=== PATIENT | female | born 1945 | race Two or more races ===

== ENCOUNTER 2017-06-29 15:55 | Emergency (ER) | payer MEDICARE, OTHER ==
[~2017-06-29] VITALS: Ht 152.4 cm; Wt 238.0 kg
[2017-06-29 16:01] VITALS: BP 186/70
[2017-06-29] MEDS ORDERED: PRAV10TA4 PO (16:16)
[2017-06-29] MEDS ORDERED: ROPI2TAB PO (16:16)
[2017-06-29] MEDS ORDERED: DITR1TAB PO (16:16)
[2017-06-29] MEDS ORDERED: DILT120C79 PO (16:16)
[2017-06-29] MEDS ORDERED: SERT-155 PO (16:16)
[2017-06-29] MEDS ORDERED: IBUP-1114 PO (16:16)
[2017-06-29] MEDS ORDERED: MINEOIL60 PO (16:16)
[2017-06-29] MEDS ORDERED: INSUH10VL SC (16:16)
[2017-06-29] MEDS ORDERED: FURO40TA2 PO (16:16)
[2017-06-29] MEDS ORDERED: MONT10TA2 PO (16:16)
[2017-06-29] MEDS ORDERED: INSULADS INJ (16:16)
[2017-06-29] MEDS ORDERED: LEVO125T4 PO (16:16)
[2017-06-29] MEDS ORDERED: OXYC1TAB15 PO (16:16)
[2017-06-29] MEDS ORDERED: COZA100T2 PO (16:16)
[2017-06-29] MEDS ORDERED: OMEP40CA2 PO (16:16)
[2017-06-29] MEDS ORDERED: GABA600T PO (16:16)
[2017-06-29] MEDS ORDERED: CIPR-249 PO (17:30)
[2017-06-29] MEDS ORDERED: CIPROFLOXACIN 500 MG TAB PO ONE (18:00)
[2017-08-21] MEDS ORDERED: DIABETES MED PO (12:52)
[2017-08-21] MEDS ORDERED: MOBI4TAB PO (14:33)
== END 2017-06-29 18:06 | disposition home or self-care (01) ==
LOC: M ED 15:55
DX: S40.012A Contusion of left shoulder, initial encounter (principal); L89.891 Pressure ulcer of other site, stage 1; X58.XXXA Exposure to other specified factors, initial encounter; Y92.89 Other specified places as the place of occurrence of the external cause; Y93.9 Activity, unspecified; Y99.8 Other external cause status; R30.0 Dysuria; E11.9 Type 2 diabetes mellitus without complications; Z79.4 Long term (current) use of insulin; Z87.891 Personal history of nicotine dependence

== ENCOUNTER → 2017-07-10 | Outpatient (REF) | payer MEDICARE, OTHER ==
[~2017-07-10] MED LIST: CIPR-249 PO; COZA100T2 PO; DIABETES MED PO; DILT120C79 PO; DITR1TAB PO; FURO40TA2 PO; GABA600T PO; IBUP-1114 PO; INSUH10VL SC; INSULADS INJ; LEVO125T4 PO; MINEOIL60 PO; MOBI4TAB PO; MONT10TA2 PO; OMEP40CA2 PO; OXYC1TAB15 PO; PRAV10TA4 PO; ROPI2TAB PO; SERT-155 PO
[2017-07-10 14:07] LABS: MEAN CORPUSCULAR HEMOGLOBIN 28.4 pg (27.0-33.0); MEAN CORPUSCULAR HGB CONC 32.5 g/dl (32.0-36.5); MEAN CORPUSCULAR VOLUME 87.2 fl (80.0-96.0); RED CELL DISTRIBUTION WIDTH 13.8 % (11.5-14.5); WHITE BLOOD COUNT 9.6 K/mm3 (4.0-10.0)
[2017-07-10 14:11] LABS: ALBUMIN 3.6 GM/DL (3.2-5.2); ALBUMIN/GLOBULIN RATIO 0.92 (1.00-1.93); ALKALINE PHOSPHATASE 169 U/L (45-117); ALT/SGPT 20 U/L (12-78); ANION GAP 12 MEQ/L (8-16); AST/SGOT 13 U/L (15-37); BILIRUBIN,TOTAL 0.8 MG/DL (0.2-1.0); BLOOD UREA NITROGEN 13 MG/DL (7-18); CALCIUM LEVEL 9.1 MG/DL (8.8-10.2); CARBON DIOXIDE LEVEL 29 MEQ/L (21-32); CHLORIDE LEVEL 106 MEQ/L (98-107); CHOLESTEROL LEVEL 200 MG/DL (<200); CREATININE FOR GFR 0.74 MG/DL (0.55-1.02); GLOMERULAR FILTRATION RATE > 60.0 (>39); GLUCOSE, FASTING 122 MG/DL (83-110); POTASSIUM SERUM 3.7 MEQ/L (3.5-5.1); SODIUM LEVEL 147 MEQ/L (136-145); TOTAL PROTEIN 7.5 GM/DL (6.4-8.2); TRIGLYCERIDES LEVEL 89 MG/DL (<150)
== END ==
LOC: M SFHCPLAZ 10:50
PROVIDERS: ATTEND Nurse Practitioner Adult Health
DX: I10 Essential (primary) hypertension (principal); E11.65 Type 2 diabetes mellitus with hyperglycemia; E78.2 Mixed hyperlipidemia; E03.9 Hypothyroidism, unspecified
CPT/HCPCS: 36415; 80053; 80061; 82043; 83036; 84443; 85027; G0463

== ENCOUNTER → 2017-11-27 | Outpatient (REF) | payer OTHER ==
[2017-11-27 15:41] LABS: ESTIMATED AVERAGE GLUCOSE 232 MG/DL (60-110); HEMOGLOBIN A1c 9.7 %
[2017-11-27 16:13] LABS: ALBUMIN 3.7 GM/DL (3.2-5.2); ALBUMIN/GLOBULIN RATIO 0.86 (1.00-1.93); ALKALINE PHOSPHATASE 149 U/L (45-117); ALT/SGPT 24 U/L (12-78); ANION GAP 11 MEQ/L (8-16); AST/SGOT 26 U/L (7-37); BILIRUBIN,TOTAL 1.2 MG/DL (0.2-1.0); BLOOD UREA NITROGEN 20 MG/DL (7-18); CALCIUM LEVEL 9.2 MG/DL (8.8-10.2); CARBON DIOXIDE LEVEL 26 MEQ/L (21-32); CHLORIDE LEVEL 105 MEQ/L (98-107); CHOLESTEROL LEVEL 202 MG/DL (<200); CHOLESTEROL RISK RATIO 3.311 (<5); CREATININE FOR GFR 0.77 MG/DL (0.55-1.30); GLOMERULAR FILTRATION RATE > 60.0 (>39); GLUCOSE, FASTING 142 MG/DL (70-100); HDL CHOLESTEROL 61 MG/DL (>40); NON-HDL-C 141 MG/DL; POTASSIUM SERUM 4.1 MEQ/L (3.5-5.1); SODIUM LEVEL 142 MEQ/L (136-145); TRIGLYCERIDES LEVEL 105 MG/DL (<150)
[2017-11-27 17:00] LABS: MAU/CREAT RATIO 904.6 MCG/MG (0.0-30.0)
== END ==
LOC: M SFHCPLAZ 09:16
DX: E11.65 Type 2 diabetes mellitus with hyperglycemia (principal); E03.9 Hypothyroidism, unspecified; E78.2 Mixed hyperlipidemia
CPT/HCPCS: 84443

== ENCOUNTER → 2018-01-07 | Outpatient (REF) | payer MEDICARE ==
[2018-01-07 18:06] LABS: APPEARANCE, URINE CLEAR (CLEAR); BACTERIA, URINE AUTO 1+ (NEGATIVE); BILIRUBIN, URINE AUTO NEGATIVE (NEGATIVE); BLOOD, URINE BLOOD 2+ (NEGATIVE); COLOR, URINE STRAW (YELLOW); GLUCOSE, URINE (UA) AUTO 3+ mg/dL (NEGATIVE); KETONE, URINE AUTO 1+ mg/dL (NEGATIVE); LEUKOCYTE ESTERASE, URINE AUTO TRACE (NEGATIVE); NITRITE, URINE AUTO NEGATIVE (NEGATIVE); PROTEIN, URINE AUTO 1+ mg/dL (NEGATIVE); RBC, URINE AUTO 2 /HPF (0-3); SQUAMOUS EPITHELIAL CELL UR AU 1 /HPF (0-6); UROBILINOGEN, URINE AUTO 0.2 mg/dL (0.0-2.0); WBC, URINE AUTO 11 /HPF (0-3)
== END ==
LOC: M SFHCPLAZ 16:49
DX: B37.3 Candidiasis of vulva and vagina (principal); Z79.899 Other long term (current) drug therapy
CPT/HCPCS: 81001

== ENCOUNTER 2018-03-12 12:21 | Outpatient (RCR) | payer MEDICARE | END 2018-03-26 | LOC: M PT 12:21 | DX: Z51.89 Encounter for other specified aftercare (principal); R29.6 Repeated falls | CPT/HCPCS: 97110 ==

== ENCOUNTER → 2018-03-13 | Outpatient (CLI) | payer MEDICARE | LOC: M WHC 11:02 | DX: Z12.31 Encounter for screening mammogram for malignant neoplasm of breast (principal); Z78.0 Asymptomatic menopausal state | CPT/HCPCS: 77067 ==

== ENCOUNTER → 2018-03-24 | Outpatient (CLI) | payer MEDICARE ==
[2018-03-24 12:25] LABS: FREE T4 1.74 NG/DL (0.76-1.46); THYROID STIMULATING HORMONE 0.576 uIU/ML (0.358-3.740)
[2018-03-26 00:07] LABS: TISSUE TRANSGLUTAMINASE IgA 7 U/mL (0-3)
== END ==
LOC: M LAB 11:14
DX: R19.7 Diarrhea, unspecified (principal)
CPT/HCPCS: 84443

== ENCOUNTER → 2018-03-24 | Outpatient (REF) | payer MEDICARE | LOC: M LAB REF 12:29 | DX: R19.7 Diarrhea, unspecified (principal) ==

== ENCOUNTER 2018-03-31 14:30 | Outpatient (RCR) | payer MEDICARE | END 2018-04-25 | LOC: M PT 14:30 | DX: Z51.89 Encounter for other specified aftercare (principal); R29.6 Repeated falls | CPT/HCPCS: 97110 ==

== ENCOUNTER 2018-04-13 06:19 | Day surgery (SDC) | payer MEDICARE ==
[2018-04-13] MEDS: NS 1,000 ML IV (07:14)
[2018-04-13] MEDS ORDERED: LIDOCAINE 2% INJ 100 MG/5 ML SDV (FOR ANES.) As Ordered (07:18)
[2018-04-13] MEDS ORDERED: PROPOFOL 200 MG/20 ML VIAL As Ordered ×2 (07:18→07:49)
== END 2018-04-13 08:35 | disposition home or self-care (01) ==
LOC: M OPP 06:19
DX: D12.3 Benign neoplasm of transverse colon (principal); K64.8 Other hemorrhoids; K57.30 Diverticulosis of large intestine without perforation or abscess without bleeding; R19.7 Diarrhea, unspecified; R19.4 Change in bowel habit; E10.9 Type 1 diabetes mellitus without complications; I10 Essential (primary) hypertension; E03.9 Hypothyroidism, unspecified; F41.9 Anxiety disorder, unspecified; F32.9 Major depressive disorder, single episode, unspecified; R32 Unspecified urinary incontinence; Z79.4 Long term (current) use of insulin; Z79.899 Other long term (current) drug therapy; Z88.8 Allergy status to other drugs, medicaments and biological substances; Z87.891 Personal history of nicotine dependence
CPT/HCPCS: 45385

== ENCOUNTER → 2018-05-05 | Outpatient (CLI) | payer MEDICARE ==
[2018-05-05 13:00] LABS: ESTIMATED AVERAGE GLUCOSE 214 MG/DL (60-110); HEMOGLOBIN A1c 9.1 %
[2018-05-05 13:19] LABS: ALBUMIN 3.6 GM/DL (3.2-5.2); ALBUMIN/GLOBULIN RATIO 1.06 (1.00-1.93); ALKALINE PHOSPHATASE 130 U/L (45-117); ALT/SGPT 16 U/L (12-78); ANION GAP 7 MEQ/L (8-16); AST/SGOT 12 U/L (7-37); BILIRUBIN,TOTAL 0.7 MG/DL (0.2-1.0); BLOOD UREA NITROGEN 22 MG/DL (7-18); CALCIUM LEVEL 8.9 MG/DL (8.8-10.2); CARBON DIOXIDE LEVEL 29 MEQ/L (21-32); CHLORIDE LEVEL 106 MEQ/L (98-107); CHOLESTEROL LEVEL 153 MG/DL (<200); CHOLESTEROL RISK RATIO 2.637 (<5); GLOMERULAR FILTRATION RATE > 60.0 (>39); GLUCOSE, FASTING 168 MG/DL (70-100); HDL CHOLESTEROL 58 MG/DL (>40); LDL CHOLESTEROL 80.2 MG/DL (<100); NON-HDL-C 95 MG/DL; POTASSIUM SERUM 4.4 MEQ/L (3.5-5.1); SODIUM LEVEL 142 MEQ/L (136-145); TRIGLYCERIDES LEVEL 74 MG/DL (<150)
[2018-05-05 13:20] LABS: CREATININE, URINE 22.4 MG/DL; MAU/CREAT RATIO 459.8 MCG/MG (0.0-30.0)
[2018-05-07 00:09] LABS: IgG P18 AB Absent (.); IgG P23 AB Absent (.); IgG P28 AB Absent (.); IgG P30 AB Absent (.); IgG P39 AB Absent (.); IgG P41 AB Present (.); IgG P45 AB Absent (.); IgG P58 AB Absent (.); IgG P66 AB Absent (.); IgG P93 AB Absent (.); IgM P23 AB Absent (.); IgM P39 AB Absent (.); IgM P41 AB Absent (.); LYME IgG WB INTERPRETATION Negative (.); LYME IgM WB INTERPRETATION Negative (.)
== END ==
LOC: M LAB 11:31
DX: E11.65 Type 2 diabetes mellitus with hyperglycemia (principal); E78.2 Mixed hyperlipidemia; E03.9 Hypothyroidism, unspecified; W57.XXXD Bitten or stung by nonvenomous insect and other nonvenomous arthropods, subsequent encounter; Y92.89 Other specified places as the place of occurrence of the external cause
CPT/HCPCS: 84443

== ENCOUNTER 2018-06-05 11:55 | Day surgery (SDC) | payer MEDICARE ==
[~2018-06-05 11:55] MED LIST changes: -CIPR-249 PO; -COZA100T2 PO; -DIABETES MED PO; -DILT120C79 PO; -DITR1TAB PO; -FURO40TA2 PO; -GABA600T PO; -IBUP-1114 PO; -INSUH10VL SC; -INSULADS INJ; -LEVO125T4 PO; -MINEOIL60 PO; -MOBI4TAB PO; -MONT10TA2 PO; +NS 1,000 ML IV; -OMEP40CA2 PO; -OXYC1TAB15 PO; -PRAV10TA4 PO; -ROPI2TAB PO; -SERT-155 PO
[2018-06-05] MEDS ORDERED: PROPOFOL 200 MG/20 ML VIAL As Ordered (12:12)
[2018-06-05] MEDS ORDERED: LIDOCAINE 2% INJ 100 MG/5 ML SDV (FOR ANES.) As Ordered (12:12)
[2018-06-05 13:04] LABS: BEDSIDE GLUCOSE 231 MG/DL (83-110)
[2018-06-05] MEDS ORDERED: fentaNYL 100 MCG/2 ML INJECTION (J3010) As Ordered (13:16)
[2018-06-05] MEDS ORDERED: MIDAZOLAM INJ 2 MG/2 ML VIAL (J2250) As Ordered (13:16)
== END 2018-06-05 14:20 | disposition home or self-care (01) ==
LOC: M OPP 11:55
DX: R76.8 Other specified abnormal immunological findings in serum (principal); K29.70 Gastritis, unspecified, without bleeding; G47.30 Sleep apnea, unspecified; I10 Essential (primary) hypertension; E03.9 Hypothyroidism, unspecified; F32.9 Major depressive disorder, single episode, unspecified; G62.9 Polyneuropathy, unspecified; M54.2 Cervicalgia; M12.9 Arthropathy, unspecified; R06.09 Other forms of dyspnea; Z79.4 Long term (current) use of insulin; Z79.82 Long term (current) use of aspirin; Z79.899 Other long term (current) drug therapy; Z88.8 Allergy status to other drugs, medicaments and biological substances; Z80.0 Family history of malignant neoplasm of digestive organs
CPT/HCPCS: 43239

== ENCOUNTER → 2018-07-01 | Outpatient (REF) | payer OTHER, MEDICARE | LOC: M SFHCPLAZ 17:15 | DX: R30.9 Painful micturition, unspecified (principal) | CPT/HCPCS: 87186 ==

== ENCOUNTER → 2018-07-15 | Outpatient (REF) | payer OTHER ==
[2018-07-15 19:00] LABS: ESTIMATED AVERAGE GLUCOSE 237 MG/DL (60-110); HEMOGLOBIN A1c 9.9 %
[2018-07-15 19:14] LABS: ALBUMIN 3.7 GM/DL (3.2-5.2); ALBUMIN/GLOBULIN RATIO 0.93 (1.00-1.93); ALKALINE PHOSPHATASE 131 U/L (45-117); ALT/SGPT 18 U/L (12-78); ANION GAP 10 MEQ/L (8-16); AST/SGOT 10 U/L (7-37); BILIRUBIN,TOTAL 0.9 MG/DL (0.2-1.0); BLOOD UREA NITROGEN 16 MG/DL (7-18); CALCIUM LEVEL 9.4 MG/DL (8.8-10.2); CARBON DIOXIDE LEVEL 28 MEQ/L (21-32); CHLORIDE LEVEL 103 MEQ/L (98-107); CHOLESTEROL LEVEL 168 MG/DL (<200); CHOLESTEROL RISK RATIO 2.896 (<5); CREATININE FOR GFR 0.77 MG/DL (0.55-1.30); GLOMERULAR FILTRATION RATE > 60.0 (>39); GLUCOSE, FASTING 228 MG/DL (70-100); HDL CHOLESTEROL 58 MG/DL (>40); LDL CHOLESTEROL 87 MG/DL (<100); NON-HDL-C 110 MG/DL; POTASSIUM SERUM 4.4 MEQ/L (3.5-5.1); SODIUM LEVEL 141 MEQ/L (136-145); TOTAL PROTEIN 7.7 GM/DL (6.4-8.2); TRIGLYCERIDES LEVEL 116 MG/DL (<150)
[2018-07-15 19:42] LABS: MAU/CREAT RATIO 320.5 MCG/MG (0.0-30.0)
== END ==
LOC: M SFHCPLAZ 15:59
DX: E11.65 Type 2 diabetes mellitus with hyperglycemia (principal); E78.2 Mixed hyperlipidemia; E03.9 Hypothyroidism, unspecified
CPT/HCPCS: 84443

== ENCOUNTER → 2018-08-12 | Outpatient (CLI) | payer MEDICARE, OTHER ==
[~2018-08-12] MED LIST changes: +METHACHOLINE KIT (J7674) INH; -NS 1,000 ML IV
== END ==
LOC: M CARPUL 09:00
DX: R06.02 Shortness of breath (principal)
CPT/HCPCS: J7674

== ENCOUNTER 2018-08-17 11:49 | Day surgery (SDC) | payer MEDICARE ==
[~2018-08-17 11:49] MED LIST changes: -METHACHOLINE KIT (J7674) INH; +MIDAZOLAM INJ 2 MG/2 ML VIAL (J2250) As Ordered; +fentaNYL 100 MCG/2 ML INJECTION (J3010) As Ordered
[2018-08-17 12:59] LABS: BEDSIDE GLUCOSE 116 MG/DL (83-110)
[2018-08-17] MEDS: LIDOCAINE 3.5 % 1ML OPHTH TOPICAL GEL OU (13:17)
[2018-08-17] MEDS: POVIDONE-IODINE 5% OPHTH PREP SOL 30ML As Ordered (17:20)
[2018-08-17] MEDS: LIDOCAINE 2% W/EPIN INJ 20ML **PRES FREE As Ordered (17:25)
[2018-08-17] MEDS: TETRACAINE 0.5% OPHTH SOLN 4ML As Ordered (17:37)
[2018-08-17] MEDS: ERYTHROMYCIN OPHTH OINT As Ordered ×2 (18:32)
[2018-08-17] MEDS: MAXITROL OPHTH OINT 3.5 GM As Ordered (18:37)
[2018-08-17 18:56] LABS: BEDSIDE GLUCOSE 77 MG/DL (83-110)
== END 2018-08-17 20:00 | disposition home or self-care (01) ==
LOC: M SDC 11:49
DX: H02.831 Dermatochalasis of right upper eyelid (principal); H02.834 Dermatochalasis of left upper eyelid; H02.413 Mechanical ptosis of bilateral eyelids; I10 Essential (primary) hypertension; E78.2 Mixed hyperlipidemia; E11.65 Type 2 diabetes mellitus with hyperglycemia; I87.2 Venous insufficiency (chronic) (peripheral); E03.9 Hypothyroidism, unspecified; R19.7 Diarrhea, unspecified; K21.9 Gastro-esophageal reflux disease without esophagitis; G25.81 Restless legs syndrome; R06.02 Shortness of breath; M12.9 Arthropathy, unspecified; F41.9 Anxiety disorder, unspecified; F32.9 Major depressive disorder, single episode, unspecified; G62.9 Polyneuropathy, unspecified; R06.83 Snoring; G47.30 Sleep apnea, unspecified; E66.9 Obesity, unspecified; Z68.42 Body mass index [BMI] 45.0-49.9, adult; Z88.1 Allergy status to other antibiotic agents; Z88.8 Allergy status to other drugs, medicaments and biological substances; Z79.899 Other long term (current) drug therapy; Z79.4 Long term (current) use of insulin; Z79.82 Long term (current) use of aspirin; Z98.51 Tubal ligation status; Z98.41 Cataract extraction status, right eye; Z98.42 Cataract extraction status, left eye; Z96.1 Presence of intraocular lens
CPT/HCPCS: 15823

== ENCOUNTER 2018-09-20 06:13 | Emergency (ER) | payer MEDICARE ==
[2018-09-20 07:27] LABS: VENOUS BASE EXCESS 3.5 (-2.0-2.0); VENOUS PARTIAL PRESSURE CO2 60.5 mmHg (38.0-50.0); VENOUS PARTIAL PRESSURE O2 35.4 mmHg (30.0-50.0); VENOUS PH 7.328 UNITS (7.330-7.430); VENOUS STANDARD HCO3 26.7 MEQ/L; VENOUS TOTAL CO2 32.9 MEQ/L (24.0-28.0)
[2018-09-20 07:28] LABS: VENOUS O2 SATURATION 62.8 % (60.0-80.0)
[2018-09-20 07:33] LABS: BASO # 0.1 10^3/uL (0.0-0.2); BASO % 0.5 % (0.0-1.0); EOS # 0.1 10^3/uL (0.0-0.50); EOS % 1.3 % (0.0-3.0); HEMATOCRIT 40.8 % (36.0-47.0); HEMOGLOBIN 12.8 g/dl (12.0-15.5); IMMATURE GRANULOCYTE % 0.8 % (0-3.0); LYMPH # 2.1 10^3/uL (1.5-4.5); LYMPH % 19.9 % (24.0-44.0); MEAN CORPUSCULAR HEMOGLOBIN 27.9 pg (27.0-33.0); MEAN CORPUSCULAR HGB CONC 31.4 g/dl (32.0-36.5); MEAN CORPUSCULAR VOLUME 89.1 fl (80.0-96.0); MONO # 0.6 10^3/uL (0.0-0.8); NEUTROPHILS # 7.6 10^3/uL (1.8-7.7); NEUTROPHILS % 71.5 % (36.0-66.0); PLATELET COUNT, AUTOMATED 199 10^3/uL (150-450); RED BLOOD COUNT 4.58 10^6/uL (4.00-5.40); RED CELL DISTRIBUTION WIDTH 13.7 % (11.5-14.5); WHITE BLOOD COUNT 10.6 10^3/uL (4.0-10.0)
[2018-09-20 07:35] LABS: INFLUENZA A AMPLIFICATION NEGATIVE (NEGATIVE); INFLUENZA B AMPLIFICATION NEGATIVE (NEGATIVE)
[2018-09-20 07:55] LABS: INR 0.91; PROTHROMBIN TIME 12.4 SECONDS (12.1-14.4)
[2018-09-20 07:57] LABS: ALBUMIN 3.4 GM/DL (3.2-5.2); ALBUMIN/GLOBULIN RATIO 1.06 (1.00-1.93); ALKALINE PHOSPHATASE 127 U/L (45-117); ALT/SGPT 21 U/L (12-78); ANION GAP 4 MEQ/L (8-16); AST/SGOT 12 U/L (7-37); BILIRUBIN,DIRECT 0.2 MG/DL (0.0-0.2); BILIRUBIN,TOTAL 0.7 MG/DL (0.2-1.0); BLOOD UREA NITROGEN 20 MG/DL (7-18); CARBON DIOXIDE LEVEL 31 MEQ/L (21-32); CHLORIDE LEVEL 106 MEQ/L (98-107); CPK CREATINE PHOSPHOKINASE 39 U/L (26-192); CREATININE FOR GFR 0.75 MG/DL (0.55-1.30); GLOMERULAR FILTRATION RATE > 60.0 (>39); GLUCOSE, FASTING 94 MG/DL (70-100); NT-PRO BNP 520 PG/ML (<125); POTASSIUM SERUM 3.9 MEQ/L (3.5-5.1); SODIUM LEVEL 141 MEQ/L (136-145); TOTAL PROTEIN 6.6 GM/DL (6.4-8.2); TROPONIN I 0.02 NG/ML (< 0.10)
[2018-09-20 07:58] LABS: D-DIMER QUANT 906.62 ng/ml (<500)
[2018-09-20] MEDS ORDERED: ISOVUE-370 76% 100ML VIAL (Q9967) As Ordered (08:10)
[2018-09-20 08:56] LABS: KETONE, URINE AUTO RFX NEGATIVE (NEGATIVE); MUCUS, URINE RFX SMALL (NEGATIVE); NITRITE, URINE AUTO RFX NEGATIVE (NEGATIVE); RBC, URINE AUTO RFX 4 /HPF (0-3); SPECIFIC GRAVITY UR AUTO RFX 1.021 (1.002-1.035); SQUAM EPITHELIAL CELL UR AURFX 0 /HPF (0-6); TRANSITIONAL EPITHELIAL AU RFX 1 /HPF
[2018-09-20 08:57] LABS: LEUKOCYTE ESTERASE UR AUTO RFX 2+ (NEGATIVE); WBC, URINE AUTO RFX 23 /HPF (0-3)
[2018-09-20] MEDS: FUROSEMIDE 40 MG/4 ML VIAL (J1940) IV (09:23)
== END 2018-09-20 11:15 | disposition home or self-care (01) ==
LOC: M ED 06:13
DX: I50.9 Heart failure, unspecified (principal); I11.0 Hypertensive heart disease with heart failure; E11.9 Type 2 diabetes mellitus without complications
CPT/HCPCS: Q9967

== ENCOUNTER → 2018-10-06 | Outpatient (REF) | payer MEDICARE ==
[~2018-10-06] MED LIST changes: +ASPI81TA85 PO; +CALC1TAB42 PO; +CELE40TA PO; +CENT1TAB PO; +CIPR-249 PO; +COZA100T2 PO; +DIABETES MED PO; +DILT1CAP48 PO; +DITR1TAB PO; +FURO40TA2 PO; +GABA-843 PO; +GABA600T4 PO; +GLIP5TAB8 PO; +IBUP-1022 PO; +IBUP-1114 PO; +INSUH10VL SC; +INSULADS INJ; +K-TA10TA2 PO; +LEVO125T4 PO; +METF500T13 PO; -MIDAZOLAM INJ 2 MG/2 ML VIAL (J2250) As Ordered; +MINEOIL60 PO; +MOBI4TAB PO; +MONT10TA2 PO; +NOVOINJ5 SC; +OMEP40CA2 PO; +OXYC1TAB15 PO; +PRAV10TA4 PO; +REQU2TAB3; +ROPI2TAB PO; +SERT-155 PO; +SIMV40TA2 PO; +SOMA350T PO; -fentaNYL 100 MCG/2 ML INJECTION (J3010) As Ordered
[2018-10-06 15:55] LABS: BLOOD UREA NITROGEN 25 MG/DL (7-18); CALCIUM LEVEL 8.9 MG/DL (8.8-10.2); CARBON DIOXIDE LEVEL 30 MEQ/L (21-32); CHLORIDE LEVEL 104 MEQ/L (98-107); CREATININE FOR GFR 0.79 MG/DL (0.55-1.30); GLOMERULAR FILTRATION RATE > 60.0 (>39); GLUCOSE, FASTING 135 MG/DL (70-100); NT-PRO BNP 363 PG/ML (<125); POTASSIUM SERUM 4.4 MEQ/L (3.5-5.1); SODIUM LEVEL 141 MEQ/L (136-145)
[2018-10-06 16:25] LABS: HEMOGLOBIN A1c 8.7 %
== END ==
LOC: M SFHCPLAZ 12:45
PROVIDERS: ATTEND Nurse Practitioner Adult Health
DX: I50.9 Heart failure, unspecified (principal); E11.65 Type 2 diabetes mellitus with hyperglycemia
CPT/HCPCS: 36415; 80048; 83036; 83880; G0463

== ENCOUNTER → 2018-10-14 | Outpatient (CLI) | payer MEDICARE ==
[~2018-10-14] MED LIST changes: +GABA600T PO; -GABA600T4 PO; +METHACHOLINE KIT (J7674) INH ONE
--- NOTE | 2018-10-14 14:40 | PFTRPT ---
Height: 60.00 Inches Weight: 212.00 Lbs BSA: 1.91 Diagnosis: R06.02 DATE OF PROCEDURE: 10/14/2018 ORDERING PROVIDER: Tori Rausch RN, ANP Spirometry: Pre and post bronchodilator study of excellent technical quality. Forced vital capacity reduced. FEV1 is in proportion. Obstructive index is, therefore, normal. Flow Volume Loop: Expiratory limb of the flow volume loop does suggest predominantly combined dysfunction. Favorable bronchodilator response is identified. Lung Volumes: Total lung capacity mildly reduced. Residual volume is generally in proportion. Diffusing Capacity: Diffusing capacity, although mildly reduced, is appropriate for alveolar volume. Hemoglobin: No hemoglobin available for correction. Airway Mechanics: Airway resistance and conductance are normal. IMPRESSION: Minimal restrictive ventilatory impairment, but suspect an underlying obstruction with air trapping/bronchodilator response. Mild diffusing capacity impairment. Please correlate clinically. MTDD
== END ==
LOC: M CARPUL 12:52
PROVIDERS: ATTEND Nurse Practitioner Adult Health
DX: R06.02 Shortness of breath (principal)
CPT/HCPCS: 94060; 94726; 94729; J7674

== ENCOUNTER → 2019-03-04 | Outpatient (REF) | payer MEDICARE ==
[~2019-03-04] MED LIST changes: +DILT120C78 PO; -DILT1CAP48 PO; -GABA600T PO; +GABA600T4 PO; -METHACHOLINE KIT (J7674) INH ONE
[2019-03-04 14:15] LABS: CREATININE, URINE 49.3 MG/DL
[2019-03-04 14:18] LABS: ALBUMIN 3.3 GM/DL (3.2-5.2); ALT/SGPT 22 U/L (12-78); BILIRUBIN,TOTAL 0.7 MG/DL (0.2-1.0); BLOOD UREA NITROGEN 21 MG/DL (7-18); CARBON DIOXIDE LEVEL 25 MEQ/L (21-32); CHLORIDE LEVEL 107 MEQ/L (98-107); CHOLESTEROL LEVEL 163 MG/DL (<200); CHOLESTEROL RISK RATIO 2.762 (<5); CREATININE FOR GFR 0.76 MG/DL (0.55-1.30); GLOMERULAR FILTRATION RATE > 60.0 (>39); GLUCOSE, FASTING 214 MG/DL (70-100); HDL CHOLESTEROL 59 MG/DL (>40); LDL CHOLESTEROL 88 MG/DL (<100); NON-HDL-C 104 MG/DL; POTASSIUM SERUM 4.9 MEQ/L (3.5-5.1); SODIUM LEVEL 140 MEQ/L (136-145); TOTAL PROTEIN 6.9 GM/DL (6.4-8.2); TRIGLYCERIDES LEVEL 80 MG/DL (<150)
== END ==
LOC: M SFHCPLAZ 11:27
PROVIDERS: ATTEND Nurse Practitioner Adult Health
DX: E11.65 Type 2 diabetes mellitus with hyperglycemia (principal); E78.2 Mixed hyperlipidemia; E03.9 Hypothyroidism, unspecified

== ENCOUNTER → 2019-05-13 | Outpatient (REF) | payer MEDICARE ==
[2019-05-13 12:56] LABS: ALBUMIN 3.4 GM/DL (3.2-5.2); ALT/SGPT 24 U/L (12-78); BILIRUBIN,TOTAL 0.8 MG/DL (0.2-1.0); BLOOD UREA NITROGEN 27 MG/DL (7-18); CALCIUM LEVEL 9.2 MG/DL (8.8-10.2); CARBON DIOXIDE LEVEL 29 MEQ/L (21-32); CHLORIDE LEVEL 103 MEQ/L (98-107); CHOLESTEROL LEVEL 178 MG/DL (<200); CHOLESTEROL RISK RATIO 3.178 (<5); CREATININE FOR GFR 0.91 MG/DL (0.55-1.30); GLOMERULAR FILTRATION RATE > 60.0 (>39); GLUCOSE, FASTING 259 MG/DL (70-100); HDL CHOLESTEROL 56 MG/DL (>40); LDL CHOLESTEROL 96 MG/DL (<100); MAU/CREAT RATIO 279.6 MCG/MG (0.0-30.0); NON-HDL-C 122 MG/DL; POTASSIUM SERUM 4.1 MEQ/L (3.5-5.1); SODIUM LEVEL 140 MEQ/L (136-145); TOTAL PROTEIN 7.5 GM/DL (6.4-8.2); TRIGLYCERIDES LEVEL 128 MG/DL (<150)
[2019-05-13 13:22] LABS: HEMOGLOBIN A1c 11.6 %
== END ==
LOC: M SFHCPLAZ 10:47
PROVIDERS: ATTEND Nurse Practitioner Adult Health
DX: E78.2 Mixed hyperlipidemia (principal); E11.65 Type 2 diabetes mellitus with hyperglycemia; E03.9 Hypothyroidism, unspecified
CPT/HCPCS: 36415; 80053; 80061; 82043; 83036; 84443; G0463

== ENCOUNTER 2019-07-24 12:06 | Emergency (ER) | payer MEDICARE ==
[~2019-07-24] VITALS: Ht 152.4 cm; Wt 96.4 kg
[2019-07-24] MEDS ORDERED: OXYMETAZOLINE NASAL SPRAY (AFRIN) STA (13:17)
[2019-07-24] MEDS ORDERED: ACETAMINOPHEN TAB 650MG DOSE (2X325MG) PO ONE (13:30)
[2019-07-24 13:51] LABS: HEMATOCRIT 43.1 % (36.0-47.0); HEMOGLOBIN 13.8 g/dl (12.0-15.5); MEAN CORPUSCULAR HEMOGLOBIN 27.4 pg (27.0-33.0); MEAN CORPUSCULAR VOLUME 85.7 fl (80.0-96.0); PLATELET COUNT, AUTOMATED 225 10^3/uL (150-450); RED BLOOD COUNT 5.03 10^6/uL (4.00-5.40); WHITE BLOOD COUNT 10.3 10^3/uL (4.0-10.0)
[2019-07-24 14:38] VITALS: BP 164/76
== END 2019-07-24 15:04 | disposition home or self-care (01) ==
LOC: M ED 12:06
DX: R04.0 Epistaxis (principal); I11.0 Hypertensive heart disease with heart failure; I50.9 Heart failure, unspecified; E11.9 Type 2 diabetes mellitus without complications; E03.9 Hypothyroidism, unspecified; E78.5 Hyperlipidemia, unspecified; Z79.899 Other long term (current) drug therapy; Z79.890 Hormone replacement therapy; Z79.82 Long term (current) use of aspirin; Z79.4 Long term (current) use of insulin; Z88.1 Allergy status to other antibiotic agents; Z88.8 Allergy status to other drugs, medicaments and biological substances; Z87.891 Personal history of nicotine dependence

== ENCOUNTER 2019-09-19 17:33 | Emergency (ER) | payer MEDICARE ==
[~2019-09-19] VITALS: Ht 152.4 cm; Wt 92.3 kg
[~2019-09-19 17:33] MED LIST changes: -OMEP40CA2 PO; +OMEP40CA97 PO; -SERT-155 PO; +SERT50TA29 PO; -SIMV40TA2 PO; +SIMV40TA20 PO
[2019-09-19] MEDS ORDERED: ISOVUE-370 76% 100ML VIAL (Q9967) As Ordered ONE (18:06)
--- NOTE | 2019-09-19 18:40 | REPVR ---
PROCEDURE INFORMATION: Exam: CT Head Without Contrast Exam date and time: 09/19/2019 6:10 PM Age: 73 years old Clinical history: Weakness, facial; Additional info: Parasthesia, facial, bilateral TECHNIQUE: Imaging protocol: Computed tomography of the head without contrast. Radiation optimization: All CT scans at this facility use at least one of these dose optimization techniques: automated exposure control; mA and/or kV adjustment per patient size (includes targeted exams where dose is matched to clinical indication); or iterative reconstruction. COMPARISON: No relevant prior studies available. FINDINGS: Brain: Diffuse mild cerebral age related volume loss. Mild patchy low attenuation in the white matter compatible with mild chronic small vessel ischemic disease. No midline shift, mass, fluid collection, or evidence of hemorrhage. Small age-indeterminate lacunar infarct within the right subinsular region. Ventricles: Ventricular enlargement proportional to volume loss. Bones/joints: Unremarkable. No acute fracture. Sinuses: Visualized sinuses are unremarkable. No fluid levels. Mastoid air cells: Visualized mastoid air cells are well aerated. Soft tissues: Unremarkable. IMPRESSION: Small age-indeterminate lacunar infarct within the right subinsular region. Electronically signed by: Alex Morris On 09/19/2019 18:39:45 PM
[2019-09-19 19:33] VITALS: BP 178/79
--- NOTE | 2019-09-19 20:00 | ED PDOC ---
Post-Departure Follow-Up ct head faxed to [facility] Grzegorz Rogers MD Sep 19, 2019 20:00
--- NOTE | 2019-09-20 08:11 | REP ---
Clinical: Sarcoidosis . Comparison: 09/20/2018 . Findings: The mediastinum and cardiac silhouette are stable and within normal limits for portable technique. The lung heredia demonstrate stable chronic interstitial changes without acute consolidation, effusion, or pneumothorax. Skeletal structures are intact. Impression: No acute cardiopulmonary process appreciated. Electronically Signed by Petr Beltrán MD 09/20/2019 08:03 A
== END 2019-09-19 20:04 | disposition home or self-care (01) ==
LOC: M ED 17:33
DX: R20.2 Paresthesia of skin (principal); G89.29 Other chronic pain; M54.5 Low back pain; I63.9 Cerebral infarction, unspecified; E11.9 Type 2 diabetes mellitus without complications; I11.0 Hypertensive heart disease with heart failure; E03.9 Hypothyroidism, unspecified; Z87.891 Personal history of nicotine dependence; Z88.1 Allergy status to other antibiotic agents; Z88.2 Allergy status to sulfonamides; Z79.82 Long term (current) use of aspirin; Z79.84 Long term (current) use of oral hypoglycemic drugs; Z79.891 Long term (current) use of opiate analgesic; Z79.899 Other long term (current) drug therapy
CPT/HCPCS: 36415; 70450; 71045; 80047; 99284; Q9967

== ENCOUNTER → 2019-09-30 | Outpatient (REF) | payer MEDICARE ==
[2019-09-30 18:16] LABS: HEMOGLOBIN A1c 10.4 %
[2019-09-30 18:36] LABS: ALBUMIN 3.2 GM/DL (3.2-5.2); ALT/SGPT 21 U/L (12-78); BLOOD UREA NITROGEN 13 MG/DL (7-18); CALCIUM LEVEL 8.9 MG/DL (8.8-10.2); CARBON DIOXIDE LEVEL 30 MEQ/L (21-32); CHLORIDE LEVEL 103 MEQ/L (98-107); CHOLESTEROL LEVEL 173 MG/DL (<200); CHOLESTEROL RISK RATIO 2.661 (<5); GLOMERULAR FILTRATION RATE > 60.0 (>39); GLUCOSE, FASTING 63 MG/DL (70-100); HDL CHOLESTEROL 65 MG/DL (>40); LDL CHOLESTEROL 89 MG/DL (<100); NON-HDL-C 108 MG/DL; POTASSIUM SERUM 3.6 MEQ/L (3.5-5.1); SODIUM LEVEL 142 MEQ/L (136-145); TOTAL PROTEIN 6.9 GM/DL (6.4-8.2); TRIGLYCERIDES LEVEL 95 MG/DL (<150); VITAMIN B12 LEVEL 672 PG/ML (247-911)
== END ==
LOC: M SFHCPLAZ 14:30
PROVIDERS: ATTEND Nurse Practitioner Adult Health
DX: E03.9 Hypothyroidism, unspecified (principal); E78.2 Mixed hyperlipidemia; I10 Essential (primary) hypertension; E11.65 Type 2 diabetes mellitus with hyperglycemia; R29.6 Repeated falls

== ENCOUNTER 2019-10-07 15:31 | Inpatient (IN) | payer MEDICARE ==
[~2019-10-07] VITALS: Ht 152.4 cm; Wt 96.8 kg
[2019-10-07 16:40] LABS: BASO # 0.1 10^3/uL (0.0-0.2); BASO % 0.6 % (0.0-1.0); EOS # 0.1 10^3/uL (0.0-0.5); EOS % 0.8 % (0.0-3.0); HEMATOCRIT 44.6 % (36.0-47.0); LYMPH # 1.9 10^3/uL (1.5-5.0); LYMPH % 15.8 % (24.0-44.0); MEAN CORPUSCULAR HEMOGLOBIN 26.6 pg (27.0-33.0); MEAN CORPUSCULAR HGB CONC 31.4 g/dl (32.0-36.5); MEAN CORPUSCULAR VOLUME 84.6 fl (80.0-96.0); MONO # 0.5 10^3/uL (0.0-0.8); MONO % 4.4 % (0.0-5.0); NEUTROPHILS # 9.3 10^3/uL (1.5-8.5); NEUTROPHILS % 77.7 % (36.0-66.0); PLATELET COUNT, AUTOMATED 212 10^3/uL (150-450); RED BLOOD COUNT 5.27 10^6/uL (4.00-5.40)
[2019-10-07 16:52] LABS: INR 0.98; PROTHROMBIN TIME 12.7 SECONDS (11.8-14.0)
[2019-10-07 16:53] LABS: PARTIAL THROMBOPLASTIN TIME 27.6 SECONDS (25.0-38.4)
--- NOTE | 2019-10-07 16:54 | REP ---
CT brain: 10/07/2019. Indication: Stroke. Comparison: 09/19/2019. Technique: Unenhanced axial CT images of the brain were obtained from skull base to vertex. Findings: There is no acute intracranial hemorrhage, acute cortical infarction, mass effect or hydrocephalous. Patchy areas of cerebral hemisphere white matter hypoattenuation are redemonstrated. Age-related volume loss is noted. Hyperattenuating right MCA insular branch is noted. Dermal lesion in the left temporal parietal region is stable. Impression: No acute intracranial hemorrhage. Hyperattenuating right MCA insular branch within the Sylvian fissure without additional evidence of infarction. Sequelae of chronic microangiopathic ischemic disease. Stable lentiform dermal lesion on the left. Electronically Signed by Farzad Das DO 10/07/2019 04:46 P
[2019-10-07 17:07] LABS: BLOOD UREA NITROGEN 11 MG/DL (7-18); CREATININE FOR GFR 0.87 MG/DL (0.55-1.30); GLOMERULAR FILTRATION RATE > 60.0 (>39); GLUCOSE, FASTING 353 MG/DL (70-100); POTASSIUM SERUM 3.5 MEQ/L (3.5-5.1); SODIUM LEVEL 138 MEQ/L (136-145)
[2019-10-07 17:08] LABS: CALCIUM LEVEL 9.4 MG/DL (8.8-10.2); CARBON DIOXIDE LEVEL 28 MEQ/L (21-32); CHLORIDE LEVEL 100 MEQ/L (98-107); CK-MB VALUE MASS 3.5 NG/ML (<3.6); CPK CREATINE PHOSPHOKINASE 60 U/L (26-192); MB/CK RELATIVE INDEX 5.83 (< OR =4); TROPONIN I < 0.02 NG/ML (< 0.10)
[2019-10-07] MEDS ORDERED: ISOVUE-370 76% 100ML VIAL (Q9967) As Ordered ONE (17:10)
--- NOTE | 2019-10-07 17:38 | REPVR ---
PROCEDURE INFORMATION: Exam: CT Angiography Head With Contrast Exam date and time: 10/07/2019 5:26 PM Age: 73 years old Clinical history: Injury or trauma; Fall; Initial encounter; Blunt trauma; Head; Weakness; Additional info: Weakness left side/falling/hit head TECHNIQUE: Imaging protocol: Computed tomography angiography of the head with intravenous contrast. 3D rendering: MIP reconstructed images were created and reviewed. Radiation optimization: All CT scans at this facility use at least one of these dose optimization techniques: automated exposure control; mA and/or kV adjustment per patient size (includes targeted exams where dose is matched to clinical indication); or iterative reconstruction. Contrast material: ISOVUE 370; Contrast volume: 100 ml; Contrast route: IV; COMPARISON: CT Head without contrast 10/07/2019 4:30 PM FINDINGS: Right internal carotid artery: Unremarkable. Intracranial segment is patent with no significant stenosis. No aneurysm. Right anterior cerebral artery: Unremarkable. No occlusion or significant stenosis. No aneurysm. Right middle cerebral artery: Unremarkable. No occlusion or significant stenosis. No aneurysm. Right posterior cerebral artery: Unremarkable. No occlusion or significant stenosis. No aneurysm. Right vertebral artery: Unremarkable. No occlusion or significant stenosis. No aneurysm. Left internal carotid artery: Unremarkable. Intracranial segment is patent with no significant stenosis. No aneurysm. 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 The remaining left anterior cerebral artery is patent. Left middle cerebral artery: Unremarkable. No occlusion or significant stenosis. No aneurysm. Left posterior cerebral artery: Unremarkable. No occlusion or significant stenosis. No aneurysm. Left vertebral artery: Unremarkable. No occlusion or significant stenosis. No aneurysm. Basilar artery: Unremarkable. No occlusion or significant stenosis. No aneurysm. IMPRESSION: No acute abnormality. Electronically signed by: Tristan Tam On 10/07/2019 17:38:03 PM
--- NOTE | 2019-10-07 17:42 | REPVR ---
PROCEDURE INFORMATION: Exam: CT Angiography Neck With Contrast Exam date and time: 10/07/2019 5:26 PM Age: 73 years old Clinical history: Weakness; Additional info: Weakness left side/falling/hit head TECHNIQUE: Imaging protocol: Computed tomography angiography of the neck with intravenous contrast. 3D rendering: MIP reconstructed images were created and reviewed. Radiation optimization: All CT scans at this facility use at least one of these dose optimization techniques: automated exposure control; mA and/or kV adjustment per patient size (includes targeted exams where dose is matched to clinical indication); or iterative reconstruction. Contrast material: ISOVUE 370; Contrast volume: 100 ml; Contrast route: IV; COMPARISON: No relevant prior studies available. FINDINGS: VASCULATURE: Right common carotid artery: Unremarkable. No stenosis. No dissection or occlusion. Right internal carotid artery: Atherosclerotic calcifications are present at the right carotid bifurcation and within the proximal right internal carotid artery. This is causing less than 25% stenosis. Right external carotid artery: There is mild stenosis of the right external carotid artery origin. Right vertebral artery: Unremarkable. No stenosis. No dissection or occlusion. Left common carotid artery: Unremarkable. No stenosis. No dissection or occlusion. Left internal carotid artery: Atherosclerotic calcifications are present at the left carotid bifurcation and within the proximal left internal carotid artery. This is causing less than 25% stenosis. Left external carotid artery: Unremarkable. No occlusion or stenosis of the origin. Left vertebral artery: Unremarkable. No stenosis. No dissection or occlusion. NECK: Bones/joints: Severe degenerative changes of the left shoulder are present. Moderate degenerative changes of the cervical spine are present. Soft tissues: Normal. No significant soft tissue swelling. IMPRESSION: 1. No acute abnormality. 2. Chronic findings as discussed above. COMMENT: Reference per NASCET criteria for degree of stenosis: Mild: less than 50% stenosis. Moderate: 50-69% stenosis. Severe: 70-94% stenosis. Near occlusion: 95-99% stenosis. Electronically signed by: Tristan Tam On 10/07/2019 17:42:34 PM
[2019-10-07] MEDS ORDERED: ASPIRIN 81 MG CHEW TABLET PO ONE (19:30)
--- NOTE | 2019-10-07 19:37 | HPEPDOC ---
[facility] Medical History & Physical Date of Admission Oct 07, 2019 Date of Service: Oct 07, 2019 Primary Care Physician: Tori Rausch Attending Physician: LEXY CONTRERAS MD History and Physical TIME OF SERVICE: 9:45 PM CHIEF COMPLAINT: Fall HISTORY OF PRESENT ILLNESS: This is a 73 old female who presents with complaints of falling twice last week as a result of left-sided weakness. As a result of one of the fall. She fell on her left side. She also hit her head. As a result of the fall, she developed aching left head, and neck that radiates down to her arm, and is 5 /10 in severity. Associated symptoms include worsening of her chronic blurry vision, transientword finding difficulty earlier on today, and "chest discomfort" but not pain. She has chronic back pain & numbness in her hands with frequent dropping of objects which she attributes to carpal tunnel syndrome. She denies having nausea, vomiting, fevers or chills. REVIEW OF SYSTEMS: 12 point review of systems negative except as listed in HPI PAST MEDICAL/ SURGICAL HISTORY: IDDM History of CVA History of frequent falls Chronic hypertension Hypothyroidism Venous insufficiency Depression Restless leg syndrome Dyslipidemia Left shoulder pain Left carpal tunnel syndrome Remote history of sacral ulcer Status post back surgery CAROL/OHS with CPAP Morbid Obesity Status post back surgery 2 Status post slightly Status post bilateral cataract surgery Status post carpal tunnel surgeries, once on the left and 2 times in the right Status post bilateral blepharoplasty SOCIAL HISTORY: She is a former smoker FAMILY HISTORY: Father had typhoid fever. Mother had melanoma. Siblings have had cancer, type 2 diabetes, emphysema, colon cancer Son has seizure disorder ALLERGIES: Please see below. HOME MEDICATIONS: Please see below. PHYSICAL EXAMINATION: VITAL SIGNS: Please see below. GEN: well nourished / well developed/ NAD / sitting up in ER bed INTEGUMENT: not flushed/has multiple skin takes around the neck / has mild hyperpigmentation around the side of the neck HEENT: neck short / normocephalic / atramatic / lips acyanotic /mucus membranes moist and pink CVS: RRR/NMRG/ radial pulses intact LUNGS: lungs are clear to auscultation bilaterally on room air ABDOMEN: obese/ bowel sounds are present / soft & not tender with palpation MSK/EXTREMITIES: range of motion intact in all 4 extremities NEURO: CN 2-12 are grossly intact / speech is not dysarthric / strength 5 out of 5 PSYCH: alert and oriented to person place and time/ able to understand and follow all commands LABORATORY DATA: See below. IMAGING: CT head w & w/o contrast "Impression: No acute intracranial hemorrhage. Hyp erattenuating right MCA insular branch within the Sylvian fissure without additional evidence of infarction. Sequelae of chronic microangiopathic ischemic disease. Stable lentiform dermal lesion on the left. CT neck "IMPRESSION: 1. No acute abnormality. 2. Chronic findings as discussed above. " MRI brain " IMPRESSION: No acute intracranial abnormality. Chronic microvascular ischemic changes." MICROBIOLOGY: Please see below. ASSESSMENT: Ms. Das is a 70-year-old with a past medical history of IDDM, CAROL/OHS, chronic hypertension, hypothyroidism, depression, dyslipidemia, frequent falls, and carpal tunnel syndrome who will be admitted for evaluation of transient word finding difficulties and weakness, possibly due to a TIA. PLAN: 1. Transient slurred speech possibly due to TIA. CT of the head, CT of the head, and MRI only revealed the presence of chronic microvascular ischemic disease. Her blood pressure has been elevated and her glucose is high both of these may cause her residual neurological deficits to become worse. Plan: Admit to medical floor /control blood pressure and glucose / telemetry /fall precautions / f/u lipid panel for ACVD risk score & A1C, TSH, f/u Echo / PT/OT consult / c/w ASA, statin /the daytime team and consider Neurology consult to discuss upgrading her to dipyridamole vs ASA+Plavix for 21 days 2.Weakness/falls She has a history of weakness and falls and uses a walker baseline She reports that she just began PT and OT on an outpatient basis recently. Plan: PT and OT eval to determine if she needs to be downgraded to a wheelchair prior to discharge 3. Uncontrolled hypertension Plan: Continue with current dose of losartan, furosemide and diltiazem and add 5 mg of amlodipine at night / she may benefit from an outpatient ambulatory blood pressure monitor to help titrate her meds 4. Uncontrolled diabetes with neuropathy? Plan: diabetic diet / f/u accuchecks & A1C / continue with glipizide, metformin, Humulin NPH 25 units twice a day / hypoglycemia protocol / sliding scale insulin / continue gabapentin for possible neuropathy 5. Leukocytosis Possibly reactive due to the fall. She does not need pressors criteria. Plan: Monitor vitals and follow up CBC in the morning 6. Hypothyroidism Plan: Continue levothyroxine 7. Depression Plan: Continue citalopram 8. Restless leg syndrome Plan: Continue ropinirole 9. Dyslipidemia Plan: Continue statin 10. CAROL/OHS. Plan: May use, on CPAP. 11. Morbid Obesity BMI is 41.7 This complicates care She also has coexisting diabetes and sleep apnea Plan: can f/u w PCP for side laster staple consult DVT prophylaxis with Lovenox. Disposition likely home after more than 2 midnight's stay, anticipate her comorbidities including difficulties walking willl make discharge planning more complex a PFS consult has been placed (she may need a home health aide and a home RN to check her BP and help her with her DM meds) Vital Signs Vital Signs Date Time Temp Pulse Resp B/P (MAP) Pulse Ox O2 Delivery O2 Flow Rate FiO2 10/07/19 15:31 96.2 82 18 195/85 (121) 91 Room Air Laboratory Data Labs 24H Laboratory Tests 2 10/07/19 16:29: Immature Granulocyte % (Auto) 0.7, Neutrophils (%) (Auto) 77.7H, Lymphocytes (%) (Auto) 15.8L, Monocytes (%) (Auto) 4.4, Eosinophils (%) (Auto) 0.8, Basophils (% ) (Auto) 0.6, Neutrophils # (Auto) 9.3H, Lymphocytes # (Auto) 1.9, Monocytes # (Auto) 0.5, Eosinophils # (Auto) 0.1, Basophils # (Auto) 0.1, Nucleated Red Blood Cells % (auto) 0.0, Prothrombin Time 12.7, Prothromb Time International Ratio 0.98, Activated Partial Thromboplast Time 27.6, Anion Gap 10, Glomerular Filtration Rate > 60.0, Calcium Level 9.4, Total Creatine Kinase 60, Creatine Kinase MB 3.5, Creatine Kinase MB Relative Index 5.83H, Troponin I < 0.02 10/07/19 17:49: Urine Color COLORLESS, Urine Appearance CLEAR, Urine pH 6.0, Urine Specific [place] 1.008, Urine Protein NEGATIVE, Urine Glucose (UA) 3+H, Urine Ketones NEGATIVE, Urine Blood NEGATIVE, Urine Nitrite NEGATIVE, Urine Bilirubin NEGATIVE, Urine Urobilinogen 0.2, Urine Leukocyte Esterase NEGATIVE, Urine WBC (Auto) 0, Urine RBC (Auto) 0, Urine Hyaline Casts (Auto) 0, Urine Bacteria (Auto) NEGATIVE, Urine Squamous Epithelial Cells 0, Urine Sperm (Auto) CBC/BMP Laboratory Tests 10/07/19 16:29 Home Medications Scheduled Aspirin (Aspir 81) 81 Mg Tab, 162 MG PO DAILY Calcium Carbonate/Vitamin D3 (Calcium 500-Vit D3 600 Tablet) 1 Tab Tab, 1 TAB PO DAILY Citalopram Hydrobromide (Celexa) 40 Mg Tab, 20 MG PO DAILY Diltiazem HCl (Diltiazem 24Hr ER) 120 Mg Cap, 120 MG PO DAILY Furosemide (Furosemide) 40 Mg Tab, 40 MG PO DAILY Gabapentin (Gabapentin) 300 Mg Cap, 300 MG PO QAM Gabapentin (Gabapentin) 300 Mg Capsule, 600 MG PO QHS Glipizide (Glipizide ER) 10 Mg Tab.er.24, 10 MG PO DAILY Insulin Human NPH (Humulin N) 100 Unit/1 Ml Vial, 25 UNITS SC BID Levothyroxine Sodium (Levoxyl) 175 Mcg Tablet, 175 MCG PO DAILY Losartan Potassium (Cozaar) 100 Mg Tab, 100 MG PO DAILY Metformin HCl (Metformin HCl ER) 500 Mg Tab.er.24h, 500 MG PO BID Multivit-Min/FA/Lycopen/Lutein (Centrum Silver Tablet) 1 Tab Tab, 1 TAB PO DAILY Omeprazole (Omeprazole) 40 Mg Cap, 40 MG PO DAILY Potassium Chloride (Potassium Chloride) 10 Meq Tab.er.prt, 10 MEQ PO DAILY Ropinirole HCl (Ropinirole HCl) 2 Mg Tablet, 2 MG PO QHS Simvastatin (Simvastatin) 20 Mg Tablet, 20 MG PO QHS Allergies Coded Allergies: cefaclor (Verified Allergy, Severe, resp distress, 07/24/19) cyclobenzaprine (Verified Allergy, Severe, resp distress, 07/24/19) erythromycin base (Verified Allergy, Severe, resp distress, 07/24/19) A-FIB/CHADSVASC A-FIB History Current/History of A-Fib/PAF?: No Current PO Anticoag Therapy: No LEXY CONTRERAS MD Oct 07, 2019 19:36
[2019-10-07] MEDS: PRAVASTATIN 20 MG TAB PO SCH (20:06)
--- NOTE | 2019-10-07 20:07 | REPVR ---
PROCEDURE INFORMATION: Exam: MR Head Without Contrast Exam date and time: 10/07/2019 5:57 PM Age: 73 years old Clinical history: Walking, difficulty; Additional info: Frequent falls/left sided weakness TECHNIQUE: Imaging protocol: MR of the head without contrast. COMPARISON: CT Head without contrast 10/07/2019 4:30 PM FINDINGS: Limitations: Motion artifact degrades the images. Brain: Mild chronic microvascular ischemic changes. No acute infarct. Ventricles: Normal. No ventriculomegaly. Bones/joints: Unremarkable. Soft tissues: Unremarkable. Sinuses: Normal as visualized. No acute sinusitis. Mastoid air cells: Normal as visualized. No mastoid effusion. Orbits: Bilateral cataract surgery. IMPRESSION: No acute intracranial abnormality. Chronic microvascular ischemic changes. Electronically signed by: Geoff Reich On 10/07/2019 20:07:48 PM
[2019-10-07 20:10] LABS: HEMOGLOBIN A1c 10.6 %; THYROID STIMULATING HORMONE 0.586 uIU/ML (0.358-3.740)
[2019-10-07] MEDS ORDERED: POTA10TA17 PO (20:24)
[2019-10-07] MEDS ORDERED: GLIP10TA18 PO (20:24)
[2019-10-07] MEDS ORDERED: ROPI2TAB PO (20:24)
[2019-10-07] MEDS ORDERED: GABA-843 PO (20:24)
[2019-10-07] MEDS ORDERED: LEVO175T19 PO (20:24)
[2019-10-07] MEDS ORDERED: SIMV20TA22 PO (20:24)
[2019-10-07] MEDS ORDERED: METF-791 PO (20:24)
[2019-10-07] MEDS ORDERED: INSUNSD SC (20:24)
[2019-10-07] MEDS ORDERED: GLUCOSE 4 GM CHEW TABLET PO PRN (21:45)
[2019-10-07] MEDS ORDERED: DEXTROSE 50% 50 ML SYRINGE IV PRN (21:45)
[2019-10-07] MEDS ORDERED: GLUCAGON FOR INJ 1 MG VIAL (J1610) SC PRN (21:45)
[2019-10-08] MEDS: GABAPENTIN 300 MG CAP PO SCH ×3 (01:11→21:14)
[2019-10-08] MEDS: rOPINIRole 2MG TAB PO SCH ×2 (01:11→22:36)
[2019-10-08] MEDS: HumaLOG INSULIN (NovoLOG) PER UNIT SC SCH ×5 (01:13→21:00)
[2019-10-08] MEDS: HumuLIN N INSULIN (NovoLIN N) PER UNIT SC SCH ×3 (01:14→21:14)
[2019-10-08] MEDS ORDERED: HumaLOG INSULIN (NovoLOG) PER UNIT SC ONE (01:15)
[2019-10-08] MEDS: LEVOTHYROXINE 25MCG TABLET (0.025MG) PO SCH (06:14)
[2019-10-08] MEDS: LEVOTHYROXINE 150MCG TABLET (0.15MG) PO SCH (06:14)
[2019-10-08 07:58] LABS: CHOLESTEROL RISK RATIO 2.526 (<5)
[2019-10-08 08:00] VITALS: BP 135/61
[2019-10-08] MEDS: ASPIRIN 81 MG CHEW TABLET PO SCH (09:08)
[2019-10-08] MEDS: ENOXAPARIN 40 MG/0.4 ML SYRINGE (J1650) SC SCH (09:08)
[2019-10-08] MEDS: OMEPRAZOLE 20 MG CAP PO SCH (09:09)
[2019-10-08] MEDS: POTASSIUM CHLORIDE 10 MEQ SR TABLET PO SCH (09:09)
[2019-10-08] MEDS: LOSARTAN 50 MG TAB PO SCH (09:09)
[2019-10-08] MEDS: CitaloPRAM (CeleXA) 20 MG TAB PO SCH (09:10)
[2019-10-08] MEDS: FUROSEMIDE 40 MG TAB PO SCH (09:10)
[2019-10-08] MEDS: glipiZIDE XL 5 MG TABCR PO SCH (10:54)
[2019-10-08] MEDS: metFORMIN XR 500MG TAB *GLUCOPHAGE XR PO SCH ×2 (10:54→22:37)
[2019-10-08 14:00] VITALS: BP 146/55
--- NOTE | 2019-10-08 19:13 | IPNPDOC ---
Text Note Date of Service The patient was seen on 10/08/19. NOTE Subjective: -Feels well today, no headaches that she has had a for a while now Objective VITAL SIGNS: Please see below. GEN: well nourished / well developed/ NAD / sitting up in ER bed INTEGUMENT: skin tags around neck, and one large one on L side of head HEENT: NCAT, PERRLA, EOMI, MMM CVS: RRR/NMRG/ radial pulses intact LUNGS: lungs are clear to auscultation bilaterally on room air ABDOMEN: obese/ bowel sounds are present / soft & not tender with palpation MSK/EXTREMITIES: range of motion intact in all 4 extremities NEURO: CN 2-12 are grossly intact / speech is not dysarthric / strength 5 out of 5 PSYCH: alert and oriented to person place and time/ able to understand and follow all commands LABORATORY DATA: See below. IMAGING: CT head w & w/o contrast "Impression: No acute intracranial hemorrhage. Hyperattenuating right MCA insular branch within the Sylvian fissure without add itional evidence of infarction. Sequelae of chronic microangiopathic ischemic disease. Stable lentiform dermal lesion on the left. CT neck "IMPRESSION: 1. No acute abnormality. 2. Chronic findings as discussed above. " MRI brain " IMPRESSION: No acute intracranial abnormality. Chronic microvascular ischemic changes." MICROBIOLOGY: Please see below. ASSESSMENT: Ms. Das is a 70-year-old with a past medical history of IDDM, CAROL/OHS, chronic hypertension, hypothyroidism, depression, dyslipidemia, frequent falls, and carpal tunnel syndrome who will be admitted for evaluation of transient word finding difficulties and weakness, possibly due to a TIA, now back to baseline. PLAN: 1. Transient slurred speech possibly due to TIA. CT of the head, CT of the head, and MRI only revealed the presence of chronic microvascular ischemic disease. -TSH wnl -f/u Echo read -PT/OT consult -continue ASA, statin -will speak with Neurology about dipyridamole vs ASA+Plavix for 21 days? 2.Weakness/falls : She has a history of weakness and falls and uses a walker baseline -Recently began PT and OT as an outpatient -Pending PT recs on safe discharge planning 3. Hypertension -Continue with current dose of losartan, furosemide, diltiazem, 5 mg of amlodipine at night 4. Uncontrolled diabetes with neuropathy? -diabetic diet / f/u accuchecks & A1C / continue with glipizide, metformin, Humulin NPH 25 units twice a day / hypoglycemia protocol / sliding scale insulin / continue gabapentin for neuropathy 5. Leukocytosis: Possibly reactive due to the fall. -Monitor vitals and follow up CBC in the morning 6. Hypothyroidism Plan: Continue levothyroxine 7. Depression -Continue citalopram 8. Restless leg syndrome -Continue ropinirole 9. Dyslipidemia -Continue statin 10. CAROL/OHS. -CPAP. 11. Morbid Obesity BMI is 41.7 This complicates care She also has coexisting diabetes and sleep apnea Plan: can f/u w PCP for manager warehouse consult and risk stratify for bariatric surgery DVT prophylaxis with Lovenox. Disposition likely home in the AM if PT clears and have spoken with neurology. VS,Fishbone, I+O VS, Fishbone, I+O Vital Signs Date Time Temp Pulse Resp B/P (MAP) Pulse Ox O2 Delivery O2 Flow Rate FiO2 10/08/19 14:00 97.9 85 20 146/55 (85) 92 Nasal Cannula 2.0 NAIMA PELAEZ MD Oct 08, 2019 19:13
--- NOTE | 2019-10-08 19:45 | ECHO ---
DATE OF PROCEDURE: 10/08/2019 REFERRING PHYSICIAN: Dr. Alison Muniz INDICATION: Cerebrovascular accident. Height 152 cm, weight 97 kg. DIMENSIONS: IVS: 1.2 LV: 4.4 LVPW: 1.2 LA: 3.8 Aorta: 2.5 IVC: 2.1 Mitral E wave velocity: 128 A wave: 77 E prime septal: 3.5 E prime lateral: 4.1 FINDINGS: The study is of very difficult technical quality corresponding to patient's body habitus. The patient is in sinus rhythm. Left ventricle is normal size. Probably normal systolic function based on limited views. I estimate left ventricular ejection fraction (LVEF) around 65-70%. I certainly cannot rule out subtle wall motion abnormalities. Mild left ventricular hypertrophy (LVH) is present. Right ventricle is normal size and probably normal systolic function. Both atria appear at least mildly enlarged. Aortic valve is sclerotic. It was poorly visualized but appears to have normal mobility. There are also mild degenerative abnormalities of mitral valve with mitral annular calcifications and slight thickening of mitral leaflets. Mobility is preserved. Tricuspid valve appears normal. Pulmonic valve was not well seen. No pericardial effusion is noted. Inferior vena cava is mildly dilated but collapses with respiration indicative of likely mildly elevated central venous pressure. Doppler interrogation reveals competent aortic valve. There is mild mitral insufficiency. No obvious tricuspid insufficiency seen and consequently pulmonary artery pressure was not estimated. Evaluation of diastolic function based on mitral inflow pattern and tissue Doppler imaging of mitral annulus revealed grade 2 diastolic dysfunction. CONCLUSIONS: 1. Study is of fair technical quality with difficult visualization. 2. Normal LV size with mild LVH, likely normal LV systolic function and grade 2 diastolic dysfunction. 3. No hemodynamically significant valvular disease. 4. Probably at least mildly elevated central venous pressure, unable to estimate pulmonary artery pressure. COMMENT: Subacute bacterial endocarditis (SBE) prophylaxis is not recommended.
[2019-10-08] MEDS: PRAVASTATIN 20 MG TAB PO SCH (21:14)
[2019-10-08 22:00] VITALS: BP 134/72
--- NOTE | 2019-10-08 22:20 | ECGEPIP ---
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
[2019-10-09] MEDS: LEVOTHYROXINE 150MCG TABLET (0.15MG) PO SCH (05:58)
[2019-10-09] MEDS: LEVOTHYROXINE 25MCG TABLET (0.025MG) PO SCH (05:58)
[2019-10-09 06:00] VITALS: BP 142/77
[2019-10-09] MEDS: HumaLOG INSULIN (NovoLOG) PER UNIT SC SCH ×2 (07:57→12:13)
[2019-10-09] MEDS: HumuLIN N INSULIN (NovoLIN N) PER UNIT SC SCH (07:57)
[2019-10-09] MEDS: ENOXAPARIN 40 MG/0.4 ML SYRINGE (J1650) SC SCH (07:57)
[2019-10-09] MEDS: ASPIRIN 81 MG CHEW TABLET PO SCH (08:28)
[2019-10-09] MEDS: OMEPRAZOLE 20 MG CAP PO SCH (08:28)
[2019-10-09] MEDS: GABAPENTIN 300 MG CAP PO SCH (08:29)
[2019-10-09] MEDS: LOSARTAN 50 MG TAB PO SCH (08:30)
[2019-10-09] MEDS: metFORMIN XR 500MG TAB *GLUCOPHAGE XR PO SCH (08:31)
[2019-10-09] MEDS: CitaloPRAM (CeleXA) 20 MG TAB PO SCH (08:31)
[2019-10-09 08:32] VITALS: BP 130/68
[2019-10-09] MEDS: FUROSEMIDE 40 MG TAB PO SCH (08:32)
[2019-10-09] MEDS: POTASSIUM CHLORIDE 10 MEQ SR TABLET PO SCH (08:33)
[2019-10-09 08:42] VITALS: BP 130/68
[2019-10-09] MEDS: glipiZIDE XL 5 MG TABCR PO SCH (09:42)
--- NOTE | 2019-10-09 11:34 | DS.PDOC ---
Discharge Summary General Date of Admission Oct 07, 2019 at 18:26 Date of Discharge 10/09/2019 Attending Physician: NAIMA PELAEZ MD Discharge Summary PROCEDURES PERFORMED DURING STAY: None ADMITTING DIAGNOSES: 1. TIA DISCHARGE DIAGNOSES: 1. TIA w/ a history of CVA and frequent falls 2. IDDM 3. Chronic hypertension 4. Hypothyroidism 5. Depression 6. Restless leg syndrome 7. Dyslipidemia 8. Chronic left shoulder pain 9. Left carpal tunnel syndrome 10. CAROL/OHS with CPAP 11. Morbid Obesity COMPLICATIONS/CHIEF COMPLAINT: Left-Sided Weakness. HISTORY OF PRESENT ILLNESS: 73 old woman who presented with complaints of falling twice last week as a result of left-sided weakness. As a result of one of the fall. She fell on her left side and hit her head and she developed an aching left head, and neck pain that radiates down to her arm with worsening of her chronic blurry vision, transient word finding difficulty earlier on the day of admission and "chest discomfort" but not pain. Of note, she reported chronic back pain & numbness in her hands with frequent dropping of objects which she attributes to carpal tunnel syndrome. She otherwise denied having nausea, vomiting, fevers or chills. HOSPITAL COURSE: Her headache improved, word finding resolved and worked with PT that recommended for her to continue using her walker and continue home PT. In the meantime she had a head CT that was negative for an acute bleed or acute intracranial pathology and an MRI brain that showed chronic microvascular ischemic changes and CTA head and neck that did not finding clinical significant vascular disease and TTE that showed grade 2 diastolic dysfunction without a bubble study. With her exam returned to her baseline, she is now being discharged home to continue home PT and follow up with her PCP and continue ASA 81 as well as her statin. DISCHARGE MEDICATIONS: Please see below. ALLERGIES: Please see below. PHYSICAL EXAMINATION ON DISCHARGE: VITAL SIGNS: Please see below. VITAL SIGNS: Please see below. GEN: well nourished / well developed/ NAD / sitting up in ER bed INTEGUMENT: skin tags around neck, and one large one on L side of head HEENT: NCAT, PERRLA, EOMI, MMM CVS: RRR/NMRG/ radial pulses intact LUNGS: lungs are clear to auscultation bilaterally on room air ABDOMEN: obese/ bowel sounds are present / soft & not tender with palpation MSK/EXTREMITIES: range of motion intact in all 4 extremities NEURO: CN 2-12 are grossly intact / speech is not dysarthric / strength 5 out of 5 PSYCH: alert and oriented to person place and time/ able to understand and follow all commands LABORATORY DATA: Please see below. IMAGING: IMAGING: CT head w & w/o contrast "Impression: No acute intracranial hemorrhage. Hyperattenuating right MCA insular branch within the Sylvian fissure without additional evidence of infarction. Sequelae of chronic microangiopathic ischemic disease. Stable lentiform dermal lesion on the left. CTA head and neck: Right internal carotid artery: Unremarkable. Intracranial segment is patent with no significant stenosis. No aneurysm. Right anterior cerebral artery: Unremarkable. No occlusion or significant stenosis. No aneurysm. Right middle cerebral artery: Unremarkable. No occlusion or significant stenosis. No aneurysm. Right posterior cerebral artery: Unremarkable. No occlusion or significant stenosis. No aneurysm. Right vertebral artery: Unremarkable. No occlusion or significant stenosis. No aneurysm. Left internal carotid artery: Unremarkable. Intracranial segment is patent with no significant stenosis. No aneurysm. 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 The remaining left anterior cerebral artery is patent. Left middle cerebral artery: Unremarkable. No occlusion or significant stenosis. No aneurysm. Left posterior cerebral artery: Unremarkable. No occlusion or significant stenosis. No aneurysm. Left vertebral artery: Unremarkable. No occlusion or significant stenosis. No aneurysm. Basilar artery: Unremarkable. No occlusion or significant stenosis. No an eurysm. IMPRESSION: No acute abnormality. MRI brain " IMPRESSION: No acute intracranial abnormality. Chronic microvascular ischemic changes." TTE: 1. Study is of fair technical quality with difficult visualization. 2. Normal LV size with mild LVH, likely normal LV systolic function and grade 2diastolic dysfunction. 3. No hemodynamically significant valvular disease. 4. Probably at least mildly elevated central venous pressure, unable to estimate pulmonary artery pressure. PROGNOSIS: Good ACTIVITY: As tolerated DIET: 2g salt, consistent carb DISCHARGE PLAN: Home with continuing home PT DISPOSITION: Home with home PT DISCHARGE INSTRUCTIONS: 1. Home with continuing home PT and to see PCP within 7-10d ITEMS TO FOLLOWUP ON ON OUTPATIENT: 1. Management of headache if persistent DISCHARGE CONDITION: Stable TIME SPENT ON DISCHARGE: 37 minutes. Vital Signs/I&Os Vital Signs Date Time Temp Pulse Resp B/P (MAP) Pulse Ox O2 Delivery O2 Flow Rate FiO2 12/14/19 06:00 96.8 68 18 142/77 (98) 96 Nasal Cannula 0.5 I&O- Last 24 Hours up to 6 AM 10/09/19 06:00 Intake Total 790 ml Output Total 100 ml Balance 690 ml Laboratory Data Labs 24H Laboratory Tests 2 10/08/19 11:51: Bedside Glucose (Misc Panel) 164H 10/08/19 16:24: Bedside Glucose (Misc Panel) 181H 10/08/19 19:50: Bedside Glucose (Misc Panel) 215H 10/09/19 06:42: Bedside Glucose (Misc Panel) 294H FSBS Laboratory Tests Test 10/08/19 11:51 10/08/19 16:24 10/08/19 19:50 10/09/19 06:42 Range/Units Bedside Glucose (Misc Panel) 164 181 215 294 83-110 MG/DL Discharge Medications Scheduled Aspirin (Aspir 81) 81 Mg Tab, 162 MG PO DAILY, (Reported) Calcium Carbonate/Vitamin D3 (Calcium 500-Vit D3 600 Tablet) 1 Tab Tab, 1 TAB PO DAILY, (Reported) Citalopram Hydrobromide (Celexa) 40 Mg Tab, 20 MG PO DAILY, (Reported) Diltiazem HCl (Diltiazem 24Hr ER) 120 Mg Cap, 120 MG PO DAILY, (Reported) Furosemide (Furosemide) 40 Mg Tab, 40 MG PO DAILY, (Reported) Gabapentin (Gabapentin) 300 Mg Cap, 300 MG PO QAM, (Reported) Gabapentin (Gabapentin) 300 Mg Capsule, 600 MG PO QHS, (Reported) Glipizide (Glipizide ER) 10 Mg Tab.er.24, 10 MG PO DAILY, (Reported) Insulin Human NPH (Humulin N) 100 Unit/1 Ml Vial, 25 UNITS SC BID, (Reported) Levothyroxine Sodium (Levoxyl) 175 Mcg Tablet, 175 MCG PO DAILY, (Reported) Losartan Potassium (Cozaar) 100 Mg Tab, 100 MG PO DAILY, (Reported) Metformin HCl (Metformin HCl ER) 500 Mg Tab.er.24h, 500 MG PO BID, (Reported) Multivit-Min/FA/Lycopen/Lutein (Centrum Silver Tablet) 1 Tab Tab, 1 TAB PO DAILY, (Reported) Omeprazole (Omeprazole) 40 Mg Cap, 40 MG PO DAILY, (Reported) Potassium Chloride (Potassium Chloride) 10 Meq Tab.er.prt, 10 MEQ PO DAILY, (Reported) Ropinirole HCl (Ropinirole HCl) 2 Mg Tablet, 2 MG PO QHS, (Reported) Simvastatin (Simvastatin) 20 Mg Tablet, 20 MG PO QHS, (Reported) Allergies Coded Allergies: cefaclor (Verified Allergy, Severe, resp distress, 07/24/19) cyclobenzaprine (Verified Allergy, Severe, resp distress, 07/24/19) erythromycin base (Verified Allergy, Severe, resp distress, 07/24/19) NAIMA PELAEZ MD Oct 09, 2019 08:20
== END 2019-10-09 13:23 | disposition home health service (06) | DRG 69 ==
LOC: M ED 15:31 → M ED INP 18:26 → M MSPAV 10-08 08:20
PROVIDERS: ADMIT General Practice; ATTEND Internal Medicine
DX: G45.9 Transient cerebral ischemic attack, unspecified (principal); Z68.41 Body mass index [BMI] 40.0-44.9, adult; I67.89 Other cerebrovascular disease; E66.01 Morbid (severe) obesity due to excess calories; I10 Essential (primary) hypertension; E78.5 Hyperlipidemia, unspecified; G25.81 Restless legs syndrome; G47.33 Obstructive sleep apnea (adult) (pediatric); F32.9 Major depressive disorder, single episode, unspecified; R29.6 Repeated falls; E11.40 Type 2 diabetes mellitus with diabetic neuropathy, unspecified; E03.9 Hypothyroidism, unspecified; G56.02 Carpal tunnel syndrome, left upper limb; Z79.82 Long term (current) use of aspirin; Z79.899 Other long term (current) drug therapy; Z88.1 Allergy status to other antibiotic agents; Z88.8 Allergy status to other drugs, medicaments and biological substances; D72.829 Elevated white blood cell count, unspecified

== ENCOUNTER → 2019-12-30 | Outpatient (CLI) | payer MEDICARE, OTHER ==
[~2019-12-30] MED LIST changes: +GLIP10TA18 PO; +INSUNSD SC; +LEVO175T19 PO; +METF-791 PO; -MONT10TA2 PO; +MONT10TA4 PO; +POTA10TA17 PO; -ROPI2TAB PO; +ROPI2TAB3 PO; +SIMV20TA22 PO
--- NOTE | 2019-12-30 17:23 | REP ---
Digital diagnostic unilateral left breast mammography with CAD and focused left breast sonography: History: Skin wound left breast. History of improving inflammatory changes treated with antibiotics for the last two weeks. Comparison mammography March 13, 2018. Mammographic findings: An opaque BB is affixed to the skin at the site of the skin lesion. This is in the inferomedial quadrant. There are inspissated ductal type calcifications noted medially and laterally in the left breast unchanged from the comparison mammography March 13, 2018. No mass lesion is seen. No focal or regional skin thickening is seen mammographically. No soft tissue mass is seen. There are only minimal scattered fibroglandular densities. The breast is predominately fatty. No mammographic abnormality. 3-D tomography shows no additional abnormality. Sonographic findings: The inferomedial aspect of the left breast at the area of the skin lesion is observed and scanned sonographically. There is a oval-shaped area of hypoechoic dermal thickening in this location on sonography. At the level of the lesion the dermis is 5 mm thick whereas normal dermis in these images is 2 mm thick. No breast changes are seen. The sonographic findings are limited to the dermis itself. Normal fibroglandular elements are seen. Impression: There is a focal area of dermal thickening and hypoechoic change within the dermis which is nonspecific. No breast abnormality is seen by ultrasound or mammography. Clinical follow-up is advised. If symptoms in the skin fail to resolve, dermal biopsy may be warranted. BIRADS category 0 incomplete. If dermal biopsy is not performed, repeat focal left breast ultrasound suggested in 2-4 months. BIRADS 0: BI-RADS/ACR category 0 mammogram, Incomplete: Need additional imaging evaluation and/or prior mammograms for comparison. This mammogram was interpreted with the aid of an FDA-approved computer-aided detection system. The patient states she had a clinical breast exam in November 2019. The patient letter being requested is m#0. This patient's estimated Tyrer-zick lifetime risk assessment for the breast cancer is 3.6 %.
== END ==
LOC: M WHC 12:58
PROVIDERS: ATTEND Nurse Practitioner Adult Health
DX: S21.002A Unspecified open wound of left breast, initial encounter (principal)
CPT/HCPCS: 76642; 77065; G0279

== ENCOUNTER → 2020-02-09 | Outpatient (REF) | payer MEDICARE, OTHER | LOC: M LAB REF 17:39 | PROVIDERS: ATTEND Dermatology | DX: L90.5 Scar conditions and fibrosis of skin (principal) ==

== ENCOUNTER → 2020-04-12 | Outpatient (REF) | payer MEDICARE, MEDICAID ==
[~2020-04-12] MED LIST changes: -ASPI81TA85 PO; +ASPI81TA86 PO; +GABA-282 PO; -GABA-843 PO; -METF-791 PO; +METF-838 PO; +MONT10TA10 PO; -MONT10TA4 PO
[2020-04-12 14:17] LABS: AMORPHOUS SEDIMENT SMALL (NEGATIVE); APPEARANCE, URINE CLOUDY (CLEAR); BACTERIA, URINE AUTO 1+ (NEGATIVE); BILIRUBIN, URINE AUTO NEGATIVE (NEGATIVE); BLOOD, URINE BLOOD 1+ (NEGATIVE); COLOR, URINE YELLOW (YELLOW); GLUCOSE, URINE (UA) AUTO NEGATIVE (NEGATIVE); KETONE, URINE AUTO NEGATIVE (NEGATIVE); LEUKOCYTE ESTERASE, URINE AUTO 3+ (NEGATIVE); MUCUS, URINE SMALL (NEGATIVE); NITRITE, URINE AUTO NEGATIVE (NEGATIVE); PROTEIN, URINE AUTO 1+ mg/dL (NEGATIVE); RBC, URINE AUTO 13 /HPF (0-3); SQUAMOUS EPITHELIAL CELL UR AU 1 /HPF (0-6); UROBILINOGEN, URINE AUTO 0.2 mg/dL (0.0-2.0); WBC, URINE AUTO TNTC /HPF (0-3)
== END ==
LOC: M LAB REF 11:59
PROVIDERS: ATTEND Physician Assistant Medical
DX: N39.0 Urinary tract infection, site not specified (principal)

== ENCOUNTER → 2020-04-19 | Outpatient (REF) | payer MEDICARE, MEDICAID ==
[~2020-04-19] MED LIST changes: -GABA-282 PO; +GABA-843 PO; -MONT10TA10 PO; +MONT10TA4 PO
[2020-04-19 14:10] LABS: HEMOGLOBIN A1c 10.5 %
[2020-04-19 14:22] LABS: ALBUMIN 3.6 GM/DL (3.2-5.2); ALT/SGPT 23 U/L (12-78); BILIRUBIN,TOTAL 0.8 MG/DL (0.2-1.0); BLOOD UREA NITROGEN 12 MG/DL (7-18); CALCIUM LEVEL 9.4 MG/DL (8.8-10.2); CARBON DIOXIDE LEVEL 28 MEQ/L (21-32); CHLORIDE LEVEL 107 MEQ/L (98-107); CHOLESTEROL LEVEL 150 MG/DL (<200); CHOLESTEROL RISK RATIO 2.419 (<5); CREATININE FOR GFR 0.86 MG/DL (0.55-1.30); GLOMERULAR FILTRATION RATE > 60.0 (>39); GLUCOSE, FASTING 172 MG/DL (70-100); HDL CHOLESTEROL 62 MG/DL (>40); LDL CHOLESTEROL 71 MG/DL (<100); NON-HDL-C 88 MG/DL; POTASSIUM SERUM 4.2 MEQ/L (3.5-5.1); SODIUM LEVEL 142 MEQ/L (136-145); TOTAL PROTEIN 7.5 GM/DL (6.4-8.2); TRIGLYCERIDES LEVEL 83 MG/DL (<150)
[2020-04-19 14:53] LABS: CREATININE, URINE 87.8 MG/DL; MAU/CREAT RATIO 1480.6 MCG/MG (0.0-30.0)
== END ==
LOC: M SFHCPLAZ 09:42
PROVIDERS: ATTEND Nurse Practitioner Adult Health
DX: E11.65 Type 2 diabetes mellitus with hyperglycemia (principal); E78.2 Mixed hyperlipidemia; E03.9 Hypothyroidism, unspecified; I10 Essential (primary) hypertension
CPT/HCPCS: 36415; 80053; 80061; 82043; 83036; 84443; G0463

== ENCOUNTER → 2020-06-14 | Outpatient (REF) | payer MEDICARE, MEDICAID ==
[2020-06-14 18:31] LABS: APPEARANCE, URINE MANUAL HAZY (CLEAR); COLOR, URINE MANUAL YELLOW (YELLOW)
[2020-06-14 18:32] LABS: BILIRUBIN, URINE MANUAL NEGATIVE (NEGATIVE); BLOOD URINE MANUAL NEGATIVE (NEGATIVE); GLUCOSE, URINE (UA) MANUAL NEGATIVE (NEGATIVE); KETONE, URINE MANUAL NEGATIVE (NEGATIVE); LEUKOCYTE ESTERASE, URINE MAN POSITIVE (NEGATIVE); NITRITE, URINE MANUAL NEGATIVE (NEGATIVE); PROTEIN, URINE MANUAL 1+ mg/dL (NEGATIVE); UROBILINOGEN, URINE MANUAL NORMAL (NORMAL)
[2020-06-14 18:39] LABS: WBC, URINE TNTC /hpf (0-3)
[2020-06-14 18:43] LABS: BACTERIA, URINE LARGE AMOUNT; SQUAMOUS EPITHELIAL CELL URINE MOD AMOUNT /hpf (SMALL AMT); TRANSITIONAL EPI CELLS, URINE LARGE AMOUNT /hpf
[2020-06-14 18:44] LABS: HYALINE CAST, URINE NONE SEEN /lpf (0-1); MUCUS, URINE SMALL AMOUNT (NEGATIVE)
== END ==
LOC: M LAB REF 16:45
PROVIDERS: ATTEND Physician Assistant Medical
DX: N39.0 Urinary tract infection, site not specified (principal)

== ENCOUNTER 2020-07-02 12:17 | Emergency (ER) | payer OTHER, MEDICAID ==
[~2020-07-02] VITALS: Ht 152.4 cm; Wt 95.5 kg
--- NOTE | 2020-07-02 13:43 | REPVR ---
PROCEDURE INFORMATION: Exam: XR Chest, 1 View Exam date and time: 07/02/2020 1:22 PM Age: 74 years old Clinical indication: Other: Cp; Additional info: Chest pain TECHNIQUE: Imaging protocol: XR of the chest Views: 1 view. COMPARISON: CR Chest, 1 view 09/19/2019 6:16 PM FINDINGS: Lungs: The pulmonary vasculature appears mildly congested. The lungs are otherwise clear. Pleural space: Unremarkable. No pleural effusion. No pneumothorax. Heart/Mediastinum: The cardiomediastinal silhouette is fairly stable in appearance. Bones/joints: Degenerative changes again involve the spine and shoulders. IMPRESSION: Mild pulmonary vascular congestion. Electronically signed by: Charlie Summers On 07/02/2020 13:43:04 PM
--- NOTE | 2020-07-02 14:01 | REPVR ---
PROCEDURE INFORMATION: Exam: XR Right Forearm Exam date and time: 07/02/2020 1:47 PM Age: 74 years old Clinical indication: Pain; Lower or forearm; Right; Additional info: Right shoulder arm pain TECHNIQUE: Imaging protocol: XR Right forearm. Views: 2 views. COMPARISON: No relevant prior studies available. FINDINGS: Bones/joints: No acute fracture is identified. The partially evaluated wrist demonstrates mild narrowing of the radiocarpal compartment, with mild osteophyte formation about it and the 1st carpometacarpal joint. There is also mild osteophyte formation along the coronoid and posterior olecranon of the elbow. Soft tissues: The soft tissues appear grossly unremarkable. IMPRESSION: Degenerative changes as described. Electronically signed by: Charlie Summers On 07/02/2020 14:01:21 PM
--- NOTE | 2020-07-02 14:02 | REPVR ---
PROCEDURE INFORMATION: Exam: XR Right Humerus Exam date and time: 07/02/2020 1:47 PM Age: 74 years old Clinical indication: Pain; Upper arm; Right; Additional info: Right shoulder arm pain TECHNIQUE: Imaging protocol: XR Right humerus Views: 2 or more views. COMPARISON: CR Forearm Radius,Ulna RIGHT 07/02/2020 1:31 PM FINDINGS: Bones/joints: No acute fracture is identified. The acromioclavicular joint is not significantly widened. It demonstrates mild periarticular osteophyte formation. A small broad-based osteophyte is present along the undersurface of the acromion. The glenohumeral joint is normally aligned and with mild periarticular osteophyte formation. Mild productive changes are present along the greater tuberosity and medial and lateral epicondyles of the humerus. Soft tissues: The soft tissues appear grossly unremarkable. IMPRESSION: Degenerative changes as described. Electronically signed by: Charlie Summers On 07/02/2020 14:02:23 PM
[2020-07-02 14:51] LABS: BASO # 0.1 10^3/uL (0.0-0.2); BASO % 0.5 % (0.0-1.0); EOS # 0.1 10^3/uL (0.0-0.5); EOS % 0.8 % (0.0-3.0); HEMATOCRIT 42.3 % (36.0-47.0); HEMOGLOBIN 13.5 g/dl (12.0-15.5); LYMPH # 2.3 10^3/uL (1.5-5.0); LYMPH % 20.6 % (24.0-44.0); MEAN CORPUSCULAR HEMOGLOBIN 27.2 pg (27.0-33.0); MEAN CORPUSCULAR HGB CONC 31.9 g/dl (32.0-36.5); MEAN CORPUSCULAR VOLUME 85.1 fl (80.0-96.0); MONO # 0.6 10^3/uL (0.0-0.8); NEUTROPHILS % 72.6 % (36.0-66.0); PLATELET COUNT, AUTOMATED 226 10^3/uL (150-450); RED BLOOD COUNT 4.97 10^6/uL (4.00-5.40); WHITE BLOOD COUNT 11.1 10^3/uL (4.0-10.0)
[2020-07-02] MEDS ORDERED: FUROSEMIDE 40MG/4ML VIAL (J1940) IV ONE (15:00)
[2020-07-02 15:06] LABS: INR 0.96; PROTHROMBIN TIME 12.9 SECONDS (11.8-14.0)
[2020-07-02 15:19] LABS: ALBUMIN 3.5 GM/DL (3.2-5.2); ALT/SGPT 19 U/L (12-78); BILIRUBIN,DIRECT 0.2 MG/DL (0.0-0.2); BILIRUBIN,TOTAL 1.1 MG/DL (0.2-1.0); CK-MB VALUE MASS 2.2 NG/ML (<3.6); CPK CREATINE PHOSPHOKINASE 82 U/L (26-192); LIPASE 54 U/L (73-393); MB/CK RELATIVE INDEX 2.68 (< OR =4); NT-PRO BNP 455 PG/ML (<125); TOTAL PROTEIN 7.6 GM/DL (6.4-8.2); TROPONIN I < 0.02 NG/ML (< 0.10)
[2020-07-02 17:51] VITALS: BP 185/84
--- NOTE | 2020-07-12 20:41 | ECGEPIP ---
[facility] - ED Test Date: 2020-07-02 Pat Name: MELANI CABRALES Department: Room: - Gender: Female [employer]: NR : [id number] Requested By: Grzegorz Donnelly Order Number: [id number] Reading MD: Grzegorz Donnelly Measurements Intervals Waddy Rate: 73 P: 77 LA: 140 QRS: 106 QRSD: 130 T: 95 QT: 442 QTc: 490 Interpretive Statements SINUS RHYTHM WITH SINUS ARRHYTHMIA MARKED RIGHT AXIS DEVIATION RIGHT BUNDLE BRANCH BLOCK NONSPECIFIC ST/T CHANGE NO PRIOR ECG DUE TO DOWNTIME SEE SCANNED DOWNTIME REPORT
== END 2020-07-02 18:00 | disposition home or self-care (01) ==
LOC: M ED 12:17
DX: I11.0 Hypertensive heart disease with heart failure (principal); I50.9 Heart failure, unspecified; M79.601 Pain in right arm; M25.711 Osteophyte, right shoulder; E10.9 Type 1 diabetes mellitus without complications; G47.33 Obstructive sleep apnea (adult) (pediatric); Z79.899 Other long term (current) drug therapy; Z87.891 Personal history of nicotine dependence; Z88.1 Allergy status to other antibiotic agents; Z88.8 Allergy status to other drugs, medicaments and biological substances
CPT/HCPCS: 71045; 73060; 73090; 80047; 80076; 82550; 82553; 83690; 83880; 84484; 85025; 85610; 93005; 93041; 94760; 96374; 99284; J1940

== ENCOUNTER → 2020-09-27 | Outpatient (REF) | payer OTHER, MEDICAID ==
[~2020-09-27] MED LIST changes: -MONT10TA4 PO; +MONT5TAB2 PO
[2020-09-27 18:24] LABS: ALBUMIN 3.5 GM/DL (3.2-5.2); ALT/SGPT 21 U/L (12-78); BILIRUBIN,TOTAL 0.7 MG/DL (0.2-1.0); BLOOD UREA NITROGEN 16 MG/DL (7-18); CALCIUM LEVEL 9.5 MG/DL (8.8-10.2); CARBON DIOXIDE LEVEL 32 MEQ/L (21-32); CHLORIDE LEVEL 104 MEQ/L (98-107); CHOLESTEROL LEVEL 171 MG/DL (<200); CREATININE FOR GFR 0.82 MG/DL (0.55-1.30); GLOMERULAR FILTRATION RATE > 60.0 (>39); GLUCOSE, FASTING 88 MG/DL (70-100); HDL CHOLESTEROL 76 MG/DL (>40); LDL CHOLESTEROL 84 MG/DL (<100); NON-HDL-C 95 MG/DL; NT-PRO BNP 183 PG/ML (<125); POTASSIUM SERUM 4.8 MEQ/L (3.5-5.1); SODIUM LEVEL 140 MEQ/L (136-145); TOTAL PROTEIN 7.5 GM/DL (6.4-8.2); TRIGLYCERIDES LEVEL 57 MG/DL (<150)
[2020-09-27 18:44] LABS: HEMOGLOBIN A1c 10.3 %
[2020-09-27 19:01] LABS: CREATININE, URINE 49.7 MG/DL; MAU/CREAT RATIO 1024.1 MCG/MG (0.0-30.0)
== END ==
LOC: M SFHCPLAZ 13:51
PROVIDERS: ATTEND Nurse Practitioner Adult Health
DX: E11.65 Type 2 diabetes mellitus with hyperglycemia (principal); I11.0 Hypertensive heart disease with heart failure; E78.2 Mixed hyperlipidemia; I50.9 Heart failure, unspecified; E03.9 Hypothyroidism, unspecified

== ENCOUNTER 2020-12-17 12:01 | Emergency (ER) | payer OTHER, MEDICAID ==
[~2020-12-17] VITALS: Ht 142.2 cm; Wt 96.8 kg
[~2020-12-17 12:01] MED LIST changes: +GABA-282 PO; -GABA-843 PO; +MONT10TA10 PO; -MONT5TAB2 PO
--- OUTSIDE RECORDS SUMMARY | 2020-12-17 12:07 | CCD | Continuity of Care Document ---
Author Author Regla SNYDER MD Organization Unknown Address [address] [place] [id number] Phone [phone] Care Team Providers Care Ab Initio Etl Developer Name Role Phone Addison Quioñnes MD AUTM [phone] Andrez Rauschnikarolyn GRIDER AUTM [phone] Problems Active Problems Provider Date Type 2 diabetes mellitus Chaz Snyder MD Onset: 08/23 Essential hypertension Chaz Snyder MD Onset: 020 Pure hypercholesterolemia Chaz Snyder MD Onset: 07/28 Social History Type Date Description Comments Sex Unknown ETOH Use Rarely consumes alcohol Tobacco Use Start: Unknown End: Unknown Patient is a former smoker 1/2 ppd Allergies, Adverse Reactions, Alerts Active Allergies Reaction Severity Comments Date Cefaclor 08/21/2020 Erythromycin 08/21/2020 Flexeril 08/23/2020 Medications Active Medications SIG Qnty Indications Ordering Provide r Date Citalopram Hydrobromide 40mg Table ts TK 1 T PO D Unknown Humulin N 100Unit/ML Suspension Inject 25 Units bid Unknown Diclofenac Sodium 1% Gel Apply 1 Gram Topically qid To The Right Shoulder Unknown Ropinirole HCL 2mg Tablets TK One Tablet By Mouth 1 To 3 Hours Before Bedtime Unknown Trulicity 1.5mg/0.5ML Solution Pen -Inject Inject One Pen Under The Skin Once A Week Utd Un known Ciprofloxacin HCL 500mg Tablets TK 1 T PO Q 12 H For 5 Days Unknown Triamcinolone Acetonide 0.1% Ointm ent Apply Externally bid To Rash On Neck Until Gone Unknown SSD 1% Cream Alban Topically To Left Breast Twice Daily For 14 Days Unknown 0000/0 000 Immunizations Description No Information Available Vital Signs Date Vital Result Comment 08/18/2020 1:32pm Body Temperature 97.1 F Height 59.25 inches 4'11.25" Weight 203.12 lb BMI (Body Mass Index) 40.7 kg/m2 Results Description No Information Available Procedures Date Code Description Status 09/07/2020 97518 Physical Therapy Eval - Low Comp lexity Completed 09/06/2020 65345 MRI Upper Extremity Any Joint Co mpleted Medical Devices Description No Information Available Encounters Type Date Location Provider Dx Diagnosis Office Visit 10/13/2020 10:30a Marvin Snyder MD M19. 011 Primary osteoarthritis, right shoulder S46.011D Strain of musc/tend the rota tor cuff of right shoulder, subs Office Visit 08/18/2020 1:00p Marvin Snyder MD M25. 511 Pain in right shoulder M19.011 Primary osteoarthritis, righ t shoulder Assessments Date Code Description Provider 11/01/2020 M25.511 Pain in right shoulder [facility], [facility] 10/13/2020 M19.011 Primary osteoarthritis, right jane Snyder MD 10/13/2020 S46.011D Strain of muscle(s) and tendon(s) of the rotator cuff of right shoulder, subsequent encounter Chaz Snyder MD 09/07/2020 M25.511 Pain in right shoulder Shauna Lambert, [facility] 09/07/2020 M19.011 Primary osteoarthritis, right sh jane Lambert, [facility] 09/06/2020 M25.511 Pain in right shoulder Chaz Snyder MD 09/06/2020 M25.511 Pain in right shoulder MRI 08/18/2020 M25.511 Pain in right shoulder Chaz Snyder MD 08/18/2020 M19.011 Primary osteoarthritis, right sh jane Snyder MD Plan of Treatment 10/13/2020 - Chaz Snyder MD* M19.011 Primary osteoarthritis, right shoulder* Follow up:* prn. * S46.011D Strain of muscle(s) and tendon(s) of the rotator cuff of right shoulder, subsequent encounter Functional Status Description No Information Available Mental Status Description No Information Available Referrals Refer to Reason for Referral Status Appt Date PT - RECEIVED WRITTEN AUTH FOR UNL V FROM [facility] 03/07/21. BS Created CORTIZONE SHOT NO AUTH REQUI RED PER AALIYAH Thorne FOR RIGHT SHOULDER CORTIZONE SHOT ([id number]) AND KENALOG 40MG ([id number]). Created no authorization required for evaluation for phy sical therapy Closed Caar aPtino MD MRI APPROVED PER [facility] FOR MRI OF RIGHT SHOULDER ([id number]) TO MRI. DG Created [id number] [facility], [address] [place] [address] [phone]
--- OUTSIDE RECORDS SUMMARY | 2020-12-17 12:07 | CCD ---
Author Author [facility] [employer] Organization [facility] [employer] Address Unknown Phone Unavailable Care Team Providers Care Care Manager Cna Name Role Phone Tori Rausch Unavailable PROBLEMS Type Condition ICD9-CM Code [id number] Code Onset Dates Condition S tatus SNOMED Code Notes Problem Frequent falls R29.6 Active 558969815 Problem Sleep apnea, unspecified type G47.30 Active 73 159502 She has a CPAP device set at +20 cm of water. has not had her pressures checked Problem Reactive depression F32.9 Active 66145241 She has a history of depression will increase to 40 mg inlight of the o valencia 2 sons recently Problem Adult hypothyroidism E03.9 Active 09255092 Preet parr is hypothyroid on replacement therapy. Problem Decubitus ulcer of sacral region, unspecified ulcer stage L89.159 Active 492475745 Problem Essential hypertension I10 Active 82186205 She is maintained on diltiazem, losartan and Lasix therapy for her hypertension and it is controlled. Problem FDC current use of insulin Z79.4 Active 929195890 Problem Other chronic pain G89.29 Active 78108718 Problem Low back pain M54.5 Active 617580965 Problem Stress incontinence N39.3 Active 73515229 Problem History of tobacco abuse Z87.891 Active 2442844 308686 Problem Restless legs G25.81 Active 67799645 She has a history of restless leg syndrome which is treated with ropinirole 2 mg at bedtime. Problem Carpal tunnel syndrome of left wrist G56.02 Act jakob 55733682 Problem Venous insufficiency I87.2 Active 95913908 Preet parr has stasis changes of her ankles and a history of ankle edema, controlled with Lasix therapy. Problem Bilateral impacted cerumen H61.23 Active 00336 006 Problem Gastroesophageal reflux disease without esophagitis K21.9 Active 627260617 She has a history of reflux disease and is maintained on omeprazole therapy. She had an upper endoscopy in May 2018, with no pathologic findings identified. Problem BMI 45.0-49.9, adult Z68.42 Active 860905675 Problem Left shoulder pain, unspecified chronicity M25.512 Active 54530306 Problem Breast lesion N64.9 Active 833186801 Problem Dysuria R30.0 Active 36259147 Problem Abnormal mammogram 793.80 Active 623301712 Problem Type 2 diabetes mellitus with hyperglycemia E11.65 Active 57352834 She is type II diabetic maintained on metformin, NPH insulin twice daily, and glipizide therapy. Her hemoglobin A1c is suboptimal, she is going to work more diligently on diet and exercise but may require further intensification of her medications in the future. adding trulicity Problem Dermatitis L30.9 Active 498393286 Problem Mixed hyperlipidemia E78.2 Active 777435177 S he is maintained on simvastatin therapy for hypercholesterolemia with optimal lipid control as of June 2018. Problem Shortness of breath R06.02 Active 079045993 Problem Candidiasis of female genitalia B37.3 Active 419532021 Problem Acute on chronic congestive heart failure, unspecified heart failure type I50.9 Active 83441807 Problem Chronic obstructive pulmonary disease, unspecified COPD ty pe J44.9 Active 07997301 maintained with inhaleres Problem Lacunar infarction I63.81 Active 705980817 ALLERGIES Allergen (clinical drug ingredient) Drug/Non Drug Allergy do cumented on EMR Reaction Allergy Type Onset Date Status erythromycin Erythromycin([facility] Code:[address]-59) Dyspnea Drug All ergy Active ceclor respiratory Drug Allergy Active Flexeril Dyspnea Drug Allergy Active ENCOUNTERS from 1945 to 2020-10-02 Encounter Location Date Provider Diagnosis [address] [address] Sep, Tori Rausch Type 2 diabetes mellitus with hyperglyce anabel E11.65 ; Sleep apnea, unspecified type G47.30 ; Essential hypertension I10 ; Venous insufficiency I87.2 ; Gastroesophageal reflux disease without esophagitis K21.9 ; Chronic obstructive pulmonary disease, unspecified COPD type J44.9 ; Restless legs G25.81 ; Reactive depression F32.9 ; Immunization refused Z28.21 ; Mixed hyperlipidemia E78.2 and Adult hypothyroidism E03.9 IMMUNIZATIONS Vaccine Route Administration Date Status Shingrix (Pharmacy Given) IM Intramuscular Sep 07, 2020 Admin istered Influenza (18 yrs & older) Flublok IM Intramuscular Sep 30, 2019 Administered Influenza (18 yrs & older) Flublok IM Intramuscular Sep 22, 2018 Administered Influenza (High Dose 65 & up) IM Intramuscular Aug 13, 2017 A dministered Pneumococcal Adult 0.5mL (Pneumovax 23) IM Intramuscular March Administered Pneumococcal 0.5mL (Prevnar 13) IM Intramuscular Jul 15, 2018 Administered SOCIAL HISTORY Tobacco Use: Social History Observation Description Date Details (start date - stop date) Former Smoker Sex Assigned At : Social History Observation Description Sex Assigned At Unknown Education: Question Answer Notes 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 No Have you ever had an STD? No Drug and Alcohol Question Answer Notes Total Score: 0 Interpretation: No problems reported Alcohol Screening: Question Answer Notes Did you have a drink containing alcohol in the past year? Ye s Points 1 Interpretation Negative How many drinks did you have on a typica l day when you were drinking in the past year? 1 or 2 (0 points) How often did you have a drink containing alcohol in t he past year? Monthly or less (1 point) BMI Care Goal Follow-Up Question Answer Notes Above Normal BMI Follow-Up Dietary management educatio n, guidance, and counseling Tobacco Use: Question Answer Notes Are you a: former smoker How long has it been since you last smoked? > 10 years REASON FOR REFERRAL No Information VITAL SIGNS Weight 212.2 lbs Sep, Height 5'0' in Sep, BMI 41.44 kg/m2 Sep, Heart Rate 92 /min Sep, Respiratory Rate 18 /min Sep, Temperature 96.5 degrees Fahrenheit Sep, Oximetry 95 Sep, Blood pressure systolic 132 mm Hg Sep, Blood pressure diastolic 78 mm Hg Sep, MEDICATIONS Medication SIG (Take, Route, Frequency, Duration) Notes Start Da te End Date Status Ropinirole HCl 2 MG take 1 tablet by mouth 1 to 3 hours before bedtime orally Daily for 90 day(s) Active Aspirin Adult Low Dose 81 MG 2 tablets Orally Once a day Active Symbicort 160-4.5 MCG/ACT 2 puffs Inhalation Twice a day for 30 day(s) Dec, Active Celexa 40 mg 1 tab Orally Daily Acti ve Nystatin 185596 UNIT/GM 1 application to affected ar ea topically to skin under each breast Twice a day as needed Jan, Active Centrum Silver 50+Women - 1 tab Orally Daily Active Vitamin C Active Novolin N 100 UNIT/ML 25 units Subcutaneous/E11.9 twice daily fo r 90 day(s) Jul, Active Torsemide 100 MG 1/2 tablet Orally Daily for 90 days Active Fluticasone Propionate 50 MCG/ACT 1 spray in each nost ril Nasally Once a day as needed Jun, Active GlipiZIDE ER 10 MG TAKE 1 TABLET BY MOUTH DAILY for 90 Active Simvastatin 20 MG 1 tablet in the evening Orally Once a day for 90 Active Irbesartan 150 MG TAKE 1 TABLET BY MOUTH ONCE A DAY Orally Once a day for 90 days Active MetFORMIN HCl ER 500 MG 1 tab orally twice daily for 90 day(s) Active Synthroid 200 MCG 1 tablet in the morning on a n empty stomach Orally Once a day for 90 days Sep, Active Vitamin D Active Potassium Chloride ER 20 MEQ 1 tablet with food Orally Once a day for 30 day(s) Aug, Active Trulicity 1.5 MG/0.5ML as directed Subcutaneous one a week for 30 day s Active Diltiazem HCl ER Beads 120 MG 1 capsule Orally Once a day for 30 day(s) Sep, Active Neurontin 300 MG 1 capsule Orally three times daily for 90 Active Omeprazole 40 MG TAKE 1 CAPSULE BY MOUTH ONCE A DAY for 90 Active Calcium 500 + D 500-200 MG-UNIT 1 tablet with a meal Orally Once a da y Active PROCEDURES No Information RESULTS Component Value Reference Range NT-PRO BNP Reviewed date:10/01/2020 08:58:01 Interpretation: Performing Lab:[facility] [address] [address] , ,[place] [address] NT-PRO BNP 183 <125 Comprehensive Metabolic Profile (CMP) Reviewed date:10/01/2020 08:56:50 Interpretation: Performing Lab:[facility] [address] [address] , ,[place] [address] GLUCOSE, FASTING 88 70-100 BLOOD UREA NITROGEN 16 7-18 CREATININE FOR GFR 0.82 0.55-1.30 GLOMERULAR FILTRATION RATE > 60.0 >39 SODIUM LEVEL 140 136-145 POTASSIUM SERUM 4.8 3.5-5.1 CHLORIDE LEVEL 104 98-107 CARBON DIOXIDE LEVEL 32 21-32 CALCIUM LEVEL 9.5 8.8-10.2 AST/SGOT 13 7-37 ALT/SGPT 21 12-78 ALKALINE PHOSPHATASE 162 45-117 BILIRUBIN,TOTAL 0.7 0.2-1.0 TOTAL PROTEIN 7.5 6.4-8.2 ALBUMIN 3.5 3.2-5.2 ALBUMIN/GLOBULIN RATIO 0.9 1.2-2.2 HEMOGLOBIN A1c Reviewed date:10/01/2020 08:56:37 Interpretation: Performing Lab:[facility] [address] [place] [address] , ,[facility] HEMOGLOBIN A1c 10.3 ESTIMATED AVERAGE GLUCOSE 249 60-110 MICROALBUMIN RANDOM Reviewed date:10/01/2020 08:57:03 Interpretation: Performing Lab:[facility] [address] [address] , ,[place] [address] CREATININE, URINE 49.7 MALB URINE SIEMENS 509.0 TASHI/CREAT RATIO 1024.1 0.0-30.0 TSH Reviewed date:10/01/2020 08:57:19 Interpretation: Performing Lab:[facility] [address] [place] [address] , ,[facility] THYROID STIMULATING HORMONE 7.910 0.358-3.740 LIPID PANEL (CARDIAC RISK) Reviewed date:10/01/2020 08:57:38 Interpretation: Performing Lab:[facility] [address] [place] [address] , ,[place] [address] TRIGLYCERIDES LEVEL 57 <150 CHOLESTEROL LEVEL 171 <200 HDL CHOLESTEROL 76 >40 LDL CHOLESTEROL 84 <100 NON-HDL-C 95 CHOLESTEROL RISK RATIO 2.250 <5 REASON FOR VISIT follow up MEDICAL (GENERAL) HISTORY Type Description Date Medical History DM2 Medical History Sleep Apnea with CPAP Medical History Essential Hypertension Medical History Stress Incointence Medical History Hypothyroidiam Medical History Venous Insuffiency Medical History Depression Medical History Restless Lega Medical History Hyperlipidemia Medical History Frequent Falls Medical History Left Shouler Pain Medical History Left Carpal Tunnel- waiting for surgery using Percocet for Pain Medical History Obesity Medical History Unstageable Pressure Ulcer Sacral Region - resolved Medical History Back Surgery 07/09/16 [facility] Medical History family history of colon cancer Surgical History back surgery x2 Surgical History tonsillectomy Surgical History bilateral cataracts Surgical History carpal tunnel repair left x1 right x2 Surgical History Upper endoscopy 03/30/15 Surgical History colonoscopy 03/30/15 Surgical History colonoscopy 04/03/18 Surgical History Upper endoscopy 05/2018 Surgical History Bilateral blepharoplasty--Dr. Davila 07/28 Goals Section No Information Health Concerns No Information MEDICAL EQUIPMENT No Information MENTAL STATUS No Information FUNCTIONAL STATUS No Information ASSESSMENTS Encounter Date Diagnosis Assessment Notes Treatment Notes Treatm ent Clinical Notes Sep, Type 2 diabetes mellitus with hyperglycemia (ICD -10 - E11.65) She is type II diabetic maintained on metformin, NPH insulin twice daily, and glipizide therapy. Her hemoglobin A1c is suboptimal, she never started the trulicity, encouraged to start this week Sep, Sleep apnea, unspecified type (ICD-10 - G47.30) She has a CPAP device set at +20 cm of water. has not had her pressures checked Sep, Essential hypertension (ICD-10 - I10) She is maintained on diltiazem, losartan and Lasix therapy for her hypertension and it is controlled., Per JNC 8 guidelines, goal BP 150/90 if age >60, is meeting goal on current regimen. Advised heart-healthy diet, sodium restriction Sep, Venous insufficiency (ICD-10 - I87.2) She has stasis changes of her ankles and a history of ankle edema, controlled with Lasix therapy. Sep, Gastroesophageal reflux dise ase without esophagitis (ICD-10 - K21.9) She has a history of reflux disease and is maintained on omeprazole therapy. She had an upper endoscopy in May 2018, with no pathologic findings identified. Sep, Chronic obstructive pulmonar y disease, unspecified COPD type (ICD- 10 - J44.9) stable per pt. Sep, Restless legs (ICD-10 - G25.81) She has a history of restless leg syndrome which is treated with ropinirole 2 mg at bedtime. Sep, Reactive depression (ICD-10 - F32.9) She has a history of depression on celexa 40 mg helping with of her 2 sons recently Sep, Immunization refused (ICD-10 - Z28.21) states she had it at [facility] Sep, Mixed hyperlipidemia (ICD-10 - E78.2) Sep, Adult hypothyroidism (ICD-10 - E03.9) PLAN OF TREATMENT Medication Medication Name Sig Start Date Stop Date Celexa 40 mg 1 tab Orally Daily Torsemide 100 MG 1/2 tablet Orally Daily for 90 days Synthroid 200 MCG 1 tablet in the morning on a n empty stomach Orally Once a day for 90 days Sep, Trulicity 1.5 MG/0.5ML as directed Subcutaneous one a week for 3 0 days Treatment Notes Assessment Notes Clinical Notes Type 2 diabetes mellitus with hyperglycemia She is type II diabetic maintained on metformin, NPH insulin twice daily, and glipizide therapy. Her hemoglobin A1c is suboptimal,she never started the trulicity, encouraged to start this week Sleep apnea, unspecified type She has a CPAP device set at +20 cm of water. has not had her pressures checked Essential hypertension She is maintained on diltiazem, losartan and Lasix therapy for her hypertension and it is controlled., Per JNC 8 guidelines, goal BP 150/90 if age >60, is meeting goal on current regimen. Advised heart-healthy diet, sodium restriction Venous insufficiency She has stasis vyas ges of her ankles and a history of ankle edema, controlled with Lasix therapy. Gastroesophageal reflux disease without esophagitis She has a history of reflux disease and is maintained on omeprazole therapy. She had an upper endoscopy in May 2018, with no pathologic findings identified. Chronic obstructive pulmonary disease, unspecified COPD type stable per pt. Restless legs She has a history of restless leg syndrome which is treated with ropinirole 2 mg at bedtime. Reactive depression She has a history of depression on celexa 40 mg helping with of her 2 sons recently Immunization refused states she had it a t jenae Next Appt Details Tori Drooteo dm2 visitril 2020 Reason: Provider Name:Tori Rausch, 02:00:00 PM, [address] [place], [address], Provider Name:Tori Rausch, 01:00:00 PM, [address] [place] [address], [phone], Insurance Providers Payer Name Payer Address Payer Phone Insured Name Patient Relati onship to Insured Coverage Start Date Coverage End Date MEDICAID Actifi [address] [facility] [address] MELANI CABRALES self [facility] [address] [address] [facility] [address] MELANI CABRALES self
--- OUTSIDE RECORDS SUMMARY | 2020-12-17 12:07 | CCD | Continuity of Care Document ---
Author Author [facility] Organization Unknown Address [address] [place] [address], [address] [place] [address] Phone [phone] Care Team Providers Care Head End Desizing Machine Operator Name Role Phone Addison Quiñones MD AUTM [phone] Tori Rausch AUTM [phone] Problems Active Problems Provider Date Type 2 [...] Breast Twice Daily For 14 Days Unknown 0 000 Immunizations Description No Information Available Vital Signs Date Vital Result Comment 08/18/2020 1:32pm Body Temperature 97.1 F Height 59.25 inches 4'11.25" Weight 203.12 lb BMI (Body Mass Index) 40.7 kg/m2 Results Description No Information Available Procedures Date Code Description Status 09/07/2020 30874 Physical Therapy Eval - Low Comp lexity Completed 09/06/2020 56600 MRI Upper Extremity Any Joint Co mpleted Medical Devices Description No Information Available Encounters Type Date Location Provider Dx Diagnosis Office Visit 08/18/2020 1:00p [place] Chaz Snyder MD M25. 511 Pain in right shoulder M19.011 Primary osteoarthritis, righ t shoulder Assessments Date Code Description Provider 09/07/2020 M25.511 Pain in right shoulder Shauna Lambert, [facility] 09/07/2020 M19.011 Primary osteoarthritis, right sh jane Lambert, [facility] 09/06/2020 M25.511 Pain in right shoulder MRI 08/18/2020 M25.511 Pain in right shoulder Chaz Snyder MD 08/18/2020 M19.011 Primary osteoarthritis, right sh jane Snyder MD Plan of Treatment Future Appointment(s):* 10/09/2020 8:00 am - Chaz Snyder MD at [place] Functional Status Description No Information Available Mental Status Description No Information Available Referrals Refer to Reason for Referral Status Appt Date PT - RECEIVED WRITTEN AUTH FOR UNL V FROM [facility] 03/07/21. BS Created CORTIZONE SHOT NO AUTH REQUI RED PER AALIYAH Thorne FOR RIGHT SHOULDER CORTIZONE SHOT (83092) AND KENALOG 40MG (J3301.40). Created no authorization required for evaluation for phy sical therapy Closed Cara Patino MD MRI APPROVED PER [facility] FOR MRI OF RIGHT SHOULDER (81543) TO MRI. DG Created [address] [facility], [address] [place] [address] [phone]
--- OUTSIDE RECORDS SUMMARY | 2020-12-17 12:07 | CCD | Continuity of Care Document ---
Author Author Regla PUTNAM Organization Unknown Address [address] [facility], [address] [place] [address] Phone [phone] Care Team Providers Care Caltrans Equipment Operator Name Role Phone Addison Quiñones MD AUTM [phone] Tori Rausch AUTM [phone] Problems Active Problems Provider Date Type 2 [...] Available Procedures Date Code Description Status 09/07/2020 36008 Physical Therapy Eval - Low Comp lexity Completed 09/06/2020 89014 MRI Upper Extremity Any Joint Co mpleted Medical Devices Description No Information Available Encounters Type Date Location Provider Dx Diagnosis Office Visit 08/18/2020 1:00p [place] Chaz Snyder MD M25. 511 Pain in right shoulder M19.011 Primary osteoarthritis, righ t shoulder Assessments Date Code Description Provider 09/07/2020 M25.511 Pain in right shoulder [facility], [facility] 09/07/2020 M19.011 Primary osteoarthritis, right sh jane Lambert, [facility] 09/06/2020 M25.511 Pain in right shoulder Chaz Snyder MD 09/06/2020 M25.511 Pain in right shoulder MRI 08/18/2020 M25.511 Pain in right shoulder Chaz Snyder MD 08/18/2020 M19.011 Primary osteoarthritis, right sh jane Snyder MD Plan of Treatment Future Appointment(s):* 10/09/2020 8:00 am - Chaz Snyder MD at [place] Functional Status Description No Information Available Mental Status Description No Information Available Referrals Refer to Reason for Referral Status Appt Date PT - RECEIVED WRITTEN AUTH FOR UNL V FROM [facility] 03/07/21. BS Created CORTIZONE SHOT NO AUTH REQUI RED PER AALIYAH Thorne FOR RIGHT SHOULDER CORTIZONE SHOT ([id number]) AND KENALOG 40MG (J3301.40). Created no authorization required for evaluation for phy sical therapy Closed Cara Patino MD MRI APPROVED PER [facility] FOR MRI OF RIGHT SHOULDER (93809) TO MRI. DG Created [address] [place] [address], [address] [place] [address] [phone]
--- OUTSIDE RECORDS SUMMARY | 2020-12-17 12:07 | CCD | Continuity of Care Document ---
Author Author Regla SNYDER MD Organization Unknown Address [address] [place] [address] Phone [phone] Care Team Providers Care Plan Examiner Name Role Phone Addison Quiñones MD AUTM [phone] Tori Rausch AUTM [phone] Problems Active Problems Provider Date Type 2 [...] Breast Twice Daily For 14 Days Unknown /0 000 Immunizations Description No Information Available Vital Signs Date Vital Result Comment 08/18/2020 1:32pm Body Temperature 97.1 F Height 59.25 inches 4'11.25" Weight 203.12 lb BMI (Body Mass Index) 40.7 kg/m2 Results Description No Information Available Procedures Date Code Description Status 09/07/2020 26914 Physical Therapy Eval - Low Comp lexity Completed 09/06/2020 24214 MRI Upper Extremity Any Joint Co mpleted Medical Devices Description No Information Available Encounters Type Date Location Provider Dx Diagnosis Office Visit 08/18/2020 1:00p [place] Chaz Snyder MD M25. 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 shoulder, not specified as traumatic Chaz Snyder MD 09/07/2020 M25.511 Pain in right shoulder [facility], [facility] 09/07/2020 M19.011 Primary osteoarthritis, right sh jane Lambert, [facility] 09/06/2020 M25.511 Pain in right shoulder Chaz Snyder MD 09/06/2020 M25.511 Pain in right shoulder MRI 08/18/2020 M25.511 Pain in right shoulder Chaz Snyder MD 08/18/2020 M19.011 Primary osteoarthritis, right sh jane Snyder MD Plan of Treatment 10/13/2020 - Chaz Snyder MD* M19.011 Primary osteoarthritis, right shoulder * M75.121 Complete rotator cuff tear or rupture of right shoulder, not specified as traumatic* Follow up:* prn. Functional Status Description No Information Available Mental Status Description No Information Available Referrals Refer to Reason for Referral Status Appt Date PT - RECEIVED WRITTEN AUTH FOR UNL V FROM [facility] 03/07/21. BS Created CORTIZONE SHOT NO AUTH REQUI RED PER AALIYAH Thorne FOR RIGHT SHOULDER CORTIZONE SHOT () AND KENALOG 40MG ([id number]). Created no authorization required for evaluation for phy sical therapy Closed Cara Patino MD MRI APPROVED PER [facility] FOR MRI OF RIGHT SHOULDER (69787) TO MRI. DG Created [facility], [address] [place] [address] [phone]
--- OUTSIDE RECORDS SUMMARY | 2020-12-17 12:07 | CCD ---
Author Author [facility] [employer] Organization [facility] [employer] Address Unknown Phone Unavailable Care Team Providers Care Apns Name Role Phone Tori Rausch Unavailable PROBLEMS Type Condition ICD9-CM Code [id number] Code Onset Dates Condition S tatus SNOMED Code Notes Problem Frequent falls R29.6 Active 752047785 Problem Sleep apnea, unspecified type G47.30 Active 73 503646 She has a CPAP device set at +20 cm of water. has not had her pressures checked Problem Reactive depression F32.9 Active 20702093 She has a history of depression will increase to 40 mg inlight of the o valencia 2 sons recently Problem Adult hypothyroidism E03.9 Active 77684513 Preet parr is hypothyroid on replacement therapy. Problem Decubitus ulcer of sacral region, unspecified ulcer stage L89.159 Active 365939737 Problem Essential hypertension I10 Active 31486043 She is maintained on diltiazem, losartan and Lasix therapy for her hypertension and it is controlled. Problem roasterman current use of insulin Z79.4 Active 111437361 Problem Other chronic pain G89.29 Active 51979355 Problem Low back pain M54.5 Active 665369823 Problem Stress incontinence N39.3 Active 22770435 Problem History of tobacco abuse Z87.891 Active 8936410 210440 Problem Restless legs G25.81 Active 82250000 She has a history of restless leg syndrome which is treated with ropinirole 2 mg at bedtime. Problem Carpal tunnel syndrome of left wrist G56.02 Act jakob 47245957 Problem Venous insufficiency I87.2 Active 20989557 Preet parr has stasis changes of her ankles and a history of ankle edema, controlled with Lasix therapy. Problem Bilateral impacted cerumen H61.23 Active 42550 006 Problem Gastroesophageal reflux disease without esophagitis K21.9 Active 519037163 She has a history of reflux disease and is maintained on omeprazole therapy. She had an upper endoscopy in May 2018, with no pathologic findings identified. Problem BMI 45.0-49.9, adult Z68.42 Active 587650807 Problem Left shoulder pain, unspecified chronicity M25.512 Active 06893239 Problem Breast lesion N64.9 Active 940179663 Problem Dysuria R30.0 Active 35531087 Problem Abnormal mammogram 793.80 Active 425730220 Problem Type 2 diabetes mellitus with hyperglycemia E11.65 Active 61691115 She is type II diabetic maintained on metformin, NPH insulin twice daily, and glipizide therapy. Her hemoglobin A1c is suboptimal, she is going to work more diligently on diet and exercise but may require further intensification of her medications in the future. adding trulicity Problem Dermatitis L30.9 Active 974604838 Problem Mixed hyperlipidemia E78.2 Active 761524285 S he is maintained on simvastatin therapy for hypercholesterolemia with optimal lipid control as of June 2018. Problem Shortness of breath R06.02 Active 783626639 Problem Candidiasis of female genitalia B37.3 Active 110300785 Problem Acute on chronic congestive heart failure, unspecified heart failure type I50.9 Active 17410455 Problem Chronic obstructive pulmonary disease, unspecified COPD ty pe J44.9 Active 25356621 maintained with inhaleres Problem Lacunar infarction I63.81 Active 957178294 ALLERGIES Allergen (clinical drug ingredient) Drug/Non Drug Allergy do cumented on EMR Reaction Allergy Type Onset Date Status erythromycin Erythromycin([facility] Code:[address]-82) Dyspnea Drug All ergy Active ceclor respiratory Drug Allergy Active Flexeril Dyspnea Drug Allergy Active ENCOUNTERS from 1945 to 2020-10-06 Encounter Location Date Provider Diagnosis [address] [address] Sep, Tori Rausch IMMUNIZATIONS Vaccine Route Administration Date Status Shingrix [...] Education Language: Question Answer Notes Languages spoken: [employer]: Question Answer Notes [employer] Sexual Hx: Question Answer Notes Had sex [...] REASON FOR REFERRAL No Information VITAL SIGNS No information MEDICATIONS Medication SIG (Take, Route, Frequency, Duration) Notes Start Da te End Date Status Ropinirole HCl 2 MG take 1 tablet by mouth 1 to 3 hours before bedtime orally Daily for 90 day(s) Active Aspirin Adult Low Dose 81 MG 2 tablets Orally Once a day Active Symbicort 160-4.5 MCG/ACT 2 puffs Inhalation Twice a day for 30 day(s) Dec, Active Vitamin D Active Nystatin 528353 UNIT/GM 1 application to affected ar ea [...] TABLET BY MOUTH DAILY for 90 Active Celexa 40 mg 1 tab Orally Daily Acti ve Irbesartan 150 MG TAKE 1 TABLET BY MOUTH ONCE A DAY Orally Once a day for 90 days Active MetFORMIN HCl ER 500 MG 1 tab orally twice daily for 90 day(s) Active Synthroid 200 MCG 1 tablet in the morning on a n empty stomach Orally Once a day for 90 days Sep, Active Omeprazole 40 MG TAKE 1 CAPSULE BY MOUTH ONCE A DAY for 90 Active Potassium Chloride ER 20 MEQ 1 tablet with food Orally Once a day for 30 day(s) Aug, Active Trulicity 1.5 MG/0.5ML as directed Subcutaneous one a week for 30 day s Active Diltiazem HCl ER Beads 120 MG 1 capsule Orally Once a day for 30 day(s) Sep, Active Neurontin 300 MG 1 capsule Orally three times daily for 90 Active Simvastatin 20 MG 1 tablet in the evening Orally Once a day for 90 da ys Active Calcium 500 + D 500-200 MG-UNIT 1 tablet with a meal Orally Once a da y Active PROCEDURES No Information RESULTS No Results REASON FOR VISIT Statin therapy MEDICAL (GENERAL) HISTORY Type Description Date Medical [...] - resolved Medical History Back Surgery 07/09/16 [facility] Medical History family history of colon cancer [...] No Information FUNCTIONAL STATUS No Information ASSESSMENTS No Information PLAN OF TREATMENT Medication Medication Name Sig Start Date Stop Date Simvastatin 20 MG 1 tablet in the evening Orally Once a day for 90 days Torsemide 100 MG 1/2 tablet Orally Daily for 90 days Trulicity 1.5 MG/0.5ML as directed Subcutaneous one a week for 3 0 days Celexa 40 mg 1 tab Orally Daily Synthroid 200 MCG 1 tablet in the morning on a n empty stomach Orally Once a day for 90 days Sep, Next Appt Details Provider Name:Tori Rausch, 02:00:00 PM, [address] [place], [address], Provider Name:Tori Rausch, 01:00:00 PM, [address] [place], [address], Insurance Providers Payer Name Payer Address Payer Phone Insured Name Patient Relati onship to Insured Coverage Start Date Coverage End Date [employer] [address] [address] [facility] [phone] MELANI CABRALES MEDICAID [facility] [place] [address] [facility] [address] MELANI CABRALES self
--- OUTSIDE RECORDS SUMMARY | 2020-12-17 12:08 | CCD ---
Author Author [facility] Organization [facility] Address Unknown Phone Unavailable Care Team Providers Care Medical Records Coordinator Name Role Phone LEONARDO RODRIGUEZ MD Unavailable Unavailable LEONARDO RODRIGUEZ MD Unavailable Unavailable LEONARDO RODRIGUEZ MD Unavailable Unavailable LEONARDO RODRIGUEZ MD Unavailable Unavailable LEONARDO RODRIGUEZ MD Unavailable Unavailable LEONARDO RODRIGUEZ MD Unavailable Unavailable LEONARDO RODRIGUEZ MD Unavailable Unavailable LEONARDO RODRIGUEZ MD Unavailable Unavailable LEONARDO RODRIGUEZ MD Unavailable Unavailable LEONARDO RODRIGUEZ MD Unavailable Unavailable LEONARDO RODRIGUEZ MD Unavailable Unavailable LEONARDO RODRIGUEZ MD Unavailable Unavailable LEONARDO RODRIGUEZ MD Unavailable Unavailable LEONARDO RODRIGUEZ MD Unavailable Unavailable LEONARDO RODRIGUEZ MD Unavailable Unavailable LEONARDO RODRIGUEZ MD Unavailable Unavailable LEONARDO RODRIGUEZ MD Unavailable Unavailable LEONARDO RODRIGUEZ MD Unavailable Unavailable LEONARDO RODRIGUEZ MD Unavailable Unavailable LEONARDO RODRIGUEZ MD Unavailable Unavailable LEONARDO RODRIGUEZ MD Unavailable Unavailable LEONARDO RODRIGUEZ MD Unavailable Unavailable LEONARDO RODRIGUEZ MD Unavailable Unavailable LEONARDO RODRIGUEZ MD Unavailable Unavailable LEONARDO RODRIGUEZ MD Unavailable Unavailable MARKWITH, LEONARDO MICHELLE Unavailable Unavailable MARKWITH, LEONARDO MICHELLE Unavailable Unavailable MARKWITH, LEONARDO MICHELLE Unavailable Unavailable MARKWITH, LEONARDO MICHELLE Unavailable Unavailable MARKWITH, LEONARDO MICHELLE Unavailable Unavailable MARKWITH, LEONARDO MICHELLE Unavailable Unavailable MARKWITH, LEONARDO MICHELLE Unavailable Unavailable MARKWITH, LEONARDO MICHELLE Unavailable Unavailable Re-disclosure Warning The records that you are about to access may contain information from federally-assisted alcohol or drug abuse programs. If such information is present, then the following federally mandated warning applies: This information has been disclosed to you from records protected by federal confidentiality rules (42 CFR part 2). The federal rules prohibit you from making any further disclosure of this information unless further disclosure is expressly permitted by the written consent of the person to whom it pertains or as otherwise permitted by 42 CFR part 2. A general authorization for the release of medical or other information is NOT sufficient for this purpose. The Federal rules restrict any use of the information to criminally investigate or prosecute any alcohol or drug abuse patient.The records that you are about to access may contain highly sensitive health information, the redisclosure of which is protected by Article 27-F of the [facility] Public Health law. If you continue you may have access to information: Regarding HIV / AIDS; Provided by facilities licensed or operated by the [facility] Office of Mental Health; or Provided by the [facility] Office for People With Developmental Disabilities. If such information is present, then the following [facility] mandated warning applies: This information has been disclosed to you from confidential records which are protected by state law. State law prohibits you from making any further disclosure of this information without the specific written consent of the person to whom it pertains, or as otherwise permitted by law. Any unauthorized further disclosure in violation of state law may result in a fine or long term sentence or both. A general authorization for the release of medical or other information is NOT sufficient authorization for further disc losure. Allergies and Adverse Reactions Type Description Substance Reaction Status Data Source(s ) Drug allergy Erythromycin Erythromycin Dyspnea Active eCW[facility] Flexeril Flexeril Flexeril Dyspnea Active eCW1 ([facility]) ceclor ceclor ceclor respiratory Active eCW1 ([facility]) Flexeril Flexeril Flexeril Dyspnea Active eCW1 ([facility]) meganlor angel guzmanlor respiratory Active eCW1 ([facility]) Flexeril Flexeril Flexeril Dyspnea Active eCW1 ([facility]) meganlor angel ceclor respiratory Active eCW1 ([facility]) Flexeril Flexeril Flexeril Dyspnea Active eCW1 ([facility]) Family History Family Member Name Family Member Gender Family Member Status Date o f Status Description Data Source(s) Unknown Unknown Problem MEDENT ([facility], ) sister Dx age 69 Unknown Male Problem MEDENT ([facility] () Encounters Encounter Providers Location Date Indications Data Source(s ) Outpatient Attender: LEONARDO RODRIGUEZ MD Physical Therapy 09:30:00 AM EST MEDENT ([facility]) Unknown [address] [facility] [address] 10/05/2020 12:00:00 AM EST eCW1 ([facility]) Office Visit, Est Pt., Level 4 PC [address] [place] [address] 09/27/2020 12:00:00 AM EST eCW1 ([facility]) Unknown [address] [facility], [facility] [address] 09/11/2020 12:00:00 AM EST eCW1 ([facility]) Unknown [address] [facility] [address] 09/06/2020 12:00:00 AM EST eCW1 ([facility]) Unknown [address] [facility] [address] 08/23/2020 12:00:00 AM EDT eCW1 ([facility]) OFFICE OUTPATIENT NEW 30 MINUTES Attender: LEONARDO RODRIGUEZ MD Ph ysical Therapy 08/18/2020 01:00:00 PM EDT MEDENT ([facility]) Unknown [address] [facility] [address] 08/14/2020 12:00:00 AM EDT eCW1 ([facility]) [place] [address] [facility] [address] 08/02/2020 12:00:00 AM EDT eCW1 ([facility] Dermatology [address] [place] [address] 05/09/2020 12:00:00 AM EDT eCW1 ([facility]) [place] [address] [facility] [address] 04/18/2020 12:00:00 AM EDT eCW1 ([facility]) [facility] [address] [facility] [address] 04/13/2020 12:00:00 AM EDT eCW1 ([facility]) Unknown [address] [facility] [address] 04/07/2020 12:00:00 AM EDT eCW1 ([facility]) [facility] [address] [facility] [address] 03/01/2020 12:00:00 AM EDT eCW1 ([facility]) [facility] Dermatology [address] [place] [address] 02/23/2020 12:00:00 AM EDT eCW1 ([facility]) [facility] Dermatology [address] [place] [address] 02/09/2020 12:00:00 AM EDT eCW1 ([facility]) [facility] [address] [facility] [address] 01/11/2020 12:00:00 AM EDT eCW1 ([facility]) Outpatient 01/03/2020 12:57:00 PM EDT [facility] [address] [facility] [address] 12/30/2019 12:00:00 AM EST eCW1 ([facility]) [facility] [address] [facility] [address] 12/23/2019 12:00:00 AM EST eCW1 ([facility] [address] [facility] [address] 12/13/2019 12:00:00 AM EST eCW1 ([facility]) [facility] [address] [place] [address] [address] 12/10/2019 12:00:00 AM EST eCW1 ([facility]) [facility] [address] [place] [address], [place] [address] 12/08/2019 12:00:00 AM EST eCW1 ([facility]) [facility] [address] [place] [address] [address] 11/09/2019 12:00:00 AM EST eCW1 ([facility]) [address] [address] 11/08/2019 12:00:00 AM EST eCW1 ([facility]) Immunizations Vaccine Date Status Description Data Source(s) zoster 09/07/2020 07:18:00 AM EST completed e CW1 ([facility]) zoster 09/07/2020 07:18:00 AM EST completed e CW1 ([facility]) zoster 09/07/2020 07:18:00 AM EST completed e CW1 ([facility]) pneumococcal polysaccharide PPV23 04/21/2020 12:59:00 PM EDT comple shirlene eCW1 ([facility]) pneumococcal polysaccharide PPV23 04/21/2020 12:59:00 PM EDT comple shirlene eCW1 ([facility]) pneumococcal polysaccharide PPV23 04/21/2020 12:59:00 PM EDT comple shirlene eCW1 ([facility]) pneumococcal polysaccharide PPV23 04/21/2020 12:59:00 PM EDT comple shirlene eCW1 ([facility]) pneumococcal polysaccharide PPV23 04/21/2020 12:59:00 PM EDT comple shirlene eCW1 ([facility]) pneumococcal polysaccharide PPV23 04/21/2020 12:59:00 PM EDT comple shirlene eCW1 ([facility]) pneumococcal polysaccharide PPV23 04/21/2020 12:59:00 PM EDT comple shirlene eCW1 ([facility]) Medications Medication Brand Name Start Date Product Form Dose Route Admi nistrative Instructions Pharmacy Instructions Status Indications Reaction Description Data Source(s) Levothyroxine Sodium 0.2 MG Oral Tablet [Synthroid] Sy nthroid 200 MCG Synthroid 200 MCG 09/27/2020 12:00:00 AM EST active Synthroid 200 MCG eCW1 ([facility]) Levothyroxine Sodium 0.2 MG Oral Tablet [Synthroid] Sy nthroid 200 MCG Synthroid 200 MCG 09/27/2020 12:00:00 AM EST active Synthroid 200 MCG eCW1 ([facility]) insulin human, isophane 100 UNT/ML Injec table Suspension [Novolin N] Novolin N 100 UNIT/ML Novolin N 100 UNIT/ML 08/23/2020 12:00:00 AM EDT active Novolin N 100 UNIT/ML eCW1 ([facility]) insulin human, isophane 100 UNT/ML Injec table Suspension [Novolin N] Novolin N 100 UNIT/ML Novolin N 100 UNIT/ML 08/23/2020 12:00:00 AM EDT active Novolin N 100 UNIT/ML eCW1 ([facility]) insulin human, isophane 100 UNT/ML Injec table Suspension [Novolin N] Novolin N 100 UNIT/ML Novolin N 100 UNIT/ML 08/23/2020 12:00:00 AM EDT active Novolin N 100 UNIT/ML eCW1 ([facility]) insulin human, isophane 100 UNT/ML Injec table Suspension [Novolin N] Novolin N 100 UNIT/ML Novolin N 100 UNIT/ML 08/23/2020 12:00:00 AM EDT active Novolin N 100 UNIT/ML eCW1 ([facility]) insulin human, isophane 100 UNT/ML Injec table Suspension [Novolin N] Novolin N 100 UNIT/ML Novolin N 100 UNIT/ML 08/23/2020 12:00:00 AM EDT active Novolin N 100 UNIT/ML eCW1 ([facility]) torsemide 100 MG Oral Tablet Torsemide 100 MG Torsemide 100 MG 04/21/2020 12:00:00 AM EDT active Torsemid e 100 MG eCW1 ([facility]) torsemide 100 MG Oral Tablet Torsemide 100 MG Torsemide 100 MG 04/21/2020 12:00:00 AM EDT active Torsemid e 100 MG eCW1 ([facility]) torsemide 100 MG Oral Tablet Torsemide 100 MG Torsemide 100 MG 04/21/2020 12:00:00 AM EDT active Torsemid e 100 MG eCW1 ([facility]) torsemide 100 MG Oral Tablet Torsemide 100 MG Torsemide 100 MG 04/21/2020 12:00:00 AM EDT active Torsemid e 100 MG eCW1 ([facility]) torsemide 100 MG Oral Tablet Torsemide 100 MG Torsemide 100 MG 04/21/2020 12:00:00 AM EDT active Torsemid e 100 MG eCW1 ([facility]) Triamcinolone Acetonide 0.001 MG/MG Topi chuck Ointment Triamcinolone Acetonide 0.1 % Triamcinolone Acetonide 0.1 % 02/23/2020 12:00:00 AM EDT 1.0 {application} active Triamcinolone Aceton caden 0.1 % eCW1 ([facility]) Triamcinolone Acetonide 0.001 MG/MG Topi chuck Ointment Triamcinolone Acetonide 0.1 % Triamcinolone Acetonide 0.1 % 02/23/2020 12:00:00 AM EDT active 1 application eCW1 ([facility]) Triamcinolone Acetonide 0.001 MG/MG Topi chuck Ointment Triamcinolone Acetonide 0.1 % Triamcinolone Acetonide 0.1 % 02/23/2020 12:00:00 AM EDT 1.0 {application} active Triamcinolone Aceton caden 0.1 % eCW1 ([facility]) Triamcinolone Acetonide 0.001 MG/MG Topi cuhck Ointment Triamcinolone Acetonide 0.1 % Triamcinolone Acetonide 0.1 % 02/23/2020 12:00:00 AM EDT 1.0 {application} active Triamcinolone Aceton caden 0.1 % eCW1 ([facility]) Triamcinolone Acetonide 0.001 MG/MG Topi chuck Ointment Triamcinolone Acetonide 0.1 % Triamcinolone Acetonide 0.1 % 02/23/2020 12:00:00 AM EDT 1.0 {application} active Triamcinolone Aceton caden 0.1 % eCW1 ([facility]) Triamcinolone Acetonide 0.001 MG/MG Topi chuck Ointment Triamcinolone Acetonide 0.1 % Triamcinolone Acetonide 0.1 % 02/23/2020 12:00:00 AM EDT 1.0 {application} active Triamcinolone Aceton caden 0.1 % eCW1 ([facility]) Triamcinolone Acetonide 0.001 MG/MG Topi chuck Ointment Triamcinolone Acetonide 0.1 % Triamcinolone Acetonide 0.1 % 02/23/2020 12:00:00 AM EDT 1.0 {application} active Triamcinolone Aceton caden 0.1 % eCW1 ([facility]) Triamcinolone Acetonide 0.001 MG/MG Topi chuck Ointment Triamcinolone Acetonide 0.1 % Triamcinolone Acetonide 0.1 % 02/23/2020 12:00:00 AM EDT 1.0 {application} active Triamcinolone Aceton caden 0.1 % eCW1 ([facility]) Doxycycline Monohydrate 100 MG Oral Tablet Doxycycline Monoh ydrate 100 MG 12/13/2019 12:00:00 AM EST 1.0 {tablet} active Doxycycline Monohydrate 100 MG eCW1 ([facility]) Doxycycline Monohydrate 100 MG Oral Tablet Doxycycline Monoh ydrate 100 MG 12/13/2019 12:00:00 AM EST 1.0 {tablet} active Doxycycline Monohydrate 100 MG eCW1 ([facility]) Doxycycline Monohydrate 100 MG Oral Tablet Doxycycline Monoh ydrate 100 MG 12/13/2019 12:00:00 AM EST 1.0 {tablet} active Doxycycline Monohydrate 100 MG eCW1 ([facility]) Doxycycline Monohydrate 100 MG Oral Tablet Doxycycline Monoh ydrate 100 MG 12/13/2019 12:00:00 AM EST 1.0 {tablet} active Doxycycline Monohydrate 100 MG eCW1 ([facility]) Doxycycline Monohydrate 100 MG Oral Tablet Doxycycline Monoh ydrate 100 MG 12/13/2019 12:00:00 AM EST 1.0 {tablet} active Doxycycline Monohydrate 100 MG eCW1 ([facility]) Doxycycline Monohydrate 100 MG Oral Tablet Doxycycline Monoh ydrate 100 MG 12/13/2019 12:00:00 AM EST 1.0 {tablet} active Doxycycline Monohydrate 100 MG eCW1 ([facility]) Doxycycline Monohydrate 100 MG Oral Tablet Doxycycline Monoh ydrate 100 MG 12/13/2019 12:00:00 AM EST 1.0 {tablet} active Doxycycline Monohydrate 100 MG eCW1 ([facility]) Doxycycline Monohydrate 100 MG Oral Tablet Doxycycline Monoh ydrate 100 MG 12/13/2019 12:00:00 AM EST active 1 tablet eCW1 ([facility]) Doxycycline Monohydrate 100 MG Oral Tablet Doxycycline Monoh ydrate 100 MG 12/13/2019 12:00:00 AM EST active 1 tablet eCW1 ([facility]) Doxycycline Monohydrate 100 MG Oral Tablet Doxycycline Monoh ydrate 100 MG 12/13/2019 12:00:00 AM EST active 1 tablet eCW1 ([facility]) silver sulfadiazine 10 MG/ML Topical Cream [Silvadene] Silvadene 1 % Silvadene 1 % 12/10/2019 12:00:00 AM EST 1.0 {application} suspended Silvadene 1 % eCW1 ([facility]) silver sulfadiazine 10 MG/ML Topical Cream [Silvadene] Silvadene 1 % Silvadene 1 % 12/10/2019 12:00:00 AM EST suspended 1 application eCW1 ([facility]) Cephalexin 500 MG Oral Capsule [Keflex] Keflex 500 MG Keflex 500 MG 12/10/2019 12:00:00 AM EST 1.0 {capsule} suspended Keflex 500 MG eCW1 ([facility]) Cephalexin 500 MG Oral Capsule [Keflex] Keflex 500 MG Keflex 500 MG 12/10/2019 12:00:00 AM EST suspended 1 cap katiana eCW1 ([facility]) silver sulfadiazine 10 MG/ML Topical Cream [Silvadene] Silvadene 1 % Silvadene 1 % 12/10/2019 12:00:00 AM EST active 1 application eCW1 ([facility]) Cephalexin 500 MG Oral Capsule [Keflex] Keflex 500 MG Keflex 500 MG 12/10/2019 12:00:00 AM EST 1.0 {capsule} suspended Keflex 500 MG eCW1 ([facility]) silver sulfadiazine 10 MG/ML Topical Cream [Silvadene] Silvadene 1 % Silvadene 1 % 12/10/2019 12:00:00 AM EST suspended 1 application eCW1 ([facility]) silver sulfadiazine 10 MG/ML Topical Cream [Silvadene] Silvadene 1 % Silvadene 1 % 12/10/2019 12:00:00 AM EST 1.0 {application} suspended Silvadene 1 % eCW1 ([facility]) Cephalexin 500 MG Oral Capsule [Keflex] Keflex 500 MG Keflex 500 MG 12/10/2019 12:00:00 AM EST suspended 1 cap katiana eCW1 ([facility]) Cephalexin 500 MG Oral Capsule [Keflex] Keflex 500 MG Keflex 500 MG 12/10/2019 12:00:00 AM EST active 1 capsul e eCW1 ([facility]) Insurance Providers Payer name Policy type / Coverage type Policy ID Covered constitution party ID Covered constitution party's relationship to farfan Policy Farfan Plan Information EMEDNY [id number] SP [id number] HUMANA GOLD [id number] SP [id number] MEDICARE COMPLETE [id number] SP [id number] HUMANA GOLD [id number] SP [id number] MEDICARE COMPLETE [id number] SP [id number] MEDICARE COMPLETE SP [id number] BRANDIE [id number] SP [id number] BRANDIE [facility] O [id number] S [id number] MEDICARE COMPLETE-[facility] O [id number] S [id number] MEDICAID [id number] SP [id number] MEDICARE [id number] SP [id number] MEDICARE COMPLETE [id number] SP [id number] MEDICARE COMPLETE [id number] SP [id number] ANSI-Commercial [id number] ANSI-Medicare Part B [id number] ANSI-Medicare Part B [id number] ANSI-Medicare Part B [id number] ANSI-Medicare Part B [id number] ANSI-Medicare Part B [id number] ANSI-Medicare Part B [id number] ANSI-Commercial [id number] ANSI-Medicare Part B [id number] ANSI-Medicare Part B [id number] ANSI-Commercial [id number] ANSI-Medicare Part B [id number] ANSI-Medicare Part B [id number] ANSI-Medicare Part B [id number] ANSI-Medicare Part B [id number] ANSI-Commercial [id number] ANSI-Medicare Part B [id number] ANSI-Medicare Part B [id number] ANSI-Medicare Part B [id number] ANSI-Medicare Part B [id number] ANSI-Medicare Part B [id number] ANSI-Medicare Part B [id number] ANSI-Medicare Part B [id number] ANSI-Commercial [id number] ANSI-Medicare Part B [id number] ANSI-Commercial [id number] ANSI-Medicare Part B [id number] ANSI-Medicare Part B [id number] ANSI-Medicare Part B [id number] ANSI-Medicare Part B [id number] ANSI-Medicare Part B [id number] ANSI-Medicare Part B [id number] ANSI-Medicare Part B [id number] ANSI-Medicare Part B [id number] ANSI-Commercial [id number] ANSI-Commercial [id number] ANSI-Medicare Part B [id number] ANSI-Medicare Part B [id number] ANSI-Medicare Part B [id number] ANSI-Medicare Part B [id number] ANSI-Medicare Part B [id number] ANSI-Medicare Part B [id number] ANSI-Medicare Part B [id number] ANSI-Commercial [id number]-q101-6494-[id number]-k695-7122-eq18-6x76ihl479e7 ANSI-Medicare Part B [id number]-[id number]-v727-3i1291q7jvd0 MEDICARE COMPLETE [id number] SP [id number] MEDICARE COMPLETE [id number] SP [id number] ANSI-Medicare Part B [id number]-41p4-4590-eb71-gg224232gu8j 159m38ez-86k9-2327-uv61-qm480611zm3j ANSI-Medicare Part B [id number]-hk5b-2kf9k90t27xj 3613t367-5061-0paj-cy3r-3oc7b04n55nx ANSI-Medicare Part B [id number]-76c1-956q-6k8d-[id number] 0629k92b-34l7-073j-0s3o-[id number] ANSI-Medicare Part B 20taq7q4-52n3-231z-2k43-262fr9zbo5l8 37qqu3w7-40h0-904d-7h13-915go9qos6r6 ANSI-Commercial 303ua656-0276-2z95-9c3i-59862qy02j42 515mh199-9467-5q07-3y6m-30804qe86l96 MEDICARE COMPLETE [id number] SP [id number] MEDICARE COMPLETE [id number] SP [id number] MEDICARE COMPLETE [id number] SP [id number] ANSI-Commercial 81i6lqm4-n527-5622-p3b9-h761uw21p968 38t4hxh8-e897-6649-o2q5-o312mw32l355 ANSI-Medicare Part B [id number]-0t66-p3k1-x0i891v1t09w 40b08wr7-758l-6e20-s7v8-d0d636t9c65l ANSI-Medicare Part B lasat26u-53fp-6m6u-agni-9u6n2rn587l0 gkjwt80m-94hf-6c4g-jqxa-3w4y0yx643k1 ANSI-Medicare Part B 6o5ixb6y-bb1p-8d5f-986x-6gq85fk77311 4b2oru9d-hc3m-3c9t-720l-3og19mh35042 ANSI-Medicare Part B [id number]-49vn-9080-3816-7coi2526k9x6 6593u37l-21ix-1200-3218-7iad1128r0w4 ANSI-Medicare Part B [id number]-07rv-51f0-9hk2-ov25gt2q2099 i4k28z7i-96tb-61l3-9jz0-ov48rq8r3079 ANSI-Medicare Part B 6tmh19pa-5350-6294-65jk-g38j1sla7e17 8ljx80sn-5733-4621-93hc-d84z5xcr9g63 ANSI-Medicare Part B 65u0n2ax-746x-3078-1i48-t1s0836gqg40 43w6e2hp-543t-2708-0q56-m8e9004uru23 ANSI-Commercial 0078000g-wknd-490t-15lh-6qpf58j545l0 4886693v-rasa-459o-90pf-9qgu82a775h8 ANSI-Medicare Part B [id number]-6n96-2467-vo8j-58vkz3m46a28 274vs9kh-4o88-8181-dx7t-75wsx6z50x20 ANSI-Medicare Part B [id number]-1627-6v05-b78018l8pf00 [id number]-[id number] ANSI-Commercial k310t41d-16zh-083y-6zn0-dgd8tc01j218 j137m72y-32hk-592r-5js6-ffb3fh65y052 ANSI-Medicare Part B [id number]-0vm6-19v4-80wj5816r8o8 [id number]-i79m-5dx8-06r1-67eh4529u1n4 ANSI-Medicare Part B [id number]-v992-4if2s3p89o00 rkow24i3-0pt0-2yp5-u029-2kb5g3y01e03 ANSI-Medicare Part B [id number]-9w82-[id number]-0y09-t729-7o24uo3kn5j7 ANSI-Medicare Part B [id number]-72ft-7y3a-rx95hy48yw32 y2m991fp-71ck-43rk-7b4a-qf41wb68xb54 ANSI-Commercial 4t9c4u52-jo6d-[id number] 7p7u3i98-gw4v-[id number] ANSI-Medicare Part B kd36hsuj-ex7f-06bk-7171-jy29bx1d6o21 kt49essb-st9m-38mp-8794-yu96se1a7i69 ANSI-Medicare Part B [id number]-[id number]-[id number]-y073-u1254cc55zq8 ANSI-Medicare Part B [id number]-pwj6-1myq-9523-8nm6yay93ink f5a57z0d-ipz4-2zwh-1155-9ab8jnp38vue ANSI-Medicare Part B [id number]-2x5v-[id number] [id number]-a5s8-92ka-5l7n-[id number] ANSI-Medicare Part B [id number] 2h9fv949-[id number] ANSI-Medicare Part B [id number]-h583-96z4-846h-[id number] 9gm8b81j-d392-10b9-539q-4p19734537u8 ANSI-Commercial etp41700-2p74-6l79-17l2-kk27p11c226c cpf75260-4y90-3p21-61s4-uk89q20f079h ANSI-Medicare Part B 62q1c0t5-d275-25u3-qm93-2292b8ma6x0x 95r3o9c3-x599-65k9-yi54-7512j4sg3i5k ANSI-Medicare Part B [id number]-3p39-8107-k8u4sz95nyn8 0fu9t612-8enw-5v93-8549-h0i6kd95okf2 ANSI-Medicare Part B [id number]-5t8j-8726-jgg4-pyg015758j4m 13l1y1bp-3d0d-5616-had1-uzb301866f8h ANSI-Commercial 53tji50y-7376-1661-i951-037yf44nuj06 25yfl05y-3202-4712-w068-004uf22brp11 ANSI-Medicare Part B [id number]-[id number]-t0w1-32t4-90up-d8oi28239937 ANSI-Medicare Part B 52f2f2a7-0521-78g7-214g-0jr32se776em 04y2a1j1-8274-93a6-141t-3vx74ho906op ANSI-Commercial 55828g55-17g2-45d3-94yb-51oay00hrk28 89735i88-52i2-62v4-32lo-04isb22sfl14 ANSI-Medicare Part B [id number]-7201-0f51-f335-3131o5cw43y3 6687yk6s-7429-7m53-h745-9647o0tj92i0 ANSI-Medicare Part B [id number]-[id number] g2193e85-80h7-39j8-l221-5c6166734q37 ANSI-Medicare Part B 3hv1a3c5-m6iu-092o-c18z-4628l6c8691l 1hy6y2m2-v6km-080k-f41e-0503e2n9792u ANSI-Medicare Part B 8l2dj6nr-391e-9t4u-ln7l-uf580p34z18g 0c9qb2ie-615j-0d2r-lz7u-sf807e83g95y TODAYS OPTIONS [id number] SP [id number] TODAYS OPTIONS [id number] SP [id number] ANSI-Commercial 1164r447-ofi0-004y-4jri-e6d0n8u6k7h5 0089v730-ssr0-393j-4bio-i4t0v2x0m1x9 ANSI-Medicare Part B [id number]-nr69-8e79-0434-w717r8x0o23m 14953i27-jo49-8z20-7684-h626s2p3v74r ANSI-Medicare Part B [id number]-3422-v660-g163w22hj259 q4426pd0-6l1r-9662-b997-r064w45hr782 ANSI-Medicare Part B [id number]-d443-[id number] [id number]-o352-[id number] MEDICARE COMPLETE [id number] ANSI-Commercial [id number]-f431-7a7azn8s5d50 1fy264w7-65b1-0436-s817-7i3lgu3d5j53 ANSI-Medicare Part B s6m4i926-pa96-95a0-sl84-pz4s7w990a5r d5y4q775-rk87-13k4-at28-pm0k5g309g3f ANSI-Medicare Part B [id number]-7188-28l5-f4g8-[id number] 155r2f7y-4024-72w8-v0r4-c19sn0s654f5 ANSI-Medicare Part B [id number]059 [id number]-[id number] ANSI-Medicare Part B [id number]-x95i-6l1l-[id number] 784bwu9t-f29e-0b7a-78f0-3k90dd6i0l87 ANSI-Medicare Part B [id number]-[id number]-p14t-[id number] [id number]-u104-33e6-o22b-[id number] ANSI-Medicare Part B [id number]-w59e-387o-a22f-43240k3lhkd0 c9016tm5-z61q-221i-t91z-16407r4owen4 ANSI-Commercial 719di7b4-h7wi-384w-0d14-38t62161c3tc 113yu6t1-j3dt-798p-3y99-16l93356b9hu ANSI-Medicare Part B [id number]-2776-ee9x-[id number]-17bo-6061-tm5h-[id number] [facility]-Medicare Part B [id number] [id number]-31r9-95lb-3l18-864ly4x54j69 ANSI-Commercial 16b5o5i9-m36u-9823-15ul-079oz9n417o0 71u8p3u7-x37g-7825-30tx-510op4g777c0 ANSI-Medicare Part B [id number]-[id number]-[id number] MEDICARE COMPLETE [id number] SP [id number] MEDICARE COMPLETE [id number] SP [id number] United[employer] Medicare Commercial [id number] Self [id number] MEDICARE COMPLETE [id number] SP [id number] [employer] [id number] Self [id number] MEDICARE COMPLETE [id number] SP [id number] HU[employer] PPO [id number] SP [id number] MEDICARE [id number] SP [id number] A [employer]NA PPO [id number] SP [id number] [employer] [id number] Self [id number] MEDICARE C [id number] S [id number] A [employer] GOLD [id number] SP [id number] HUMANA H [id number] Self [id number] MEDICARE A [id number] Self [id number] A Problems, Conditions, and Diagnoses Code Display Name Description Problem Type Effective Dates Data Source(s) 140479978 Pure hypercholesterolemia Pure hypercholesterolemia Pr oblem 08/23/2020 12:00:00 AM EDT MED[facility] ([facility] ) 76361901 Essential hypertension Essential hypertension Problem 08/23/2020 12:00:00 AM EDT [facility] ([facility] ) [id number] Type 2 diabetes mellitus Type 2 diabetes mellitus Prob raza 08/23/2020 12:00:00 AM EDT [facility] ([facility] ) L30.9 [id number] Dermatitis Problem 02/23/2020 12:00:00 AM ED T eCW1 ([facility]) L30.9 [id number] Dermatitis Problem 02/23/2020 12:00:00 AM ED T eCW1 ([facility]) 793.80 [id number] Abnormal mammogram Problem 01/17/2020 12:00: 00 AM EDT eCW1 ([facility]) 793.80 [id number] Abnormal mammogram Problem 01/17/2020 12:00: 00 AM EDT eCW1 ([facility]) Surgeries/Procedures Procedure Description Date Indications Data Source(s) Physical Therapy Eval - Low Complexity 09/07/2020 12:0 0:00 AM EST [facility] ([facility]) MRI Upper Extremity Any Joint 09/06/2020 12:00:[address] [facility] ([facility]) Office Visit, Est Pt., Level 3 PC 02/23/2020 12:00:00 AM EDT eCW1 ([facility]) PUNCH BX SKIN SINGLE LESION 02/09/2020 12:00:00 AM EDT eCW1 ([facility]) Office Visit, Est Pt., Level 2 FC 12/10/2019 12:00:00 AM EST eCW1 ([facility]) Results ID Date Data Source LIPID PANEL (CARDIAC RISK) 09/27/2020 12:00:00 AM EST eCW1 ( [facility]) Name Value Range Interpretation Code Description Data Rosa rce(s) Supporting Document(s) Triglyceride [Mass/volume] in Serum or Plasma by calculation 57 <150 TRIGLYCERIDES LEVEL eCW1 ([facility]) Cholesterol [Moles/volume] in Serum or Plasma 171 <200 CHOLESTEROL LEVEL eCW1 ([facility]) 95 NON-HDL-C eCW1 ([facility]) Cholesterol in HDL [Moles/volume] in Serum or Plasma 76 >40 HDL CHOLESTEROL eCW1 ([facility]) Cholesterol in LDL [Mass/volume] in Serum or Plasma by calculation 84 <100 LDL CHOLESTEROL [facility] ([facility]) 2.250 <5 CHOLESTEROL RISK RATIO eCW1 ([facility]) ID Date Data Source TSH 09/27/2020 12:00:00 AM EST eCW1 ([facility]) Name Value Range Interpretation Code Description Data Rosa rce(s) Supporting Document(s) 7.910 0.358-3.740 THYROID STIMULATING HORM ONE eCW1 ([facility]) ID Date Data Source [id number] 09/27/2020 12:00:00 AM EST eCW1 ([facility]) Name Value Range Interpretation Code Description Data Rosa rce(s) Supporting Document(s) Albumin/Creatinine [Mass Ratio] in Urine 509.0 MALB URINE SIEMENS eCW1 ([facility]) Microalbumin/Creatinine [Mass Ratio] in Urine 49.7 CREATININE, URINE eCW1 ([facility]) Microalbumin/Creatinine [Ratio] in Urine 1024.1 0.0-30.0 TASHI/CREAT RATIO eCW1 ([facility]) ID Date Data Source [id number] 09/27/2020 12:00:00 AM EST eCW1 ([facility]) Name Value Range Interpretation Code Description Data Rosa rce(s) Supporting Document(s) Hemoglobin A1c/Hemoglobin.total in Blood 10.3 HEMOGLOBIN A1c eCW1 ([facility]) ID Date Data Source Comprehensive Metabolic Profile (CMP) 09/27/2020 12:00:00 AM EST eCW1 ([facility]) Name Value Range Interpretation Code Description Data Rosa rce(s) Supporting Document(s) 88 70-100 GLUCOSE, FASTING eCW1 ([facility]) > 60.0 >39 GLOMERULAR FILTRATION RATE eCW 1 ([facility]) 16 7-18 BLOOD UREA NITROGEN eCW1 ([facility]) 0.82 0.55-1.30 CREATININE FOR GFR eCW1 ([facility]) 140 136-145 SODIUM LEVEL eCW1 ([facility]) 32 21-32 CARBON DIOXIDE LEVEL eCW1 ([facility]) 4.8 3.5-5.1 POTASSIUM SERUM eCW1 ([facility]) 104 98-107 CHLORIDE LEVEL eCW1 ([facility]) 9.5 8.8-10.2 CALCIUM LEVEL eCW1 ([facility]) 162 45-117 ALKALINE PHOSPHATASE eCW1 ([facility]) 21 12-78 ALT/SGPT eCW1 ([facility]) 13 7-37 AST/SGOT eCW1 ([facility]) 0.9 1.2-2.2 ALBUMIN/GLOBULIN RATIO eCW1 ([facility]) 7.5 6.4-8.2 TOTAL PROTEIN eCW1 ([facility]) 0.7 0.2-1.0 BILIRUBIN,TOTAL eCW1 ([facility]) 3.5 3.2-5.2 ALBUMIN eCW1 ([facility]) ID Date Data Source NT-PRO BNP 09/27/2020 12:00:00 AM EST eCW1 ([facility]) Name Value Range Interpretation Code Description Data Rosa rce(s) Supporting Document(s) 183 <125 NT-PRO BNP eCW1 (On license of [facility]) Procedure Social History Code Duration Value Status Description Data Source(s ) Smoking 09/27/2020 12:00:00 AM EST Former Smoker completed Former Smoker eCW1 ([facility]) Smoking 09/27/2020 12:00:00 AM EST Former Smoker completed Former Smoker eCW1 ([facility]) Smoking 04/22/2020 12:00:00 AM EDT Former Smoker completed Former Smoker eCW1 ([facility]) Smoking 04/22/2020 12:00:00 AM EDT Former Smoker completed Former Smoker eCW1 ([facility]) Smoking 04/22/2020 12:00:00 AM EDT Former Smoker completed Former Smoker eCW1 ([facility]) Smoking 04/22/2020 12:00:00 AM EDT Former Smoker completed Former Smoker eCW1 ([facility]) Smoking 04/22/2020 12:00:00 AM EDT Former Smoker completed Former Smoker eCW1 ([facility]) Smoking 04/19/2020 12:00:00 AM EDT Former Smoker completed Former Smoker eCW1 ([facility]) Smoking 02/23/2020 12:00:00 AM EDT Former Smoker completed Former Smoker eCW1 ([facility]) Vital Signs ID Date Data Source UNK Name Value Range Interpretation Code Description Data Source(s) Diastolic blood pressure 78 mm[Hg] 78 mm[Hg] eCW1 ([facility]) Systolic blood pressure 132 mm[Hg] 132 mm[Hg] e CW1 ([facility]) Body temperature 96.5 [degF] 96.5 [degF] eCW1 ( [facility]) Respiratory rate 18 /min 18 /min eCW1 ([facility]) Heart rate 92 /min 92 /min eCW1 ([facility]) Body mass index (BMI) [Ratio] 41.44 kg/m2 41.44 kg/m2 eCW1 ([facility]) Body height [in_i] eCW1 ([facility]) Body weight 212.2 [lb_av] 212.2 [lb_av] eCW1 ([facility]) Body mass index (BMI) [Ratio] 40.7 kg/m2 40.7 k g/m2 [facility] ([facility]) Body weight 203.12 [lb_av] 203.12 [lb_av] MEDEN T ([facility]) Body height 59.25 [in_i] 59.25 [in_i] [facility] ([facility]) 4'11.25" Body temperature 97.1 [degF] 97.1 [degF] [facility] ([facility] ) Diastolic blood pressure 76 mm[Hg] 76 mm[Hg] eCW1 ([facility]) Systolic blood pressure 132 mm[Hg] 132 mm[Hg] e CW1 ([facility]) Body mass index (BMI) [Ratio] 43.25 kg/m2 43.25 kg/m2 eCW1 ([facility]) Body height [in_us] eCW1 ([facility]) Body weight Measured 221.5 [lb_av] 221.5 [lb_av ] eCW1 ([facility]) Diastolic blood pressure 86 mm[Hg] 86 mm[Hg] eCW1 ([facility]) Systolic blood pressure 140 mm[Hg] 140 mm[Hg] e CW1 ([facility]) Body mass index (BMI) [Ratio] 43.14 kg/m2 43.14 kg/m2 eCW1 ([facility]) Body height [in_us] eCW1 ([facility]) Body weight Measured 220.9 [lb_av] 220.9 [lb_av ] eCW1 ([facility]) Diastolic blood pressure 78 mm[Hg] 78 mm[Hg] eCW1 ([facility]) Systolic blood pressure 106 mm[Hg] 106 mm[Hg] e CW1 ([facility]) Body temperature 97 [degF] 97 [degF] eCW1 ([facility]) Respiratory rate 20 /min 20 /min eCW1 ([facility]) Heart rate 86 /min 86 /min eCW1 ([facility]) Body mass index (BMI) [Ratio] 41.87 kg/m2 41.87 kg/m2 eCW1 ([facility]) Body height [in_us] eCW1 ([facility]) Body weight Measured 214.4 [lb_av] 214.4 [lb_av ] eCW1 ([facility]) Patient Treatment Plan of Care Planned Activity Planned Date Details Description Data Source (s) Levothyroxine Sodium 0.2 MG Oral Tablet [Synthroid] 09/27/20 12:00:00 AM EST eCW1 ([facility]) Levothyroxine Sodium 0.2 MG Oral Tablet [Synthroid] 09/27/20 12:00:00 AM EST eCW1 ([facility]) insulin human, isophane 100 UNT/ML Injectable Suspensi on [Novolin N] 08/23/2020 12:00:00 AM EDT eCW1 ([facility]) insulin human, isophane 100 UNT/ML Injectable Suspensi on [Novolin N] 08/23/2020 12:00:00 AM EDT eCW1 ([facility]) insulin human, isophane 100 UNT/ML Injectable Suspensi on [Novolin N] 08/23/2020 12:00:00 AM EDT eCW1 ([facility]) torsemide 100 MG Oral Tablet 04/21/2020 12:00:00 AM EDT eCW1 ([facility]) torsemide 100 MG Oral Tablet 04/21/2020 12:00:00 AM EDT eCW1 ([facility]) torsemide 100 MG Oral Tablet 04/21/2020 12:00:00 AM EDT eCW1 ([facility]) torsemide 100 MG Oral Tablet 04/21/2020 12:00:00 AM EDT eCW1 ([facility]) torsemide 100 MG Oral Tablet 04/21/2020 12:00:00 AM EDT eCW1 ([facility]) Triamcinolone Acetonide 0.001 MG/MG Topical Ointment 12:00:00 AM EDT eCW1 ([facility]) Triamcinolone Acetonide 0.001 MG/MG Topical Ointment 12:00:00 AM EDT eCW1 ([facility]) Doxycycline Monohydrate 100 MG Oral Tablet 12/13/2019 12:00:[address] eCW1 ([facility]) Cephalexin 500 MG Oral Capsule [Keflex] 12/10/2019 12:00:00 AM EST eCW1 ([facility]) silver sulfadiazine 10 MG/ML Topical Cream [Silvadene] 12/10/2019 12:00:00 AM EST eCW1 ([facility])
[2020-12-17] MEDS ORDERED: LEVO200T4 PO (12:34)
[2020-12-17] MEDS ORDERED: IRBE150T7 PO (12:34)
[2020-12-17] MEDS ORDERED: FURO40TA2 PO (12:34)
[2020-12-17] MEDS ORDERED: VITA-243 PO (12:34)
[2020-12-17] MEDS ORDERED: GABA-282 PO (12:34)
[2020-12-17] MEDS ORDERED: CITA40TA6 PO (12:34)
[2020-12-17] MEDS ORDERED: INSUN SQ (12:34)
[2020-12-17] MEDS ORDERED: VITATAB74 PO (12:34)
[2020-12-17] MEDS ORDERED: BOOSTRIX/ADACEL VACCINE (DIPHTH/PERTUSS/ACELL/TETANUS) 0.5ML SYR IM ONE (13:45)
--- NOTE | 2020-12-17 14:02 | REP ---
INDICATION: trauma. COMPARISON: CT and MRI 10/07/2019 TECHNIQUE: CT BRAIN PERFORMED IN THE AXIAL PLANE. CORONAL RECONSTRUCTION IMAGES ARE PERFORMED. FINDINGS: Lateral ventricles are midline symmetric and without dilatation or displacement. 3rd and 4th ventricles are unremarkable. There is only minimal atrophy, age-appropriate. Basal ganglia symmetric and grossly normal. The hackett-white junction differentiation is maintained. Cortical stripe preserved. I see no vascular territory infarct, parenchymal or extra-axial hemorrhage. Brainstem unremarkable. Cerebellum shows minor atrophy with no posterior fossa hemorrhage. Basal cisterns are intact. Mastoids and visualized sinuses are clear. Orbits and contents symmetric and grossly unremarkable. There is no fracture or focal bone lesion of the skull base or calvarium. There is evidence of a frontal and left temporal scalp hematoma. No subjacent skull fracture, brain contusion or contrecoup injury. IMPRESSION: No intracranial abnormalities are noted. There is a frontal and left temporal scalp hematoma evident without subjacent skull fracture or intracranial bleed. No other finding. <Electronically signed by Raymond Alcantar > 12/17/20 [id number]
--- OUTSIDE RECORDS SUMMARY | 2020-12-17 14:06 | CCD ---
Author Author [facility] Organization [facility] Address Unknown Phone Unavailable Care Team Providers Care Hose Tubing Backer Name Role Phone LEONARDO RODRIGUEZ MD Unavailable [...] is protected by Article 27-F of the [facility] Public Health law. If you continue you may have access to information: Regarding HIV / AIDS; Provided by facilities licensed or operated by the [facility] Office of Mental Health; or Provided by the [facility] Office for People With Developmental Disabilities. If such information is present, then the following [facility] mandated warning applies: This information has [...] law may result in a fine or alf sentence or both. A general authorization for the release of medical or other information is NOT sufficient authorization for further disc losure. Allergies and Adverse Reactions Type Description Substance Reaction Status Data Source(s ) Drug allergy Erythromycin Erythromycin Dyspnea Active eCW1 ([facility]) Flexeril Flexeril Flexeril Dyspnea Active eCW1 ([facility]) ceclor ceclor ceclor respiratory Active eCW1 ([facility]) Flexeril Flexeril Flexeril Dyspnea Active eCW1 ([facility]) meganlor angel guzmanlor respiratory Active eCW1 ([facility]) Flexeril Flexeril Flexeril Dyspnea Active eCW1 ([facility]) meganlor angel ceclor respiratory Active eCW1 ([facility]) Flexeril Flexeril Flexeril Dyspnea Active eCW1 ([facility]) Family History Family Member Name Family Member Gender Family Member Status Date o f Status Description Data Source(s) Unknown Unknown Problem MEDENT ([facility], ) sister Dx age 69 Unknown Male Problem MEDENT ([facility] () Encounters Encounter Providers Location Date Indications Data Source(s ) Outpatient Attender: LEONARDO RODRIGUEZ MD Physical Therapy 09:30:00 AM EST MEDENT ([facility]) Unknown [address] [facility] [address] 10/05/2020 12:00:00 AM EST eCW1 ([facility]) Office Visit, Est Pt., Level 4 PC [address] [place] [address] 09/27/2020 12:00:00 AM EST eCW1 ([facility]) Unknown [address] [facility], [facility] [address] 09/11/2020 12:00:00 AM EST eCW1 ([facility]) Unknown [address] [facility] [address] 09/06/2020 12:00:00 AM EST eCW1 ([facility]) Unknown [address] [facility] [address] 08/23/2020 12:00:00 AM EDT eCW1 ([facility]) OFFICE OUTPATIENT NEW 30 MINUTES Attender: LEONARDO RODRIGUEZ MD Ph ysical Therapy 08/18/2020 01:00:00 PM EDT MEDENT ([facility]) Unknown [address] [facility] [address] 08/14/2020 12:00:00 AM EDT eCW1 ([facility]) [place] [address] [facility] [address] 08/02/2020 12:00:00 AM EDT eCW1 ([facility] [place] Dermatology [address] [place] [address] 05/09/2020 12:00:00 AM EDT eCW1 ([facility] [place]) [place] [address] [facility] [address] 04/18/2020 12:00:00 AM EDT eCW1 ([facility] [place]) [facility] [address] [facility] [address] 04/13/2020 12:00:00 AM EDT eCW1 ([facility] [place]) [place] [address] [facility] [address] 04/07/2020 12:00:00 AM EDT eCW1 ([facility] [place]) [facility] [address] [facility] [address] 03/01/2020 12:00:00 AM EDT eCW1 ([facility] [place]) [facility] Dermatology [address] [place] [address] 02/23/2020 12:00:00 AM EDT eCW1 ([facility] [place]) [facility] Dermatology [address] [place] [address] 02/09/2020 12:00:00 AM EDT eCW1 ([facility] [place]) [facility] [address] [facility] [address] 01/11/2020 12:00:00 AM EDT eCW1 ([facility] [place]) Outpatient 01/03/2020 12:57:00 PM EDT [facility] [address] [facility] [address] 12/30/2019 12:00:00 AM EST eCW1 ([facility] [place]) [facility] [address] [facility] [address] 12/23/2019 12:00:00 AM EST eCW1 [facility] [address] [facility] [address] 12/13/2019 12:00:00 AM EST eCW1 ([facility]) [facility] [address] [place] [address], [place] [address] 12/10/2019 12:00:00 AM EST eCW1 ([facility]) [facility] [address] [place] [address], [place] [address] 12/08/2019 12:00:00 AM EST eCW1 ([facility]) [facility] [address] [place] [address], [place] [address] 11/09/2019 12:00:00 AM EST eCW1 ([facility]) [address] [address] 11/08/2019 12:00:00 AM EST eCW1 ([facility]) Immunizations Vaccine Date Status Description Data Source(s) zoster 09/07/2020 07:18:00 AM EST completed e CW1 ([facility]) zoster 09/07/2020 07:18:00 AM EST completed e CW1 ([facility]) zoster 09/07/2020 07:18:00 AM EST completed e CW1 ([facility]) pneumococcal polysaccharide PPV23 04/21/2020 12:59:00 PM EDT comple shirlene eCW1 ([facility]) pneumococcal polysaccharide PPV23 04/21/2020 12:59:00 PM EDT comple shirlene eCW1 ([facility]) pneumococcal polysaccharide PPV23 04/21/2020 12:59:00 PM EDT comple shirlene eCW1 ([facility]) pneumococcal polysaccharide PPV23 04/21/2020 12:59:00 PM EDT comple shirlene eCW1 ([facility]) pneumococcal polysaccharide PPV23 04/21/2020 12:59:00 PM EDT comple shirlene eCW1 ([facility]) pneumococcal polysaccharide PPV23 04/21/2020 12:59:00 PM EDT comple shirlene eCW1 ([facility]) pneumococcal polysaccharide PPV23 04/21/2020 12:59:00 PM EDT comple shirlene eCW1 ([facility]) Medications Medication Brand Name Start Date Product Form Dose Route Admi nistrative Instructions Pharmacy Instructions Status Indications Reaction Description Data Source(s) Levothyroxine Sodium 0.2 MG Oral Tablet [Synthroid] Sy nthroid 200 MCG Synthroid 200 MCG 09/27/2020 12:00:00 AM EST active Synthroid 200 MCG eCW1 ([facility]) Levothyroxine Sodium 0.2 MG Oral Tablet [Synthroid] Sy nthroid 200 MCG Synthroid 200 MCG 09/27/2020 12:00:00 AM EST active Synthroid 200 MCG eCW1 ([facility]) insulin human, isophane 100 UNT/ML Injec table Suspension [Novolin N] Novolin N 100 UNIT/ML Novolin N 100 UNIT/ML 08/23/2020 12:00:00 AM EDT active Novolin N 100 UNIT/ML eCW1 ([facility]) insulin human, isophane 100 UNT/ML Injec table Suspension [Novolin N] Novolin N 100 UNIT/ML Novolin N 100 UNIT/ML 08/23/2020 12:00:00 AM EDT active Novolin N 100 UNIT/ML eCW1 ([facility]) insulin human, isophane 100 UNT/ML Injec table Suspension [Novolin N] Novolin N 100 UNIT/ML Novolin N 100 UNIT/ML 08/23/2020 12:00:00 AM EDT active Novolin N 100 UNIT/ML eCW1 ([facility]) insulin human, isophane 100 UNT/ML Injec table Suspension [Novolin N] Novolin N 100 UNIT/ML Novolin N 100 UNIT/ML 08/23/2020 12:00:00 AM EDT active Novolin N 100 UNIT/ML eCW1 ([facility]) insulin human, isophane 100 UNT/ML Injec table Suspension [Novolin N] Novolin N 100 UNIT/ML Novolin N 100 UNIT/ML 08/23/2020 12:00:00 AM EDT active Novolin N 100 UNIT/ML eCW1 ([facility]) torsemide 100 MG Oral Tablet Torsemide 100 MG Torsemide 100 MG 04/21/2020 12:00:00 AM EDT active Torsemid e 100 MG eCW1 ([facility]) torsemide 100 MG Oral Tablet Torsemide 100 MG Torsemide 100 MG 04/21/2020 12:00:00 AM EDT active Torsemid e 100 MG eCW1 ([facility]) torsemide 100 MG Oral Tablet Torsemide 100 MG Torsemide 100 MG 04/21/2020 12:00:00 AM EDT active Torsemid e 100 MG eCW1 ([facility]) torsemide 100 MG Oral Tablet Torsemide 100 MG Torsemide 100 MG 04/21/2020 12:00:00 AM EDT active Torsemid e 100 MG eCW1 ([facility]) torsemide 100 MG Oral Tablet Torsemide 100 MG Torsemide 100 MG 04/21/2020 12:00:00 AM EDT active Torsemid e 100 MG eCW1 ([facility]) Triamcinolone Acetonide 0.001 MG/MG Topi chuck Ointment Triamcinolone Acetonide 0.1 % Triamcinolone Acetonide 0.1 % 02/23/2020 12:00:00 AM EDT 1.0 {application} active Triamcinolone Aceton caden 0.1 % eCW1 ([facility]) Triamcinolone Acetonide 0.001 MG/MG Topi chuck Ointment Triamcinolone Acetonide 0.1 % Triamcinolone Acetonide 0.1 % 02/23/2020 12:00:00 AM EDT active 1 application eCW1 ([facility]) Triamcinolone Acetonide 0.001 MG/MG Topi chuck Ointment Triamcinolone Acetonide 0.1 % Triamcinolone Acetonide 0.1 % 02/23/2020 12:00:00 AM EDT 1.0 {application} active Triamcinolone Aceton caden 0.1 % eCW1 ([facility]) Triamcinolone Acetonide 0.001 MG/MG Topi chuck Ointment Triamcinolone Acetonide 0.1 % Triamcinolone Acetonide 0.1 % 02/23/2020 12:00:00 AM EDT 1.0 {application} active Triamcinolone Aceton caden 0.1 % eCW1 ([facility]) Triamcinolone Acetonide 0.001 MG/MG Topi chuck Ointment Triamcinolone Acetonide 0.1 % Triamcinolone Acetonide 0.1 % 02/23/2020 12:00:00 AM EDT 1.0 {application} active Triamcinolone Aceton caden 0.1 % eCW1 ([facility]) Triamcinolone Acetonide 0.001 MG/MG Topi chuck Ointment Triamcinolone Acetonide 0.1 % Triamcinolone Acetonide 0.1 % 02/23/2020 12:00:00 AM EDT 1.0 {application} active Triamcinolone Aceton caden 0.1 % eCW1 ([facility]) Triamcinolone Acetonide 0.001 MG/MG Topi chuck Ointment Triamcinolone Acetonide 0.1 % Triamcinolone Acetonide 0.1 % 02/23/2020 12:00:00 AM EDT 1.0 {application} active Triamcinolone Aceton caden 0.1 % eCW1 ([facility]) Triamcinolone Acetonide 0.001 MG/MG Topi chuck Ointment Triamcinolone Acetonide 0.1 % Triamcinolone Acetonide 0.1 % 02/23/2020 12:00:00 AM EDT 1.0 {application} active Triamcinolone Aceton caden 0.1 % eCW1 ([facility]) Doxycycline Monohydrate 100 MG Oral Tablet Doxycycline Monoh ydrate 100 MG 12/13/2019 12:00:00 AM EST 1.0 {tablet} active Doxycycline Monohydrate 100 MG eCW1 ([facility]) Doxycycline Monohydrate 100 MG Oral Tablet Doxycycline Monoh ydrate 100 MG 12/13/2019 12:00:00 AM EST 1.0 {tablet} active Doxycycline Monohydrate 100 MG eCW1 ([facility]) Doxycycline Monohydrate 100 MG Oral Tablet Doxycycline Monoh ydrate 100 MG 12/13/2019 12:00:00 AM EST 1.0 {tablet} active Doxycycline Monohydrate 100 MG eCW1 ([facility]) Doxycycline Monohydrate 100 MG Oral Tablet Doxycycline Monoh ydrate 100 MG 12/13/2019 12:00:00 AM EST 1.0 {tablet} active Doxycycline Monohydrate 100 MG eCW1 ([facility]) Doxycycline Monohydrate 100 MG Oral Tablet Doxycycline Monoh ydrate 100 MG 12/13/2019 12:00:00 AM EST 1.0 {tablet} active Doxycycline Monohydrate 100 MG eCW1 ([facility]) Doxycycline Monohydrate 100 MG Oral Tablet Doxycycline Monoh ydrate 100 MG 12/13/2019 12:00:00 AM EST 1.0 {tablet} active Doxycycline Monohydrate 100 MG eCW1 ([facility]) Doxycycline Monohydrate 100 MG Oral Tablet Doxycycline Monoh ydrate 100 MG 12/13/2019 12:00:00 AM EST 1.0 {tablet} active Doxycycline Monohydrate 100 MG eCW1 ([facility]) Doxycycline Monohydrate 100 MG Oral Tablet Doxycycline Monoh ydrate 100 MG 12/13/2019 12:00:00 AM EST active 1 tablet eCW1 ([facility]) Doxycycline Monohydrate 100 MG Oral Tablet Doxycycline Monoh ydrate 100 MG 12/13/2019 12:00:00 AM EST active 1 tablet eCW1 ([facility]) Doxycycline Monohydrate 100 MG Oral Tablet Doxycycline Monoh ydrate 100 MG 12/13/2019 12:00:00 AM EST active 1 tablet eCW1 ([facility]) silver sulfadiazine 10 MG/ML Topical Cream [Silvadene] Silvadene 1 % Silvadene 1 % 12/10/2019 12:00:00 AM EST 1.0 {application} suspended Silvadene 1 % eCW1 ([facility]) silver sulfadiazine 10 MG/ML Topical Cream [Silvadene] Silvadene 1 % Silvadene 1 % 12/10/2019 12:00:00 AM EST suspended 1 application eCW1 ([facility]) Cephalexin 500 MG Oral Capsule [Keflex] Keflex 500 MG Keflex 500 MG 12/10/2019 12:00:00 AM EST 1.0 {capsule} suspended Keflex 500 MG eCW1 ([facility]) Cephalexin 500 MG Oral Capsule [Keflex] Keflex 500 MG Keflex 500 MG 12/10/2019 12:00:00 AM EST suspended 1 cap katiana eCW1 ([facility]) silver sulfadiazine 10 MG/ML Topical Cream [Silvadene] Silvadene 1 % Silvadene 1 % 12/10/2019 12:00:00 AM EST active 1 application eCW1 ([facility]) Cephalexin 500 MG Oral Capsule [Keflex] Keflex 500 MG Keflex 500 MG 12/10/2019 12:00:00 AM EST 1.0 {capsule} suspended Keflex 500 MG eCW1 ([facility]) silver sulfadiazine 10 MG/ML Topical Cream [Silvadene] Silvadene 1 % Silvadene 1 % 12/10/2019 12:00:00 AM EST suspended 1 application eCW1 ([facility]) silver sulfadiazine 10 MG/ML Topical Cream [Silvadene] Silvadene 1 % Silvadene 1 % 12/10/2019 12:00:00 AM EST 1.0 {application} suspended Silvadene 1 % eCW1 ([facility]) Cephalexin 500 MG Oral Capsule [Keflex] Keflex 500 MG Keflex 500 MG 12/10/2019 12:00:00 AM EST suspended 1 cap katiana eCW1 ([facility]) Cephalexin 500 MG Oral Capsule [Keflex] Keflex 500 MG Keflex 500 MG 12/10/2019 12:00:00 AM EST active 1 capsul e eCW1 ([facility]) Insurance Providers Payer name Policy type / Coverage type Policy ID Covered alliance party ID Covered alliance party's relationship to farfan Policy Farfan Plan Information EMEDNY [id number] SP [id number] HUMANA GOLD [id number] SP [id number] MEDICARE COMPLETE [id number] SP [id number] HUMANA GOLD [id number] SP [id number] MEDICARE COMPLETE [id number] SP [id number] MEDICARE COMPLETE SP [id number] BRANDIE [id number] SP [id number] BRANDIE [facility] O [id number] S [id number] MEDICARE COMPLETE-[facility] O [id number] S [id number] MEDICAID [id number] SP [id number] MEDICARE [id number] SP [id number] MEDICARE COMPLETE [id number] SP [id number] MEDICARE COMPLETE [id number] SP [id number] ANSI-Commercial [id number] ANSI-Medicare Part B [id number] ANSI-Medicare Part B [id number] ANSI-Medicare Part B [id number] ANSI-Medicare Part B [id number] ANSI-Medicare Part B [id number] ANSI-Medicare Part B [id number] ANSI-Commercial [id number] ANSI-Medicare Part B [id number] ANSI-Medicare Part B [id number] ANSI-Commercial [id number] ANSI-Medicare Part B [id number] ANSI-Medicare Part B [id number] ANSI-Medicare Part B [id number] ANSI-Medicare Part B [id number] ANSI-Commercial [id number] ANSI-Medicare Part B [id number] ANSI-Medicare Part B [id number] ANSI-Medicare Part B [id number] ANSI-Medicare Part B [id number] ANSI-Medicare Part B [id number] ANSI-Medicare Part B [id number] ANSI-Medicare Part B [id number] ANSI-Commercial [id number] ANSI-Medicare Part B [id number] ANSI-Commercial [id number] ANSI-Medicare Part B [id number] ANSI-Medicare Part B [id number] ANSI-Medicare Part B [id number] ANSI-Medicare Part B [id number] ANSI-Medicare Part B [id number] ANSI-Medicare Part B [id number] ANSI-Medicare Part B [id number]-[id number] ANSI-Medicare Part B [id number] ANSI-Commercial [id number] ANSI-Commercial [id number]-[id number]-[id number] ANSI-Medicare Part B [id number] ANSI-Medicare Part B [id number] ANSI-Medicare Part B [id number] ANSI-Medicare Part B [id number] ANSI-Medicare Part B [id number] ANSI-Medicare Part B [id number]-[id number] ANSI-Medicare Part B [id number] ANSI-Commercial [id number] ANSI-Medicare Part B [id number] MEDICARE COMPLETE [id number] SP [id number] MEDICARE COMPLETE [id number] SP [id number] ANSI-Medicare Part B [id number] ANSI-Medicare Part B [id number] ANSI-Medicare Part B [id number] ANSI-Medicare Part B [id number] ANSI-Commercial [id number] MEDICARE COMPLETE [id number] SP [id number] MEDICARE COMPLETE [id number] SP [id number] MEDICARE COMPLETE [id number] SP [id number] ANSI-Commercial [id number]-[id number] ANSI-Medicare Part B [id number] ANSI-Medicare Part B [id number]-01gb-1o7m-ckal-4i8e3zg418m1 awnvt20r-82bx-7z0u-dnsq-3q1v3gs903c5 ANSI-Medicare Part B 6s0mhu6i-bf3c-3g6o-975m-2yi52oi25799 8v4mex4x-mp1d-2m9n-830c-1xq25rf26249 ANSI-Medicare Part B 4100d87q-47tr-3406-5165-9lio8435s7o3 6751s54e-48wx-2315-8445-8zjn9057r1e8 ANSI-Medicare Part B j9g08s7y-84tj-94v8-6mv6-td31wz6g3113 y6l46t5q-80mz-76c9-0rt1-ze52ux1i5805 ANSI-Medicare Part B 4xgj33yv-1079-3960-21uo-a22f1cdb0o58 6twi75tc-5999-4256-99qc-b41i0xci3d83 ANSI-Medicare Part B 08o4e1go-411c-9391-8l75-h5l4404mfy23 68r9z7lo-876h-9370-8a91-f2a0124abn94 ANSI-Commercial 8640318e-ltsh-894u-54wf-8ncx59l945q7 6089916d-qozp-895b-89lq-4nvy87j952y5 ANSI-Medicare Part B 994nk3yc-5u65-6795-at3k-12ply5m37l78 960hy6cc-6k53-5762-ln7e-45aei2t53z51 ANSI-Medicare Part B h9649a78-110h-7593-2g17-w81971u4kx91 a7551k66-444h-0853-1e73-a92067e6ib19 ANSI-Commercial g380y83r-56cd-745m-7mp8-sks0qu67p457 w165p32j-81tw-921g-8ne8-kvk0vm81d006 ANSI-Medicare Part B h490525a-l64v-8ym2-03j3-40wu2611c2t1 t693254q-a71o-5kg9-38q0-37ms2844g8u0 ANSI-Medicare Part B kypc72o6-5wc6-9wx1-x202-2fr2r4p43p98 fsol73l5-2ol1-8xl6-i731-2tx2p9a61w51 ANSI-Medicare Part B 36f55807-368n-7y51-x610-5f52fv6vu6i6 12f42746-010k-5h58-i574-4o89rt1bo5j1 ANSI-Medicare Part B d6h375tw-61zw-21xr-4c0u-zb34dn00tq46 z3t457fd-14ng-07zu-0g0l-xu07it55cm77 ANSI-Commercial 4y0f1h66-ft7q-3908-71y5-0rr493m63846 1f5k9f64-fm5z-0726-99h3-7dk941e02108 ANSI-Medicare Part B kx37duld-rj4b-12al-6698-ve23ts2d4l30 yo00dlzk-db8o-03oc-4316-ba14rn5w4o30 ANSI-Medicare Part B 03901647-0550-2784-m817-x5887ld43jz3 63565010-4317-6138-n192-p8842lz51px8 ANSI-Medicare Part B u0o94x1s-hqy9-2ygk-7679-8cr0kap75jwe c1x64q5f-rva1-1ofa-2446-8hn8uhc89sdx ANSI-Medicare Part B f350o627-e4f2-97gx-8h3u-5r9498693ll6 h924q873-a4u9-36xp-8o2t-7k4797887dq4 ANSI-Medicare Part B 1j8bg995-5960-4md1-4p82-79w8a5748o09 7g9cc823-1309-4st6-8e71-65m3n9011d18 ANSI-Medicare Part B 5rs3d94b-m629-62w8-593j-2h73969673i5 2gz2u64j-n979-35p6-399n-4p49622006n4 ANSI-Commercial vzh60735-0i06-1r85-03p2-qs73h38j172h srm04676-1l60-6p68-52n1-ts20i07j417j ANSI-Medicare Part B 85z9t7w8-u749-57x4-vd60-1000b8hc3c8b 63e2q3r6-q462-17f5-cx55-3121y9oa5g2n ANSI-Medicare Part B 2jr4k079-1isz-9g90-5475-u7s8pv04nce5 6da4f636-2etn-6j75-9535-x7v7jt10nqy0 ANSI-Medicare Part B 65r6y3pr-0y4m-8181-uct5-tfi428968k4t 02e5v0mh-1p4p-5013-qwv6-lyo677168p5p ANSI-Commercial 52wji25v-5219-6026-f611-370uo01ilu38 83egd38s-7647-5454-v401-065mo03ccc16 ANSI-Medicare Part B j7294a44-k2m3-20c8-39wi-m2yu71709530 k8930w67-z2v0-45o0-83la-f9ah61347663 ANSI-Medicare Part B 52v4j9k6-9497-75o5-623h-2kg57dq826ie 65s7v4n5-9959-00o4-356p-2xb88cl791jw ANSI-Commercial 82643d98-16o7-86g3-09vd-56ifq76hwo13 80431q15-63y9-85u9-10uw-91pze74xmv79 ANSI-Medicare Part B 6403wt8m-7707-9u57-v948-0306f6tc79w3 5261vd6g-6492-0y76-l855-1755p4tm11z8 ANSI-Medicare Part B t0390w10-11b4-20p6-p561-4i2091048m11 m1159p32-76l6-45f5-a895-1s7212838y74 ANSI-Medicare Part B 8xs2q7t9-t0cm-316h-m38e-1988b2c7648x 6vx4g7g3-w4vq-190d-m08l-0887g0k8116s ANSI-Medicare Part B 7r9oz2zx-060g-9q0h-vb4c-zu011x58g85a 4y2st1ws-621h-3f4k-oy9x-zj161s94t98c [employer] OPTIONS [id number] SP [address] 0714 [place]IONS [id number] [place] [address] 0714 ANSI-Commercial 2063a829-neo2-002f-6fcf-a2k1f6k1s0q1 6498d637-pre7-919b-2nhy-w0h6j5f4i8s3 ANSI-Medicare Part B 72321r42-ew60-3t42-5102-b071z0f8b22u 72914p62-zx33-2v60-7399-g346p1f1i27a ANSI-Medicare Part B l9689er3-7q4y-8983-j031-u671x14sx279 e0028bm0-5l1s-6535-u075-l567h16in323 ANSI-Medicare Part B [id number] MEDICARE COMPLETE [id number] 90 [id number] ANSI-Commercial [id number] ANSI-Medicare Part B [id number] ANSI-Medicare Part B [id number] ANSI-Medicare Part B [id number] ANSI-Medicare Part B [id number] ANSI-Medicare Part B [id number] ANSI-Medicare Part B [id number] ANSI-Commercial [id number] ANSI-Medicare Part B [id number] [facility]-Medicare Part B [id number] ANSI-Commercial [id number] ANSI-Medicare Part B [id number] MEDICARE COMPLETE [id number] SP [id number] MEDICARE COMPLETE [id number] SP [id number] Unitedhealthcare Medicare Commercial [id number] Self [id number] MEDICARE COMPLETE [id number] SP [id number] [employer] [id number] Self [id number] MEDICARE COMPLETE [id number] SP [id number] [employer] PPO [id number] SP [id number] MEDICARE [id number] SP [id number] A [employer] PPO [id number] SP [id number] [employer] [id number] Self [id number] MEDICARE C [id number] S [id number] A [employer] GOLD [id number] SP [id number] [employer] H [id number] Self [id number] MEDICARE A [id number] Self [id number] A Problems, Conditions, and Diagnoses Code Display Name Description Problem Type Effective Dates Data Source(s) 036352507 Pure hypercholesterolemia Pure hypercholesterolemia Pr oblem 08/23/2020 12:00:00 AM EDT MEDENT ([facility] ) [id number] Essential hypertension Essential hypertension Problem 08/23/2020 12:00:00 AM EDT MEDENT ([facility] ) 31755654 Type 2 diabetes mellitus Type 2 diabetes mellitus Prob raza 08/23/2020 12:00:00 AM EDT MEDENT ([facility] ) L30.9 482115842 Dermatitis Problem 02/23/2020 12:00:00 AM ED T eCW1 ([facility]) L30.9 540419496 Dermatitis Problem 02/23/2020 12:00:00 AM ED T eCW1 ([facility]) 793.80 001210605 Abnormal mammogram Problem 01/17/2020 12:00: 00 AM EDT eCW1 ([facility]) 793.80 [id number] Abnormal mammogram Problem 01/17/2020 12:00: 00 AM EDT eCW1 ([facility]) Surgeries/Procedures Procedure Description Date Indications Data Source(s) Physical Therapy Eval - Low Complexity 09/07/2020 12:0 0:00 AM EST MEDENT ([facility]) MRI Upper Extremity Any Joint 09/06/2020 12:00:[address] [facility] ([facility]) Office Visit, Est Pt., Level 3 PC 02/23/2020 12:00:00 AM EDT eCW1 ([facility]) PUNCH BX SKIN SINGLE LESION 02/09/2020 12:00:00 AM EDT eCW1 ([facility]) Office Visit, Est Pt., Level 2 FC 12/10/2019 12:00:00 AM EST eCW1 ([facility]) Results ID Date Data Source LIPID PANEL (CARDIAC RISK) 09/27/2020 12:00:00 AM EST eCW1 ( [facility]) Name Value Range Interpretation Code Description Data Rosa rce(s) Supporting Document(s) Triglyceride [Mass/volume] in Serum or Plasma by calculation 57 <150 TRIGLYCERIDES LEVEL eCW1 ([facility]) Cholesterol [Moles/volume] in Serum or Plasma 171 <200 CHOLESTEROL LEVEL eCW1 ([facility]) 95 NON-HDL-C eCW1 ([facility]) Cholesterol in HDL [Moles/volume] in Serum or Plasma 76 >40 HDL CHOLESTEROL eCW1 ([facility]) Cholesterol in LDL [Mass/volume] in Serum or Plasma by calculation 84 <100 LDL CHOLESTEROL [facility] ([facility]) 2.250 <5 CHOLESTEROL RISK RATIO eCW1 ([facility]) ID Date Data Source TSH 09/27/2020 12:00:00 AM EST eCW1 ([facility]) Name Value Range Interpretation Code Description Data Rosa rce(s) Supporting Document(s) 7.910 0.358-3.740 THYROID STIMULATING HORM ONE eCW1 ([facility]) ID Date Data Source [id number] 09/27/2020 12:00:00 AM EST eCW1 ([facility]) Name Value Range Interpretation Code Description Data Rosa rce(s) Supporting Document(s) Albumin/Creatinine [Mass Ratio] in Urine 509.0 MALB URINE SIEMENS eCW1 ([facility]) Microalbumin/Creatinine [Mass Ratio] in Urine 49.7 CREATININE, URINE eCW1 ([facility]) Microalbumin/Creatinine [Ratio] in Urine 1024.1 0.0-30.0 TASHI/CREAT RATIO eCW1 ([facility]) ID Date Data Source [id number] 09/27/2020 12:00:00 AM EST eCW1 ([facility]) Name Value Range Interpretation Code Description Data Rosa rce(s) Supporting Document(s) Hemoglobin A1c/Hemoglobin.total in Blood 10.3 HEMOGLOBIN A1c eCW1 ([facility]) ID Date Data Source Comprehensive Metabolic Profile (CMP) 09/27/2020 12:00:00 AM EST eCW1 ([facility]) Name Value Range Interpretation Code Description Data Rosa rce(s) Supporting Document(s) 88 70-100 GLUCOSE, FASTING eCW1 ([facility]) > 60.0 >39 GLOMERULAR FILTRATION RATE eCW 1 ([facility]) 16 7-18 BLOOD UREA NITROGEN eCW1 ([facility]) 0.82 0.55-1.30 CREATININE FOR GFR eCW1 ([facility]) 140 136-145 SODIUM LEVEL eCW1 ([facility]) 32 21-32 CARBON DIOXIDE LEVEL eCW1 ([facility]) 4.8 3.5-5.1 POTASSIUM SERUM eCW1 ([facility]) 104 98-107 CHLORIDE LEVEL eCW1 ([facility]) 9.5 8.8-10.2 CALCIUM LEVEL eCW1 ([facility]) 162 45-117 ALKALINE PHOSPHATASE eCW1 ([facility]) 21 12-78 ALT/SGPT eCW1 ([facility]) 13 7-37 AST/SGOT eCW1 ([facility]) 0.9 1.2-2.2 ALBUMIN/GLOBULIN RATIO eCW1 ([facility]) 7.5 6.4-8.2 TOTAL PROTEIN eCW1 ([facility]) 0.7 0.2-1.0 BILIRUBIN,TOTAL eCW1 ([facility]) 3.5 3.2-5.2 ALBUMIN eCW1 ([facility]) ID Date Data Source NT-PRO BNP 09/27/2020 12:00:00 AM EST eCW1 ([facility]) Name Value Range Interpretation Code Description Data Rosa rce(s) Supporting Document(s) 183 <125 NT-PRO BNP eCW1 ([facility]) Procedure Social History Code Duration Value Status Description Data Source(s ) Smoking 09/27/2020 12:00:00 AM EST Former Smoker completed Former Smoker eCW1 ([facility]) Smoking 09/27/2020 12:00:00 AM EST Former Smoker completed Former Smoker eCW1 ([facility]) Smoking 04/22/2020 12:00:00 AM EDT Former Smoker completed Former Smoker eCW1 ([facility]) Smoking 04/22/2020 12:00:00 AM EDT Former Smoker completed Former Smoker eCW1 ([facility]) Smoking 04/22/2020 12:00:00 AM EDT Former Smoker completed Former Smoker eCW1 ([facility]) Smoking 04/22/2020 12:00:00 AM EDT Former Smoker completed Former Smoker eCW1 ([facility]) Smoking 04/22/2020 12:00:00 AM EDT Former Smoker completed Former Smoker eCW1 ([facility]) Smoking 04/19/2020 12:00:00 AM EDT Former Smoker completed Former Smoker eCW1 ([facility]) Smoking 02/23/2020 12:00:00 AM EDT Former Smoker completed Former Smoker eCW1 ([facility]) Vital Signs ID Date Data Source UNK Name Value Range Interpretation Code Description Data Source(s) Diastolic blood pressure 78 mm[Hg] 78 mm[Hg] eCW1 ([facility]) Systolic blood pressure 132 mm[Hg] 132 mm[Hg] e CW1 ([facility]) Body temperature 96.5 [degF] 96.5 [degF] eCW1 ( [facility]) Respiratory rate 18 /min 18 /min eCW1 ([facility]) Heart rate 92 /min 92 /min eCW1 ([facility]) Body mass index (BMI) [Ratio] 41.44 kg/m2 41.44 kg/m2 eCW1 ([facility]) Body height [in_i] eCW1 ([facility]) Body weight 212.2 [lb_av] 212.2 [lb_av] eCW1 ([facility]) Body mass index (BMI) [Ratio] 40.7 kg/m2 40.7 k g/m2 MEDENT ([facility]) Body weight 203.12 [lb_av] 203.12 [lb_av] MEDEN T ([facility]) Body height 59.25 [in_i] 59.25 [in_i] MEDENT ([facility]) 4'11.25" Body temperature 97.1 [degF] 97.1 [degF] MEDENT ([facility] ) Diastolic blood pressure 76 mm[Hg] 76 mm[Hg] eCW1 ([facility]) Systolic blood pressure 132 mm[Hg] 132 mm[Hg] e CW1 ([facility]) Body mass index (BMI) [Ratio] 43.25 kg/m2 43.25 kg/m2 eCW1 ([facility]) Body height [in_us] eCW1 ([facility]) Body weight Measured 221.5 [lb_av] 221.5 [lb_av ] eCW1 ([facility]) Diastolic blood pressure 86 mm[Hg] 86 mm[Hg] eCW1 ([facility]) Systolic blood pressure 140 mm[Hg] 140 mm[Hg] e CW1 ([facility]) Body mass index (BMI) [Ratio] 43.14 kg/m2 43.14 kg/m2 eCW1 ([facility]) Body height [in_us] eCW1 ([facility]) Body weight Measured 220.9 [lb_av] 220.9 [lb_av ] eCW1 ([facility]) Diastolic blood pressure 78 mm[Hg] 78 mm[Hg] eCW1 ([facility]) Systolic blood pressure 106 mm[Hg] 106 mm[Hg] e CW1 ([facility]) Body temperature 97 [degF] 97 [degF] eCW1 ([facility]) Respiratory rate 20 /min 20 /min eCW1 ([facility]) Heart rate 86 /min 86 /min eCW1 ([facility]) Body mass index (BMI) [Ratio] 41.87 kg/m2 41.87 kg/m2 eCW1 ([facility]) Body height [in_us] eCW1 ([facility]) Body weight Measured 214.4 [lb_av] 214.4 [lb_av ] eCW1 ([facility]) Patient Treatment Plan of Care Planned Activity Planned Date Details Description Data Source (s) Levothyroxine Sodium 0.2 MG Oral Tablet [Synthroid] 09/27/20 12:00:00 AM EST eCW1 ([facility]) Levothyroxine Sodium 0.2 MG Oral Tablet [Synthroid] 09/27/20 12:00:00 AM EST eCW1 ([facility]) insulin human, isophane 100 UNT/ML Injectable Suspensi on [Novolin N] 08/23/2020 12:00:00 AM EDT eCW1 ([facility]) insulin human, isophane 100 UNT/ML Injectable Suspensi on [Novolin N] 08/23/2020 12:00:00 AM EDT eCW1 ([facility]) insulin human, isophane 100 UNT/ML Injectable Suspensi on [Novolin N] 08/23/2020 12:00:00 AM EDT eCW1 ([facility]) torsemide 100 MG Oral Tablet 04/21/2020 12:00:00 AM EDT eCW1 ([facility]) torsemide 100 MG Oral Tablet 04/21/2020 12:00:00 AM EDT eCW1 ([facility]) torsemide 100 MG Oral Tablet 04/21/2020 12:00:00 AM EDT eCW1 ([facility]) torsemide 100 MG Oral Tablet 04/21/2020 12:00:00 AM EDT eCW1 ([facility]) torsemide 100 MG Oral Tablet 04/21/2020 12:00:00 AM EDT eCW1 ([facility]) Triamcinolone Acetonide 0.001 MG/MG Topical Ointment 12:00:00 AM EDT eCW1 ([facility]) Triamcinolone Acetonide 0.001 MG/MG Topical Ointment 12:00:00 AM EDT eCW1 ([facility]) Doxycycline Monohydrate 100 MG Oral Tablet 12/13/2019 12:00:[address] eCW1 ([facility]) Cephalexin 500 MG Oral Capsule [Keflex] 12/10/2019 12:00:00 AM EST eCW1 ([facility]) silver sulfadiazine 10 MG/ML Topical Cream [Silvadene] 12/10/2019 12:00:00 AM EST eCW1 ([facility])
--- NOTE | 2020-12-17 14:07 | REP ---
INDICATION: trauma. COMPARISON: CT brain today, 10/07/2019. TECHNIQUE: Maxillofacial trauma protocol with coronal and sagittal reconstructions. FINDINGS: The skull base including occipital bone the mastoids middle and anterior cranial fossa unremarkable visualized sinuses are clear nasal bones and nasal septum bladder fracture nasal spines of the maxilla and the maxillary sinus burns normal zygomatic arches intact. The nasal bones without the fracture or deviation. Septum midline. Orbital floors intact. Optic nerves, extraocular muscles, globes and intraconal fat unremarkable. There is a frontal scalp hematoma and left temporal scalp hematoma. The mandible shows no fracture or subluxation. Some absent and mandibular mass and maxillary dentition. This appears chronic. Nasopharyngeal airway is patent. Oropharynx and visualized portions hypopharynx intact. Craniocervical junction aligns normally. IMPRESSION: 1. Scalp hematoma frontal and left temporal regions. No facial bone fractures, sinus abnormalities or air-fluid levels. The orbits and contents are unremarkable. No other significant finding. <Electronically signed by Raymond Alcantar > 12/17/20 0151
--- NOTE | 2020-12-17 14:13 | REP ---
INDICATION: trauma. COMPARISON: CT angio neck in bone window settings 10/07/2019 TECHNIQUE: Trauma CT C-spine with coronal and sagittal bone window reconstructions FINDINGS: Cervical lordosis is a reduced. This may be related to the neck collar. There is spondylosis at the C6-7 with anterior osteophytes. That disc space is narrowed there is a few mm of anterolisthesis of C4 on 5 without osteophytes from C3-4 through C6-7 anteriorly. This see 4 5 and C5-6 disc levels maintain their height. The vertebral heights are maintained throughout the dens shows normal relationship to the C1 on sagittal and coronal reconstructions. Posterior elements are without fracture or focal lesion some facet arthropathy is noted. No central canal stenosis. Foramina adequate or marginally adequate. Lung apices are clear that portion of the 1st few ribs, medial clavicles and upper thoracic vertebral levels unremarkable. The airway, larynx and subglottic trachea grossly unremarkable no prevertebral swelling. IMPRESSION: 1. No CT evidence of compression fracture or malalignment. There is spondylosis from C3-4 through C6-7 with a few mm of anterolisthesis of C4 on 5 due to facet arthritis. No acute finding. <Electronically signed by Raymond Alcantar > 12/17/20 0416
[2020-12-17 15:24] VITALS: BP 178/72
== END 2020-12-17 15:26 | disposition home or self-care (01) ==
LOC: M ED 12:01
DX: S06.0X0A Concussion without loss of consciousness, initial encounter (principal); S01.81XA Laceration without foreign body of other part of head, initial encounter; M54.2 Cervicalgia; W01.198A Fall on same level from slipping, tripping and stumbling with subsequent striking against other object, initial encounter; Y92.019 Unspecified place in single-family (private) house as the place of occurrence of the external cause; Y93.9 Activity, unspecified; Y99.9 Unspecified external cause status; M47.812 Spondylosis without myelopathy or radiculopathy, cervical region; E11.9 Type 2 diabetes mellitus without complications; I10 Essential (primary) hypertension; E78.5 Hyperlipidemia, unspecified; G47.33 Obstructive sleep apnea (adult) (pediatric); E66.9 Obesity, unspecified; Z88.1 Allergy status to other antibiotic agents; Z88.8 Allergy status to other drugs, medicaments and biological substances; Z79.899 Other long term (current) drug therapy; Z79.82 Long term (current) use of aspirin; Z79.4 Long term (current) use of insulin; Z23 Encounter for immunization

== ENCOUNTER 2021-01-09 18:11 | Emergency (ER) | payer OTHER, MEDICAID ==
[~2021-01-09] VITALS: Ht 129.5 cm; Wt 96.4 kg
[~2021-01-09 18:11] MED LIST changes: +CITA40TA6 PO; +INSUN SQ; +IRBE150T7 PO; +LEVO200T4 PO; +VITA-243 PO; +VITATAB74 PO
[2021-01-09] MEDS ORDERED: INSUNSD (18:25)
[2021-01-09] MEDS ORDERED: TRUL0.5I (18:25)
[2021-01-09 19:03] LABS: BASO # 0.1 10^3/uL (0.0-0.2); BASO % 0.6 % (0.0-1.0); EOS # 0.1 10^3/uL (0.0-0.5); EOS % 0.6 % (0.0-3.0); HEMATOCRIT 43.3 % (36.0-47.0); HEMOGLOBIN 13.9 g/dl (12.0-15.5); LYMPH # 2.1 10^3/uL (1.5-5.0); LYMPH % 16.6 % (24.0-44.0); MEAN CORPUSCULAR HEMOGLOBIN 27.7 pg (27.0-33.0); MEAN CORPUSCULAR HGB CONC 32.1 g/dl (32.0-36.5); MEAN CORPUSCULAR VOLUME 86.4 fl (80.0-96.0); MONO # 0.7 10^3/uL (0.0-0.8); MONO % 5.6 % (2.0-8.0); NEUTROPHILS # 9.4 10^3/uL (1.5-8.5); PLATELET COUNT, AUTOMATED 227 10^3/uL (150-450); RED BLOOD COUNT 5.01 10^6/uL (4.00-5.40); WHITE BLOOD COUNT 12.4 10^3/uL (4.0-10.0)
[2021-01-09 19:05] LABS: VENOUS BASE EXCESS 1.7 (-2.0-2.0); VENOUS HCO3 27.5 MEQ/L (23.0-27.0); VENOUS O2 SATURATION 73.5 % (60.0-80.0); VENOUS PARTIAL PRESSURE CO2 47.6 mmHg (38.0-50.0); VENOUS PARTIAL PRESSURE O2 40.1 mmHg (30.0-50.0); VENOUS STANDARD HCO3 25.4 MEQ/L
[2021-01-09 19:38] LABS: ALBUMIN 3.5 GM/DL (3.2-5.2); BILIRUBIN,DIRECT 0.3 MG/DL (0.0-0.2); TOTAL PROTEIN 7.3 GM/DL (6.4-8.2)
[2021-01-09 19:51] LABS: HEMOGLOBIN A1c 10.3 %
[2021-01-09] MEDS ORDERED: KETOROLAC 30 MG/ML 1ML VIAL IV ONE (20:00)
[2021-01-09] MEDS ORDERED: METHOCARBAMOL 1,000 MG/10 ML VIAL (J2800) IV ONE (20:00)
--- NOTE | 2021-01-09 21:04 | REPVR ---
PROCEDURE INFORMATION: Exam: CT Lumbar Spine Without Contrast Exam date and time: 01/09/2021 8:47 PM Age: 75 years old Clinical indication: Injury or trauma; Fall; Blunt trauma (contusions or hematomas); Additional info: Fall, left sided back pain TECHNIQUE: Imaging protocol: Computed tomography images of the lumbar spine without contrast. Radiation optimization: All CT scans at this facility use at least one of these dose optimization techniques: automated exposure control; mA and/or kV adjustment per patient size (includes targeted exams where dose is matched to clinical indication); or iterative reconstruction. COMPARISON: No relevant prior studies available. FINDINGS: Vertebrae: Status post posterior interbody fusion of L2 and L3 using transpedicular screws metallic rods. Status post bilateral laminectomies extending from L2-L4. Marked osteoporosis from L2 to L5 extending into the sacrum. L1-L2: Moderate central spinal stenosis L1-L2. L2-L3: No significant disc protrusion. No spinal canal stenosis. No neural foraminal narrowing. L3-L4: Moderate to severe central spinal stenosis L3-L4. L4-L5: Adequate thecal sac decompression at L4-L5. L5-S1: No significant disc protrusion. No severe spinal canal stenosis. No significant neural foraminal narrowing. Other bones/joints: Focal defect in the posterior iliac bone on the right consistent with changes related to prior bone harvesting donor site. Vasculature: The aortoiliac vessels demonstrate mild atherosclerotic calcification. Soft tissues: Unremarkable. IMPRESSION: 1. Moderate central spinal stenosis L1-L2 and moderate to severe central spinal stenosis L3-L4. 2. No acute findings. Electronically signed by: Henri Boudreaux On 01/09/2021 21:04:59 PM
[2021-01-09 21:15] VITALS: BP 147/63
[2021-01-09] MEDS ORDERED: ROBA750T4 PO (23:37)
[2021-01-09] MEDS ORDERED: NAPR-837 PO (23:37)
--- NOTE | 2021-01-10 09:37 | ECGEPIP ---
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
== END 2021-01-10 00:53 | disposition home or self-care (01) ==
LOC: M ED 18:11
DX: E11.9 Type 2 diabetes mellitus without complications (principal); M54.5 Low back pain; W19.XXXA Unspecified fall, initial encounter; Y92.9 Unspecified place or not applicable; Y93.9 Activity, unspecified; Y99.9 Unspecified external cause status; R94.31 Abnormal electrocardiogram [ECG] [EKG]; M48.061 Spinal stenosis, lumbar region without neurogenic claudication; I10 Essential (primary) hypertension; E03.9 Hypothyroidism, unspecified; Z88.8 Allergy status to other drugs, medicaments and biological substances; Z79.4 Long term (current) use of insulin; Z79.899 Other long term (current) drug therapy
CPT/HCPCS: 72131; 80047; 80076; 82803; 83036; 83690; 85025; 93005; 93041; 94760; 96374; 96375; 99285; J1885; J2800

== ENCOUNTER → 2021-04-19 | Outpatient (REF) | payer OTHER, MEDICAID ==
[~2021-04-19] MED LIST changes: +INSUNSD; +NAPR-837 PO; +OMEP40CA4 PO; -OMEP40CA97 PO; -OXYC1TAB15 PO; +OXYC7.5T3 PO; +ROBA750T4 PO; +TRUL0.5I
[2021-04-19 17:35] LABS: ALBUMIN 3.6 GM/DL (3.2-5.2); ALT/SGPT 25 U/L (12-78); BILIRUBIN,TOTAL 1.3 MG/DL (0.2-1.0); BLOOD UREA NITROGEN 18 MG/DL (7-18); CALCIUM LEVEL 9.3 MG/DL (8.8-10.2); CARBON DIOXIDE LEVEL 31 MEQ/L (21-32); CHLORIDE LEVEL 103 MEQ/L (98-107); CHOLESTEROL LEVEL 146 MG/DL (<200); CHOLESTEROL RISK RATIO 2.179 (<5); CREATININE FOR GFR 0.75 MG/DL (0.55-1.30); GLOMERULAR FILTRATION RATE > 60.0 (>39); GLUCOSE, FASTING 94 MG/DL (70-100); HDL CHOLESTEROL 67 MG/DL (>40); LDL CHOLESTEROL 63 MG/DL (<100); NON-HDL-C 79 MG/DL; SODIUM LEVEL 139 MEQ/L (136-145); THYROID STIMULATING HORMONE 0.086 uIU/ML (0.358-3.740); TOTAL PROTEIN 7.6 GM/DL (6.4-8.2); TRIGLYCERIDES LEVEL 81 MG/DL (<150)
[2021-04-19 17:41] LABS: MAU/CREAT RATIO 337.9 MCG/MG (0.0-30.0)
== END ==
LOC: M SFHCPLAZ 14:31
PROVIDERS: ATTEND Nurse Practitioner Adult Health
DX: E11.65 Type 2 diabetes mellitus with hyperglycemia (principal); I10 Essential (primary) hypertension; E78.2 Mixed hyperlipidemia; E03.9 Hypothyroidism, unspecified
CPT/HCPCS: 36415; 80053; 80061; 82043; 83036; 84443; G0463

== ENCOUNTER 2021-09-01 15:59 | Emergency (ER) | payer OTHER, MEDICAID ==
[~2021-09-01] VITALS: Ht 142.2 cm; Wt 92.3 kg
--- OUTSIDE RECORDS SUMMARY | 2021-09-01 16:14 | CCD ---
Author Author [employer] Organization [facility] [employer] Address Unknown Phone Unavailable Care Team Providers Care Log Sorting Supervisor Name Role Phone Tori Rausch Unavailable PROBLEMS Type Condition ICD9-CM Code [id number] Code Onset Dates Condition S tatus W/U Status Risk SNOMED Code Notes Problem Sleep apnea, unspecified type G47.30 Active confirm ed [id number] She has a CPAP device set at +20 cm of water. has not had her pressures checked Problem Adult hypothyroidism E03.9 Active confirmed 56275324 She is hypothyroid on replacement therapy. Problem Decubitus ulcer of sacral region, unspecified ulcer stage L89.159 Active confirmed 812446571 Problem Essential hypertension I10 Active confirmed 80759490 She is maintained on diltiazem, losartan and Lasix therapy for her hypertension and it is controlled. 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 Her hemoglobin A1c is suboptimal, she is going to work more diligently on diet and exercise but may require further intensification of her medications in the future. adding trulicity Problem Mixed hyperlipidemia E78.2 Active confirmed 470940872 She is maintained on simvastatin therapy for hypercholesterolemia with optimal lipid control as of June 2018. Problem Breast lesion N64.9 Active confirmed 570156 004 Problem Left shoulder pain, unspecified chronicity M25.512 Active confirmed 91201908 Problem Reactive depression F32.9 Active confirmed 12285788 She has a history of depression will increase to 40 mg inlight of the o valencia 2 sons recently Problem Frequent falls R29.6 Active confirmed 25216 2001 Problem Restless legs G25.81 Active confirmed 653952 08 She has a history of restless leg syndrome which is treated with ropinirole 2 mg at bedtime. Problem Carpal tunnel syndrome of left wrist G56.02 Act jakob confirmed 65993383 Problem Venous insufficiency I87.2 Active confirmed 83799427 She has stasis changes of her ankles and a history of ankle edema, controlled with Lasix therapy. Problem Bilateral impacted cerumen H61.23 Active confirmed 39666665 Problem Gastroesophageal reflux disease without esophagitis K21.9 Active confirmed 271559129 She has a history of reflux disease and is maintained on omeprazole therapy. She had an upper endoscopy in May 2018, with no pathologic findings identified. Problem BMI 45.0-49.9, adult Z68.42 Active confirmed 865226685 Problem Other chronic pain G89.29 Active confirmed 8 6203640 Problem Low back pain M54.5 Active confirmed 801543 009 Problem Dysuria R30.0 Active confirmed 81807208 Problem Candidiasis of female genitalia B37.3 Active confi rmed 051475924 Problem Acute on chronic congestive heart failure, unspecified heart failure type I50.9 Active confirmed 71386861 Problem Loss of balance R26.89 Active confirmed 3876 55976 Problem History of tobacco abuse Z87.891 Active confirmed [id number] Problem Type 2 diabetes mellitus with other diabetic kid navneet complication E11.29 Active confirmed 86643019298860 Problem Shortness of breath R06.02 Active confirmed 296574328 Problem Stress incontinence N39.3 Active confirmed 96648419 Problem Chronic obstructive pulmonary disease, unspecified COPD ty pe J44.9 Active confirmed 71461547 maintained with inhaleres Problem Lacunar infarction I63.81 Active confirmed 2 17884996 Problem Abnormal mammogram 793.80 Active confirmed 1 19582915 Problem Dermatitis L30.9 Active confirmed 152955968 ALLERGIES Allergen (clinical drug ingredient) Drug/Non Drug Allergy do cumented on EMR Reaction Allergy Type Onset Date Status erythromycin Erythromycin([facility] Code:[address]-93) Dyspnea Drug All ergy Active ceclor respiratory Drug Allergy Active Flexeril Dyspnea Drug Allergy Active ENCOUNTERS from 1945 to 2021-07-18 Encounter Location Date Provider Diagnosis [address] [phone] [place] [address] Jun, Tori Rausch Type 2 diabetes mellitus wit h hyperglycemia E11.65 ; Essential hypertension I10 ; Mixed hyperlipidemia E78.2 and Adult hypothyroidism E03.9 IMMUNIZATIONS Vaccine Route Administration Date Status COVID-19 dose #2 given elsewhere Unspecified Unknown Mar Administered COVID-19 dose #1 given elsewhere Unspecified Unknown March 13, 2021 Administered [facility] Given IM Intramuscular Sep 07, 2020 Adminis tered Influenza 18 yrs & older Flublok IM Intramuscular Sep 30, 2019 Administered Influenza 18 yrs & older Flublok IM Intramuscular Sep 22, 2018 Administered Influenza (High Dose 65 & up) IM Intramuscular Aug 13, 2017 A dministered Pneumococcal Adult 0.5mL Pneumovax 23 IM Intramuscular April 21, 2020 Administered Pneumococcal 0.5mL Prevnar 13 IM Intramuscular Jul 15, 2018 A dministered SOCIAL HISTORY Tobacco Use: Social History Observation Description Date Details (start date - stop date) Former Smoker Sex Assigned At : Social History Observation Description Sex Assigned At Unknown Education: Question Answer Notes 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 Audit Question Answer Notes Total Score: 0 Interpretation: Alcohol Education Language: Question Answer Notes Languages spoken: Trinidadian Jehovah'S Witness: Question Answer Notes Jehovah'S Witness 08 Jainism Sexual Hx: Question Answer Notes Had sex [...] Notes Start Da te End Date Status Neurontin 300 MG 1 capsule Orally three times daily Active metFORMIN HCl ER 500 MG TAKE 1 TABLET BY MOUTH TWICE DAILY for 90 Active Vitamin D 50 MCG (2000 UT) 1 tablet Orally Daily Active NovoLIN N 100 UNIT/ML ADMINISTER 25 UNITS UNDER THE SKIN TWICE FABI Y for 60 Active CeleXA 40 mg 1 tab Orally Daily Acti ve Centrum Silver 50+Women - 1 tab Orally Daily Active Vitamin C 1000 mgs Orally Once a day Active Symbicort 160-4.5 MCG/ACT 2 puffs Inhalation Twice a day pt states this i Advair Active Omeprazole 40 MG TAKE 1 CAPSULE BY MOUTH ONCE A DAY for 90 Active rOPINIRole HCl 2 MG take 1 tablet by mouth 1 to 3 hours before bedtime orally Daily Active Fish Oil 1200 MG 1 capsule Orally Once a day for 30 day(s) Active glipiZIDE ER 10 MG 1 tablet with breakfast Orally Once a day Active Simvastatin 20 MG TAKE 1 TABLET BY MOUTH EVERY DAY IN THE EVENING for 90 Active Irbesartan 150 MG TAKE 1 TABLET BY MOUTH ONCE A DAY Orally Once a day for 90 days Active Trulicity 1.5 MG/0.5ML as directed Subcutaneous one a week for 30 day s Active Potassium Chloride ER 20 MEQ 1 tablet with food Orally Once a day Active busPIRone HCl 10 MG 1 tablet Orally Daily prn keyed up for 30 da ys Jun, Active Lasix 40 MG 1 tablet Orally Once a day Active Aspirin Adult Low Dose 81 MG 2 tablets Orally Once a day Active Nystatin 985972 UNIT/GM 1 application to affected ar ea topically to skin under each breast Twice a day as needed Jan, Active Levothyroxine Sodium 200 MCG TAKE 1 TABLET BY MOUTH IN THE MORNING ON AN EMPTY STOMACH for 90 Active NovoLIN N 100 UNIT/ML 25 units Subcutaneous/E11.9 twice daily Active Insulin Syringe 29G X 1/2" 1 ML as directed DX: E11.65 Twice daily with Novolin for 90 day(s) Jun, Active Calcium 500 + D 500-200 MG-UNIT 1 tablet with a meal Orally Once a da y Active PROCEDURES No Information RESULTS No Results REASON FOR VISIT office visit MEDICAL (GENERAL) HISTORY Type Description Date Medical [...] - resolved Medical History Back Surgery 07/09/16 Ward Medical History family history of colon cancer Medical History GERD Surgical History back surgery x2 Surgical History tonsillectomy Surgical History bilateral cataracts Surgical History carpal tunnel repair left x1 right x2 Surgical History Upper endoscopy 03/30/15 Surgical History colonoscopy 03/30/15 Surgical History colonoscopy 04/03/18 Surgical History Upper endoscopy 05/2018 Surgical History Bilateral blepharoplasty--Dr. Davila 07/28 Hospitalization History [facility] ER, fall 12/17/2020 Goals Section No Information Health Concerns No Information MEDICAL EQUIPMENT No Information MENTAL STATUS No Information FUNCTIONAL STATUS No Information ASSESSMENTS Encounter Date Diagnosis Assessment Notes Treatment Notes Treatm ent Clinical Notes Jun, Type 2 diabetes mellitus with hyperglycemia (ICD -10 - E11.65) Jun, Essential hypertension (ICD-10 - I10) Jun, Mixed hyperlipidemia (ICD-10 - E78.2) Jun, Adult hypothyroidism (ICD-10 - E03.9) PLAN OF TREATMENT Medication Medication Name Sig Start Date Stop Date glipiZIDE ER 10 MG 1 tablet with breakfast Orally Once a day NovoLIN N 100 UNIT/ML 25 units Subcutaneous/E11.9 twice daily Symbicort 160-4.5 MCG/ACT 2 puffs Inhalation Twice a day rOPINIRole HCl 2 MG take 1 tablet by mouth 1 to 3 hours before bedtime orally Daily metFORMIN HCl ER 500 MG TAKE 1 TABLET BY MOUTH TWICE DAILY for 9 0 busPIRone HCl 10 MG 1 tablet Orally Daily prn keyed up for 30 da ys Jun, Lasix 40 MG 1 tablet Orally Once a day Trulicity 1.5 MG/0.5ML as directed Subcutaneous one a week for 3 0 days CeleXA 40 mg 1 tab Orally Daily Potassium Chloride ER 20 MEQ 1 tablet with food Orally Once a da y Future Test Test Name Order Date Comprehensive Metabolic Profile (CMP) [id number] HEMOGLOBIN A1c [id number] MICROALBUMIN RANDOM [id number] TSH [id number] LIPID PANEL (CARDIAC RISK) [id number] Next Appt Details Provider Name:Tori Rausch, 10:00:00 AM, [address] [facility], , [place], [address], Insurance Providers Payer Name Payer Address Payer Phone Insured Name Patient Relati onship to Insured Coverage Start Date Coverage End Date MEDICAID [employer] [address] [facility] [id number] [phone] MELANI CABRALES self [facility] [address] [address] [facility] [address] MELANI CABRALES self
--- OUTSIDE RECORDS SUMMARY | 2021-09-01 16:14 | CCD ---
Author Author [facility] Organization [facility] Address Unknown Phone Unavailable Care Team Providers Care Flue Cleaner Name Role Phone LEONARDO RODRIGUEZ MD Unavailable [...] Unavailable LEONARDO RODRIGUEZ MD Unavailable Unavailable LEONARDO ORDRIGUEZ MD Unavailable Unavailable LEONARDO RODRIGUEZ MD Unavailable Unavailable LEONARDO RODRIGUEZ MD Unavailable Unavailable MARKWITH, LEONARDO MD Unavailable Unavailable MARKWITH, LEONARDO Unavailable Unavailable MARKWITH, LEONARDO MD Unavailable Unavailable MARKWITH, LEONARDO MD Unavailable Unavailable MARKWITH, LEONARDO MD Unavailable Unavailable MARKWITH, LEONARDO MD Unavailable Unavailable MARKWITH, LEONARDO MD Unavailable Unavailable MARKWITH, LEONARDO MD Unavailable Unavailable MARKWITH, LEONARDO Unavailable Unavailable Re-disclosure Warning The records that [...] is protected by Article 27-F of the [facility] Public Health law. If you continue you may have access to information: Regarding HIV / AIDS; Provided by facilities licensed or operated by the [facility] Office of Mental Health; or Provided by the [facility] Office for People With Developmental Disabilities. If such information is present, then the following [facility] mandated warning applies: This information has been [...] law may result in a fine or chcf sentence or both. A general authorization for the release of medical or other information is NOT sufficient authorization for further disc losure. Family History Family Member Name Family Member Gender Family Member Status Date o f Status Description Data Source(s) Unknown Unknown Problem MEDENT ([facility], ) sister Dx age 69 Unknown Male Problem MEDENT ([facility] () Encounters Encounter Providers Location Date Indications Data Source(s ) Unknown [address] [facility] [address] 08/29/2021 12:00:00 AM EDT eCW1 ([facility]) Unknown [address] [facility] [address] 07/18/2021 12:00:00 AM EDT eCW1 ([facility] Office Visit, Est Pt., Level 4 PC [address] [place] [address] 07/18/2021 12:00:00 AM EDT eCW1 ([facility]) Unknown [address] [facility] [address] 06/21/2021 12:00:00 AM EDT eCW1 ([facility] Unknown [address] [facility] [address] 06/18/2021 12:00:00 AM EDT eCW1 ([facility]) Outpatient [address] [facility] [address] 04/19/2021 12:00:00 AM EDT eCW1 ([facility]) Unknown [address] [facility] [address] 02/15/2021 12:00:00 AM EDT eCW1 ([facility]) Outpatient [address] [facility] [address] 02/08/2021 12:00:00 AM EDT eCW1 ([facility]) Unknown [address] [facility] [address] 01/10/2021 12:00:00 AM EDT eCW1 ([facility]) Unknown [address] [facility] [address] 01/09/2021 12:00:00 AM EDT eCW1 ([facility]) Unknown [address] [facility] [address] 01/03/2021 12:00:00 AM EST eCW1 ([facility]) Outpatient [address] [facility] [address] 12/26/2020 12:00:00 AM EST eCW1 [facility] Outpatient Attender: LEONARDO RODRIGUEZ MD Physical Therapy 09:30:00 AM EST MEDENT ([facility]) Unknown [address] [facility] [address] 10/05/2020 12:00:00 AM EST eCW1 ([facility], [facility]) Office Visit, Est Pt., Level 4 PC [address] [place] [address] 09/27/2020 12:00:00 AM EST eCW1 ([facility]) Unknown [address] [facility] [place] [address] 09/11/2020 12:00:00 AM EST eCW1 ([facility], [facility]) Unknown [address] [facility] [place] [address] 09/06/2020 12:00:00 AM EST eCW1 ([facility], [facility]) Unknown [address] [facility] [place] [address] 08/23/2020 12:00:00 AM EDT eCW1 ([facility], [facility]) OFFICE OUTPATIENT NEW 30 MINUTES Attender: LEONARDO RODRIGUEZ MD Ph ysical Therapy 08/18/2020 01:00:00 PM EDT MEDENT ([facility]) Unknown [address] [facility] [address] 08/14/2020 12:00:00 AM EDT eCW1 ([facility], [facility]) Unknown [address] [facility] [place] [address] 08/02/2020 12:00:00 AM EDT eCW1 ([facility], [facility]) Immunizations Vaccine Date Status Description Data Source(s) COVID-19 dose #2 given elsewhere Unspecified 04/02/2021 09:0 6:00 AM EDT completed eCW1 ([facility], [facility]) COVID-19 dose #2 given elsewhere Unspecified 04/02/2021 09:0 6:00 AM EDT completed eCW1 ([facility], [facility]) COVID-19 dose #2 given elsewhere Unspecified 04/02/2021 09:0 6:00 AM EDT completed eCW1 ([facility], [facility]) COVID-19 VACCINE Pfizer 04/02/2021 12:00:00 AM EDT completed [facility] Vaccine Series Complete: YESThis Data wa s Submitted to [facility] Via [employer]. COVID-19 dose #1 given elsewhere Unspecified 03/13/2021 09:0 5:00 AM EDT completed eCW1 ([facility], [facility]) COVID-19 dose #1 given elsewhere Unspecified 03/13/2021 09:0 5:00 AM EDT completed eCW1 ([facility], [facility]) COVID-19 dose #1 given elsewhere Unspecified 03/13/2021 09:0 5:00 AM EDT completed eCW1 ([facility], [facility]) COVID-19 VACCINE Pfizer 03/13/2021 12:00:00 AM EDT completed [facility] Vaccine Series Complete: NOThis Data was Submitted to [facility] Via [employer]. zoster 09/07/2020 07:18:00 AM EST completed [facility] zoster 09/07/2020 07:18:00 AM EST completed e CW1 [facility]) zoster 09/07/2020 07:18:00 AM EST completed e CW1 ([facility]) zoster 09/07/2020 07:18:00 AM EST completed e CW1 ([facility]) zoster 09/07/2020 07:18:00 AM EST completed e CW1 ([facility]) zoster 09/07/2020 07:18:00 AM EST completed e CW1 ([facility]) zoster 09/07/2020 07:18:00 AM EST completed e CW1 ([facility]) zoster 09/07/2020 07:18:00 AM EST completed e CW1 ([facility]) zoster 09/07/2020 07:18:00 AM EST completed e CW1 ([facility]) zoster 09/07/2020 07:18:00 AM EST completed e CW1 ([facility]) zoster 09/07/2020 07:18:00 AM EST completed e CW1 ([facility]) zoster 09/07/2020 07:18:00 AM EST completed e CW1 ([facility]) zoster 09/07/2020 07:18:00 AM EST completed e CW1 ([facility]) zoster 09/07/2020 07:18:00 AM EST completed e CW1 ([facility]) zoster 09/07/2020 07:18:00 AM EST completed e CW1 ([facility]) Medications Medication Brand Name Start Date Product Form Dose Route Admi nistrative Instructions Pharmacy Instructions Status Indications Reaction Description Data Source(s) buspirone hydrochloride 10 MG Oral Tablet busPIRone HC l 10 MG busPIRone HCl 10 MG 07/18/2021 12:00:00 AM EDT 1.0 {tablet} activ e busPIRone HCl 10 MG [facility] buspirone hydrochloride 10 MG Oral Tablet busPIRone HC l 10 MG busPIRone HCl 10 MG 07/18/2021 12:00:00 AM EDT 1.0 {tablet} activ e busPIRone HCl 10 MG [facility]CW1 ([facility]) buspirone hydrochloride 10 MG Oral Tablet busPIRone HC l 10 MG busPIRone HCl 10 MG 07/18/2021 12:00:00 AM EDT 1.0 {tablet} active [facility]) Insulin Syringe 29G X 1/2" 1 ML Insulin Syringe 29G X 1/2" 1 ML 07/05/2021 12:00:00 AM EDT active Insulin Syringe 29G X 1/2" 1 ML eCW1 ([facility]) Insulin Syringe 29G X 1/2" 1 ML Insulin Syringe 29G X 1/2" 1 ML 07/05/2021 12:00:00 AM EDT active e CW1 ([facility]) Insulin Syringe 29G X 1/2" 1 ML Insulin Syringe 29G X 1/2" 1 ML 07/05/2021 12:00:00 AM EDT active Insulin Syringe 29G X 1/2" 1 ML eCW1 ([facility]) Insulin Syringe 29G X 1/2" 1 ML Insulin Syringe 29G X 1/2" 1 ML 07/05/2021 12:00:00 AM EDT active Insulin Syringe 29G X 1/2" 1 ML eCW1 ([facility]) Levothyroxine Sodium 0.15 MG Oral Tablet Levothyroxine Sodium 150 MCG Levothyroxine Sodium 150 MCG 04/21/2021 12:00:00 AM EDT active Levothyroxine Sodium 150 MCG eCW1 ([facility]) Levothyroxine Sodium 0.15 MG Oral Tablet Levothyroxine Sodium 150 MCG Levothyroxine Sodium 150 MCG 04/21/2021 12:00:00 AM EDT active Levothyroxine Sodium 150 MCG eCW1 ([facility]) Levothyroxine Sodium 0.2 MG Oral Tablet [Synthroid] Sy nthroid 200 MCG Synthroid 200 MCG 09/27/2020 12:00:00 AM EST active Synthroid 200 MCG eCW1 ([facility]) Levothyroxine Sodium 0.2 MG Oral Tablet [Synthroid] Sy nthroid 200 MCG Synthroid 200 MCG 09/27/2020 12:00:00 AM EST active Synthroid 200 MCG eCW1 ([facility]) Levothyroxine Sodium 0.2 MG Oral Tablet [Synthroid] Sy nthroid 200 MCG Synthroid 200 MCG 09/27/2020 12:00:00 AM EST active Synthroid 200 MCG eCW1 ([facility]) Levothyroxine Sodium 0.2 MG Oral Tablet [Synthroid] Sy nthroid 200 MCG Synthroid 200 MCG 09/27/2020 12:00:00 AM EST active Synthroid 200 MCG eCW1 ([facility]) Levothyroxine Sodium 0.2 MG Oral Tablet [Synthroid] Sy nthroid 200 MCG Synthroid 200 MCG 09/27/2020 12:00:00 AM EST active Synthroid 200 MCG eCW1 ([facility]) Levothyroxine Sodium 0.2 MG Oral Tablet [Synthroid] Sy nthroid 200 MCG Synthroid 200 MCG 09/27/2020 12:00:00 AM EST active Synthroid 200 MCG eCW1 ([facility]) insulin human, isophane 100 UNT/ML Injec table Suspension [Novolin N] Novolin N 100 UNIT/ML Novolin N 100 UNIT/ML 08/23/2020 12:00:00 AM EDT active Novolin N 100 UNIT/ML eCW1 ([facility], [facility]) insulin human, isophane 100 UNT/ML Injec table Suspension [Novolin N] Novolin N 100 UNIT/ML Novolin N 100 UNIT/ML 08/23/2020 12:00:00 AM EDT active Novolin N 100 UNIT/ML eCW1 ([facility], [facility]–1983) insulin human, isophane 100 UNT/ML Injec table Suspension [Novolin N] Novolin N 100 UNIT/ML Novolin N 100 UNIT/ML 08/23/2020 12:00:00 AM EDT active Novolin N 100 UNIT/ML eCW1 ([facility], [facility]) insulin human, isophane 100 UNT/ML Injec table Suspension [Novolin N] Novolin N 100 UNIT/ML Novolin N 100 UNIT/ML 08/23/2020 12:00:00 AM EDT active Novolin N 100 UNIT/ML eCW1 ([facility], [facility]) insulin human, isophane 100 UNT/ML Injec table Suspension [Novolin N] Novolin N 100 UNIT/ML Novolin N 100 UNIT/ML 08/23/2020 12:00:00 AM EDT active Novolin N 100 UNIT/ML eCW1 ([facility], [facility]) insulin human, isophane 100 UNT/ML Injec table Suspension [Novolin N] Novolin N 100 UNIT/ML Novolin N 100 UNIT/ML 08/23/2020 12:00:00 AM EDT active Novolin N 100 UNIT/ML eCW1 ([facility], [facility]) insulin human, isophane 100 UNT/ML Injec table Suspension [Novolin N] NovoLIN N 100 UNIT/ML NovoLIN N 100 UNIT/ML 08/23/2020 12:00:00 AM EDT active NovoLIN N 100 UNIT/ML eCW1 ([facility], [facility]) insulin human, isophane 100 UNT/ML Injec table Suspension [Novolin N] Novolin N 100 UNIT/ML Novolin N 100 UNIT/ML 08/23/2020 12:00:00 AM EDT active Novolin N 100 UNIT/ML eCW1 ([facility], [facility]) insulin human, isophane 100 UNT/ML Injec table Suspension [Novolin N] Novolin N 100 UNIT/ML Novolin N 100 UNIT/ML 08/23/2020 12:00:00 AM EDT active Novolin N 100 UNIT/ML eCW1 ([facility], [facility]) insulin human, isophane 100 UNT/ML Injec table Suspension [Novolin N] Novolin N 100 UNIT/ML Novolin N 100 UNIT/ML 08/23/2020 12:00:00 AM EDT active Novolin N 100 UNIT/ML eCW1 ([facility], [facility]) insulin human, isophane 100 UNT/ML Injec table Suspension [Novolin N] Novolin N 100 UNIT/ML Novolin N 100 UNIT/ML 08/23/2020 12:00:00 AM EDT active Novolin N 100 UNIT/ML eCW1 ([facility], [facility]) insulin human, isophane 100 UNT/ML Injec table Suspension [Novolin N] Novolin N 100 UNIT/ML Novolin N 100 UNIT/ML 08/23/2020 12:00:00 AM EDT active Novolin N 100 UNIT/ML eCW1 ([facility], [facility]) insulin human, isophane 100 UNT/ML Injec table Suspension [Novolin N] NovoLIN N 100 UNIT/ML NovoLIN N 100 UNIT/ML 08/23/2020 12:00:00 AM EDT active NovoLIN N 100 UNIT/ML eCW1 ([facility], [facility]) Insurance Providers Payer name Policy type / Coverage type Policy ID Covered republican ID Covered republican's relationship to farfan Policy Farfan Plan Information MEDICARE A [id number] Self [id number] A HUMANA H [id number] Self [id number] MEDICARE COMPLETE [id number] SP [id number] MEDICARE COMPLETE [id number] SP [id number] TODAYS OPTIONS [id number] SP [id number] MEDICARE COMPLETE [id number] SP [id number] MEDICARE COMPLETE [id number] SP [id number] MEDICARE COMPLETE [id number] SP [id number] BRANDIE [id number] SP [id number] [facility] O [id number] S [id number] MEDICARE COMPLETE-[facility] O [id number] S [id number] MEDICAID [id number] SP [id number] MEDICARE [id number] SP [id number] MEDICARE COMPLETE [id number] SP [id number] MEDICARE COMPLETE [id number] SP [id number] ANSI-Commercial [id number] ANSI-Medicare Part B [id number] ANSI-Medicare Part B [id number] ANSI-Medicare Part B [id number] ANSI-Medicare Part B [id number] ANSI-Medicare Part B [id number] ANSI-Medicare Part B [id number] ANSI-Commercial [id number]-[id number] ANSI-Medicare Part B [id number] ANSI-Medicare Part B [id number] ANSI-Commercial [id number]-[id number]-[id number] [id number]-[id number] ANSI-Medicare Part B [id number] ANSI-Medicare Part B [id number]-6h51-[id number] ANSI-Medicare Part B [id number] ANSI-Medicare Part B [id number] ANSI-Commercial [id number]-[id number] ANSI-Medicare Part B [id number] ANSI-Medicare Part B [id number] ANSI-Medicare Part B [id number] ANSI-Medicare Part B [id number]-[id number] ANSI-Medicare Part B [id number] ANSI-Medicare Part B [id number] ANSI-Medicare Part B [id number]-[id number]-[id number] ANSI-Commercial [id number]-rul0-1187-5416-[id number] [id number]-jau0-0302-8679-wvg46f74e0ki ANSI-Medicare Part B [id number]-[id number]-a56y-3nj8-[id number] ANSI-Commercial 5032e7g8-p93r-265j-[id number] 9274p7j5-b36m-050s-[id number] ANSI-Medicare Part B [id number]-r349-3hl0-[id number] ANSI-Medicare Part B [id number]-[id number] ANSI-Medicare Part B [id number] ANSI-Medicare Part B [id number]-[id number] ANSI-Medicare Part B [id number]-[id number] ANSI-Medicare Part B [id number]-7h7l-5176-[id number] ANSI-Medicare Part B [id number]-b4x8-5u8v-5j43-88n7jcth8920 ANSI-Medicare Part B [id number] ANSI-Commercial [id number]-1g13-82bi-s56pq066dy79 [id number]-6p50-80cm-l43at543bg33 ANSI-Commercial 4m2px89z-47s9-73l6-tnq2-9057i35gx32k 8m3ir24i-41d8-46l5-[id number] ANSI-Medicare Part B [id number]-[id number] ANSI-Medicare Part B [id number]-[id number] ANSI-Medicare Part B [id number]-b501-656o-[id number] ANSI-Medicare Part B [id number]-[id number]-o59ktjo34802 ANSI-Medicare Part B [id number] 83l83ypd-[id number] ANSI-Medicare Part B [id number]-8578-p26s-[id number] ANSI-Medicare Part B [id number]-1h7q-[id number] ANSI-Commercial [id number]-[id number] [id number]-sh00-6g30gtp489u9 ANSI-Medicare Part B [id number]-[id number] MEDICARE COMPLETE [id number] ANSI-Medicare Part B [id number] ANSI-Medicare Part B [id number]-ir3f-[id number] ANSI-Medicare Part B [id number]-8p9d-[id number] ANSI-Medicare Part B [id number] [id number]-[id number] ANSI-Commercial [id number]-88714av24f24 [id number]-86556xk48e94 MEDICARE COMPLETE [id number] ANSI-Commercial 06u7ade7-[id number]-z2s7-t672rh21q777 28n5cat3-r650-4740-v3g8-[id number] ANSI-Medicare Part B [id number]-[id number]-4c48-u6y4-g7s700g9h97z ANSI-Medicare Part B [id number] czytd48m-95oz-4l7k-zxia-[id number] ANSI-Medicare Part B [id number]-fl7b-6d8o-933r-[id number] ANSI-Medicare Part B [id number]-[id number] ANSI-Medicare Part B [id number]-30xc-17g7-6cb1-yy68hm0x9730 ANSI-Medicare Part B [id number] [id number]-2736-4373-45kb-o12k0jks6r16 ANSI-Medicare Part B [id number]-[id number] [id number]-622r-[id number]-[id number] ANSI-Commercial [id number]-jzin-867j-14pi-[id number]-rllb-084d-01ge-1yag68u911s5 ANSI-Medicare Part B [id number]-[id number] 311bl5rw-7t53-9708-io8e-78oom5l56n88 ANSI-Medicare Part B [id number] [id number]-7629-0c55-[id number] ANSI-Commercial c148o83y-74gc-876u-3rq7-dom8bp94m770 f801j51v-76jy-328m-6kf2-wrh7wd90t735 ANSI-Medicare Part B [id number] [id number]-l85s-[id number] ANSI-Medicare Part B [id number] tyzg53c5-8tg9-2uo7-z347-7nl2t3k90g24 ANSI-Medicare Part B [id number]-8u46-p402-4p41qq6up6a7 72v00743-415n-6x22-b081-5v11ck4vn3d1 ANSI-Medicare Part B l5i549pl-08lb-72vb-5d2c-fm73kd95zo89 a0s796gd-83kn-00ky-4w5z-zj93lh92ts70 ANSI-Commercial 3h1u4l16-ub4n-7285-00p4-1sn577b83970 7n9c9w88-zm2r-8864-03k6-1hd267e30943 ANSI-Medicare Part B ar24wpte-rv7b-90pa-5895-xh74so9a8h17 bt42ymml-ra9s-41jq-8857-br35vr4r2m18 ANSI-Medicare Part B 43677180-5615-9052-u553-k2067xj06cl6 52435762-4557-6862-s998-d0825fj58wz8 ANSI-Medicare Part B l5g09l3c-lni9-0wmu-1903-2wv5tjr81mes v1h15y9t-blb8-0yjj-1397-6ye9rtb65qxj ANSI-Medicare Part B e950e342-o8t3-92xw-7n6j-4d0856087lo3 d776s882-t6l8-26xb-1n6j-2g0705785dc0 ANSI-Medicare Part B 6o3xg229-1739-4rv1-1q52-81h4u0181s91 7r9lw704-1294-5xv4-8l96-15n4x2336n55 ANSI-Medicare Part B 5bz0b47d-p682-24a2-864i-1x29450406s6 2cq6e39t-f721-16i9-837j-9r51547423z1 ANSI-Commercial fdk96895-4h48-6x02-80d6-kj67i82r971g opo69938-4w88-1r86-23n6-cs64j08p480f ANSI-Medicare Part B 38e3u0d8-s876-29o6-zs77-9706n6pm2b5a 34y9e0n5-w323-58w6-ib31-9449c6nk1a7s ANSI-Medicare Part B 1an9d302-0bpg-0o74-4121-z1w0oo27psj9 8ft5c197-8tsi-6a69-8208-r8h2xr31orm5 ANSI-Medicare Part B 52r8g5wh-3w9a-2566-yvb4-jvx268688n8x 79c9n5ue-0z8b-8857-hqs8-xym914505i4u ANSI-Commercial 49hdz05h-1580-1937-n529-084ax84wrh86 19gyl45z-4621-9224-z851-843sj57peq50 ANSI-Medicare Part B v2052l32-q4h8-80d4-32cw-m3uu84132097 l0235u07-w4f6-46b7-93lf-s2td24190543 ANSI-Medicare Part B 82b4i9b8-1447-18x0-605d-8qz76wo048xm 19c3u7g3-4419-48r8-106l-6bi39yu509kk ANSI-Commercial 60078i33-20w6-80a3-30rr-21wfd54djr21 92155l28-01l0-51g0-36oo-37igk10feq76 ANSI-Medicare Part B 4414pv8n-1941-8x49-x610-4666c9qf21o1 9478ud9u-9658-3c45-m422-5725v1rw78e6 ANSI-Medicare Part B e0585s24-24h4-39w0-z391-3w6763956s38 x8202d04-67b7-97d3-z433-7z4884048a36 ANSI-Medicare Part B 6gg9x4e2-e6li-859j-m22f-2439p5z5035c 4yx1p5k3-p8fh-764n-b01i-3157o9v2210z ANSI-Medicare Part B 3u3ho3xm-304j-8p4i-kc2y-js032s43a13i 6b5wy9du-555t-8w0s-oi9t-on594g24y69a TODAYS OPTIONS [id number] SP [id number] ANSI-Commercial 8488q171-dqo6-885p-9lel-s6t7s8p1s0s9 2318u718-buj7-515o-7qkh-i0z6x4b2l9s6 ANSI-Medicare Part B 09996t30-wd54-5p13-4613-f519h6b9y63u 51931l42-qm94-9b12-0299-i942y6n4c27y ANSI-Medicare Part B u3655oj2-9e1o-7467-y443-f321s82nz244 l3143hy6-4x5m-1652-q949-b745t16ck538 ANSI-Medicare Part B sq255935-30h4-4t4b-g071-a5rs7066092h de477719-98d2-0g2k-s890-w8ra8678438s ANSI-Commercial 7dd221c1-76o2-4559-l467-3q6bdy8a5k12 0hd740y6-73w6-9491-j194-2d0qvz3e7y04 ANSI-Medicare Part B n9l6e182-cm21-98y2-vt59-cg5p6m341g4f m9p1o201-xc55-52x5-gu27-tw1h6m505o7i ANSI-Medicare Part B 004l7g8i-3427-47r1-f0q7-t92le2g477d8 624s1a7v-6323-00c0-y0a5-m01fl0r486r6 ANSI-Medicare Part B 1p25000s-1b66-1w35-8w22-0789k8c73290 4c28741z-8p36-2e93-5l72-2724g4q79551 ANSI-Medicare Part B 283qeh3j-z75n-2l7t-36j1-6z08tf6o8d44 469xsw1r-p32r-7t8o-42n3-0b44bx0e9b43 ANSI-Medicare Part B a99m5x46-v500-09q2-o89b-756f35757954 k63a8m88-r699-28e8-u63y-925z15129130 ANSI-Medicare Part B p7890ib0-m85j-077a-k77e-58773b3cmwd8 q6928mn2-g06k-070e-l96j-60103n6bfft5 ANSI-Commercial 698dt6l1-v7ri-696z-8p83-99g65377m3vi 961ea5v9-i5ag-642r-7a21-71z45995q3cy [place] [id number] SP [id number] C ANSI-Medicare Part B 9v05u7vt-76p2-43uq-8f78-123jk0y43h08 7m23q7ai-08g5-62kv-3r30-895mo2p49h79 ANSI-Commercial 81u4k0j3-h87m-8234-56ed-919ll6v792r0 78a8f3x8-g98b-6631-25og-758le1z038t8 ANS-Medicare Part B hu536013-g4v2-6x1h-m637-9998h923gz54 iz300957-w0j4-8n0p-o006-6529u799az71 MEDICARE COMPLETE SP [id number] MEDICARE COMPLETE [id number] SP [id number] [employer] Medicare Commercial [id number] Self [id number] Stripe [id number] Self [id number] MEDICARE COMPLETE [id number] SP [id number] [employer] PPO [id number] SP [id number] MEDICARE [id number] SP [id number] A [employer] PPO [id number] SP [id number] Stripe [id number] Self [id number] MEDICARE C [id number] S [id number] A [employer] GOLD [id number] SP [id number] ANSI-Medicare Part B 90n3155l-21vb-6713-ux2f-702u490m12nj [id number] [employer]MA[employer] GOLD [id number] SP [id number] 2 [facility] [employer] GOLD [id number] SP [id number] EMEDNY [id number] SP [id number] MEDICARE COMPLETE [id number] SP [id number] MEDICARE COMPLETE [id number] SP [id number] MEDICARE COMPLETE SP [id number] Problems, Conditions, and Diagnoses Code Display Name Description Problem Type Effective Dates Data Source(s) E11.29 [id number] Type 2 diabetes david itus with other diabetic kidney complication Problem 02/09/2021 12:00:00 AM EDT eCW1 ([facility]) R26.89 [id number] Loss of balance Problem 12/26/2020 12:00:00 AM EST [facility]CW[facility] [id number] Pure hypercholesterolemia Pure hypercholesterolemia Pr oblem 08/23/2020 12:00:00 AM EDT MEDENT ([facility] ) [id number] Essential hypertension Essential hypertension Problem 08/23/2020 12:00:00 AM EDT MEDENT ([facility] ) [id number] Type 2 diabetes mellitus Type 2 diabetes mellitus Prob raza 08/23/2020 12:00:00 AM EDT MEDENT ([facility] ) Surgeries/Procedures Procedure Description Date Indications Data Source(s) Physical Therapy Eval - Low Complexity 09/07/2020 12:0 0:00 AM EST MEDENT ([facility] ) MRI Upper Extremity Any Joint 09/06/2020 12:00:[address] [facility] ([facility] ) Results ID Date Data Source [id number] 04/19/2021 12:00:00 AM EDT eCW1 ([facility]) Name Value Range Interpretation Code Description Data Rosa rce(s) Supporting Document(s) Albumin/Creatinine [Mass Ratio] in Urine 294.0 MALB URINE SIEMENS eCW1 ([facility]) Microalbumin/Creatinine [Mass Ratio] in Urine 87.0 CREATININE, URINE eCW1 ([facility]) Microalbumin/Creatinine [Ratio] in Urine 337.9 0.0-30.0 TASHI/CREAT RATIO [facility] ([facility]) ID Date Data Source LIPID PANEL (CARDIAC RISK) 04/19/2021 12:00:00 AM EDT eCW1 ( [facility]) Name Value Range Interpretation Code Description Data Rosa rce(s) Supporting Document(s) Cholesterol [Moles/volume] in Serum or Plasma 146 <200 CHOLESTEROL LEVEL eCW1 ([facility]) Cholesterol in HDL [Moles/volume] in Serum or Plasma 67 >40 HDL CHOLESTEROL eCW1 ([facility]) Cholesterol in LDL [Mass/volume] in Serum or Plasma by calculation 63 <100 LDL CHOLESTEROL eCW1 ([facility]) Triglyceride [Mass/volume] in Serum or Plasma by calculation 81 <150 TRIGLYCERIDES LEVEL eCW1 ([facility]) 79 NON-HDL-C eCW1 ([facility]) 2.179 <5 CHOLESTEROL RISK RATIO eCW1 ([facility]) ID Date Data Source [id number] 04/19/2021 12:00:00 AM EDT eCW1 ([facility]) Name Value Range Interpretation Code Description Data Rosa rce(s) Supporting Document(s) Hemoglobin A1c/Hemoglobin.total in Blood 9.0 HEMOGLOBIN A1c eCW1 ([facility]) ID Date Data Source Comprehensive Metabolic Profile (CMP) 04/19/2021 12:00:00 AM EDT eCW1 ([facility]) Name Value Range Interpretation Code Description Data Rosa rce(s) Supporting Document(s) 94 70-100 GLUCOSE, FASTING eCW1 ([facility]) > 60.0 >39 GLOMERULAR FILTRATION RATE eCW 1 ([facility]) 18 7-18 BLOOD UREA NITROGEN eCW1 ([facility]) 0.75 0.55-1.30 CREATININE FOR GFR eCW1 ([facility]) 4.0 3.5-5.1 POTASSIUM SERUM eCW1 ([facility]) 103 98-107 CHLORIDE LEVEL eCW1 ([facility]) 139 136-145 SODIUM LEVEL eCW1 ([facility]) 9.3 8.8-10.2 CALCIUM LEVEL eCW1 ([facility]) 25 12-78 ALT/SGPT eCW1 ([facility]) 31 21-32 CARBON DIOXIDE LEVEL eCW1 ([facility]) 18 7-37 AST/SGOT eCW1 ([facility]) 7.6 6.4-8.2 TOTAL PROTEIN eCW1 ([facility]) 114 45-117 ALKALINE PHOSPHATASE eCW1 ([facility]) 1.3 0.2-1.0 BILIRUBIN,TOTAL eCW1 ([facility]) 0.9 1.2-2.2 ALBUMIN/GLOBULIN RATIO eCW1 ([facility]) 3.6 3.2-5.2 ALBUMIN eCW1 ([facility]) ID Date Data Source TSH 09/27/2020 12:00:00 AM EST eCW1 ([facility]) Name Value Range Interpretation Code Description Data Rosa rce(s) Supporting Document(s) 7.910 0.358-3.740 THYROID STIMULATING HORM ONE eCW1 ([facility]) ID Date Data Source NT-PRO BNP 09/27/2020 12:00:00 AM EST eCW1 ([facility]) Name Value Range Interpretation Code Description Data Rosa rce(s) Supporting Document(s) 183 <125 NT-PRO BNP eCW1 ([facility]) Procedure Social History Code Duration Value Status Description Data Source(s ) Smoking 07/18/2021 12:00:00 AM EDT Former Smoker completed Former Smoker eCW1 ([facility]) Smoking 07/18/2021 12:00:00 AM EDT Former Smoker completed Former Smoker eCW1 ([facility]) Smoking 07/18/2021 12:00:00 AM EDT Former Smoker completed Former Smoker eCW1 ([facility]) Smoking 04/17/2021 12:00:00 AM EDT Former Smoker completed Former Smoker eCW1 ([facility]) Smoking 04/17/2021 12:00:00 AM EDT Former Smoker completed Former Smoker eCW1 ([facility]) Smoking 04/17/2021 12:00:00 AM EDT Former Smoker completed Former Smoker eCW1 ([facility]) Smoking 02/08/2021 12:00:00 AM EDT Former Smoker completed Former Smoker eCW1 ([facility]) Smoking 02/08/2021 12:00:00 AM EDT Former Smoker completed Former Smoker eCW1 ([facility]) Smoking 12/26/2020 12:00:00 AM EST Former Smoker completed Former Smoker eCW1 ([facility]) Smoking 12/26/2020 12:00:00 AM EST Former Smoker completed Former Smoker eCW1 ([facility]) Smoking 12/26/2020 12:00:00 AM EST Former Smoker completed Former Smoker eCW1 ([facility]) Smoking 12/26/2020 12:00:00 AM EST Former Smoker completed Former Smoker eCW1 ([facility]) Smoking 09/27/2020 12:00:00 AM EST Former Smoker completed Former Smoker eCW1 ([facility]) Smoking 09/27/2020 12:00:00 AM EST Former Smoker completed Former Smoker eCW1 ([facility]) Vital Signs ID Date Data Source UNK Name Value Range Interpretation Code Description Data Source(s) Body weight 205.8 [lb_av] 205.8 [lb_av] eCW1 ([facility]) Body weight 93.35 kg 93.35 kg W1 ([facility]) Body height [in_i] eCW1 ([facility]) Body mass index (BMI) [Ratio] 40.19 kg/m2 40.19 kg/m2 eCW1 ([facility]) Heart rate 84 /min 84 /min eCW1 ([facility]) Respiratory rate 20 /min 20 /min eCW1 ([facility]) Body temperature 95.0 [degF] 95.0 [degF] eCW1 ( [facility]) Systolic blood pressure 134 mm[Hg] 134 mm[Hg] e CW1 ([facility]) Diastolic blood pressure 82 mm[Hg] 82 mm[Hg] eCW1 ([facility]) Body weight 202 [lb_av] 202 [lb_av] eCW1 ([facility]) Body height [in_i] eCW1 ([facility]) Body mass index (BMI) [Ratio] 39.45 kg/m2 39.45 kg/m2 eCW1 ([facility]) Heart rate 100 /min 100 /min eCW1 ([facility]) Respiratory rate 22 /min 22 /min eCW1 ([facility]) Body temperature 95.6 [degF] 95.6 [degF] eCW1 ( [facility]) Systolic blood pressure 100 mm[Hg] 100 mm[Hg] e CW1 ([facility]) Diastolic blood pressure 78 mm[Hg] 78 mm[Hg] eCW1 ([facility]) Diastolic blood pressure 80 mm[Hg] 80 mm[Hg] eCW1 ([facility]) Body weight 205.9 [lb_av] 205.9 [lb_av] eCW1 ([facility]) Body height [in_i] eCW1 ([facility]) Body mass index (BMI) [Ratio] 40.21 kg/m2 40.21 kg/m2 eCW1 ([facility]) Heart rate 78 /min 78 /min eCW1 ([facility]) Respiratory rate 20 /min 20 /min eCW1 ([facility]) Body temperature 97.6 [degF] 97.6 [degF] eCW1 ( [facility]) Systolic blood pressure 130 mm[Hg] 130 mm[Hg] e CW1 ([facility]) Body weight 212.6 [lb_av] 212.6 [lb_av] eCW1 ([facility]) Body height [in_i] eCW1 ([facility]) Body mass index (BMI) [Ratio] 41.52 kg/m2 41.52 kg/m2 eCW1 ([facility]) Heart rate 86 /min 86 /min eCW1 ([facility]) Respiratory rate 18 /min 18 /min eCW1 ([facility]) Body temperature 98 [degF] 98 [degF] eCW1 ([facility]) Systolic blood pressure 140 mm[Hg] 140 mm[Hg] e CW1 ([facility]) Diastolic blood pressure 80 mm[Hg] 80 mm[Hg] eCW1 ([facility]) Body weight 212.2 [lb_av] 212.2 [lb_av] eCW1 ([facility]) Body height [in_i] eCW1 ([facility]) Body mass index (BMI) [Ratio] 41.44 kg/m2 41.44 kg/m2 eCW1 ([facility]) Heart rate 92 /min 92 /min eCW1 ([facility]) Respiratory rate 18 /min 18 /min eCW1 ([facility]) Body temperature 96.5 [degF] 96.5 [degF] eCW1 ( [facility]) Systolic blood pressure 132 mm[Hg] 132 mm[Hg] e CW1 ([facility]) Diastolic blood pressure 78 mm[Hg] 78 mm[Hg] eCW1 ([facility]) Body mass index (BMI) [Ratio] 40.7 kg/m2 40.7 k g/m2 MEDENT ([facility]) Body weight 203.12 [lb_av] 203.12 [lb_av] MEDEN T ([facility]) Body temperature 97.1 [degF] 97.1 [degF] MEDENT ([facility]) Body height 59.25 [in_i] 59.25 [in_i] MEDENT ([facility]) 4'09.20" Patient Treatment Plan of Care Planned Activity Planned Date Details Description Data Source (s) buspirone hydrochloride 10 MG Oral Tablet 07/18/2021 12:00:00 AM ED T eCW1 ([facility]) buspirone hydrochloride 10 MG Oral Tablet 07/18/2021 12:00:00 AM ED T eCW1 ([facility]) buspirone hydrochloride 10 MG Oral Tablet 07/18/2021 12:00:00 AM ED T eCW1 ([facility]) Insulin Syringe 29G X 1/2" 1 ML 07/05/2021 12:00:00 AM EDT eCW1 ([facility]) Levothyroxine Sodium 0.15 MG Oral Tablet 04/21/2021 12:00:00 AM EDT eCW1 ([facility]) Levothyroxine Sodium 0.15 MG Oral Tablet 04/21/2021 12:00:00 AM EDT eCW1 ([facility]) Levothyroxine Sodium 0.2 MG Oral Tablet [Synthroid] 09/27/20 12:00:00 AM EST eCW1 ([facility]) Levothyroxine Sodium 0.2 MG Oral Tablet [Synthroid] 09/27/20 12:00:00 AM EST eCW1 ([facility]) insulin human, isophane 100 UNT/ML Injectable Suspensi on [Novolin N] 08/23/2020 12:00:00 AM EDT eCW1 ([facility]) insulin human, isophane 100 UNT/ML Injectable Suspensi on [Novolin N] 08/23/2020 12:00:00 AM EDT eCW1 ([facility]) insulin human, isophane 100 UNT/ML Injectable Suspensi on [Novolin N] 08/23/2020 12:00:00 AM EDT eCW1 ([facility]) insulin human, isophane 100 UNT/ML Injectable Suspensi on [Novolin N] 08/23/2020 12:00:00 AM EDT eCW1 ([facility]) insulin human, isophane 100 UNT/ML Injectable Suspensi on [Novolin N] 08/23/2020 12:00:00 AM EDT eCW1 ([facility]) insulin human, isophane 100 UNT/ML Injectable Suspensi on [Novolin N] 08/23/2020 12:00:00 AM EDT eCW1 ([facility]) insulin human, isophane 100 UNT/ML Injectable Suspensi on [Novolin N] 08/23/2020 12:00:00 AM EDT eCW1 ([facility]) insulin human, isophane 100 UNT/ML Injectable Suspensi on [Novolin N] 08/23/2020 12:00:00 AM EDT eCW1 ([facility])
--- OUTSIDE RECORDS SUMMARY | 2021-09-01 16:14 | CCD ---
Author Author [employer] Organization [employer] Address Unknown Phone Unavailable Care Team Providers Care Counter Sales Person Name Role Phone Tori Rausch Unavailable PROBLEMS ALLERGIES ENCOUNTERS from 1945 to 2021-08-30 IMMUNIZATIONS SOCIAL HISTORY REASON FOR REFERRAL No Information VITAL SIGNS MEDICATIONS PROCEDURES No Information RESULTS No Results REASON FOR VISIT MEDICAL (GENERAL) HISTORY Goals Section Health Concerns MEDICAL EQUIPMENT No Information MENTAL STATUS FUNCTIONAL STATUS ASSESSMENTS PLAN OF TREATMENT Insurance Providers
--- OUTSIDE RECORDS SUMMARY | 2021-09-01 16:14 | CCD ---
Author Author [employer] em[employer] Organization [facility] [employer] Address Unknown Phone Unavailable Care Team Providers Care Social Service Director Name Role Phone Tori Rausch Unavailable PROBLEMS Type Condition ICD9-CM Code QPF94-WP Code Onset Dates Condition S tatus W/U Status Risk SNOMED Code Notes Problem Sleep apnea, unspecified type G47.30 Active confirm ed [id number] She has a CPAP device set at +20 cm of water. has not had her pressures checked Problem Adult hypothyroidism E03.9 Active confirmed 39916222 She is hypothyroid on replacement therapy. Problem Decubitus ulcer of sacral region, unspecified ulcer stage L89.159 Active confirmed 191562198 Problem Essential hypertension I10 Active confirmed 03014793 She is maintained on diltiazem, losartan and Lasix therapy for her hypertension and it is controlled. 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 Her hemoglobin A1c is suboptimal, she is going to work more diligently on diet and exercise but may require further intensification of her medications in the future. adding trulicity Problem Mixed hyperlipidemia E78.2 Active confirmed 177020888 She is maintained on simvastatin therapy for hypercholesterolemia with optimal lipid control as of June 2018. Problem Breast lesion N64.9 Active confirmed 090686 004 Problem Left shoulder pain, unspecified chronicity M25.512 Active confirmed 27898257 Problem Reactive depression F32.9 Active confirmed 54016442 She has a history of depression will increase to 40 mg inlight of the o valencia 2 sons recently Problem Frequent falls R29.6 Active confirmed 64839 2001 Problem Restless legs G25.81 Active confirmed 092388 08 She has a history of restless leg syndrome which is treated with ropinirole 2 mg at bedtime. Problem Carpal tunnel syndrome of left wrist G56.02 Act jakob confirmed 70229422 Problem Venous insufficiency I87.2 Active confirmed 65974999 She has stasis changes of her ankles and a history of ankle edema, controlled with Lasix therapy. Problem Bilateral impacted cerumen H61.23 Active confirmed 61281119 Problem Gastroesophageal reflux disease without esophagitis K21.9 Active confirmed 181515507 She has a history of reflux disease and is maintained on omeprazole therapy. She had an upper endoscopy in May 2018, with no pathologic findings identified. Problem BMI 45.0-49.9, adult Z68.42 Active confirmed 972009901 Problem Other chronic pain G89.29 Active confirmed 8 5145400 Problem Low back pain M54.5 Active confirmed 375960 009 Problem Dysuria R30.0 Active confirmed 47744262 Problem Candidiasis of female genitalia B37.3 Active confi rmed 075287512 Problem Acute on chronic congestive heart failure, unspecified heart failure type I50.9 Active confirmed 57434401 Problem Loss of balance R26.89 Active confirmed 3876 04151 Problem History of tobacco abuse Z87.891 Active confirmed [id number] Problem Type 2 diabetes mellitus with other diabetic kid navneet complication E11.29 Active confirmed 67675446201010 Problem Shortness of breath R06.02 Active confirmed 655592862 Problem Stress incontinence N39.3 Active confirmed 32171109 Problem Chronic obstructive pulmonary disease, unspecified COPD ty pe J44.9 Active confirmed 89792356 maintained with inhaleres Problem Lacunar infarction I63.81 Active confirmed 2 13690271 Problem Abnormal mammogram 793.80 Active confirmed 1 15563816 Problem Dermatitis L30.9 Active confirmed 540900272 ALLERGIES Allergen (clinical drug ingredient) Drug/Non Drug Allergy do cumented on EMR Reaction Allergy Type Onset Date Status erythromycin Erythromycin([facility] Code:[address]-25) Dyspnea Drug All ergy Active ceclor respiratory Drug Allergy Active Flexeril Dyspnea Drug Allergy Active ENCOUNTERS from 1945 to 2021-07-18 Encounter Location Date Provider Diagnosis [address] [phone] [place] [address] Jun, Tori Rausch Acquired blepharoptosis of b oth eyes H02.403 ; Encounter for other preprocedural examination Z01.818 ; Type 2 diabetes mellitus with hyperglycemia E11.65 ; Essential hypertension I10 ; Sleep apnea, unspecified type G47.30 ; Chronic obstructive pulmonary disease, unspecified COPD type J44.9 ; Venous insufficiency I87.2 ; Gastroesophageal reflux disease without esophagitis K21.9 ; Restless legs G25.81 and Reactive depression F32.9 IMMUNIZATIONS Vaccine Route Administration Date Status COVID-19 [...] Education Language: Question Answer Notes Languages spoken: Sinhala Yarsani: Question Answer Notes Yarsani 08 Baptism Sexual Hx: Question Answer Notes Had sex [...] FOR REFERRAL No Information VITAL SIGNS Weight 205.8 lbs Jun, Weight-kg 93.35 kg Jun, Height 5'0" in Jun, BMI 40.19 kg/m2 Jun, Heart Rate 84 /min Jun, Respiratory Rate 20 /min Jun, Temperature 95.0 degrees Fahrenheit Jun, Oximetry 97 Jun, Blood pressure systolic 134 mm Hg Jun, Blood pressure diastolic 82 mm Hg Jun, MEDICATIONS Medication SIG (Take, Route, Frequency, Duration) [...] tablets Orally Once a day Active Nystatin 670859 UNIT/GM 1 application to affected ar ea topically to skin under each breast Twice a day as needed Jan, Active Levothyroxine Sodium 200 MCG TAKE 1 TABLET BY MOUTH DAY IN THE MORNING ON AN EMPTY STOMACH [...] Information RESULTS No Results REASON FOR VISIT Dr. Rome-Blepharoplasty MEDICAL (GENERAL) HISTORY Type Description Date Medical [...] - resolved Medical History Back Surgery 07/09/16 [place] Medical History family history of colon cancer Medical History GERD Surgical History back surgery x2 Surgical History tonsillectomy Surgical History bilateral cataracts Surgical History carpal tunnel repair left x1 right x2 Surgical History Upper endoscopy 03/30/15 Surgical History colonoscopy 03/30/15 Surgical History colonoscopy 04/03/18 Surgical History Upper endoscopy 05/2018 Surgical History Bilateral blepharoplasty--Dr. 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 benefits of surgery with the patient in generic terms. I feel that the patient is at moderate risk for perioperative complications. Revised Cardiac Risk Index for Pre-Operative Risk is 6.6 % The patient knows that there is always some risk with surgery and that each individual has to make a decision regarding whether the benefits of surgery outweigh the risks in order to proceed. I advised the patient to direct further questions regarding the specifics of the proposed surgical procedure and specific risks to the surgeon. At this time I feel that the patient''s acute and chronic medical conditions are sufficiently optimized. Interventions might affect perioperative risk are summarized below. I have also recommended the patient stop all medications as recommended by their surgeon and anesthesiologist except as detailed below. Hold aspirin and vitamins 5 days before surgery, Hold Metformin morning of surgery Advised if surgery is before 12 noon hold morning dose of Novolin N Advised if surgery is after 12 noon take half a dose Novolin N, 15 units. Jun, Type 2 diabetes mellitus with hyperglycemia (ICD -10 - E11.65) She is type II diabetic maintained on metformin, NPH insulin twice daily, and glipizide therapy. Started on Trulicity tolerating March hga1c 9.0 Jun, Essential hypertension (ICD-10 - I10) She is maintained on diltiazem, losartan and torsimide therapy for her hypertension and it is controlled., Jun, Sleep apnea, unspecified type (ICD-10 - G47.30) She has a CPAP device set at +20 cm of water. uses nightly Jun, Chronic obstructive pulmonar y disease, unspecified COPD type (ICD- 10 - J44.9) stable with medication does not use rescue inhaler Jun, Venous insufficiency (ICD-10 - I87.2) She has stasis changes of her ankles and a history of ankle edema, controlled with Lasix therapy. Jun, Gastroesophageal reflux dise ase without esophagitis (ICD-10 - K21.9) She has a history of reflux disease and is maintained on omeprazole therapy. She had an upper endoscopy in May 2018, with no pathologic findings identified. Jun, Restless legs (ICD-10 - G25.81) She has a history of restless leg syndrome which is treated with ropinirole 2 mg at bedtime. Jun, Reactive depression (ICD-10 - F32.9) She has a history of depression on celexa 40 mg helping with of her 2 sons and her 's dementia PLAN OF TREATMENT Medication Medication Name Sig [...] prn keyed up for 30 da ys 22 Jun, 2021 Lasix 40 MG 1 tablet Orally Once a day Trulicity 1.5 MG/0.5ML as directed Subcutaneous one a week for 3 0 days CeleXA 40 mg 1 tab Orally Daily Potassium Chloride ER 20 MEQ 1 tablet with food Orally Once a da y Treatment Notes Assessment Notes Clinical Notes Acquired blepharoptosis of both eyes Coy ified date of surgery with office, patient informed July 25, 2021 Encounter for other preprocedural examination I discussed the risks vs. benefits of surgery with the patient in generic terms. I feel that the patient is at moderate risk for perioperative complications.Revised Cardiac Risk Index for Pre-Operative Risk is 6.6 %The patient knows that there is always some risk with surgery and that each individual has to make a decision regarding whether the benefits of surgery outweigh the risks in order to proceed. I advised the patient to direct further questions regarding the specifics of the proposed surgical procedure and specific risks to the surgeon.At this time I feel that the patient''s acute and chronic medical conditions are sufficiently optimized. Interventions might affect perioperative risk are summarized below.I have also recommended the patient stop all medications as recommended by their surgeon and anesthesiologist except as detailed below.Hold aspirin and vitamins 5 days before surgery,Hold Metformin morning of surgeryAdvised if surgery is before 12 noon hold morning dose of Novolin NAdvised if surgery is after 12 noon take half a dose Novolin N, 15 units. Type 2 diabetes mellitus with hyperglycemia She is type II diabetic maintained on metformin, NPH insulin twice daily, and glipizide therapy. Started on Trulicity tolerating March hga1c 9.0 Essential hypertension She is maintained on diltiazem, losartan and torsimide therapy for her hypertension and it is controlled., Sleep apnea, unspecified type She has a CPAP device set at +20 cm of water. uses nightly Chronic obstructive pulmonary disease, unspecified COPD type stable with medication does not use rescue inhaler Venous insufficiency She has stasis vyas ges of her ankles and a history of ankle edema, controlled with Lasix therapy. Gastroesophageal reflux disease without esophagitis She has a history of reflux disease and is maintained on omeprazole therapy. She had an upper endoscopy in May 2018, with no pathologic findings identified. Restless legs She has a history of restless leg syndrome which is treated with ropinirole 2 mg at bedtime. Reactive depression She has a history of depression on celexa 40 mg helping with of her 2 sons and her 's dementia Next Appt Details August as scheduled Reason: Provider Name:Tori Rausch, 10:00:00 AM, [address] [facility], , [place], [address], Insurance Providers Payer Name Payer Address Payer Phone Insured Name Patient Relati onship to Insured Coverage Start Date Coverage End Date [facility] [address] [address] [facility] [address] MELANI CABRALES MEDICAID [employer] [address] [facility] [address] MELANI CABRALES self
--- OUTSIDE RECORDS SUMMARY | 2021-09-01 16:14 | CCD ---
Author Author [employer] em[employer] Organization [facility] [employer] Address Unknown Phone Unavailable Care Team Providers Care Registry Np Name Role Phone Tori Rausch Unavailable PROBLEMS Type Condition ICD9-CM Code CUT00-TS Code Onset Dates Condition S tatus W/U Status Risk SNOMED Code Notes Problem Sleep apnea, unspecified type G47.30 Active confirm ed 63931287 She has a CPAP device set at +20 cm of water. has not had her pressures checked Problem Adult hypothyroidism E03.9 Active confirmed 81836058 She is hypothyroid on replacement therapy. Problem Decubitus ulcer of sacral region, unspecified ulcer stage L89.159 Active confirmed 245063247 Problem Essential hypertension I10 Active confirmed 39985289 She is maintained on diltiazem, losartan and Lasix therapy for her hypertension and it is controlled. 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 Her hemoglobin A1c is suboptimal, she is going to work more diligently on diet and exercise but may require further intensification of her medications in the future. adding trulicity Problem Mixed hyperlipidemia E78.2 Active confirmed 753621101 She is maintained on simvastatin therapy for hypercholesterolemia with optimal lipid control as of June 2018. Problem Breast lesion N64.9 Active confirmed 180190 004 Problem Left shoulder pain, unspecified chronicity M25.512 Active confirmed 67338347 Problem Reactive depression F32.9 Active confirmed 63952607 She has a history of depression will increase to 40 mg inlight of the o valencia 2 sons recently Problem Frequent falls R29.6 Active confirmed 75094 2001 Problem Restless legs G25.81 Active confirmed 320373 08 She has a history of restless leg syndrome which is treated with ropinirole 2 mg at bedtime. Problem Carpal tunnel syndrome of left wrist G56.02 Act jakob confirmed 78355307 Problem Venous insufficiency I87.2 Active confirmed 87523246 She has stasis changes of her ankles and a history of ankle edema, controlled with Lasix therapy. Problem Bilateral impacted cerumen H61.23 Active confirmed 81069582 Problem Gastroesophageal reflux disease without esophagitis K21.9 Active confirmed 217165856 She has a history of reflux disease and is maintained on omeprazole therapy. She had an upper endoscopy in May 2018, with no pathologic findings identified. Problem BMI 45.0-49.9, adult Z68.42 Active confirmed 035914247 Problem Other chronic pain G89.29 Active confirmed 8 5707201 Problem Low back pain M54.5 Active confirmed 182517 009 Problem Dysuria R30.0 Active confirmed 24500968 Problem Candidiasis of female genitalia B37.3 Active confi rmed 160490378 Problem Acute on chronic congestive heart failure, unspecified heart failure type I50.9 Active confirmed 62122288 Problem Loss of balance R26.89 Active confirmed 3876 87691 Problem History of tobacco abuse Z87.891 Active confirmed 9798685146387 Problem Type 2 diabetes mellitus with other diabetic kid navneet complication E11.29 Active confirmed 36877374951340 Problem Shortness of breath R06.02 Active confirmed 666789272 Problem Stress incontinence N39.3 Active confirmed 53206307 Problem Chronic obstructive pulmonary disease, unspecified COPD ty pe J44.9 Active confirmed 36763387 maintained with inhaleres Problem Lacunar infarction I63.81 Active confirmed 2 51987710 Problem Abnormal mammogram 793.80 Active confirmed 1 84200944 Problem Dermatitis L30.9 Active confirmed 623250238 ALLERGIES Allergen (clinical drug ingredient) Drug/Non Drug Allergy do cumented on EMR Reaction Allergy Type Onset Date Status erythromycin Erythromycin([facility] Code:[address]-74) Dyspnea Drug All ergy Active ceclor respiratory Drug Allergy Active Flexeril Dyspnea Drug Allergy Active ENCOUNTERS from 1945 to 2021-07-05 Encounter Location Date Provider Diagnosis [address] [phone] [place] [address] May, Tori Servage IMMUNIZATIONS Vaccine Route Administration Date Status [facility] Given IM Intramuscular Sep 07, [...] Education Language: Question Answer Notes Languages spoken: Hungarian Tenriism: Question Answer Notes Tenriism 08 Yazidism Sexual Hx: Question Answer Notes Had sex [...] Notes Start Da te End Date Status Calcium 500 + D 500-200 MG-UNIT 1 tablet with a meal Orally Once a da y Active Neurontin 300 MG 1 capsule Orally three times daily Active Irbesartan 150 MG TAKE 1 TABLET BY MOUTH ONCE A DAY Orally Once a day for 90 days Active CeleXA 40 mg 1 tab Orally Daily Acti ve Potassium Chloride ER 20 MEQ 1 tablet with food Orally Once a da y Aug, Active Centrum Silver 50+Women - 1 tab Orally Daily Active NovoLIN N 100 UNIT/ML ADMINISTER 25 UNITS UNDER THE SKIN TWICE FABI Y for 60 Active Insulin Syringe 29G X 1/2" 1 ML as directed DX: E11.65 Twice daily with Novolin for 90 day(s) Jun, Active Aspirin Adult Low Dose 81 MG 2 tablets Orally Once a day Active Lasix 40 MG 1 tablet Orally Once a day Active Symbicort 160-4.5 MCG/ACT 2 puffs Inhalation Twice a day pt states this i Advair Dec, Active metFORMIN HCl ER 500 MG 1 tab orally twice daily Active Nystatin 395297 UNIT/GM 1 application to affected ar ea topically to skin under each breast Twice a day as needed Jan, Active Omeprazole 40 MG TAKE 1 CAPSULE BY MOUTH ONCE A DAY for 90 Active rOPINIRole HCl 2 MG take 1 tablet by mouth 1 to 3 hours before bedtime orally Daily Active Trulicity 1.5 MG/0.5ML as directed Subcutaneous one a week for 30 day s Active Levothyroxine Sodium 200 MCG TAKE 1 TABLET BY MOUTH EV MAKENNA DAY IN THE MORNING ON AN EMPTY STOMACH for 90 Active Simvastatin 20 MG TAKE 1 TABLET BY MOUTH EVERY DAY IN THE EVENING for 90 Active glipiZIDE ER 10 MG 1 tablet with breakfast Orally Once a day Active Vitamin D 50 MCG (1999) 1 tablet Orally Daily Active Fish Oil 1200 MG 1 capsule Orally Once a day for 30 day(s) Active Vitamin C 1000 mgs Orally Once a day Active PROCEDURES No Information RESULTS No Results REASON FOR VISIT Syringes MEDICAL (GENERAL) HISTORY Type Description Date Medical [...] - resolved Medical History Back Surgery 07/09/16 [place] Medical History family history of colon cancer Surgical History back surgery x2 Surgical History tonsillectomy Surgical History bilateral cataracts Surgical History carpal tunnel repair left x1 right x2 Surgical History Upper endoscopy 03/30/15 Surgical History colonoscopy 03/30/15 Surgical History colonoscopy 04/03/18 Surgical History Upper endoscopy 05/2018 Surgical History Bilateral blepharoplasty--Dr. Davila 07/28 Hospitalization History [facility] ER, fall 12/17/2020 Goals Section No Information Health Concerns No Information MEDICAL EQUIPMENT No Information MENTAL STATUS No Information FUNCTIONAL STATUS No Information ASSESSMENTS No Information PLAN OF TREATMENT Medication Medication Name Sig Start Date Stop Date Insulin Syringe 29G X 1/2" 1 ML as directed DX: E11.65 Twice daily with Novolin for 90 day(s) Jun, Lasix 40 MG 1 tablet Orally Once a day CeleXA 40 mg 1 tab Orally Daily Trulicity 1.5 MG/0.5ML as directed Subcutaneous one a week for 3 0 days NovoLIN N 100 UNIT/ML ADMINISTER 25 UNITS UNDER THE SKIN TWICE D AILY for 60 Potassium Chloride ER 20 MEQ 1 tablet with food Orally Once a da y Aug, Symbicort 160-4.5 MCG/ACT 2 puffs Inhalation Twice a day Dec, metFORMIN HCl ER 500 MG 1 tab orally twice daily Neurontin 300 MG 1 capsule Orally three times daily Levothyroxine Sodium 200 MCG TAKE 1 TABLET BY MOUTH DAY IN THE MORNING ON AN EMPTY STOMACH for 90 Simvastatin 20 MG TAKE 1 TABLET BY MOUTH EVERY DAY IN THE EVENIN G for glipiZIDE ER 10 MG 1 tablet with breakfast Orally Once a day rOPINIRole HCl 2 MG take 1 tablet by mouth 1 to 3 hours before bedtime orally Daily Next Appt Details Provider Name:Tori Rausch, 08:00:00 AM, [address] [place] [id number], [place], [address], Provider Name:Tori Rausch, 10:00:00 AM, [address] [place] [phone], [place], [address], Insurance Providers Payer Name Payer Address Payer Phone Insured Name Patient Relati onship to Insured Coverage Start Date Coverage End Date MEDICAID [employer] [address] [facility] [id number] MELANI CABRALES [facility] [address] [address] [facility] [address] MELANI CABRALES
--- OUTSIDE RECORDS SUMMARY | 2021-09-01 16:14 | CCD ---
Author Author [employer] Organization [facility] [employer] Address Unknown Phone Unavailable Care Team Providers Care Fitter Hand Name Role Phone Tori Rausch Unavailable PROBLEMS Type Condition ICD9-CM Code [id number] Code Onset Dates Condition S tatus W/U Status Risk SNOMED Code Notes Problem Sleep apnea, unspecified type G47.30 Active confirm ed [id number] She has a CPAP device set at +20 cm of water. has not had her pressures checked Problem Adult hypothyroidism E03.9 Active confirmed 76389029 She is hypothyroid on replacement therapy. Problem Decubitus ulcer of sacral region, unspecified ulcer stage L89.159 Active confirmed 722104652 Problem Essential hypertension I10 Active confirmed 71630030 She is maintained on diltiazem, losartan and Lasix therapy for her hypertension and it is controlled. 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 Her hemoglobin A1c is suboptimal, she is going to work more diligently on diet and exercise but may require further intensification of her medications in the future. adding trulicity Problem Mixed hyperlipidemia E78.2 Active confirmed [id number] She is maintained on simvastatin therapy for hypercholesterolemia with optimal lipid control as of June 2018. Problem Breast lesion N64.9 Active confirmed 584825 004 Problem Left shoulder pain, unspecified chronicity M25.512 Active confirmed 09356480 Problem Reactive depression F32.9 Active confirmed 79579239 She has a history of depression will increase to 40 mg inlight of the o valencia 2 sons recently Problem Frequent falls R29.6 Active confirmed 06505 2001 Problem Restless legs G25.81 Active confirmed 360143 08 She has a history of restless leg syndrome which is treated with ropinirole 2 mg at bedtime. Problem Carpal tunnel syndrome of left wrist G56.02 Act jakob confirmed 37770295 Problem Venous insufficiency I87.2 Active confirmed 26226199 She has stasis changes of her ankles and a history of ankle edema, controlled with Lasix therapy. Problem Bilateral impacted cerumen H61.23 Active confirmed 54901502 Problem Gastroesophageal reflux disease without esophagitis K21.9 Active confirmed 032362013 She has a history of reflux disease and is maintained on omeprazole therapy. She had an upper endoscopy in May 2018, with no pathologic findings identified. Problem BMI 45.0-49.9, adult Z68.42 Active confirmed 516782214 Problem Other chronic pain G89.29 Active confirmed 8 2015804 Problem Low back pain M54.5 Active confirmed 482456 009 Problem Dysuria R30.0 Active confirmed 00468257 Problem Candidiasis of female genitalia B37.3 Active confi rmed 918466665 Problem Acute on chronic congestive heart failure, unspecified heart failure type I50.9 Active confirmed 44172654 Problem Loss of balance R26.89 Active confirmed 3876 30541 Problem History of tobacco abuse Z87.891 Active confirmed [id number] Problem Type 2 diabetes mellitus with other diabetic kid navneet complication E11.29 Active confirmed [id number] Problem Shortness of breath R06.02 Active confirmed 846400371 Problem Stress incontinence N39.3 Active confirmed 88570921 Problem Chronic obstructive pulmonary disease, unspecified COPD ty pe J44.9 Active confirmed 50006628 maintained with inhaleres Problem Lacunar infarction I63.81 Active confirmed 2 24243891 Problem Abnormal mammogram 793.80 Active confirmed 1 99059152 Problem Dermatitis L30.9 Active confirmed 585634923 ALLERGIES Allergen (clinical drug ingredient) Drug/Non Drug Allergy do cumented on EMR Reaction Allergy Type Onset Date Status erythromycin Erythromycin([facility] Code:[address]-18) Dyspnea Drug All ergy Active ceclor respiratory Drug Allergy Active Flexeril Dyspnea Drug Allergy Active ENCOUNTERS from 1945 to 2021-06-19 Encounter Location Date Provider Diagnosis [address] [phone] [place] [address] May, Tori Rausch Type 2 diabetes mellitus wit h hyperglycemia E11.65 and Mixed hyperlipidemia E78.2 IMMUNIZATIONS Vaccine Route Administration Date Status Shingrix [...] Education Language: Question Answer Notes Languages spoken: Libyan Denominational: Question Answer Notes Denominational 08 [employer] Sexual Hx: Question Answer Notes Had sex [...] Notes Start Da te End Date Status Simvastatin 20 MG 1 tablet in the evening Orally Once a day for 90 da ys Active Calcium 500 + D 500-200 MG-UNIT 1 tablet with a meal Orally Once a da y Active Irbesartan 150 MG TAKE 1 TABLET BY MOUTH ONCE A DAY Orally Once a day for 90 days Active Levothyroxine Sodium 150 MCG 1 tablet in the morning o n an empty stomach Orally Once a day for 90 days Mar, Active Potassium Chloride ER 20 MEQ 1 tablet with food Orally Once a da y Aug, Active Nystatin 429297 UNIT/GM 1 application to affected ar ea topically to skin under each breast Twice a day as needed Jan, Active NovoLIN N 100 UNIT/ML 25 units Subcutaneous/E11.9 twice daily fo r 90 days Jul, Active Aspirin Adult Low Dose 81 MG 2 tablets Orally Once a day Active Centrum Silver 50+Women - 1 tab Orally Daily Active Lasix 40 MG 1 tablet Orally Once a day Active Symbicort 160-4.5 MCG/ACT 2 puffs Inhalation Twice a day pt states this i Advair Dec, Active metFORMIN HCl ER 500 MG 1 tab orally twice daily Active Fish Oil 1200 MG 1 capsule Orally Once a day for 30 day(s) Active Vitamin C 1000 mgs Orally Once a day Active glipiZIDE ER 10 MG 1 tablet with breakfast Orally Once a day Active CeleXA 40 mg 1 tab Orally Daily Acti ve Omeprazole 40 MG TAKE 1 CAPSULE BY MOUTH ONCE A DAY for 90 Active rOPINIRole HCl 2 MG take 1 tablet by mouth 1 to 3 hours before bedtime orally Daily Active Vitamin D 50 MCG (1999 UT) 1 tablet Orally Daily Active Trulicity 1.5 MG/0.5ML as directed Subcutaneous one a week for 30 day s Active Neurontin 300 MG 1 capsule Orally three times daily Active PROCEDURES No Information RESULTS No Results REASON FOR VISIT refill MEDICAL (GENERAL) HISTORY Type Description Date Medical [...] - resolved Medical History Back Surgery 07/09/16 [facility] family history of colon cancer Surgical History back surgery x2 Surgical History tonsillectomy Surgical History bilateral cataracts Surgical History carpal tunnel repair left x1 right x2 Surgical History Upper endoscopy 03/30/15 Surgical History colonoscopy 03/30/15 Surgical History colonoscopy 04/03/18 Surgical History Upper endoscopy 05/2018 Surgical History Bilateral blepharoplasty--Dr. Davila 07/28 Hospitalization History [facility] ER, fall 12/17/2020 Goals Section No Information Health Concerns No Information MEDICAL EQUIPMENT No Information MENTAL STATUS No Information FUNCTIONAL STATUS No Information ASSESSMENTS Encounter Date Diagnosis Assessment Notes Treatment Notes Treatm ent Clinical Notes May, Type 2 diabetes mellitus with hyperglycemia (ICD -10 - E11.65) May, Mixed hyperlipidemia (ICD-10 - E78.2) PLAN OF TREATMENT Medication Medication Name Sig Start Date Stop Date Trulicity 1.5 MG/0.5ML as directed Subcutaneous one a week for 3 0 days Lasix 40 MG 1 tablet Orally Once a day Levothyroxine Sodium 150 MCG 1 tablet in the morning o n an empty stomach Orally Once a day for 90 days Mar, rOPINIRole HCl 2 MG take 1 tablet by mouth 1 to 3 hours before bedtime orally Daily CeleXA 40 mg 1 tab Orally Daily glipiZIDE ER 10 MG 1 tablet with breakfast Orally Once a day NovoLIN N 100 UNIT/ML 25 units Subcutaneous/E11.9 twice melody y for 90 days Jul, Potassium Chloride ER 20 MEQ 1 tablet with food Orally Once a da y Aug, Symbicort 160-4.5 MCG/ACT 2 puffs Inhalation Twice a day Dec, metFORMIN HCl ER 500 MG 1 tab orally twice daily Simvastatin 20 MG 1 tablet in the evening Orally Once a day for 90 days Neurontin 300 MG 1 capsule Orally three times daily Next Appt Details Provider Name:Tori Rausch, 08:00:00 AM, [address] [place] [address] , [place], [address], Provider Name:Tori Rausch, 10:00:00 AM, [address] [place] [address] , [place], [address], Insurance Providers Payer Name Payer Address Payer Phone Insured Name Patient Relati onship to Insured Coverage Start Date Coverage End Date [employer] GOLD [address] [address] [facility] [id number] MELANI CABRALES MEDICAID [employer] [address] [facility] [address] MELANI CABRALES
--- OUTSIDE RECORDS SUMMARY | 2021-09-01 17:59 | CCD ---
Author Author [facility] Organization [facility] Address Unknown Phone Unavailable Care Team Providers Care Street Sprinkler Name Role Phone LEONARDO RODRIGUEZ MD Unavailable [...] is protected by Article 27-F of the [facility] Public Health law. If you continue you may have access to information: Regarding HIV / AIDS; Provided by facilities licensed or operated by the [facility] Office of Mental Health; or Provided by the [facility] Office for People With Developmental Disabilities. If such information is present, then the following [facility] mandated warning applies: This information has [...] law may result in a fine or care home sentence or both. A general authorization for the release of medical or other information is NOT sufficient authorization for further disc losure. Family History Family Member Name Family Member Gender Family Member Status Date o f Status Description Data Source(s) Unknown Unknown Problem MEDENT ([facility], ) sister Dx age 69 Unknown Male Problem MEDENT ([facility] () Encounters Encounter Providers Location Date Indications Data Source(s ) [place] [address] [facility] [address] 08/29/2021 12:00:00 AM EDT eCW1 ([facility]) [place] [address] [facility] [address] 07/18/2021 12:00:00 AM EDT eCW1 ([facility]) Office Visit, Est Pt., Level [address] PC [address] [place] [address] 07/18/2021 12:00:00 AM EDT eCW1 ([facility]) [place] [address] [facility] [address] 06/21/2021 12:00:00 AM EDT eCW1 ([facility]) [place] [address] [facility] [address] 06/18/2021 12:00:00 AM EDT eCW1 ([facility]) Outpatient [address] [facility] [address] 04/19/2021 12:00:00 AM EDT eCW1 ([facility]) [place] [address] [facility] [address] 02/15/2021 12:00:00 AM EDT eCW1 ([facility]) Out[place] [address] [facility] [address] 02/08/2021 12:00:00 AM EDT eCW1 ([facility]) [place] [address] [facility] [address] 01/10/2021 12:00:00 AM EDT eCW1 ([facility]) [place] [address] [facility] [address] 01/09/2021 12:00:00 AM EDT eCW1 ([facility]) [place] [address] [facility] [address] 01/03/2021 12:00:00 AM EST eCW1 ([facility]) Out[place] [address] [facility] [address] 12/26/2020 12:00:00 AM EST eCW1 ([facility] Outpatient Attender: LEONARDO RODRIGUEZ MD Physical Therapy 09:30:00 AM EST MEDENT ([facility]) Unknown [address] [facility] [address] 10/05/2020 12:00:00 AM EST eCW1 (Replaced by [facility]) Office Visit, Est Pt., Level 4 PC [address] [place] [address] 09/27/2020 12:00:00 AM EST eCW1 ([facility]) Unknown [address] [facility] [place] [address] 09/11/2020 12:00:00 AM EST eCW1 (Replaced by [facility]) Unknown [address] [facility] [place] [address] 09/06/2020 12:00:00 AM EST eCW1 (Replaced by [facility]) Unknown [address] [facility] [place] [address] 08/23/2020 12:00:00 AM EDT eCW1 (Replaced by [facility]) OFFICE OUTPATIENT NEW 30 MINUTES Attender: LEONARDO RODRIGUEZ MD Ph ysical Therapy 08/18/2020 01:00:00 PM EDT MEDENT ([facility]) Unknown [address] [facility] [address] 08/14/2020 12:00:00 AM EDT eCW1 (Replaced by [facility]) Unknown [address] [facility] [place] [address] 08/02/2020 12:00:00 AM EDT eCW1 (Replaced by [facility]) Immunizations Vaccine Date Status Description Data Source(s) COVID-19 dose #2 given elsewhere Unspecified 04/02/2021 09:0 6:00 AM EDT completed eCW1 (Replaced by [facility]) COVID-19 dose #2 given elsewhere Unspecified 04/02/2021 09:0 6:00 AM EDT completed eCW1 (Replaced by [facility]) COVID-19 dose #2 given elsewhere Unspecified 04/02/2021 09:0 6:00 AM EDT completed eCW1 (Replaced by [facility]) COVID-19 VACCINE Pfizer 04/02/2021 12:00:00 AM EDT completed [facility] Vaccine Series Complete: YESThis Data wa s Submitted to [facility]. COVID-19 dose #1 given elsewhere Unspecified 03/13/2021 09:0 5:00 AM EDT completed eCW1 (Replaced by [facility]) COVID-19 dose #1 given elsewhere Unspecified 03/13/2021 09:0 5:00 AM EDT completed eCW1 (Replaced by [facility]) COVID-19 dose #1 given elsewhere Unspecified 03/13/2021 09:0 5:00 AM EDT completed eCW1 (Replaced by [facility]) COVID-19 VACCINE Pfizer 03/13/2021 12:00:00 AM EDT completed [facility] Vaccine Series Complete: NOThis Data was Submitted to [facility]. zoster 09/07/2020 07:18:00 AM EST completed e CW1 ([facility]) zoster 09/07/2020 07:18:00 AM EST completed e CW1 ([facility]) zoster 09/07/2020 07:18:00 AM EST completed e CW1 ([facility]) zoster 09/07/2020 07:18:00 AM EST completed e CW1 ([facility]) zoster 09/07/2020 07:18:00 AM EST completed e CW1 ([facility]) zoster 09/07/2020 07:18:00 AM EST completed e CW1 ([facility]) zoster 09/07/2020 07:18:00 AM EST completed e CW1 ([facility]) zoster 09/07/2020 07:18:00 AM EST completed e CW1 ([facility]) zoster 09/07/2020 07:18:00 AM EST completed e CW1 ([facility]) zoster 09/07/2020 07:18:00 AM EST completed e CW1 ([facility]) zoster 09/07/2020 07:18:00 AM EST completed e CW1 ([facility]) zoster 09/07/2020 07:18:00 AM EST completed e CW1 ([facility]) zoster 09/07/2020 07:18:00 AM EST completed e CW1 ([facility]) zoster 09/07/2020 07:18:00 AM EST completed e CW1 ([facility]) zoster 09/07/2020 07:18:00 AM EST completed e CW1 ([facility]) Medications Medication Brand Name Start Date Product Form Dose Route Admi nistrative Instructions Pharmacy Instructions Status Indications Reaction Description Data Source(s) buspirone hydrochloride 10 MG Oral Tablet busPIRone HC l 10 MG busPIRone HCl 10 MG 07/18/2021 12:00:00 AM EDT 1.0 {tablet} activ e busPIRone HCl 10 MG eCW1 (Formerly [facility]) buspirone hydrochloride 10 MG Oral Tablet busPIRone HC l 10 MG busPIRone HCl 10 MG 07/18/2021 12:00:00 AM EDT 1.0 {tablet} activ e busPIRone HCl 10 MG eCW1 ([facility]) buspirone hydrochloride 10 MG Oral Tablet busPIRone HC l 10 MG busPIRone HCl 10 MG 07/18/2021 12:00:00 AM EDT 1.0 {tablet} active eCW1 ([facility]) Insulin Syringe 29G X 1/2" 1 ML Insulin Syringe 29G X 1/2" 1 ML 07/05/2021 12:00:00 AM EDT active Insulin Syringe 29G X 1/2" 1 ML eCW1 ([facility]) Insulin Syringe 29G X 1/2" 1 ML Insulin Syringe 29G X 1/2" 1 ML 07/05/2021 12:00:00 AM EDT active e CW1 ([facility]) Insulin Syringe 29G X 1/2" 1 ML Insulin Syringe 29G X 1/2" 1 ML 07/05/2021 12:00:00 AM EDT active Insulin Syringe 29G X 1/2" 1 ML eCW1 ([facility]) Insulin Syringe 29G X 1/2" 1 ML Insulin Syringe 29G X 1/2" 1 ML 07/05/2021 12:00:00 AM EDT active Insulin Syringe 29G X 1/2" 1 ML eCW1 ([facility]) Levothyroxine Sodium 0.15 MG Oral Tablet Levothyroxine Sodium 150 MCG Levothyroxine Sodium 150 MCG 04/21/2021 12:00:00 AM EDT active Levothyroxine Sodium 150 MCG eCW1 ([facility]) Levothyroxine Sodium 0.15 MG Oral Tablet Levothyroxine Sodium 150 MCG Levothyroxine Sodium 150 MCG 04/21/2021 12:00:00 AM EDT active Levothyroxine Sodium 150 MCG eCW1 ([facility]) Levothyroxine Sodium 0.2 MG Oral Tablet [Synthroid] Sy nthroid 200 MCG Synthroid 200 MCG 09/27/2020 12:00:00 AM EST active Synthroid 200 MCG eCW1 ([facility]) Levothyroxine Sodium 0.2 MG Oral Tablet [Synthroid] Sy nthroid 200 MCG Synthroid 200 MCG 09/27/2020 12:00:00 AM EST active Synthroid 200 MCG eCW1 ([facility]) Levothyroxine Sodium 0.2 MG Oral Tablet [Synthroid] Sy nthroid 200 MCG Synthroid 200 MCG 09/27/2020 12:00:00 AM EST active Synthroid 200 MCG eCW1 ([facility]) Levothyroxine Sodium 0.2 MG Oral Tablet [Synthroid] Sy nthroid 200 MCG Synthroid 200 MCG 09/27/2020 12:00:00 AM EST active Synthroid 200 MCG eCW1 ([facility]) Levothyroxine Sodium 0.2 MG Oral Tablet [Synthroid] Sy nthroid 200 MCG Synthroid 200 MCG 09/27/2020 12:00:00 AM EST active Synthroid 200 MCG eCW1 ([facility]) Levothyroxine Sodium 0.2 MG Oral Tablet [Synthroid] Sy nthroid 200 MCG Synthroid 200 MCG 09/27/2020 12:00:00 AM EST active Synthroid 200 MCG eCW1 (Former[facility]) insulin human, isophane 100 UNT/ML Injec table Suspension [Novolin N] Novolin N 100 UNIT/ML Novolin N 100 UNIT/ML 08/23/2020 12:00:00 AM EDT active Novolin N 100 UNIT/ML eCW1 (Replaced by [facility]) insulin human, isophane 100 UNT/ML Injec table Suspension [Novolin N] Novolin N 100 UNIT/ML Novolin N 100 UNIT/ML 08/23/2020 12:00:00 AM EDT active Novolin N 100 UNIT/ML eCW1 (Replaced by [facility]) insulin human, isophane 100 UNT/ML Injec table Suspension [Novolin N] Novolin N 100 UNIT/ML Novolin N 100 UNIT/ML 08/23/2020 12:00:00 AM EDT active Novolin N 100 UNIT/ML eCW1 (Replaced by [facility]) insulin human, isophane 100 UNT/ML Injec table Suspension [Novolin N] Novolin N 100 UNIT/ML Novolin N 100 UNIT/ML 08/23/2020 12:00:00 AM EDT active Novolin N 100 UNIT/ML eCW1 (Replaced by [facility]) insulin human, isophane 100 UNT/ML Injec table Suspension [Novolin N] Novolin N 100 UNIT/ML Novolin N 100 UNIT/ML 08/23/2020 12:00:00 AM EDT active Novolin N 100 UNIT/ML eCW1 (Replaced by [facility]) insulin human, isophane 100 UNT/ML Injec table Suspension [Novolin N] Novolin N 100 UNIT/ML Novolin N 100 UNIT/ML 08/23/2020 12:00:00 AM EDT active Novolin N 100 UNIT/ML eCW1 (Replaced by [facility]) insulin human, isophane 100 UNT/ML Injec table Suspension [Novolin N] NovoLIN N 100 UNIT/ML NovoLIN N 100 UNIT/ML 08/23/2020 12:00:00 AM EDT active NovoLIN N 100 UNIT/ML eCW1 (Replaced by [facility]) insulin human, isophane 100 UNT/ML Injec table Suspension [Novolin N] Novolin N 100 UNIT/ML Novolin N 100 UNIT/ML 08/23/2020 12:00:00 AM EDT active Novolin N 100 UNIT/ML eCW1 (Replaced by [facility]) insulin human, isophane 100 UNT/ML Injec table Suspension [Novolin N] Novolin N 100 UNIT/ML Novolin N 100 UNIT/ML 08/23/2020 12:00:00 AM EDT active Novolin N 100 UNIT/ML eCW1 (Replaced by [facility]) insulin human, isophane 100 UNT/ML Injec table Suspension [Novolin N] Novolin N 100 UNIT/ML Novolin N 100 UNIT/ML 08/23/2020 12:00:00 AM EDT active Novolin N 100 UNIT/ML eCW1 (Replaced by [facility]) insulin human, isophane 100 UNT/ML Injec table Suspension [Novolin N] Novolin N 100 UNIT/ML Novolin N 100 UNIT/ML 08/23/2020 12:00:00 AM EDT active Novolin N 100 UNIT/ML eCW1 (Replaced by [facility]) insulin human, isophane 100 UNT/ML Injec table Suspension [Novolin N] Novolin N 100 UNIT/ML Novolin N 100 UNIT/ML 08/23/2020 12:00:00 AM EDT active Novolin N 100 UNIT/ML eCW1 (Replaced by [facility]) insulin human, isophane 100 UNT/ML Injec table Suspension [Novolin N] NovoLIN N 100 UNIT/ML NovoLIN N 100 UNIT/ML 08/23/2020 12:00:00 AM EDT active NovoLIN N 100 UNIT/ML eCW1 (Replaced by [facility]) Insurance Providers Payer name Policy type / Coverage type Policy ID Covered alliance party ID Covered alliance party's relationship to farfan Policy Farfan Plan Information MEDICARE A [id number] Self [id number] A HUMANA H [id number] Self [id number] MEDICARE COMPLETE [id number] SP [id number] MEDICARE COMPLETE [id number] SP [id number] TODAYS OPTIONS [id number] SP [id number] MEDICARE COMPLETE [id number] SP [id number] MEDICARE COMPLETE [id number] SP [id number] MEDICARE COMPLETE [id number] SP [id number] BRANDIE [id number] SP [id number] [facility] O [id number] S [id number] MEDICARE COMPLETE-[facility] O [id number] S [id number] MEDICAID [id number] SP [id number] MEDICARE [id number] SP [id number] MEDICARE COMPLETE [id number] SP [id number] MEDICARE COMPLETE [id number] SP [id number] ANSI-Commercial [id number] ANSI-Medicare Part B [id number] ANSI-Medicare Part B [id number] ANSI-Medicare Part B [id number] ANSI-Medicare Part B [id number] ANSI-Medicare Part B [id number]-[id number]-6147-[id number] ANSI-Medicare Part B [id number] ANSI-Commercial [id number]-[id number] [id number]-[id number] ANSI-Medicare Part B [id number]-[id number] ANSI-Medicare Part B [id number]-10z1-60vc-sghv-[id number] ANSI-Commercial [id number]-y160-[id number] 10p58xf7-2o45-4p35-a911-[id number] ANSI-Medicare Part B [id number]-[id number] ANSI-Medicare Part B [id number]-09ff-[id number]-hw99-[id number] ANSI-Medicare Part B [id number] ANSI-Medicare Part B [id number]-[id number]-[id number] ANSI-Commercial a42l3270-p559-0954-c583-[id number] [id number]-l558-3224-a683-[id number] ANSI-Medicare Part B [id number]-22hs-s426-[id number] ANSI-Medicare Part B [id number] ANSI-Medicare Part B [id number] ANSI-Medicare Part B [id number]-2747-140z-[id number] ANSI-Medicare Part B [id number]-[id number] ANSI-Medicare Part B [id number] ANSI-Medicare Part B [id number] gzm1997e-851h-675a-94h2-[id number] ANSI-Commercial 1608260r-bxk1-5927-1551-eis86l09n8gl 1057112f-ovk3-9486-4453-ass06b71b7kb ANSI-Medicare Part B [id number]-[id number] 9bi20heo-l48f-6sd5-[id number] ANSI-Commercial 3435t2w4-p09h-979l-f756-5p046384l6x2 4356w4h7-p87z-190s-m436-8f039955n5b6 ANSI-Medicare Part B [id number] 17c5yvy5-z941-1bz3-f470-[id number] ANSI-Medicare Part B [id number]-kxs5-9nam-[id number] ANSI-Medicare Part B [id number]-9e2q-[id number] ANSI-Medicare Part B [id number] [id number]-qk1b-4mll5k6dwm28 ANSI-Medicare Part B [id number] [id number]-8860-043k-11l6v56tk4sl ANSI-Medicare Part B [id number]-[id number] 5rk8aojh-4l5a-5351-vzu4-939286xh260l ANSI-Medicare Part B [id number] [id number]-i9a7-9h5y-4v65-66e6vfic5014 ANSI-Medicare Part B [id number] [id number] ANSI-Commercial [id number]-9b31-02ks-f33ju407jl29 i0gk5794-097z-7i84-99kq-l22mh090pj02 ANSI-Commercial 6u8dj05y-23h5-42a4-pbf3-2069x20ov11a 5v3ur44p-88y1-02o5-geg0-4591a15yc58t ANSI-Medicare Part B [id number]-333c-[id number] ANSI-Medicare Part B [id number]-[id number]-[id number] ANSI-Medicare Part B [id number]-[id number]-y414-153a-i672-52pbh00t33rm ANSI-Medicare Part B [id number]-7595-3b51-7j00-k52mvui56227 ANSI-Medicare Part B [id number] 78p85ljz-a343-2614-6942-0fgcv7813v0p ANSI-Medicare Part B [id number]-0637-[id number] 54cp437c-0ylx-6849-d88l-1359c93532vm ANSI-Medicare Part B [id number] [id number]-7w1t-g644-[id number] ANSI-Commercial [id number]-s670-3558-qy12-0v01oox817h3 52379052-t696-6479-tv38-2k86nik473i7 ANSI-Medicare Part B [id number]-[id number]-[id number] MEDICARE COMPLETE [id number] ANSI-Medicare Part B [id number]-28r6-7763-hq50-yd534200ny4o ANSI-Medicare Part B [id number]-qg8t-4so1v30o59yg [id number]-bm3w-1ui3k46w39mt ANSI-Medicare Part B [id number]-56h0-486r-3u7f-[id number] ANSI-Medicare Part B [id number]-[id number] 06unw1j0-62q4-918j-1j28-829te3qmn1w9 ANSI-Commercial 216gk914-5633-1w74-4j3z-80559fi28w07 923zz619-0766-1p64-7s6k-79673bg91v65 MEDICARE COMPLETE [id number] ANSI-Commercial 83c7xwy7-k520-6149-z5t6-r517hf17d537 99h8dts0-v662-8990-c9b6-k068em61j778 ANSI-Medicare Part B [id number]-[id number] 40q37vl4-717f-3q09-s4i7-g6g039f4t69d ANSI-Medicare Part B [id number]-pvla-[id number] ihtin99t-07ku-8u3i-dtxb-5w3e5mz294u1 ANSI-Medicare Part B [id number]-7x2t-[id number] 6a9ygk0a-nv0r-7x5k-042g-6sj03ap44207 ANSI-Medicare Part B [id number]-[id number]-29kn-0996-3553-5bly5404p2v7 ANSI-Medicare Part B [id number]-ne72lx6l8140 [id number]-42wp-00p8-7ae1-zq31xx3a8430 ANSI-Medicare Part B [id number]-b46c4vgk1m41 6oay70hb-1562-1946-74id-f12g3tmb8w34 ANSI-Medicare Part B [id number]-[id number] 26k6c0in-195c-7510-6u08-t9q3907axq79 ANSI-Commercial 6845644f-mhjc-499c-00rv-6fic35j812m5 7499942p-uxsy-554v-49ag-6jsx66o158u2 ANSI-Medicare Part B [id number]-gu1n-[id number] 448as8hf-1u91-4908-iq7x-56dyb1b21s27 ANSI-Medicare Part B [id number]-7708-2y63-t94980v3mh37 ANSI-Commercial f536q57u-01wy-979s-0ra8-zlc8cb66p012 d350i33g-50ze-966g-9ng2-eyk2cp78w095 ANSI-Medicare Part B [id number]-q33t-[id number] ANSI-Medicare Part B [id number]-[id number] sypf72h8-1ym8-3fd3-n880-9gr1u6y01h09 ANSI-Medicare Part B [id number] [id number]-4p97-p709-7j96et3au3l7 ANSI-Medicare Part B [id number]-3k9y-vi15ar36bp60 [id number]-25jb-10is-3j2s-ud32er25rh73 ANSI-Commercial 7l8x5o09-er8p-0852-73n4-5bh087u53824 5w1q0s99-az0n-1646-75d9-1aj068r18018 ANSI-Medicare Part B kp42yfjq-mb3i-81xu-9435-ms30ks9p1f62 ox58bvmf-iy9k-08id-0119-kj71tw7r0d00 ANSI-Medicare Part B [id number]-f162-h1392xx11hn7 55363436-2956-6297-v858-m5444jb32dc0 ANSI-Medicare Part B a7q05o6r-sgu3-4vpi-4362-1xl8bhk58srn t3d51d1h-ret7-6uyx-2511-8vn2zjk09pnt ANSI-Medicare Part B c719x714-v9k5-06zh-2s1o-2j8441746mz3 n579i540-c5x8-43sf-9g2h-3a7390271nq7 ANSI-Medicare Part B 7v1ny578-3119-6fq9-3y85-85c3b2113g87 6j5ze196-2408-1aa9-0d23-12c8r4709u69 ANSI-Medicare Part B 8ty9e61l-z529-16i6-213m-9p60747263b0 7hu7c33o-r168-99p8-682v-5p49222971y4 ANSI-Commercial hbo13189-8l69-9x73-03m5-md72u53o275f xez22039-0l12-5g31-76n6-jf59f31r772a ANSI-Medicare Part B 28m0j6f7-v906-30y9-ab31-2020j3uy3l6f 09w5x4a0-r727-61f6-ut67-7442g9zi0f8p ANSI-Medicare Part B 4ef7j323-9mel-4h90-4402-g3z8cd08nij2 2an7z100-6jjf-8a13-0038-z4a4ok25qel1 ANSI-Medicare Part B 80z4l4kv-3h7w-7209-shp3-rby500560b1u 99g8e8is-3o0p-4159-elv1-ekk309672a7f ANSI-Commercial 62wtx92k-0778-4500-n837-048qe86scd76 85nbh77p-7567-7135-x153-553or93amg45 ANSI-Medicare Part B h9732j27-u9a0-68b3-48wx-d8kh38690035 y1883b83-a8z8-90p8-45wr-e2zy17998802 ANSI-Medicare Part B 90h5u6a9-5858-55i6-862l-5hm73tn496oa 86m7b0q8-2646-23d9-928k-5yd51ct935vl ANSI-Commercial 39413c56-49o9-17i1-74xf-48lnx77upg69 89697q87-97g3-83r8-58ax-36tbs68bwv81 ANSI-Medicare Part B 3298cu1g-3240-8z86-l549-2072h6fm78o5 3468vl4e-0006-5q71-o080-6169i1of36p6 ANSI-Medicare Part B u2688w16-00u3-84b4-b125-3x8245059u17 x7669k53-67e2-62w8-p541-7a0993075a49 ANSI-Medicare Part B 7cl2a5z9-y7mi-869c-h61q-4497k6i4942n 4ze8e3f7-d1kv-608s-b54l-1260i2q9433k ANSI-Medicare Part B 9n9do5ez-536q-5u1y-tg8h-mn835y14q65d 1g6yc8xu-815j-8z1e-bp9z-fz821g05l95z [employer] OPTIONS [id number] SP [id number] ANSI-Commercial 9921b099-zdl1-332o-1uyj-s8u9q9x9i1n5 4929h629-mqn2-589v-4fyw-v1q7o2i9k7b5 ANSI-Medicare Part B 99470n66-pe68-2x52-1786-i033c4v6q51j 93236j89-pr38-2x11-0712-g732w7d3s32w ANSI-Medicare Part B y0071pi8-2u0u-3771-f507-u302p71pk610 r2052as4-8f5g-9049-y959-c505r13ll777 ANSI-Medicare Part B te325133-74v6-9r4i-h580-n7wi9427364b yh540312-83r7-7m7v-a180-u8bv7638629i ANSI-Commercial 8ez879o6-51n4-1981-o002-6z5rhw0y5o03 6yp701d4-53e4-7209-h857-3c0fzz3m5l05 ANSI-Medicare Part B f5l8x190-rp13-97t2-bp67-bm5n8i270s0r d7g0y345-ix57-88o9-fh34-pe9r9e518w2u ANSI-Medicare Part B 875v0s3q-6250-08b1-i9y4-y47nm6b554w0 325j3k2o-4252-78a3-h2d5-f33cr8a785g5 ANSI-Medicare Part B 2a24032e-2w97-1r91-6b25-8319d7y52465 3d27116i-1r45-0z88-5t26-1324x5b83579 ANSI-Medicare Part B 356izx3l-x83t-3q0c-53o1-7g03bx6l0e03 352afl8f-x59w-7m5g-62g7-2u15mc5s6w68 ANSI-Medicare Part B w37q3x76-x178-91t2-t13d-402c09681132 r36y5t26-e953-93f2-v06c-688c08341181 ANSI-Medicare Part B r5610cx7-f58z-214e-v67h-64674s5kubk4 e7514cc2-k04i-227h-x31l-08638o9sitf5 ANSI-Commercial 966pp1e7-m1qh-918o-3o11-24u45778p9fp 973yj4q0-l9dn-074u-5y06-29p46337i4bw [place] [id number] SP [id number] C ANSI-Medicare Part B 7h04b5ly-75g3-31kb-1b42-636ia1h77b01 8g23c8lu-16i6-86vu-1u93-250eg0s59t79 ANSI-Commercial 09g6q7k1-k52b-1159-94jc-384gj5s593a7 27y3l5a7-o46c-0322-98kf-247kt4w041m9 ANS-Medicare Part B yi238526-b3p2-6d9t-u510-4861z524lr35 ck209799-b3f1-1b1x-p686-3995i071ff42 MEDICARE COMPLETE SP [id number] MEDICARE COMPLETE [id number] SP [id number] [employer] Medicare Commercial [id number] Self [id number] [employer] [id number] Self [id number] MEDICARE COMPLETE [id number] SP [id number] [employer] PPO [id number] SP [id number] MEDICARE [id number] SP [id number] A [employer] PPO [id number] SP [id number] [employer] [id number] Self [id number] MEDICARE C [id number] S [id number] A [employer] GOLD [id number] SP [id number] ANSI-Medicare Part B 46a3072m-10fo-9218-ld0f-636l861b74wj 78z8769j-42ir-0557-cb9e-365g096l26pd [employer] GOLD [id number] SP [id number] [facility] [employer] GOLD [id number] SP [id number] [id number] SP [id number] MEDICARE COMPLETE [id number] SP [id number] MEDICARE COMPLETE [id number] SP 90 [id number] MEDICARE COMPLETE SP [id number] Problems, Conditions, and Diagnoses Code Display Name Description Problem Type Effective Dates Data Source(s) E11.29 [id number] Type 2 diabetes david itus with other diabetic kidney complication Problem 02/09/2021 12:00:00 AM EDT eCW1 ([facility]) R26.89 [id number] Loss of balance Problem 12/26/2020 12:00:00 AM EST eCW1 ([facility]) [id number] Pure hypercholesterolemia Pure hypercholesterolemia Pr oblem 08/23/2020 12:00:00 AM EDT MEDENT ([facility] ) [id number] Essential hypertension Essential hypertension Problem 08/23/2020 12:00:00 AM EDT [facility] ([facility] ) [id number] Type 2 diabetes mellitus Type 2 diabetes mellitus Prob raza 08/23/2020 12:00:00 AM EDT [facility] ([facility] ) Surgeries/Procedures Procedure Description Date Indications Data Source(s) Physical Therapy Eval - Low Complexity 09/07/2020 12:0 0:00 AM EST [facility]ENT ([facility] ) MRI Upper Extremity Any Joint 09/06/2020 12:00:[address] [facility] ([facility] ) Results ID Date Data Source [id number] 04/19/2021 12:00:00 AM EDT eCW1 ([facility]) Name Value Range Interpretation Code Description Data Rosa rce(s) Supporting Document(s) Albumin/Creatinine [Mass Ratio] in Urine 294.0 MALB URINE SIEMENS eCW1 ([facility]) Microalbumin/Creatinine [Mass Ratio] in Urine 87.0 CREATININE, URINE eCW1 ([facility]) Microalbumin/Creatinine [Ratio] in Urine 337.9 0.0-30.0 TASHI/CREAT RATIO [facility] ([facility]ly [facility]) ID Date Data Source LIPID PANEL (CARDIAC RISK) 04/19/2021 12:00:00 AM EDT eCW1 ( [facility]) Name Value Range Interpretation Code Description Data Rosa rce(s) Supporting Document(s) Cholesterol [Moles/volume] in Serum or Plasma 146 <200 CHOLESTEROL LEVEL eCW1 ([facility]) Cholesterol in HDL [Moles/volume] in Serum or Plasma 67 >40 HDL CHOLESTEROL eCW1 ([facility]) Cholesterol in LDL [Mass/volume] in Serum or Plasma by calculation 63 <100 LDL CHOLESTEROL eCW1 ([facility]) Triglyceride [Mass/volume] in Serum or Plasma by calculation 81 <150 TRIGLYCERIDES LEVEL eCW1 ([facility]) 79 NON-HDL-C eCW1 ([facility]) 2.179 <5 CHOLESTEROL RISK RATIO eCW1 ([facility]) ID Date Data Source [id number] 04/19/2021 12:00:00 AM EDT eCW1 ([facility]) Name Value Range Interpretation Code Description Data Rosa rce(s) Supporting Document(s) Hemoglobin A1c/Hemoglobin.total in Blood 9.0 HEMOGLOBIN A1c eCW1 ([facility]) ID Date Data Source Comprehensive Metabolic Profile (CMP) 04/19/2021 12:00:00 AM EDT eCW1 ([facility]) Name Value Range Interpretation Code Description Data Rosa rce(s) Supporting Document(s) 94 70-100 GLUCOSE, FASTING eCW1 ([facility]) > 60.0 >39 GLOMERULAR FILTRATION RATE eCW 1 ([facility]) 18 7-18 BLOOD UREA NITROGEN eCW1 ([facility]) 0.75 0.55-1.30 CREATININE FOR GFR eCW1 ([facility]) 4.0 3.5-5.1 POTASSIUM SERUM eCW1 ([facility]) 103 98-107 CHLORIDE LEVEL eCW1 ([facility]) 139 136-145 SODIUM LEVEL eCW1 ([facility]) 9.3 8.8-10.2 CALCIUM LEVEL eCW1 ([facility]) 25 12-78 ALT/SGPT eCW1 ([facility]) 31 21-32 CARBON DIOXIDE LEVEL eCW1 ([facility]) 18 7-37 AST/SGOT eCW1 ([facility]) 7.6 6.4-8.2 TOTAL PROTEIN eCW1 ([facility]) 114 45-117 ALKALINE PHOSPHATASE eCW1 ([facility]) 1.3 0.2-1.0 BILIRUBIN,TOTAL eCW1 ([facility]) 0.9 1.2-2.2 ALBUMIN/GLOBULIN RATIO eCW1 ([facility]) 3.6 3.2-5.2 ALBUMIN eCW1 ([facility]) ID Date Data Source TSH 09/27/2020 12:00:00 AM EST eCW1 ([facility]) Name Value Range Interpretation Code Description Data Rosa rce(s) Supporting Document(s) 7.910 0.358-3.740 THYROID STIMULATING HORM ONE eCW1 ([facility]) ID Date Data Source NT-PRO BNP 09/27/2020 12:00:00 AM EST eCW1 ([facility]) Name Value Range Interpretation Code Description Data Rosa rce(s) Supporting Document(s) 183 <125 NT-PRO BNP eCW1 ([facility]) Procedure Social History Code Duration Value Status Description Data Source(s ) Smoking 07/18/2021 12:00:00 AM EDT Former Smoker completed Former Smoker eCW1 ([facility]) Smoking 07/18/2021 12:00:00 AM EDT Former Smoker completed Former Smoker eCW1 ([facility]) Smoking 07/18/2021 12:00:00 AM EDT Former Smoker completed Former Smoker eCW1 ([facility]) Smoking 04/17/2021 12:00:00 AM EDT Former Smoker completed Former Smoker eCW1 ([facility]) Smoking 04/17/2021 12:00:00 AM EDT Former Smoker completed Former Smoker eCW1 ([facility]) Smoking 04/17/2021 12:00:00 AM EDT Former Smoker completed Former Smoker eCW1 ([facility]) Smoking 02/08/2021 12:00:00 AM EDT Former Smoker completed Former Smoker eCW1 ([facility]) Smoking 02/08/2021 12:00:00 AM EDT Former Smoker completed Former Smoker eCW1 ([facility]) Smoking 12/26/2020 12:00:00 AM EST Former Smoker completed Former Smoker eCW1 ([facility]) Smoking 12/26/2020 12:00:00 AM EST Former Smoker completed Former Smoker eCW1 ([facility]) Smoking 12/26/2020 12:00:00 AM EST Former Smoker completed Former Smoker eCW1 ([facility]) Smoking 12/26/2020 12:00:00 AM EST Former Smoker completed Former Smoker eCW1 ([facility]) Smoking 09/27/2020 12:00:00 AM EST Former Smoker completed Former Smoker eCW1 ([facility]) Smoking 09/27/2020 12:00:00 AM EST Former Smoker completed Former Smoker eCW1 ([facility]) Vital Signs ID Date Data Source UNK Name Value Range Interpretation Code Description Data Source(s) Body weight 205.8 [lb_av] 205.8 [lb_av] eCW1 ([facility]) Body weight 93.35 kg 93.35 kg W1 ([facility]) Body height [in_i] eCW1 ([facility]) Body mass index (BMI) [Ratio] 40.19 kg/m2 40.19 kg/m2 eCW1 ([facility]) Heart rate 84 /min 84 /min eCW1 ([facility]) Respiratory rate 20 /min 20 /min eCW1 ([facility]) Body temperature 95.0 [degF] 95.0 [degF] eCW1 ( [facility]) Systolic blood pressure 134 mm[Hg] 134 mm[Hg] e CW1 ([facility]) Diastolic blood pressure 82 mm[Hg] 82 mm[Hg] eCW1 ([facility]) Body weight 202 [lb_av] 202 [lb_av] eCW1 ([facility]) Body mass index (BMI) [Ratio] 39.45 kg/m2 39.45 kg/m2 eCW1 ([facility]) Heart rate 100 /min 100 /min eCW1 ([facility]) Body height [in_i] eCW1 ([facility]) Respiratory rate 22 /min 22 /min eCW1 ([facility]) Body temperature 95.6 [degF] 95.6 [degF] eCW1 ( [facility]) Systolic blood pressure 100 mm[Hg] 100 mm[Hg] e CW1 ([facility]) Diastolic blood pressure 78 mm[Hg] 78 mm[Hg] eCW1 ([facility]) Diastolic blood pressure 80 mm[Hg] 80 mm[Hg] eCW1 ([facility]) Body weight 205.9 [lb_av] 205.9 [lb_av] eCW1 ([facility]) Body height [in_i] eCW1 ([facility]) Body mass index (BMI) [Ratio] 40.21 kg/m2 40.21 kg/m2 eCW1 ([facility]) Heart rate 78 /min 78 /min eCW1 ([facility]) Respiratory rate 20 /min 20 /min eCW1 ([facility]) Body temperature 97.6 [degF] 97.6 [degF] eCW1 ( [facility]) Systolic blood pressure 130 mm[Hg] 130 mm[Hg] e CW1 ([facility]) Body weight 212.6 [lb_av] 212.6 [lb_av] eCW1 ([facility]) Body height [in_i] eCW1 ([facility]) Body mass index (BMI) [Ratio] 41.52 kg/m2 41.52 kg/m2 eCW1 ([facility]) Heart rate 86 /min 86 /min eCW1 ([facility]) Respiratory rate 18 /min 18 /min eCW1 ([facility]) Body temperature 98 [degF] 98 [degF] eCW1 ([facility]) Systolic blood pressure 140 mm[Hg] 140 mm[Hg] e CW1 ([facility]) Diastolic blood pressure 80 mm[Hg] 80 mm[Hg] eCW1 ([facility]) Body weight 212.2 [lb_av] 212.2 [lb_av] eCW1 ([facility]) Body height [in_i] eCW1 ([facility]) Body mass index (BMI) [Ratio] 41.44 kg/m2 41.44 kg/m2 eCW1 ([facility]) Heart rate 92 /min 92 /min eCW1 ([facility]) Respiratory rate 18 /min 18 /min eCW1 ([facility]) Body temperature 96.5 [degF] 96.5 [degF] eCW1 ( [facility]) Systolic blood pressure 132 mm[Hg] 132 mm[Hg] e CW1 ([facility]) Diastolic blood pressure 78 mm[Hg] 78 mm[Hg] eCW1 ([facility]) Body mass index (BMI) [Ratio] 40.7 kg/m2 40.7 k g/m2 MEDENT ([facility]) Body weight 203.12 [lb_av] 203.12 [lb_av] MEDEN T ([facility]) Body temperature 97.1 [degF] 97.1 [degF] MEDENT ([facility]) Body height 59.25 [in_i] 59.25 [in_i] MEDENT ([facility]) 4'09.20" Patient Treatment Plan of Care Planned Activity Planned Date Details Description Data Source (s) buspirone hydrochloride 10 MG Oral Tablet 07/18/2021 12:00:00 AM ED T eCW1 ([facility]) buspirone hydrochloride 10 MG Oral Tablet 07/18/2021 12:00:00 AM ED T eCW1 ([facility]) buspirone hydrochloride 10 MG Oral Tablet 07/18/2021 12:00:00 AM ED T eCW1 ([facility]) Insulin Syringe 29G X 1/2" 1 ML 07/05/2021 12:00:00 AM EDT eCW1 ([facility]) Levothyroxine Sodium 0.15 MG Oral Tablet 04/21/2021 12:00:00 AM EDT eCW1 ([facility]) Levothyroxine Sodium 0.15 MG Oral Tablet 04/21/2021 12:00:00 AM EDT eCW1 ([facility]) Levothyroxine Sodium 0.2 MG Oral Tablet [Synthroid] 09/27/20 12:00:00 AM EST eCW1 (Replaced by [facility]) Levothyroxine Sodium 0.2 MG Oral Tablet [Synthroid] 09/27/20 12:00:00 AM EST eCW1 (Replaced by [facility]) insulin human, isophane 100 UNT/ML Injectable Suspensi on [Novolin N] 08/23/2020 12:00:00 AM EDT eCW1 ([facility]) insulin human, isophane 100 UNT/ML Injectable Suspensi on [Novolin N] 08/23/2020 12:00:00 AM EDT eCW1 ([facility]) insulin human, isophane 100 UNT/ML Injectable Suspensi on [Novolin N] 08/23/2020 12:00:00 AM EDT eCW1 ([facility]) insulin human, isophane 100 UNT/ML Injectable Suspensi on [Novolin N] 08/23/2020 12:00:00 AM EDT eCW1 ([facility]) insulin human, isophane 100 UNT/ML Injectable Suspensi on [Novolin N] 08/23/2020 12:00:00 AM EDT eCW1 ([facility]) insulin human, isophane 100 UNT/ML Injectable Suspensi on [Novolin N] 08/23/2020 12:00:00 AM EDT eCW1 ([facility]) insulin human, isophane 100 UNT/ML Injectable Suspensi on [Novolin N] 08/23/2020 12:00:00 AM EDT eCW1 ([facility]) insulin human, isophane 100 UNT/ML Injectable Suspensi on [Novolin N] 08/23/2020 12:00:00 AM EDT eCW1 ([facility])
[2021-09-01] MEDS: COMBIVENT RESPIMAT 100-20MCG INHALER 4GM INH SCH ×3 (19:20→19:47)
[2021-09-01 19:41] LABS: BASO # 0.1 10^3/uL (0.0-0.2); BASO % 0.6 % (0.0-1.0); EOS # 0.1 10^3/uL (0.0-0.5); EOS % 1.1 % (0.0-3.0); HEMATOCRIT 42.8 % (36.0-47.0); LYMPH % 22.2 % (24.0-44.0); MEAN CORPUSCULAR HEMOGLOBIN 28.1 pg (27.0-33.0); MEAN CORPUSCULAR HGB CONC 32.7 g/dl (32.0-36.5); MEAN CORPUSCULAR VOLUME 85.8 fl (80.0-96.0); MONO # 0.5 10^3/uL (0.0-0.8); MONO % 3.5 % (2.0-8.0); NEUTROPHILS # 9.6 10^3/uL (1.5-8.5); NEUTROPHILS % 71.8 % (36.0-66.0); PLATELET COUNT, AUTOMATED 187 10^3/uL (150-450); RED BLOOD COUNT 4.99 10^6/uL (4.00-5.40); WHITE BLOOD COUNT 13.3 10^3/uL (4.0-10.0)
[2021-09-01 20:06] LABS: RSV AMPLIFICATION NEGATIVE (NEGATIVE)
--- NOTE | 2021-09-01 20:07 | REP ---
INDICATION: cough, sob. COMPARISON: AP CXR 07/02/2020, 09/19/2019; CTA 09/20/2018. TECHNIQUE: AP semi-erect portable FINDINGS: Lungs are well inflated there is some underlying interstitial fibrotic change but no effusion or dense consolidation visible. Heavier infrahilar markings on the right with superimposed chest wall tissues limited evaluation. Heart size not grossly enlarged. There is no temitope edema. The aorta has calcifications at the arch but no aneurysm. Bones with degenerative changes spine and shoulders. IMPRESSION: 1. Chronic interstitial changes and infrahilar atelectasis or fibrosis without dense consolidation with air bronchograms or definite effusion. No temitope edema. 2. No gross cardiomegaly. 3. Degenerative changes spine and shoulders. <Electronically signed by Raymond Alcantar > 09/01/212002
[2021-09-01 20:13] LABS: CK-MB VALUE MASS 3.1 NG/ML (<3.6); CPK CREATINE PHOSPHOKINASE 67 U/L (26-192); MB/CK RELATIVE INDEX 4.63 (< OR =4); NT-PRO BNP 361 PG/ML (<450); TROPONIN I < 0.02 NG/ML (< 0.10)
[2021-09-01] MEDS ORDERED: LevoFLOXacin 750 MG TABLET PO ONE (21:50)
[2021-09-01 21:58] VITALS: BP 144/79
[2021-09-01] MEDS ORDERED: PRED20TA PO (22:03)
[2021-09-01] MEDS ORDERED: LEVO750T13 PO (22:03)
[2021-09-01] MEDS ORDERED: predniSONE 20 MG TAB PO ONE (22:15)
--- NOTE | 2021-09-02 05:49 | ECGEPIP ---
[facility] - ED Test Date: 2021-09-01 Pat Name: MELANI CABRALES Department: Room: - Gender: Female Paleologist: : 1945 Requested By: KEYANNA DAVIS PA-C. Order Number: [id number] Reading MD: Elver Loja Measurements Intervals [place] Rate: 63 P: 89 GA: 142 QRS: 107 QRSD: 126 T: 201 QT: 402 QTc: 411 Interpretive Statements Sinus rhythm with marked sinus arrhythmia RIGHT AXIS DEVIATION Right bundle branch block NSTTW ABNORMALITY(S) SIMILAR TO 01/09/21 Electronically Signed on 09-02-2021 5:49:41 EST by Elver Loja
== END 2021-09-01 22:39 | disposition home or self-care (01) ==
LOC: M ED 15:59
DX: J44.1 Chronic obstructive pulmonary disease with (acute) exacerbation (principal); J20.9 Acute bronchitis, unspecified; I45.10 Unspecified right bundle-branch block; I70.0 Atherosclerosis of aorta; E11.9 Type 2 diabetes mellitus without complications; E03.9 Hypothyroidism, unspecified; Z87.891 Personal history of nicotine dependence; Z88.8 Allergy status to other drugs, medicaments and biological substances; Z79.899 Other long term (current) drug therapy; Z79.4 Long term (current) use of insulin
CPT/HCPCS: 36415; 71045; 80047; 82550; 82553; 83880; 84484; 85025; 87631; 93005; 94640; 99284; J7512

== ENCOUNTER → 2021-09-17 | Outpatient (CLI) | payer OTHER, MEDICAID ==
[~2021-09-17] MED LIST changes: +LEVO750T13 PO; -MONT10TA10 PO; +MONT10TA97 PO; +PRED20TA PO
[2021-09-17 13:51] LABS: HEMOGLOBIN A1c 10.5 %
[2021-09-17 14:07] LABS: ALT/SGPT 22 U/L (12-78); BILIRUBIN,TOTAL 0.7 MG/DL (0.2-1.0); BLOOD UREA NITROGEN 15 MG/DL (7-18); CALCIUM LEVEL 9.3 MG/DL (8.8-10.2); CARBON DIOXIDE LEVEL 29 MEQ/L (21-32); CHLORIDE LEVEL 105 MEQ/L (98-107); CHOLESTEROL LEVEL 158 MG/DL (<200); CHOLESTEROL RISK RATIO 2.025 (<5); CREATININE FOR GFR 0.74 MG/DL (0.55-1.30); GLOMERULAR FILTRATION RATE > 60.0 (>39); GLUCOSE, FASTING 248 MG/DL (70-100); HDL CHOLESTEROL 78 MG/DL (>40); LDL CHOLESTEROL 64 MG/DL (<100); NON-HDL-C 80 MG/DL; POTASSIUM SERUM 3.9 MEQ/L (3.5-5.1); SODIUM LEVEL 141 MEQ/L (136-145); TOTAL PROTEIN 6.6 GM/DL (6.4-8.2); TRIGLYCERIDES LEVEL 80 MG/DL (<150)
[2021-09-17 16:41] LABS: CREATININE, URINE 72.1 MG/DL
== END ==
LOC: M PLALAB 11:18
PROVIDERS: ATTEND Nurse Practitioner Adult Health
DX: E11.65 Type 2 diabetes mellitus with hyperglycemia (principal); E03.9 Hypothyroidism, unspecified; E78.2 Mixed hyperlipidemia; Z23 Encounter for immunization
CPT/HCPCS: 36415; 80053; 80061; 82043; 83036; 84443; 90682; G0008

== ENCOUNTER 2022-03-24 21:35 | Inpatient (IN) | payer OTHER, MEDICAID ==
[~2022-03-24] VITALS: Ht 149.9 cm; Wt 90.7 kg
[~2022-03-24 21:35] MED LIST changes: -INSUNSD; +INSUNSD INJ; -TRUL0.5I; +TRUL0.5I INJ
[2022-03-25 01:37] LABS: BASO # 0.1 10^3/uL (0.0-0.2); BASO % 0.4 % (0.0-1.0); EOS # 0.1 10^3/uL (0.0-0.5); EOS % 0.8 % (0.0-3.0); HEMATOCRIT 43.4 % (36.0-47.0); LYMPH # 2.5 10^3/uL (1.5-5.0); LYMPH % 17.8 % (24.0-44.0); MEAN CORPUSCULAR HEMOGLOBIN 27.6 pg (27.0-33.0); MEAN CORPUSCULAR HGB CONC 32.3 g/dl (32.0-36.5); MEAN CORPUSCULAR VOLUME 85.6 fl (80.0-96.0); MONO # 0.7 10^3/uL (0.0-0.8); MONO % 5.1 % (2.0-8.0); NEUTROPHILS # 10.7 10^3/uL (1.5-8.5); NEUTROPHILS % 75.5 % (36.0-66.0); PLATELET COUNT, AUTOMATED 200 10^3/uL (150-450); RED BLOOD COUNT 5.07 10^6/uL (4.00-5.40); WHITE BLOOD COUNT 14.1 10^3/uL (4.0-10.0)
[2022-03-25 01:53] LABS: ERYTHROCYTE SEDIMENTATION RATE 12 mm/hr (0-30)
[2022-03-25 01:57] LABS: ALBUMIN 3.5 GM/DL (3.2-5.2); ALT/SGPT 27 U/L (12-78); BILIRUBIN,DIRECT 0.3 MG/DL (0.0-0.2); BILIRUBIN,TOTAL 1.3 MG/DL (0.2-1.0); BLOOD UREA NITROGEN 18 MG/DL (7-18); C REACTIVE PROTEIN QUANTITATIV 0.92 MG/DL (0.00-0.30); CALCIUM LEVEL 9.7 MG/DL (8.8-10.2); CARBON DIOXIDE LEVEL 31 MEQ/L (21-32); CHLORIDE LEVEL 103 MEQ/L (98-107); CREATININE FOR GFR 0.89 MG/DL (0.55-1.30); GLOMERULAR FILTRATION RATE > 60.0 (>39); GLUCOSE, FASTING 278 MG/DL (70-100); POTASSIUM SERUM 3.9 MEQ/L (3.5-5.1); SODIUM LEVEL 140 MEQ/L (136-145); TOTAL PROTEIN 7.7 GM/DL (6.4-8.2)
[2022-03-25] MEDS ORDERED: FLUID PLACE HOLDER IV ONE (02:10)
[2022-03-25] MEDS ORDERED: VANCOMYCIN HCL IV ONE (02:10)
[2022-03-25] MEDS ORDERED: PIPERACILLIN/TAZOBACTAM SOD 3.375 GM in D5W MINI-BAG PLUS 50 ML IV ONE (02:15)
[2022-03-25] MEDS ORDERED: LevoFLOXacin IV 500 MG in IV 1 EA IV ONE (02:20)
[2022-03-25] MEDS ORDERED: VANCOMYCIN HCL 1,000 MG, VIAL MATE ADAPTER 1 EACH in NS 250 ML IV ONE (02:30)
[2022-03-25] MEDS ORDERED: diphenhydrAMINE 50MG/ML VIAL (J1200) IV ONE (02:50)
[2022-03-25] MEDS ORDERED: ASPI81TA26 PO (03:03)
[2022-03-25] MEDS ORDERED: ALBU8.5H PO (03:05)
[2022-03-25] MEDS ORDERED: BUSP10TA PO (03:05)
[2022-03-25] MEDS ORDERED: METF-838 PO (03:05)
[2022-03-25] MEDS ORDERED: SYMB16INH INH (03:05)
[2022-03-25] MEDS ORDERED: ALBUTEROL SULFATE 2.5 MG/0.5 ML INH NEB SOLN NEB ONE (03:05)
[2022-03-25] MEDS ORDERED: methylPREDNISolone 125MG 2ML VIAL IV STA (03:12)
[2022-03-25] MEDS ORDERED: ACETAMINOPHEN TAB 650MG DOSE (2X325MG) PO PRN (03:15)
[2022-03-25] MEDS ORDERED: DEXTROSE 50% 50 ML SYRINGE IV PRN (03:15)
[2022-03-25] MEDS ORDERED: MAALOX 30 ML SUSP *UDC PO PRN (03:15)
[2022-03-25] MEDS ORDERED: GLUCAGON INJ 1MG VIAL SC PRN (03:15)
[2022-03-25] MEDS ORDERED: GLUCOSE 4GM CHEW TABLET PO PRN (03:15)
[2022-03-25] MEDS ORDERED: MOM 30ML SUSPENSION UDC PO PRN (03:15)
[2022-03-25 03:23] LABS: RSV AMPLIFICATION NEGATIVE (NEGATIVE)
[2022-03-25] MEDS ORDERED: PERCOCET 5MG/325MG TAB PO PRN (03:25)
[2022-03-25] MEDS ORDERED: ALBUTEROL SULFATE 2.5 MG/0.5 ML INH NEB SOLN NEB PRN (03:25)
[2022-03-25] MEDS ORDERED: VANCOMYCIN HCL 750 MG, VIAL MATE ADAPTER 1 EACH in NS 250 ML IV ONE (03:30)
[2022-03-25] MEDS ORDERED: LevoFLOXacin IV 750 MG in IV 1 EA IV SCH (04:00)
[2022-03-25] MEDS ORDERED: SYST1SOL4 OU (04:21)
[2022-03-25] MEDS ORDERED: HOME MED LIST COMPLETE! XX SCH (04:25)
[2022-03-25] MEDS ORDERED: busPIRone 10 MG TAB PO PRN (04:40)
[2022-03-25] MEDS ORDERED: rOPINIRole 1MG TAB PO ONE (04:55)
[2022-03-25 05:12] VITALS: BP 154/82
[2022-03-25 05:29] VITALS: O2SAT 92
[2022-03-25] MEDS: LEVOTHYROXINE 100MCG TABLET (0.1MG) PO SCH (05:34)
[2022-03-25 06:31] LABS: INR 0.98; PROTHROMBIN TIME 13.4 SECONDS (12.7-14.5)
[2022-03-25 06:32] LABS: PARTIAL THROMBOPLASTIN TIME 32.2 SECONDS (25.9-37.0)
[2022-03-25] MEDS: SYMBICORT 160/4.5MCG INHALER 6GM INH SCH ×2 (07:38→19:42)
[2022-03-25] MEDS: IPRATROPIUM 0.5MG/ALBUTEROL 2.5MG INH SOL UD 3ML (DUONEB) NEB SCH ×3 (07:39→19:42)
[2022-03-25] MEDS: HumuLIN N INSULIN (NovoLIN N) PER UNIT SC SCH ×2 (08:04→18:16)
[2022-03-25] MEDS: ASPIRIN 81MG ENTERIC TABLET PO SCH (08:05)
[2022-03-25] MEDS: ENOXAPARIN 40MG/0.4ML SYRINGE (J1650 PER 10MG) SC SCH (08:05)
[2022-03-25] MEDS: predniSONE 20 MG TAB PO SCH (08:05)
[2022-03-25] MEDS: INSULIN LISPRO (NovoLOG) PER UNIT SC SCH ×3 (08:05→18:17)
[2022-03-25] MEDS: FUROSEMIDE 40 MG TAB PO SCH (08:06)
[2022-03-25] MEDS: CitaloPRAM (CeleXA) 20 MG TAB PO SCH (08:06)
[2022-03-25] MEDS: DOCUSATE SODIUM 100MG CAPSULE PO SCH ×2 (08:06→21:31)
[2022-03-25] MEDS: DOXYCYCLINE HYCLATE 100MG TABLET PO SCH ×2 (08:06→21:32)
[2022-03-25] MEDS: OMEPRAZOLE 20MG CAP PO SCH (08:06)
[2022-03-25] MEDS: GABAPENTIN 300 MG CAP PO SCH ×3 (08:06→21:32)
[2022-03-25 09:00] VITALS: O2SAT 96
[2022-03-25 13:16] LABS: HEMOGLOBIN A1c 7.8 %
[2022-03-25 14:00] VITALS: BP 171/65
[2022-03-25] MEDS ORDERED: INSULIN LISPRO (NovoLOG) PER UNIT SC SCH (21:00)
[2022-03-25] MEDS: rOPINIRole 1MG TAB PO SCH (21:32)
[2022-03-25] MEDS: SIMVASTATIN 20 MG TAB PO SCH (21:32)
[2022-03-25 22:00] VITALS: BP 135/90
[2022-03-26] MEDS: IPRATROPIUM 0.5MG/ALBUTEROL 2.5MG INH SOL UD 3ML (DUONEB) NEB SCH ×4 (01:42→19:49)
[2022-03-26 05:03] VITALS: O2SAT 95
[2022-03-26 06:00] VITALS: BP 138/68
[2022-03-26] MEDS: LEVOTHYROXINE 100MCG TABLET (0.1MG) PO SCH (06:16)
[2022-03-26 06:45] LABS: HEMATOCRIT 40.6 % (36.0-47.0); MEAN CORPUSCULAR HEMOGLOBIN 27.1 pg (27.0-33.0); MEAN CORPUSCULAR VOLUME 84.6 fl (80.0-96.0); PLATELET COUNT, AUTOMATED 198 10^3/uL (150-450); WHITE BLOOD COUNT 15.4 10^3/uL (4.0-10.0)
[2022-03-26 07:05] LABS: C REACTIVE PROTEIN QUANTITATIV 1.08 MG/DL (0.00-0.30); CALCIUM LEVEL 8.7 MG/DL (8.8-10.2); CREATININE FOR GFR 1.3 MG/DL (0.55-1.30); GLOMERULAR FILTRATION RATE 42.4 (>39); POTASSIUM SERUM 3.6 MEQ/L (3.5-5.1)
[2022-03-26] MEDS: SYMBICORT 160/4.5MCG INHALER 6GM INH SCH ×2 (07:25→19:49)
[2022-03-26] MEDS: ENOXAPARIN 40MG/0.4ML SYRINGE (J1650 PER 10MG) SC SCH (08:02)
[2022-03-26] MEDS: predniSONE 20 MG TAB PO SCH (08:04)
[2022-03-26] MEDS: OMEPRAZOLE 20MG CAP PO SCH (08:04)
[2022-03-26] MEDS: CitaloPRAM (CeleXA) 20 MG TAB PO SCH (08:04)
[2022-03-26] MEDS: DOCUSATE SODIUM 100MG CAPSULE PO SCH ×2 (08:04→21:34)
[2022-03-26] MEDS: GABAPENTIN 300 MG CAP PO SCH ×3 (08:04→21:34)
[2022-03-26] MEDS: ASPIRIN 81MG ENTERIC TABLET PO SCH (08:04)
[2022-03-26] MEDS: DOXYCYCLINE HYCLATE 100MG TABLET PO SCH ×2 (08:05→21:35)
[2022-03-26] MEDS: INSULIN LISPRO (NovoLOG) PER UNIT SC SCH ×3 (08:26→17:18)
[2022-03-26] MEDS: HumuLIN N INSULIN (NovoLIN N) PER UNIT SC SCH ×2 (08:27→21:34)
[2022-03-26 09:00] VITALS: O2SAT 94
[2022-03-26] MEDS ORDERED: IPRAINH INH (12:47)
[2022-03-26] MEDS ORDERED: SANT250O8 TOP (13:15)
[2022-03-26] MEDS ORDERED: DOXY100T PO (13:50)
[2022-03-26] MEDS: SANTYL OINT 30GM TOP SCH (13:55)
[2022-03-26 14:00] VITALS: BP 152/74
[2022-03-26 20:00] VITALS: BP 154/74
[2022-03-26] MEDS ORDERED: INSULIN LISPRO (NovoLOG) PER UNIT SC SCH (21:00)
[2022-03-26] MEDS: rOPINIRole 1MG TAB PO SCH (21:35)
[2022-03-26] MEDS: SIMVASTATIN 20 MG TAB PO SCH (21:35)
[2022-03-26] MEDS: NYSTATIN 100,000 UNITS/GM TOPICAL PWD 15 GM TOP PRN (21:36)
[2022-03-27] MEDS: IPRATROPIUM 0.5MG/ALBUTEROL 2.5MG INH SOL UD 3ML (DUONEB) NEB SCH ×2 (02:52→07:37)
[2022-03-27] MEDS ORDERED: LevoFLOXacin 750 MG TABLET PO ONE (04:00)
[2022-03-27 06:00] VITALS: BP 152/82
[2022-03-27] MEDS: LEVOTHYROXINE 100MCG TABLET (0.1MG) PO SCH (06:03)
[2022-03-27 07:02] LABS: HEMATOCRIT 39.5 % (36.0-47.0); HEMOGLOBIN 12.7 g/dl (12.0-15.5); MEAN CORPUSCULAR HEMOGLOBIN 27.6 pg (27.0-33.0); MEAN CORPUSCULAR HGB CONC 32.2 g/dl (32.0-36.5); MEAN CORPUSCULAR VOLUME 85.9 fl (80.0-96.0); PLATELET COUNT, AUTOMATED 189 10^3/uL (150-450); WHITE BLOOD COUNT 14.8 10^3/uL (4.0-10.0)
[2022-03-27 07:31] LABS: BLOOD UREA NITROGEN 20 MG/DL (7-18); CALCIUM LEVEL 8.7 MG/DL (8.8-10.2); CARBON DIOXIDE LEVEL 32 MEQ/L (21-32); CHLORIDE LEVEL 105 MEQ/L (98-107); CREATININE FOR GFR 0.81 MG/DL (0.55-1.30); GLOMERULAR FILTRATION RATE > 60.0 (>39); GLUCOSE, FASTING 132 MG/DL (70-100); POTASSIUM SERUM 3.2 MEQ/L (3.5-5.1); SODIUM LEVEL 139 MEQ/L (136-145)
[2022-03-27] MEDS: SYMBICORT 160/4.5MCG INHALER 6GM INH SCH (07:37)
[2022-03-27] MEDS: ASPIRIN 81MG ENTERIC TABLET PO SCH (08:16)
[2022-03-27] MEDS: GABAPENTIN 300 MG CAP PO SCH (08:16)
[2022-03-27] MEDS: OMEPRAZOLE 20MG CAP PO SCH (08:17)
[2022-03-27] MEDS: CitaloPRAM (CeleXA) 20 MG TAB PO SCH (08:17)
[2022-03-27] MEDS: DOCUSATE SODIUM 100MG CAPSULE PO SCH (08:17)
[2022-03-27] MEDS: predniSONE 20 MG TAB PO SCH (08:17)
[2022-03-27] MEDS: FUROSEMIDE 40 MG TAB PO SCH (08:17)
[2022-03-27] MEDS: DOXYCYCLINE HYCLATE 100MG TABLET PO SCH (08:17)
[2022-03-27] MEDS: HumuLIN N INSULIN (NovoLIN N) PER UNIT SC SCH (08:18)
[2022-03-27] MEDS: INSULIN LISPRO (NovoLOG) PER UNIT SC SCH ×2 (08:18→12:00)
[2022-03-27] MEDS: ENOXAPARIN 40MG/0.4ML SYRINGE (J1650 PER 10MG) SC SCH (08:19)
[2022-03-27] MEDS: NYSTATIN 100,000 UNITS/GM TOPICAL PWD 15 GM TOP PRN (08:19)
[2022-03-27] MEDS: SANTYL OINT 30GM TOP SCH (08:25)
[2022-03-27] MEDS ORDERED: POTASSIUM CHLORIDE 10% LIQ 20 MEQ/15 ML UDC PO ONE (11:40)
[2022-03-27] MEDS ORDERED: DOXY-350 PO (11:44)
[2022-03-27] MEDS ORDERED: LEVO500T4 PO (11:45)
[2022-03-27] MEDS ORDERED: PRED20TA PO (11:48)
== END 2022-03-27 12:26 | disposition home or self-care (01) | DRG 982 ==
LOC: M ED 21:35 → M ED INP 03-25 03:12 → ENRESERV 03-25 04:10 → M MSPAV 03-25 05:01
PROVIDERS: ADMIT Family Medicine; ATTEND Internal Medicine
PROC: 0JDR0ZZ Extraction of Left Foot Subcutaneous Tissue and Fascia, Open Approach (ICD-10-PCS; principal; 2022-03-26)
DX: E11.621 Type 2 diabetes mellitus with foot ulcer (principal); J44.1 Chronic obstructive pulmonary disease with (acute) exacerbation; L03.032 Cellulitis of left toe; I10 Essential (primary) hypertension; I16.0 Hypertensive urgency; L97.509 Non-pressure chronic ulcer of other part of unspecified foot with unspecified severity; K21.9 Gastro-esophageal reflux disease without esophagitis; E78.5 Hyperlipidemia, unspecified; E11.51 Type 2 diabetes mellitus with diabetic peripheral angiopathy without gangrene; Z79.4 Long term (current) use of insulin; G47.33 Obstructive sleep apnea (adult) (pediatric); G25.81 Restless legs syndrome; E03.9 Hypothyroidism, unspecified; F41.9 Anxiety disorder, unspecified; F32.A Depression, unspecified; Z86.73 Personal history of transient ischemic attack (TIA), and cerebral infarction without residual deficits; Z79.899 Other long term (current) drug therapy; Z79.82 Long term (current) use of aspirin; Z88.8 Allergy status to other drugs, medicaments and biological substances; Z98.41 Cataract extraction status, right eye; Z98.42 Cataract extraction status, left eye; Z87.891 Personal history of nicotine dependence

== ENCOUNTER → 2022-04-15 | Outpatient (CLI) | payer OTHER, MEDICAID ==
[~2022-04-15] MED LIST changes: +ALBU8.5H PO; +ASPI81TA26 PO; +BUSP10TA PO; +DOXY-350 PO; +DOXY100T PO; +IPRAINH INH; +LEVO500T4 PO; +SANT250O8 TOP; +SYMB16INH INH; +SYST1SOL4 OU
== END ==
LOC: M RAD 11:28
PROVIDERS: ATTEND Nurse Practitioner Adult Health
DX: I87.2 Venous insufficiency (chronic) (peripheral) (principal); M79.651 Pain in right thigh; M79.652 Pain in left thigh

== ENCOUNTER 2022-05-19 12:46 | Emergency (ER) | payer OTHER, MEDICAID ==
[~2022-05-19] VITALS: Ht 142.2 cm; Wt 88.2 kg
[2022-05-19] MEDS ORDERED: traMADol 50 MG TAB PO ONE (14:35)
[2022-05-19] MEDS ORDERED: TRAM50TA2 PO (17:10)
[2022-05-19 17:30] VITALS: BP 182/100
== END 2022-05-19 17:38 | disposition home or self-care (01) ==
LOC: M ED 12:46
DX: M25.461 Effusion, right knee (principal); M54.50 Low back pain, unspecified; E11.9 Type 2 diabetes mellitus without complications; I10 Essential (primary) hypertension; F17.200 Nicotine dependence, unspecified, uncomplicated; Z86.73 Personal history of transient ischemic attack (TIA), and cerebral infarction without residual deficits; Z88.1 Allergy status to other antibiotic agents

== ENCOUNTER 2022-06-17 17:14 | Emergency (ER) | payer OTHER, MEDICAID ==
[~2022-06-17] VITALS: Ht 157.5 cm; Wt 89.5 kg
[~2022-06-17 17:14] MED LIST changes: +LEVO1TAB39 PO; +LEVO1TAB40 PO; -LEVO500T4 PO; -LEVO750T13 PO; +POTA-150 PO; -POTA10TA17 PO; +TRAM50TA2 PO
[2022-06-17 22:44] VITALS: BP 148/90
== END 2022-06-17 22:50 | disposition home or self-care (01) ==
LOC: M ED 17:24
DX: S00.03XA Contusion of scalp, initial encounter (principal); S39.012A Strain of muscle, fascia and tendon of lower back, initial encounter; W01.0XXA Fall on same level from slipping, tripping and stumbling without subsequent striking against object, initial encounter; W22.8XXA Striking against or struck by other objects, initial encounter; I10 Essential (primary) hypertension; E11.9 Type 2 diabetes mellitus without complications; G47.33 Obstructive sleep apnea (adult) (pediatric); K21.9 Gastro-esophageal reflux disease without esophagitis; Z86.73 Personal history of transient ischemic attack (TIA), and cerebral infarction without residual deficits; Z88.1 Allergy status to other antibiotic agents; Z79.51 Long term (current) use of inhaled steroids; Z79.4 Long term (current) use of insulin; Z79.899 Other long term (current) drug therapy; Y92.009 Unspecified place in unspecified non-institutional (private) residence as the place of occurrence of the external cause; Y93.9 Activity, unspecified; Y99.9 Unspecified external cause status

== ENCOUNTER 2022-09-24 16:15 | Emergency (ER) | payer OTHER, MEDICAID ==
[~2022-09-24] VITALS: Ht 142.2 cm; Wt 90.9 kg
[~2022-09-24 16:15] MED LIST changes: -DOXY-350 PO; +DOXY-444 PO
[2022-09-24 16:53] LABS: BASO # 0.1 10^3/uL (0.0-0.2); BASO % 0.3 % (0.0-1.0); EOS # 0.1 10^3/uL (0.0-0.5); EOS % 0.3 % (0.0-3.0); HEMATOCRIT 45.2 % (36.0-47.0); HEMOGLOBIN 14.2 g/dl (12.0-15.5); LYMPH # 2.2 10^3/uL (1.5-5.0); LYMPH % 9.2 % (24.0-44.0); MEAN CORPUSCULAR HEMOGLOBIN 27.5 pg (27.0-33.0); MEAN CORPUSCULAR HGB CONC 31.4 g/dl (32.0-36.5); MEAN CORPUSCULAR VOLUME 87.4 fl (80.0-96.0); MONO # 0.9 10^3/uL (0.0-0.8); MONO % 3.6 % (2.0-8.0); NEUTROPHILS % 84.8 % (36.0-66.0); PLATELET COUNT, AUTOMATED 218 10^3/uL (150-450); RED BLOOD COUNT 5.17 10^6/uL (4.00-5.40); WHITE BLOOD COUNT 23.6 10^3/uL (4.0-10.0)
[2022-09-24] MEDS ORDERED: ISOVUE-370 76% 100ML VIAL As Ordered ONE (17:04)
[2022-09-24 17:11] LABS: ALBUMIN 3.5 G/DL (3.2-5.2)
[2022-09-24 17:12] LABS: INR 0.96
[2022-09-24 17:13] LABS: PARTIAL THROMBOPLASTIN TIME 28.1 SECONDS (24.8-34.2)
[2022-09-24 17:17] LABS: CK-MB VALUE MASS 6.8 NG/ML (<3.6); ETHYL ALCOHOL (ETHANOL) 0.003 % (0.000-0.010)
[2022-09-24 17:18] LABS: BILIRUBIN,DIRECT 0.4 MG/DL (<0.4); MB/CK RELATIVE INDEX 3.36 (< OR =4); TOTAL PROTEIN 7.1 G/DL (5.7-8.2)
[2022-09-24 17:19] LABS: BILIRUBIN,TOTAL 1.5 MG/DL (0.3-1.2)
[2022-09-24] MEDS ORDERED: BOOSTRIX/ADACEL VACCINE (DIPHTH/PERTUSS/ACELL/TETANUS) 0.5ML SYR IM ONE (17:20)
[2022-09-24] MEDS: MORPHINE 2 MG/ML 1ML VIAL IV PRN ×2 (17:24→17:46)
[2022-09-24 17:26] LABS: RSV AMPLIFICATION NEGATIVE (NEGATIVE)
[2022-09-24] MEDS ORDERED: LIDOCAINE W/EPINEPHRINE 1% 20ML VIAL SC ONE (17:50)
[2022-09-24 19:00] VITALS: BP 182/84
== END 2022-09-24 19:15 | disposition short-term general hospital (02) ==
LOC: EDBD 16:15 → M ED 16:15
DX: S06.330A Contusion and laceration of cerebrum, unspecified, without loss of consciousness, initial encounter (principal); S01.01XA Laceration without foreign body of scalp, initial encounter; S27.322A Contusion of lung, bilateral, initial encounter; S22.41XA Multiple fractures of ribs, right side, initial encounter for closed fracture; I31.39 Other pericardial effusion (noninflammatory); W10.8XXA Fall (on) (from) other stairs and steps, initial encounter; E11.9 Type 2 diabetes mellitus without complications; I10 Essential (primary) hypertension; K21.9 Gastro-esophageal reflux disease without esophagitis; F33.1 Major depressive disorder, recurrent, moderate; M54.50 Low back pain, unspecified; F41.9 Anxiety disorder, unspecified; Z86.79 Personal history of other diseases of the circulatory system; Z79.4 Long term (current) use of insulin; Z79.51 Long term (current) use of inhaled steroids; Z79.891 Long term (current) use of opiate analgesic; Z79.02 Long term (current) use of antithrombotics/antiplatelets; Z79.890 Hormone replacement therapy; Z79.899 Other long term (current) drug therapy; Z23 Encounter for immunization
CPT/HCPCS: 70450; 71045; 71260; 72125; 72128; 74177; 80047; 80076; 82077; 82150; 82550; 82553; 83605; 83690; 84484; 85025; 85610; 85730; 86850; 86900; 86901; 87631; 90471; 90715; 93005; 93041; 94760; 96374; 99285; J2270; Q9967

== ENCOUNTER → 2023-01-20 | Outpatient (CLI) | payer OTHER, MEDICAID ==
[~2023-01-20] MED LIST changes: -COZA100T2 PO; +COZA100T3 PO
[2023-01-20 15:34] LABS: HEMOGLOBIN A1c 8.9 % (4.0-6.0)
[2023-01-20 15:54] LABS: ALBUMIN 2.8 G/DL (3.2-5.2); ALKALINE PHOSPHATASE 125 U/L (46-116); ALT/SGPT 21 U/L (7.0-40); AST/SGOT 24 U/L (<34); BILIRUBIN,TOTAL 0.8 MG/DL (0.3-1.2); BLOOD UREA NITROGEN 20 MG/DL (9-23); CARBON DIOXIDE LEVEL 30 MMOL/L (20-31); CHLORIDE LEVEL 101 MMOL/L (98-107); CHOLESTEROL LEVEL 157 MG/DL (<200); CHOLESTEROL RISK RATIO 2.39 (<5); CREATININE FOR GFR 0.74 MG/DL (0.55-1.30); GLOMERULAR FILTRATION RATE > 60.0 (>39); GLUCOSE, FASTING 155 MG/DL (74-106); HDL CHOLESTEROL 65.5 MG/DL (>40); LDL CHOLESTEROL 77.7 MG/DL (<100); NON-HDL-C 91.5 MG/DL; POTASSIUM SERUM 4.2 MMOL/L (3.5-5.1); SODIUM LEVEL 138 MMOL/L (136-145); THYROID STIMULATING HORMONE 0.852 uIU/ML (0.55-4.78); TOTAL PROTEIN 6.5 G/DL (5.7-8.2); TRIGLYCERIDES LEVEL 69 MG/DL (<150)
== END ==
LOC: M PLALAB 12:21
PROVIDERS: ATTEND Nurse Practitioner Adult Health
DX: E11.65 Type 2 diabetes mellitus with hyperglycemia (principal); E03.9 Hypothyroidism, unspecified; E78.2 Mixed hyperlipidemia

== ENCOUNTER → 2023-03-12 | Outpatient (CLI) | payer OTHER, MEDICAID | LOC: M EKG 15:41 | PROVIDERS: ATTEND Nurse Practitioner Adult Health | DX: I45.10 Unspecified right bundle-branch block (principal); Z86.79 Personal history of other diseases of the circulatory system ==

== ENCOUNTER 2023-04-17 16:48 | Emergency (ER) | payer MEDICARE, MEDICAID ==
[~2023-04-17] VITALS: Ht 142.2 cm; Wt 83.6 kg
[~2023-04-17 16:48] MED LIST changes: -K-TA10TA2 PO; +POTA-165 PO; -ROPI2TAB3 PO; +ROPI2TAB46 PO
[2023-04-17 18:07] LABS: BASO # 0.1 10^3/uL (0.0-0.2); BASO % 0.5 % (0.0-1.0); EOS # 0.1 10^3/uL (0.0-0.5); EOS % 0.6 % (0.0-3.0); HEMATOCRIT 44.3 % (36.0-47.0); HEMOGLOBIN 13.8 g/dl (12.0-15.5); LYMPH # 2.4 10^3/uL (1.5-5.0); LYMPH % 17.6 % (24.0-44.0); MEAN CORPUSCULAR HEMOGLOBIN 26.1 pg (27.0-33.0); MEAN CORPUSCULAR HGB CONC 31.2 g/dl (32.0-36.5); MEAN CORPUSCULAR VOLUME 83.9 fl (80.0-96.0); MONO # 0.8 10^3/uL (0.0-0.8); MONO % 5.7 % (2.0-8.0); NEUTROPHILS # 10.1 10^3/uL (1.5-8.5); NEUTROPHILS % 75.3 % (36.0-66.0); PLATELET COUNT, AUTOMATED 190 10^3/uL (150-450); RED BLOOD COUNT 5.28 10^6/uL (4.00-5.40); WHITE BLOOD COUNT 13.4 10^3/uL (4.0-10.0)
[2023-04-17 18:26] LABS: CK-MB VALUE MASS 1.1 NG/ML (<3.6)
[2023-04-17 18:29] LABS: ALBUMIN 3.2 G/DL (3.2-5.2); ALKALINE PHOSPHATASE 120 U/L (46-116); ALT/SGPT 14 U/L (7.0-40); AST/SGOT 23 U/L (<34); BILIRUBIN,DIRECT 0.2 MG/DL (<0.4); BILIRUBIN,TOTAL 0.9 MG/DL (0.3-1.2); BLOOD UREA NITROGEN 25 MG/DL (9-23); CALCIUM LEVEL 8.9 MG/DL (8.3-10.6); CARBON DIOXIDE LEVEL 29 MMOL/L (20-31); CHLORIDE LEVEL 103 MMOL/L (98-107); CREATININE FOR GFR 0.78 MG/DL (0.55-1.30); GLOMERULAR FILTRATION RATE > 60.0 (>39); GLUCOSE, FASTING 139 MG/DL (74-106); POTASSIUM SERUM 4.9 MMOL/L (3.5-5.1); SODIUM LEVEL 139 MMOL/L (136-145); TOTAL PROTEIN 6.6 G/DL (5.7-8.2)
[2023-04-17 18:31] LABS: FREE T4 2.52 NG/DL (0.89-1.76); THYROID STIMULATING HORMONE 0.015 uIU/ML (0.55-4.78)
[2023-04-17 18:34] LABS: CPK CREATINE PHOSPHOKINASE 34 U/L (34-145); MB/CK RELATIVE INDEX 3.23 (< OR =4)
[2023-04-17 19:55] LABS: CK-MB VALUE MASS < 1.0 NG/ML (<3.6)
[2023-04-17 19:57] LABS: CPK CREATINE PHOSPHOKINASE 28 U/L (34-145); MB/CK RELATIVE INDEX 3.57 (< OR =4)
[2023-04-17 20:00] VITALS: TEMP 98.2
[2023-04-17 21:57] LABS: CK-MB VALUE MASS < 1.0 NG/ML (<3.6)
[2023-04-17 21:58] LABS: CPK CREATINE PHOSPHOKINASE 30 U/L (34-145); MB/CK RELATIVE INDEX 3.33 (< OR =4)
[2023-04-17 22:30] VITALS: BP 168/42; O2SAT 93
== END 2023-04-17 22:50 | disposition home or self-care (01) ==
LOC: EDBD 16:48 → M ED 16:48
DX: R00.2 Palpitations (principal); I45.19 Other right bundle-branch block; I45.10 Unspecified right bundle-branch block; R00.1 Bradycardia, unspecified; K21.9 Gastro-esophageal reflux disease without esophagitis; F32.A Depression, unspecified; E78.5 Hyperlipidemia, unspecified; G47.33 Obstructive sleep apnea (adult) (pediatric); I10 Essential (primary) hypertension; E11.9 Type 2 diabetes mellitus without complications; Z88.1 Allergy status to other antibiotic agents; Z88.8 Allergy status to other drugs, medicaments and biological substances; Z87.891 Personal history of nicotine dependence; Z79.52 Long term (current) use of systemic steroids; Z79.4 Long term (current) use of insulin; Z79.899 Other long term (current) drug therapy

== ENCOUNTER → 2023-05-05 | Outpatient (CLI) | payer MEDICARE, MEDICAID ==
[2023-05-05 18:34] LABS: ALBUMIN 3.5 G/DL (3.2-5.2); ALKALINE PHOSPHATASE 126 U/L (46-116); ALT/SGPT 14 U/L (7.0-40); AST/SGOT < 8 U/L (<34); BLOOD UREA NITROGEN 20 MG/DL (9-23); CALCIUM LEVEL 9.3 MG/DL (8.3-10.6); CARBON DIOXIDE LEVEL 26 MMOL/L (20-31); CHLORIDE LEVEL 107 MMOL/L (98-107); CREATININE FOR GFR 0.77 MG/DL (0.55-1.30); GLOMERULAR FILTRATION RATE > 60.0 (>39); GLUCOSE, FASTING 62 MG/DL (74-106); POTASSIUM SERUM 4.1 MMOL/L (3.5-5.1); SODIUM LEVEL 142 MMOL/L (136-145); THYROID STIMULATING HORMONE 0.008 uIU/ML (0.55-4.78)
[2023-05-05 18:49] LABS: HEMOGLOBIN A1c 8.3 % (4.0-6.0)
== END ==
LOC: M PLALAB 15:16
PROVIDERS: ATTEND Nurse Practitioner Adult Health
DX: E03.9 Hypothyroidism, unspecified (principal); R00.2 Palpitations; E11.65 Type 2 diabetes mellitus with hyperglycemia

== ENCOUNTER → 2023-06-12 | Outpatient (CLI) | payer MEDICARE, MEDICAID | LOC: M SLEEP 20:00 | PROVIDERS: ATTEND Physician Assistant | DX: G47.33 Obstructive sleep apnea (adult) (pediatric) (principal) ==

== ENCOUNTER → 2023-08-28 | Outpatient (CLI) | payer MEDICARE, MEDICAID ==
[~2023-08-28] MED LIST changes: +CALC-211 PO; +CONS10SO3; -COZA100T3 PO; +DULA3PEN; +FARX1TAB5 PO; +GLIP5TAB17 PO; -GLIP5TAB8 PO; +INSU100I48 SQ; +INVO100T PO; +LEVO175T2 PO; +LOSA-530 PO; +OMEG10002 PO; +POTA-298 PO
[2023-08-28 13:52] LABS: BASO # 0.1 10^3/uL (0.0-0.2); BASO % 0.6 % (0.0-1.0); EOS # 0.1 10^3/uL (0.0-0.5); EOS % 0.7 % (0.0-3.0); HEMATOCRIT 49.5 % (36.0-47.0); HEMOGLOBIN 15.5 g/dl (12.0-15.5); LYMPH # 1.9 10^3/uL (1.5-5.0); LYMPH % 16.9 % (24.0-44.0); MEAN CORPUSCULAR HEMOGLOBIN 26.9 pg (27.0-33.0); MEAN CORPUSCULAR HGB CONC 31.3 g/dl (32.0-36.5); MEAN CORPUSCULAR VOLUME 85.9 fl (80.0-96.0); MONO # 0.6 10^3/uL (0.0-0.8); MONO % 5.2 % (2.0-8.0); NEUTROPHILS # 8.4 10^3/uL (1.5-8.5); NEUTROPHILS % 76.2 % (36.0-66.0); RED BLOOD COUNT 5.76 10^6/uL (4.00-5.40)
[2023-08-28 14:10] LABS: HEMOGLOBIN A1c 7.5 % (4.0-6.0)
[2023-08-28 14:22] LABS: ALBUMIN 3.6 G/DL (3.2-5.2); ALKALINE PHOSPHATASE 130 U/L (46-116); ALT/SGPT 15 U/L (7.0-40); AST/SGOT 20 U/L (<34); BILIRUBIN,TOTAL 0.8 MG/DL (0.3-1.2); BLOOD UREA NITROGEN 19 MG/DL (9-23); CALCIUM LEVEL 9.4 MG/DL (8.3-10.6); CARBON DIOXIDE LEVEL 24 MMOL/L (20-31); CHLORIDE LEVEL 107 MMOL/L (98-107); GLOMERULAR FILTRATION RATE > 60.0 (>39); GLUCOSE, FASTING 113 MG/DL (74-106); POTASSIUM SERUM 4.1 MMOL/L (3.5-5.1); SODIUM LEVEL 143 MMOL/L (136-145); TOTAL PROTEIN 7.3 G/DL (5.7-8.2)
[2023-08-28 14:23] LABS: THYROID STIMULATING HORMONE 0.903 uIU/ML (0.55-4.78)
[2023-08-28 14:24] LABS: FREE T4 1.27 NG/DL (0.89-1.76)
== END ==
LOC: M PLALAB 09:30
PROVIDERS: ATTEND Family Medicine
DX: Z01.810 Encounter for preprocedural cardiovascular examination (principal); E11.65 Type 2 diabetes mellitus with hyperglycemia; E03.9 Hypothyroidism, unspecified

== ENCOUNTER 2023-09-05 12:46 | Emergency (ER) | payer MEDICARE, MEDICAID ==
[~2023-09-05] VITALS: Ht 142.2 cm; Wt 84.1 kg
[2023-09-05] MEDS ORDERED: ISOVUE-370 76% 100ML VIAL As Ordered ONE (14:06)
[2023-09-05 14:13] LABS: BASO # 0.1 10^3/uL (0.0-0.2); BASO % 0.7 % (0.0-1.0); EOS # 0.1 10^3/uL (0.0-0.5); EOS % 0.8 % (0.0-3.0); HEMATOCRIT 46.7 % (36.0-47.0); HEMOGLOBIN 14.7 g/dl (12.0-15.5); LYMPH # 1.7 10^3/uL (1.5-5.0); LYMPH % 18.3 % (24.0-44.0); MEAN CORPUSCULAR HEMOGLOBIN 27.6 pg (27.0-33.0); MEAN CORPUSCULAR HGB CONC 31.5 g/dl (32.0-36.5); MEAN CORPUSCULAR VOLUME 87.6 fl (80.0-96.0); MONO # 0.5 10^3/uL (0.0-0.8); MONO % 5.5 % (2.0-8.0); NEUTROPHILS % 74.1 % (36.0-66.0); PLATELET COUNT, AUTOMATED 193 10^3/uL (150-450); RED BLOOD COUNT 5.33 10^6/uL (4.00-5.40); WHITE BLOOD COUNT 9.5 10^3/uL (4.0-10.0)
[2023-09-05 14:38] LABS: INR 0.94; PROTHROMBIN TIME 12.3 SECONDS (12.5-14.5)
[2023-09-05 14:39] LABS: PARTIAL THROMBOPLASTIN TIME 27.6 SECONDS (24.8-34.2)
[2023-09-05 14:42] LABS: BLOOD UREA NITROGEN 22 MG/DL (9-23); CALCIUM LEVEL 9.2 MG/DL (8.3-10.6); CARBON DIOXIDE LEVEL 29 MMOL/L (20-31); CHLORIDE LEVEL 102 MMOL/L (98-107); CREATININE FOR GFR 0.66 MG/DL (0.55-1.30); GLOMERULAR FILTRATION RATE > 60.0 (>39); GLUCOSE, FASTING 275 MG/DL (74-106); POTASSIUM SERUM 4.7 MMOL/L (3.5-5.1); SODIUM LEVEL 141 MMOL/L (136-145)
[2023-09-05 14:47] LABS: CPK CREATINE PHOSPHOKINASE 61 U/L (34-145); MB/CK RELATIVE INDEX 1.63 (< OR =4)
[2023-09-05 14:48] LABS: RSV AMPLIFICATION NEGATIVE (NEGATIVE)
[2023-09-05 15:32] LABS: CK-MB VALUE MASS 1.8 NG/ML (<3.6)
[2023-09-05 15:34] LABS: MB/CK RELATIVE INDEX 3.82 (< OR =4)
[2023-09-05] MEDS ORDERED: hydrALAZINE 20MG/ML 1ML VIAL IV PRN (18:40)
[2023-09-05] MEDS ORDERED: HEPARIN DRIP 25,000 UNITS in IV 1 EA IV SCH (19:55)
[2023-09-05] MEDS ORDERED: HEPARIN SOD (PORCINE) 5000UNITS/ML 1ML VIAL/SYRINGE IV PRN (19:55)
[2023-09-05] MEDS ORDERED: HEPARIN SOD (PORCINE) 5000UNITS/ML 1ML VIAL/SYRINGE IV ONE (19:55)
[2023-09-05 20:25] LABS: RSV AMPLIFICATION NEGATIVE (NEGATIVE)
[2023-09-05 20:40] LABS: HEMATOCRIT 46.5 % (36.0-47.0); HEMOGLOBIN 15.2 g/dl (12.0-15.5); MEAN CORPUSCULAR HEMOGLOBIN 27.9 pg (27.0-33.0); MEAN CORPUSCULAR HGB CONC 32.7 g/dl (32.0-36.5); MEAN CORPUSCULAR VOLUME 85.3 fl (80.0-96.0); PLATELET COUNT, AUTOMATED 202 10^3/uL (150-450); RED BLOOD COUNT 5.45 10^6/uL (4.00-5.40); WHITE BLOOD COUNT 11.7 10^3/uL (4.0-10.0)
[2023-09-06 01:27] VITALS: BP 131/59; TEMP 97.4; O2SAT 95
[2023-09-08] MEDS ORDERED: LEVO175T2 PO (07:42)
== END 2023-09-06 01:30 | disposition short-term general hospital (02) ==
LOC: M ED 12:46
DX: G45.9 Transient cerebral ischemic attack, unspecified (principal); I48.91 Unspecified atrial fibrillation; I10 Essential (primary) hypertension; I49.8 Other specified cardiac arrhythmias; I45.10 Unspecified right bundle-branch block; E11.9 Type 2 diabetes mellitus without complications; J44.9 Chronic obstructive pulmonary disease, unspecified; F12.10 Cannabis abuse, uncomplicated; E78.5 Hyperlipidemia, unspecified; Z88.1 Allergy status to other antibiotic agents; Z88.8 Allergy status to other drugs, medicaments and biological substances; Z86.79 Personal history of other diseases of the circulatory system; Z86.73 Personal history of transient ischemic attack (TIA), and cerebral infarction without residual deficits; Z87.891 Personal history of nicotine dependence; Z79.52 Long term (current) use of systemic steroids; Z79.891 Long term (current) use of opiate analgesic; Z79.810 Long term (current) use of selective estrogen receptor modulators (SERMs); Z79.82 Long term (current) use of aspirin; Z79.899 Other long term (current) drug therapy
CPT/HCPCS: 70450; 70496; 70498; 70551; 71045; 80047; 80048; 82550; 82553; 84484; 85025; 85027; 85610; 85730; 87631; 93005; 93041; 94760; 96374; 96375; 99285; J0360; Q9967

== ENCOUNTER → 2023-11-06 | Outpatient (CLI) | payer MEDICARE, MEDICAID ==
[~2023-11-06] MED LIST changes: +B-12100021 PO; +BIOT10009 PO; -DULA3PEN; +DULA3PEN SC; +IRBE150T27 PO; -IRBE150T7 PO; +XARE20TA PO
== END ==
LOC: M SLEEP 20:00
PROVIDERS: ATTEND Physician Assistant
DX: G47.33 Obstructive sleep apnea (adult) (pediatric) (principal)

== ENCOUNTER → 2023-11-07 | Outpatient (CLI) | payer MEDICARE, MEDICAID ==
[~2023-11-07] MED LIST changes: -B-12100021 PO; -BIOT10009 PO; +DULA3PEN; -DULA3PEN SC; -IRBE150T27 PO; +IRBE150T7 PO; -XARE20TA PO
== END ==
LOC: M EKG 06:35
PROVIDERS: ATTEND Family Medicine
DX: I48.0 Paroxysmal atrial fibrillation (principal)

== ENCOUNTER 2023-11-28 07:30 | Day surgery (SDC) | payer MEDICARE, MEDICAID ==
[~2023-11-28] VITALS: Ht 142.2 cm; Wt 81.6 kg
[~2023-11-28 07:30] MED LIST changes: +B-12100021 PO; +BIOT10009 PO; -DULA3PEN; +DULA3PEN SC; +IRBE150T27 PO; -IRBE150T7 PO; +XARE20TA PO
[2023-11-28] MEDS: NS 1,000 ML IV ONE (07:57)
[2023-11-28] MEDS ORDERED: propofoL 200 MG/20 ML VIAL As Ordered ONE (08:00)
[2023-11-28] MEDS ORDERED: LIDOCAINE 2% 100MG/5ML SDV (FOR ANES.) As Ordered ONE (08:00)
[2023-11-28] MEDS ORDERED: GLYCOPYRROLATE INJ 0.2 MG/ML 2 ML VIAL As Ordered ONE (09:12)
[2023-11-28 09:32] VITALS: TEMP 96.9
[2023-11-28 09:51] VITALS: BP 144/67; O2SAT 96
== END 2023-11-28 09:53 | disposition home or self-care (01) ==
LOC: M OPP 07:30
PROVIDERS: ATTEND Internal Medicine Gastroenterology
DX: Z86.010 Personal history of colon polyps (principal); Z80.0 Family history of malignant neoplasm of digestive organs; D12.3 Benign neoplasm of transverse colon; K64.8 Other hemorrhoids; K57.30 Diverticulosis of large intestine without perforation or abscess without bleeding; K55.20 Angiodysplasia of colon without hemorrhage; Z87.891 Personal history of nicotine dependence; I50.9 Heart failure, unspecified; E11.9 Type 2 diabetes mellitus without complications; G47.30 Sleep apnea, unspecified; Z79.01 Long term (current) use of anticoagulants; Z79.02 Long term (current) use of antithrombotics/antiplatelets; Z79.4 Long term (current) use of insulin; Z79.51 Long term (current) use of inhaled steroids; Z79.82 Long term (current) use of aspirin; Z79.890 Hormone replacement therapy; Z79.891 Long term (current) use of opiate analgesic; Z79.899 Other long term (current) drug therapy; Z88.1 Allergy status to other antibiotic agents; Z88.2 Allergy status to sulfonamides; Z88.5 Allergy status to narcotic agent; Z88.8 Allergy status to other drugs, medicaments and biological substances

== ENCOUNTER → 2023-12-22 | Outpatient (CLI) | payer MEDICARE, MEDICAID ==
[2023-12-22 16:21] LABS: ALBUMIN 3.4 G/DL (3.2-5.2); ALKALINE PHOSPHATASE 136 U/L (46-116); ALT/SGPT 15 U/L (7.0-40); AST/SGOT 18 U/L (<34); BILIRUBIN,TOTAL 0.7 MG/DL (0.3-1.2); BLOOD UREA NITROGEN 21 MG/DL (9-23); CARBON DIOXIDE LEVEL 33 MMOL/L (20-31); CHLORIDE LEVEL 106 MMOL/L (98-107); CREATININE FOR GFR 0.86 MG/DL (0.55-1.30); GLOMERULAR FILTRATION RATE > 60.0 (>39); GLUCOSE, FASTING 94 MG/DL (74-106); POTASSIUM SERUM 3.9 MMOL/L (3.5-5.1); SODIUM LEVEL 143 MMOL/L (136-145); TOTAL PROTEIN 7.1 G/DL (5.7-8.2)
[2023-12-22 16:25] LABS: THYROID STIMULATING HORMONE 10.194 uIU/ML (0.55-4.78)
[2023-12-22 16:32] LABS: FREE T4 0.62 NG/DL (0.89-1.76)
[2023-12-22 16:37] LABS: MAU/CREAT RATIO 172.8 MCG/MG (0.0-30.0)
[2023-12-22 16:41] LABS: VITAMIN B12 LEVEL > 2000 PG/ML (211-911)
[2023-12-22 17:01] LABS: HEMOGLOBIN A1c 7.4 % (4.0-6.0)
== END ==
LOC: M PLALAB 13:32
PROVIDERS: ATTEND Nurse Practitioner Adult Health
DX: I48.0 Paroxysmal atrial fibrillation (principal); E03.9 Hypothyroidism, unspecified; E11.65 Type 2 diabetes mellitus with hyperglycemia; R29.6 Repeated falls

== ENCOUNTER → 2024-03-30 | Outpatient (CLI) | payer MEDICARE ==
[~2024-03-30] MED LIST changes: +DOXY-440 PO; -DOXY-444 PO
[2024-03-30 16:13] LABS: ALBUMIN 3.5 G/DL (3.2-5.2); BILIRUBIN,TOTAL 1.4 MG/DL (0.3-1.2); CALCIUM LEVEL 9.6 MG/DL (8.3-10.6); CHOLESTEROL RISK RATIO 2.27 (<5); CREATININE FOR GFR 0.96 MG/DL (0.55-1.30); GLOMERULAR FILTRATION RATE 59.8 (>39); HDL CHOLESTEROL 61.6 MG/DL (>40); LDL CHOLESTEROL 63.6 MG/DL (<100); NON-HDL-C 78.4 MG/DL; POTASSIUM SERUM 3.8 MMOL/L (3.5-5.1); TOTAL PROTEIN 6.9 G/DL (5.7-8.2)
[2024-03-30 16:17] LABS: FREE T4 0.79 NG/DL (0.89-1.76); THYROID STIMULATING HORMONE 12.785 uIU/ML (0.55-4.78)
[2024-03-30 16:20] LABS: HEMATOCRIT 49.4 % (36.0-47.0); HEMOGLOBIN 15.8 g/dl (12.0-15.5); MEAN CORPUSCULAR HEMOGLOBIN 28.5 pg (27.0-33.0); PLATELET COUNT, AUTOMATED 177 10^3/uL (150-450); RED BLOOD COUNT 5.55 10^6/uL (4.00-5.40); WHITE BLOOD COUNT 12.2 10^3/uL (4.0-10.0)
[2024-03-30 16:46] LABS: HEMOGLOBIN A1c 7.7 % (4.0-6.0)
== END ==
LOC: M PLALAB 12:44
PROVIDERS: ATTEND Nurse Practitioner Adult Health
DX: I48.0 Paroxysmal atrial fibrillation (principal); E03.9 Hypothyroidism, unspecified; E11.65 Type 2 diabetes mellitus with hyperglycemia; E78.2 Mixed hyperlipidemia; I10 Essential (primary) hypertension

== ENCOUNTER → 2024-08-12 | Outpatient (CLI) | payer MEDICARE, MEDICAID ==
[~2024-08-12] MED LIST changes: +GABA-1172 PO; +GABA-1490 PO; -GABA-282 PO; -GABA600T4 PO
[2024-08-12 16:04] LABS: HEMOGLOBIN 15.2 g/dl (12.0-15.5); MEAN CORPUSCULAR HEMOGLOBIN 26.4 pg (27.0-33.0); MEAN CORPUSCULAR VOLUME 85.1 fl (80.0-96.0); PLATELET COUNT, AUTOMATED 143 10^3/uL (150-450); RED BLOOD COUNT 5.76 10^6/uL (4.00-5.40); WHITE BLOOD COUNT 9.9 10^3/uL (4.0-10.0)
[2024-08-12 16:19] LABS: LIPASE 24 U/L (12-53)
[2024-08-12 16:22] LABS: ALBUMIN 3.3 G/DL (3.2-5.2); ALKALINE PHOSPHATASE 121 U/L (46-116); ALT/SGPT 20 U/L (7.0-40); AST/SGOT 19 U/L (<34); BILIRUBIN,TOTAL 1.8 MG/DL (0.3-1.2); BLOOD UREA NITROGEN 19 MG/DL (9-23); CARBON DIOXIDE LEVEL 26 MMOL/L (20-31); CHLORIDE LEVEL 107 MMOL/L (98-107); CREATININE FOR GFR 0.67 MG/DL (0.55-1.30); GLOMERULAR FILTRATION RATE > 60.0 (>39); GLUCOSE, FASTING 86 MG/DL (74-106); MAGNESIUM LEVEL 1.7 MG/DL (1.8-2.4); POTASSIUM SERUM 3.7 MMOL/L (3.5-5.1); SODIUM LEVEL 142 MMOL/L (136-145)
== END ==
LOC: M PLALAB 12:46
PROVIDERS: ATTEND Physician Assistant Medical
DX: K59.00 Constipation, unspecified (principal)

== ENCOUNTER → 2024-08-12 | Outpatient (CLI) | payer MEDICARE, MEDICAID | LOC: M PLAIMG 12:15 | PROVIDERS: ATTEND Physician Assistant Medical | DX: K59.00 Constipation, unspecified (principal) ==

== ENCOUNTER 2024-09-01 12:36 | Inpatient (IN) | payer MEDICAID, MEDICARE ==
[~2024-09-01] VITALS: Ht 142.2 cm; Wt 59.1 kg
[2024-09-01] MEDS: IPRATROPIUM 0.5MG/ALBUTEROL 2.5MG INH SOL UD 3ML (DUONEB) NEB ONE (14:00)
[2024-09-01] MEDS: ALBUTEROL SULFATE 2.5MG/0.5ML INH NEB SOLN INH ONE (14:00)
[2024-09-01 14:10] LABS: BASO # 0.1 10^3/uL (0.0-0.2); BASO % 0.8 % (0.0-1.0); EOS # 0.2 10^3/uL (0.0-0.5); EOS % 1.5 % (0.0-3.0); HEMATOCRIT 48.7 % (36.0-47.0); HEMOGLOBIN 15.6 g/dl (12.0-15.5); LYMPH # 2.4 10^3/uL (1.5-5.0); LYMPH % 24.1 % (24.0-44.0); MEAN CORPUSCULAR HEMOGLOBIN 26.6 pg (27.0-33.0); MEAN CORPUSCULAR VOLUME 83.1 fl (80.0-96.0); MONO # 0.5 10^3/uL (0.0-0.8); MONO % 5.5 % (2.0-8.0); NEUTROPHILS # 6.6 10^3/uL (1.5-8.5); NEUTROPHILS % 67.6 % (36.0-66.0); PLATELET COUNT, AUTOMATED 160 10^3/uL (150-450); RED BLOOD COUNT 5.86 10^6/uL (4.00-5.40); WHITE BLOOD COUNT 9.7 10^3/uL (4.0-10.0)
[2024-09-01 14:19] LABS: VENOUS BASE EXCESS 3.6 (-2.0-2.0); VENOUS HCO3 27.5 MMOL/L (23.0-27.0); VENOUS O2 SATURATION 97.4 % (60.0-80.0); VENOUS PARTIAL PRESSURE CO2 39.1 mmHg (38.0-50.0); VENOUS PARTIAL PRESSURE O2 86.1 mmHg (30.0-50.0); VENOUS PH 7.465 UNITS (7.330-7.430); VENOUS STANDARD HCO3 27.7 MMOL/L; VENOUS TOTAL CO2 28.7 MMOL/L (24.0-28.0)
[2024-09-01] MEDS: methylPREDNISolone 125MG 2ML VIAL IV ONE (14:21)
[2024-09-01 14:23] LABS: ALBUMIN 3.2 G/DL (3.2-5.2); ALKALINE PHOSPHATASE 135 U/L (35-104); ALT/SGPT 30 U/L (7.0-40); AST/SGOT 30 U/L (<34); BILIRUBIN,DIRECT 0.4 MG/DL (<0.4); BILIRUBIN,TOTAL 1.2 MG/DL (0.3-1.2); BLOOD UREA NITROGEN 15 MG/DL (9-23); CALCIUM LEVEL 9.2 MG/DL (8.3-10.6); CARBON DIOXIDE LEVEL 29 MMOL/L (20-31); CHLORIDE LEVEL 104 MMOL/L (98-107); CK-MB VALUE MASS 1.1 NG/ML (<3.6); CREATININE FOR GFR 0.51 MG/DL (0.55-1.30); GLOMERULAR FILTRATION RATE > 60.0 (>39); GLUCOSE, FASTING 219 MG/DL (74-106); POTASSIUM SERUM 3.7 MMOL/L (3.5-5.1); SODIUM LEVEL 139 MMOL/L (136-145); TOTAL PROTEIN 7.5 G/DL (5.7-8.2)
[2024-09-01 14:24] LABS: THYROXINE (T4) 8.9 UG/DL (4.5-10.9)
[2024-09-01 14:25] LABS: THYROID STIMULATING HORMONE 0.078 uIU/ML (0.55-4.78)
[2024-09-01 14:26] LABS: CPK CREATINE PHOSPHOKINASE 50 U/L (34-145)
[2024-09-01] MEDS ORDERED: ODOR1CAP2 PO (15:17)
[2024-09-01] MEDS ORDERED: SYNT300T2 PO (15:17)
[2024-09-01] MEDS ORDERED: DULA4.5P SQ (15:17)
[2024-09-01] MEDS ORDERED: D3 H2000 PO (15:17)
[2024-09-01] MEDS ORDERED: HOME MED LIST COMPLETE! XX SCH (15:20)
[2024-09-01 16:36] LABS: CK-MB VALUE MASS 1.5 NG/ML (<3.6)
[2024-09-01 16:37] LABS: MB/CK RELATIVE INDEX 4.28 (< OR =4)
[2024-09-01] MEDS: APIXABAN 5 MG TAB (ELIQUIS) PO ONE (17:25)
[2024-09-01] MEDS: dilTIAZem 30 MG TAB PO ONE (17:25)
[2024-09-01 17:46] LABS: INR 1.04; PARTIAL THROMBOPLASTIN TIME 26.7 SECONDS (24.8-34.2); PROTHROMBIN TIME 13.9 SECONDS (12.5-14.5)
[2024-09-01] MEDS ORDERED: LEVALBUTEROL 1.25MG 0.5ML CONCENTRATE NEB NEB SCH (18:15)
[2024-09-01] MEDS ORDERED: AZITHROMYCIN 250MG TABLET PO SCH (18:15)
[2024-09-01] MEDS ORDERED: GLUCOSE 4 GM CHEW PO PRN (18:15)
[2024-09-01] MEDS ORDERED: GLUCAGON INJ 1MG VIAL SC PRN (18:15)
[2024-09-01] MEDS ORDERED: busPIRone 10 MG TAB PO PRN (18:15)
[2024-09-01] MEDS ORDERED: DEXTROSE 50% 50ML SYRINGE IV PRN (18:15)
[2024-09-01] MEDS: dilTIAZem 25MG/5ML VIAL IV STA (18:32)
[2024-09-01] MEDS: LEVALBUTEROL 1.25MG 0.5ML CONCENTRATE NEB NEB SCH (19:56)
[2024-09-01] MEDS: IPRATROPIUM 0.02% SOLN 0.5MG 2.5ML NEB NEB SCH (19:57)
[2024-09-01] MEDS: SYMBICORT 160/4.5MCG INHALER 6GM INH SCH (19:57)
[2024-09-01] MEDS: INSULIN LISPRO (NovoLOG) PER UNIT SC SCH ×2 (19:58→21:31)
[2024-09-01] MEDS ORDERED: ISOVUE-370 76% 100ML VIAL As Ordered ONE (20:07)
[2024-09-01 21:00] VITALS: TEMP 97.1; O2SAT 96
[2024-09-01 21:18] VITALS: BP 148/86
[2024-09-01] MEDS: dilTIAZem 30 MG TAB PO SCH (21:30)
[2024-09-01] MEDS: SIMVASTATIN 20 MG TAB PO SCH (21:30)
[2024-09-01] MEDS: GABAPENTIN 300 MG CAP PO SCH (21:30)
[2024-09-01] MEDS: LEVEMIR (INSULIN DETEMIR) 1 UNITS/0.01ML SC SCH (21:31)
[2024-09-01] MEDS: rOPINIRole 2MG TAB PO SCH (21:53)
[2024-09-01 23:02] VITALS: BP 134/77; TEMP 97.4; O2SAT 93
[2024-09-02 03:18] VITALS: BP 139/82; TEMP 97.3; O2SAT 94
[2024-09-02] MEDS: LEVOTHYROXINE 150MCG TABLET (0.15MG) PO SCH (05:09)
[2024-09-02] MEDS: BENZONATATE 100MG CAPSULE PO ONE (05:09)
[2024-09-02 05:42] LABS: HEMATOCRIT 47.8 % (36.0-47.0); HEMOGLOBIN 14.9 g/dl (12.0-15.5); MEAN CORPUSCULAR HEMOGLOBIN 25.6 pg (27.0-33.0); MEAN CORPUSCULAR HGB CONC 31.2 g/dl (32.0-36.5); MEAN CORPUSCULAR VOLUME 82.3 fl (80.0-96.0); PLATELET COUNT, AUTOMATED 149 10^3/uL (150-450); RED BLOOD COUNT 5.81 10^6/uL (4.00-5.40); WHITE BLOOD COUNT 6.4 10^3/uL (4.0-10.0)
[2024-09-02 06:07] LABS: BLOOD UREA NITROGEN 21 MG/DL (9-23); CALCIUM LEVEL 9.3 MG/DL (8.3-10.6); CARBON DIOXIDE LEVEL 26 MMOL/L (20-31); CHLORIDE LEVEL 102 MMOL/L (98-107); CREATININE FOR GFR 0.65 MG/DL (0.55-1.30); GLOMERULAR FILTRATION RATE > 60.0 (>39); GLUCOSE, FASTING 334 MG/DL (74-106); POTASSIUM SERUM 3.7 MMOL/L (3.5-5.1); SODIUM LEVEL 139 MMOL/L (136-145)
[2024-09-02 06:09] LABS: FREE T4 1.36 NG/DL (0.89-1.76)
[2024-09-02 06:10] LABS: THYROID STIMULATING HORMONE 0.034 uIU/ML (0.55-4.78)
[2024-09-02] MEDS ORDERED: ELIQ5TAB PO (07:18)
[2024-09-02 08:00] VITALS: BP_SYST 120; BP_DIAS 80; BP_DIAS 94; TEMP 97.6; O2SAT 94
[2024-09-02] MEDS: CitaloPRAM (CeleXA) 20 MG TAB PO SCH (09:10)
[2024-09-02] MEDS: dilTIAZem 30 MG TAB PO SCH (09:11)
[2024-09-02] MEDS: predniSONE 20 MG TAB PO SCH (09:12)
[2024-09-02] MEDS: OMEPRAZOLE 20MG CAP PO SCH (09:12)
[2024-09-02] MEDS: APIXABAN 5 MG TAB (ELIQUIS) PO SCH (09:12)
[2024-09-02] MEDS: LEVEMIR (INSULIN DETEMIR) 1 UNITS/0.01ML SC SCH (09:13)
[2024-09-02] MEDS: FUROSEMIDE 40MG/4ML VIAL IV ONE (10:35)
[2024-09-02 11:50] VITALS: BP 124/80; TEMP 97.4; O2SAT 95
[2024-09-02 15:52] VITALS: BP 138/75; TEMP 97.6; O2SAT 95
[2024-09-02] MEDS: INSULIN LISPRO (NovoLOG) PER UNIT SQ SCH (18:16)
[2024-09-02 20:08] VITALS: BP 128/64; TEMP 97.6; O2SAT 93
[2024-09-02] MEDS: guaiFENesin ER TABLET 600 MG TAB PO SCH (20:36)
[2024-09-02 23:38] VITALS: BP 134/68; TEMP 97.3; O2SAT 96
[2024-09-03 02:46] VITALS: BP_SYST 150; BP_DIAS 50; BP_DIAS 68; O2SAT 93
[2024-09-03 03:45] VITALS: BP 177/80; TEMP 97.1; O2SAT 97
[2024-09-03 05:20] VITALS: BP 164/83
[2024-09-03 05:56] LABS: BASO % 0.1 % (0.0-1.0); HEMATOCRIT 45.4 % (36.0-47.0); HEMOGLOBIN 14.2 g/dl (12.0-15.5); LYMPH # 1.2 10^3/uL (1.5-5.0); LYMPH % 8.1 % (24.0-44.0); MEAN CORPUSCULAR HEMOGLOBIN 26.2 pg (27.0-33.0); MEAN CORPUSCULAR HGB CONC 31.3 g/dl (32.0-36.5); MEAN CORPUSCULAR VOLUME 83.6 fl (80.0-96.0); MONO # 0.8 10^3/uL (0.0-0.8); MONO % 5.3 % (2.0-8.0); NEUTROPHILS # 13.2 10^3/uL (1.5-8.5); PLATELET COUNT, AUTOMATED 145 10^3/uL (150-450); RED BLOOD COUNT 5.43 10^6/uL (4.00-5.40); WHITE BLOOD COUNT 15.4 10^3/uL (4.0-10.0)
[2024-09-03 06:09] LABS: BLOOD UREA NITROGEN 37 MG/DL (9-23); CALCIUM LEVEL 9.3 MG/DL (8.3-10.6); CARBON DIOXIDE LEVEL 24 MMOL/L (20-31); CHLORIDE LEVEL 105 MMOL/L (98-107); CREATININE FOR GFR 0.83 MG/DL (0.55-1.30); GLOMERULAR FILTRATION RATE > 60.0 (>39); GLUCOSE, FASTING 269 MG/DL (74-106); MAGNESIUM LEVEL 1.7 MG/DL (1.8-2.4); POTASSIUM SERUM 3.4 MMOL/L (3.5-5.1); SODIUM LEVEL 139 MMOL/L (136-145)
[2024-09-03 07:47] LABS: PROCALCITONIN 0.05 ng/ml
[2024-09-03 08:11] VITALS: BP 134/63; TEMP 98.2; O2SAT 92
[2024-09-03] MEDS: POTASSIUM CHLORIDE 10MEQ SR TABLET PO ONE (08:38)
[2024-09-03] MEDS: MAG SULF 1GM/100ML (MAG RUN) 1 GM in IV 1 EA IV SCH (08:50)
[2024-09-03] MEDS ORDERED: PRED20TA PO (10:06)
[2024-09-03] MEDS ORDERED: DILT240C41 PO (10:06)
[2024-09-03] MEDS ORDERED: LEVO150T7 PO ×2 (10:06→10:49)
[2024-09-03] MEDS ORDERED: MUCI600T31 PO (10:06)
[2024-09-03 10:07] VITALS: BP 134/63
[2024-09-03] MEDS: dilTIAZem 120MG **CD** CAPSULE PO SCH (10:07)
[2024-09-03] MEDS ORDERED: PEN-308 SC (10:13)
[2024-09-03] MEDS ORDERED: LANTINJ4 SC (10:13)
[2024-09-03] MEDS: FLUBLOK(EGGFREE) TRIVAL(24-25) VACCINE PF 0.5ML SYRINGE 18YRS & OLDER IM.IMMUN ONE (12:00)
== END 2024-09-03 13:58 | disposition home health service (06) | DRG 309 ==
LOC: EDBD 12:36 → M ED 12:36 → M ED INP 18:15 → M PCU 20:59
PROVIDERS: ADMIT Internal Medicine; ATTEND Internal Medicine
DX: I48.92 Unspecified atrial flutter (principal); J44.1 Chronic obstructive pulmonary disease with (acute) exacerbation; I50.32 Chronic diastolic (congestive) heart failure; I47.19 Other supraventricular tachycardia; I11.0 Hypertensive heart disease with heart failure; E03.9 Hypothyroidism, unspecified; F32.A Depression, unspecified; E11.42 Type 2 diabetes mellitus with diabetic polyneuropathy; G25.81 Restless legs syndrome; I25.10 Atherosclerotic heart disease of native coronary artery without angina pectoris; E78.5 Hyperlipidemia, unspecified; F41.9 Anxiety disorder, unspecified; G47.33 Obstructive sleep apnea (adult) (pediatric); K21.9 Gastro-esophageal reflux disease without esophagitis; Z95.0 Presence of cardiac pacemaker; E66.9 Obesity, unspecified; I48.0 Paroxysmal atrial fibrillation; Z86.73 Personal history of transient ischemic attack (TIA), and cerebral infarction without residual deficits; Z79.4 Long term (current) use of insulin; B97.89 Other viral agents as the cause of diseases classified elsewhere; Z88.8 Allergy status to other drugs, medicaments and biological substances; Z79.899 Other long term (current) drug therapy; Z98.41 Cataract extraction status, right eye; Z98.42 Cataract extraction status, left eye; B97.10 Unspecified enterovirus as the cause of diseases classified elsewhere

== ENCOUNTER → 2024-09-08 | Outpatient (REF) | payer MEDICARE, MEDICAID ==
[~2024-09-08] MED LIST changes: +D3 H2000 PO; +DILT240C41 PO; +DULA4.5P SQ; +ELIQ5TAB PO; +LANTINJ4 SC; +LEVO150T7 PO; +MUCI600T31 PO; +ODOR1CAP2 PO; +PEN-308 SC; +SYNT300T2 PO
== END ==
LOC: M SFHCPLAZ 13:23
PROVIDERS: ATTEND Nurse Practitioner Adult Health
DX: R05.8 Other specified cough (principal)

== ENCOUNTER 2024-09-20 13:38 | Emergency (ER) | payer MEDICAID, MEDICARE ==
[~2024-09-20] VITALS: Ht 142.2 cm; Wt 78.2 kg
[2024-09-20 17:49] LABS: BASO % 0.3 % (0.0-1.0); EOS # 0.1 10^3/uL (0.0-0.5); EOS % 1.1 % (0.0-3.0); HEMATOCRIT 46.2 % (36.0-47.0); HEMOGLOBIN 14.6 g/dl (12.0-15.5); LYMPH # 2.2 10^3/uL (1.5-5.0); LYMPH % 20.2 % (24.0-44.0); MEAN CORPUSCULAR HEMOGLOBIN 26.4 pg (27.0-33.0); MEAN CORPUSCULAR HGB CONC 31.6 g/dl (32.0-36.5); MEAN CORPUSCULAR VOLUME 83.7 fl (80.0-96.0); MONO # 0.6 10^3/uL (0.0-0.8); MONO % 5.2 % (2.0-8.0); NEUTROPHILS # 7.8 10^3/uL (1.5-8.5); NEUTROPHILS % 72.8 % (36.0-66.0); PLATELET COUNT, AUTOMATED 161 10^3/uL (150-450); RED BLOOD COUNT 5.52 10^6/uL (4.00-5.40); WHITE BLOOD COUNT 10.7 10^3/uL (4.0-10.0)
[2024-09-20 18:14] LABS: BLOOD UREA NITROGEN 21 MG/DL (9-23); CALCIUM LEVEL 8.9 MG/DL (8.3-10.6); CARBON DIOXIDE LEVEL 30 MMOL/L (20-31); CHLORIDE LEVEL 107 MMOL/L (98-107); CREATININE FOR GFR 0.76 MG/DL (0.55-1.30); GLOMERULAR FILTRATION RATE > 60.0 (>39); GLUCOSE, FASTING 169 MG/DL (74-106); POTASSIUM SERUM 4.3 MMOL/L (3.5-5.1); SODIUM LEVEL 140 MMOL/L (136-145)
[2024-09-20 20:00] VITALS: BP 156/87; TEMP 97.8; O2SAT 93
== END 2024-09-20 20:36 | disposition home or self-care (01) ==
LOC: M ED 13:38
DX: R19.7 Diarrhea, unspecified (principal); E11.9 Type 2 diabetes mellitus without complications; I10 Essential (primary) hypertension; G47.30 Sleep apnea, unspecified; K21.9 Gastro-esophageal reflux disease without esophagitis; Z79.01 Long term (current) use of anticoagulants; Z79.52 Long term (current) use of systemic steroids; Z79.899 Other long term (current) drug therapy; Z86.73 Personal history of transient ischemic attack (TIA), and cerebral infarction without residual deficits

== ENCOUNTER 2024-10-01 09:44 | Emergency (ER) | payer MEDICARE ==
[~2024-10-01] VITALS: Ht 142.2 cm; Wt 83.9 kg
[2024-10-01 10:18] LABS: BASO # 0.1 10^3/uL (0.0-0.2); BASO % 0.6 % (0.0-1.0); EOS # 0.1 10^3/uL (0.0-0.5); EOS % 1.4 % (0.0-3.0); HEMATOCRIT 44.5 % (36.0-47.0); HEMOGLOBIN 14.1 g/dl (12.0-15.5); LYMPH # 1.8 10^3/uL (1.5-5.0); LYMPH % 21.7 % (24.0-44.0); MEAN CORPUSCULAR HEMOGLOBIN 26.3 pg (27.0-33.0); MEAN CORPUSCULAR HGB CONC 31.7 g/dl (32.0-36.5); MONO # 0.5 10^3/uL (0.0-0.8); MONO % 6.5 % (2.0-8.0); NEUTROPHILS # 5.6 10^3/uL (1.5-8.5); NEUTROPHILS % 69.4 % (36.0-66.0); PLATELET COUNT, AUTOMATED 191 10^3/uL (150-450); RED BLOOD COUNT 5.36 10^6/uL (4.00-5.40); WHITE BLOOD COUNT 8.1 10^3/uL (4.0-10.0)
[2024-10-01 10:51] LABS: BLOOD UREA NITROGEN 13 MG/DL (9-23); CALCIUM LEVEL 9.2 MG/DL (8.3-10.6); CARBON DIOXIDE LEVEL 29 MMOL/L (20-31); CHLORIDE LEVEL 105 MMOL/L (98-107); CREATININE FOR GFR 0.75 MG/DL (0.55-1.30); GLOMERULAR FILTRATION RATE > 60.0 (>39); GLUCOSE, FASTING 102 MG/DL (74-106); POTASSIUM SERUM 3.5 MMOL/L (3.5-5.1); SODIUM LEVEL 141 MMOL/L (136-145)
[2024-10-01] MEDS ORDERED: DOXY100C82 PO (11:01)
[2024-10-01 11:54] VITALS: BP 156/80; TEMP 98
[2024-10-01 12:00] VITALS: O2SAT 86
== END 2024-10-01 11:55 | disposition home or self-care (01) ==
LOC: EDBD 09:44 → M ED 09:44
DX: L03.115 Cellulitis of right lower limb (principal); E78.5 Hyperlipidemia, unspecified; J44.9 Chronic obstructive pulmonary disease, unspecified; G47.33 Obstructive sleep apnea (adult) (pediatric); E03.9 Hypothyroidism, unspecified; E11.9 Type 2 diabetes mellitus without complications; Z86.79 Personal history of other diseases of the circulatory system; Z86.73 Personal history of transient ischemic attack (TIA), and cerebral infarction without residual deficits; Z88.1 Allergy status to other antibiotic agents; Z88.8 Allergy status to other drugs, medicaments and biological substances; Z79.01 Long term (current) use of anticoagulants; Z79.52 Long term (current) use of systemic steroids; Z79.4 Long term (current) use of insulin; Z79.899 Other long term (current) drug therapy; Z79.2 Long term (current) use of antibiotics

== ENCOUNTER → 2024-12-01 | Outpatient (REF) | payer MEDICARE, MEDICAID ==
[~2024-12-01] MED LIST changes: +DOXY100C82 PO
[2024-12-01 19:15] LABS: HEMATOCRIT 48.9 % (36.0-47.0); HEMOGLOBIN 15.1 g/dl (12.0-15.5); MEAN CORPUSCULAR HEMOGLOBIN 27.5 pg (27.0-33.0); MEAN CORPUSCULAR HGB CONC 30.9 g/dl (32.0-36.5); MEAN CORPUSCULAR VOLUME 88.9 fl (80.0-96.0); PLATELET COUNT, AUTOMATED 191 10^3/uL (150-450); WHITE BLOOD COUNT 11.8 10^3/uL (4.0-10.0)
[2024-12-01 19:22] LABS: ALBUMIN 3.4 G/DL (3.2-5.2); ALKALINE PHOSPHATASE 131 U/L (35-104); ALT/SGPT 26 U/L (7.0-40); AST/SGOT 33 U/L (<34); BLOOD UREA NITROGEN 28 MG/DL (9-23); CALCIUM LEVEL 9.1 MG/DL (8.3-10.6); CARBON DIOXIDE LEVEL 25 MMOL/L (20-31); CHLORIDE LEVEL 105 MMOL/L (98-107); CREATININE FOR GFR 0.86 MG/DL (0.55-1.30); GLOMERULAR FILTRATION RATE > 60.0 (>39); GLUCOSE, FASTING 90 MG/DL (74-106); POTASSIUM SERUM 4.6 MMOL/L (3.5-5.1); SODIUM LEVEL 142 MMOL/L (136-145); TOTAL PROTEIN 7.3 G/DL (5.7-8.2)
[2024-12-01 19:29] LABS: FREE T4 1.71 NG/DL (0.89-1.76)
[2024-12-01 19:49] LABS: HEMOGLOBIN A1c 7.4 % (4.0-6.0)
== END ==
LOC: M PLALAB 17:28
PROVIDERS: ATTEND Nurse Practitioner Adult Health
DX: E11.65 Type 2 diabetes mellitus with hyperglycemia (principal); I50.32 Chronic diastolic (congestive) heart failure; E03.9 Hypothyroidism, unspecified

== ENCOUNTER → 2025-02-24 | Outpatient (CLI) | payer MEDICARE, MEDICAID ==
[~2025-02-24] MED LIST changes: +DOXY-442 PO; -DOXY100C82 PO; +GLIP-320 PO; -GLIP10TA18 PO
[2025-02-24 19:06] LABS: BASO # 0.1 10^3/uL (0.0-0.2); BASO % 0.8 % (0.0-1.0); EOS # 0.1 10^3/uL (0.0-0.5); EOS % 1.1 % (0.0-3.0); HEMATOCRIT 54.3 % (36.0-47.0); HEMOGLOBIN 17.3 g/dl (12.0-15.5); LYMPH # 2.6 10^3/uL (1.5-5.0); LYMPH % 21.8 % (24.0-44.0); MEAN CORPUSCULAR HEMOGLOBIN 27.4 pg (27.0-33.0); MEAN CORPUSCULAR HGB CONC 31.9 g/dl (32.0-36.5); MEAN CORPUSCULAR VOLUME 86.1 fl (80.0-96.0); MONO # 0.6 10^3/uL (0.0-0.8); NEUTROPHILS # 8.5 10^3/uL (1.5-8.5); NEUTROPHILS % 70.8 % (36.0-66.0); PLATELET COUNT, AUTOMATED 166 10^3/uL (150-450); RED BLOOD COUNT 6.31 10^6/uL (4.00-5.40)
[2025-02-24 19:42] LABS: ALBUMIN 3.7 G/DL (3.2-5.2); ALKALINE PHOSPHATASE 160 U/L (35-104); ALT/SGPT 38 U/L (7.0-40); AST/SGOT 30 U/L (<34); BILIRUBIN,TOTAL 2.1 MG/DL (0.3-1.2); BLOOD UREA NITROGEN 21 MG/DL (9-23); CALCIUM LEVEL 9.7 MG/DL (8.3-10.6); CARBON DIOXIDE LEVEL 29 MMOL/L (20-31); CHLORIDE LEVEL 102 MMOL/L (98-107); CREATININE FOR GFR 0.75 MG/DL (0.55-1.30); GLOMERULAR FILTRATION RATE 80.9 (>39); GLUCOSE, FASTING 279 MG/DL (74-106); POTASSIUM SERUM 4.5 MMOL/L (3.5-5.1); SODIUM LEVEL 141 MMOL/L (136-145); TOTAL PROTEIN 7.5 G/DL (5.7-8.2)
[2025-02-24 19:48] LABS: PROCALCITONIN <0.04 ng/ml
== END ==
LOC: M PLAIMG 17:04
DX: I27.20 Pulmonary hypertension, unspecified (principal); J44.1 Chronic obstructive pulmonary disease with (acute) exacerbation

== ENCOUNTER → 2025-04-26 | Outpatient (CLI) | payer MEDICAID, MEDICARE ==
[~2025-04-26] MED LIST changes: +PRAV10TA PO; -PRAV10TA4 PO
[2025-04-26 15:50] LABS: PLATELET COUNT, AUTOMATED 158 10^3/uL (150-450)
[2025-04-26 16:19] LABS: CREATININE, URINE 60.4 MG/DL; MALB URINE SIEMENS 160.0 MG/L; MAU/CREAT RATIO 264.9 MCG/MG (0.0-30.0)
[2025-04-26 16:24] LABS: ALT/SGPT 20.0 U/L (7.0-40); AST/SGOT 27.0 U/L (<34); CALCIUM LEVEL 9.1 MG/DL (8.3-10.6); CARBON DIOXIDE LEVEL 27.0 MMOL/L (20-31); CHLORIDE LEVEL 104.0 MMOL/L (98-107); CHOLESTEROL LEVEL 133.0 MG/DL (<200); CHOLESTEROL RISK RATIO 2.4 (<5); CREATININE FOR GFR 0.81 MG/DL (0.55-1.30); FREE T4 1.55 NG/DL (0.89-1.76); GLOMERULAR FILTRATION RATE 73.8 (>39); LDL CHOLESTEROL 64.0 MG/DL (<100); MAGNESIUM LEVEL 1.7 MG/DL (1.8-2.4); NON-HDL-C 77.6 MG/DL; POTASSIUM SERUM 4.3 MMOL/L (3.5-5.1); SODIUM LEVEL 145.0 MMOL/L (136-145); TRIGLYCERIDES LEVEL 68.0 MG/DL (<150)
[2025-04-26 16:47] LABS: ESTIMATED AVERAGE GLUCOSE 226.0 MG/DL (60-110)
== END ==
LOC: M PLAIMG 11:42
PROVIDERS: ATTEND Nurse Practitioner Adult Health
DX: R93.89 Abnormal findings on diagnostic imaging of other specified body structures (principal); T81.509A Unspecified complication of foreign body accidentally left in body following unspecified procedure, initial encounter; M54.50 Low back pain, unspecified; I50.32 Chronic diastolic (congestive) heart failure; J44.1 Chronic obstructive pulmonary disease with (acute) exacerbation; E03.9 Hypothyroidism, unspecified; E11.65 Type 2 diabetes mellitus with hyperglycemia; E78.2 Mixed hyperlipidemia

== ENCOUNTER → 2025-10-07 | Outpatient (CLI) | payer MEDICARE ==
[~2025-10-07] MED LIST changes: -IBUP-1022 PO; +IBUP600T42 PO
[2025-10-07 15:46] LABS: BASO # 0.1 10^3/uL (0.0-0.2); BASO % 0.8 % (0.0-1.0); EOS # 0.2 10^3/uL (0.0-0.5); EOS % 1.8 % (0.0-3.0); LYMPH # 2.2 10^3/uL (1.5-5.0); LYMPH % 20.4 % (24.0-44.0); MONO # 0.7 10^3/uL (0.0-0.8); MONO % 6.1 % (2.0-8.0); NEUTROPHILS # 7.6 10^3/uL (1.5-8.5); NEUTROPHILS % 70.5 % (36.0-66.0); PLATELET COUNT, AUTOMATED 169 10^3/uL (150-450)
[2025-10-07 15:52] LABS: CALCIUM LEVEL 9.4 MG/DL (8.3-10.6); CARBON DIOXIDE LEVEL 29.0 MMOL/L (20-31); CHLORIDE LEVEL 103.0 MMOL/L (98-107); CREATININE FOR GFR 0.72 MG/DL (0.55-1.30); GLOMERULAR FILTRATION RATE 85.0 (>39); POTASSIUM SERUM 4.5 MMOL/L (3.5-5.1); SODIUM LEVEL 140.0 MMOL/L (136-145)
[2025-10-07 15:55] LABS: TOTAL 25(OH) VITAMIN D 53.9 NG/ML (20.0-100.0); VITAMIN B12 LEVEL 518.0 PG/ML (211-911)
[2025-10-07 16:01] LABS: ESTIMATED AVERAGE GLUCOSE 154.0 MG/DL (60-110)
== END ==
LOC: M PLAIMG 13:00
PROVIDERS: ATTEND Student in an Organized Health Care Education/Training Program
DX: K92.1 Melena (principal); E11.65 Type 2 diabetes mellitus with hyperglycemia; I10 Essential (primary) hypertension; Z79.899 Other long term (current) drug therapy

== ENCOUNTER → 2025-10-07 | Outpatient (CLI) | payer MEDICARE | LOC: M CLY 12:33 | PROVIDERS: ATTEND Student in an Organized Health Care Education/Training Program | DX: K92.1 Melena (principal) ==

== ENCOUNTER → 2025-10-09 | Outpatient (REF) | payer MEDICARE | LOC: M SFHCPLAZ 14:54 | PROVIDERS: ATTEND Student in an Organized Health Care Education/Training Program | DX: K92.1 Melena (principal) ==